=== PATIENT | male | born 1960 | race Caucasian/White ===

== ENCOUNTER 2016-11-20 11:16 | Emergency (ER) | payer SELFPAY ==
[~2016-11-20] VITALS: Ht 180.3 cm; Wt 83.0 kg
[~2016-11-20 11:16] MED LIST: BACT800T5 PO; GABA300 PO; GLUCTAB PO
[2016-11-20 11:17] VITALS: BP 133/75; PULSE 96; RESP 20; TEMP 97.8; O2SAT 98
--- NOTE | 2016-11-20 11:46 | PD ---
HPI . laceration to dorsum of hand since yesterday Chief Complaint: Laceration/Skin Injury Time Seen by Provider: 11:35 Travel History International Travel<30 days: No Contact w/Intl Traveler<30days: No Traveled to known affect area: No History of Present Illness HPI 56-year-old male here with complaints of a small laceration to the dorsum of his right hand that he sustained yesterday while cutting some tile. Patient tells me that he sustained a laceration and tried to clean it at home with peroxide. He says that he thought it would heal up, but realized that it was a little bit deep and he should come into the emergency department for evaluation. Patient denies any pain in this area. He has full range of motion of all of his digits. He is up-to-date on his tetanus vaccine. PFSH Past Medical History Cancer: No Cardiovascular Problems: No Diabetes: Yes (metformin) Endocrine: Yes Genitourinary: No Immune Disorder: No Musculoskeletal: No Neurologic: No Reproductive: No Respiratory: No Past Surgical History Abdominal Surgery: No Cardiac Surgery: No Endocrine Surgery: No Eye Surgery: Yes (BILATERAL CATARACT) Genitourinary Surgery: No Gynecologic Surgery: No Joint Replacement: Yes (TOTAL RT KNEE AND RT HIP ARTHROPLASTY) Thoracic Surgery: No Social History Alcohol Use: No Tobacco Use: Yes Substance Use: No Allergies-Medications (Allergen,Severity, Reaction): Coded Allergies: Iodine (Verified Allergy, Unknown, 11/20/16) *MDRO Multi-Drug Resistant Organism (Verified Adverse Reaction, Unknown, ) 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 Review of Systems General / Constitutional: No: Fever Eyes: No: Visual changes HENT: No: Headaches Cardiovascular: No: Chest Pain or Discomfort Respiratory: No: Shortness of Breath Gastrointestinal: No: Abdominal Pain Genitourinary: No: Dysuria Musculoskeletal: No: Pain Skin: Positive Other (laceration to dorsum of right hand), No Rash Neurologic: No: Weakness Psychiatric: No: Depression Endocrine: No: Polydipsia Hematologic/Lymphatic: No: Easy Bruising Physical Exam Narrative GENERAL: AAO x 3, no acute distress, Well-nourished, well-developed patient. SKIN: Warm and dry. No visible rashes or bruising. small laceration 1 cm to the dorsum of the right hand, clean without evidence of fb HEAD: Normocephalic and atraumatic. EYES: No scleral icterus. No injection or drainage. ENT: No nasal drainage noted. Airway patent. NECK: Supple, trachea midline. No JVD. CARDIOVASCULAR: Regular rate and rhythm without murmurs, gallops, or rubs. RESPIRATORY: Breath sounds equal bilaterally. No accessory muscle use. No rhonchi or rales. GASTROINTESTINAL: Abdomen soft, non-tender, nondistended. EXTREMITIES: No cyanosis or edema. full rom of right hand. 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 No CVA tenderness. PSYCH: AAO x 3, normal affect. Data Data Last Documented VS Vital Signs Date Time Temp Pulse Resp B/P Pulse Ox O2 Delivery O2 Flow Rate FiO2 11/20/16 11:17 97.8 96 20 133/75 98 Room Air MDM Medical Decision Making Medical Screen Exam Complete: Yes Emergency Medical Condition: Yes Medical Record Reviewed: Yes Differential Diagnosis hand laceration, less likely tendon injury, less likely fracture Narrative Course This is a 56-year-old male presenting with a small 1 cm laceration to the dorsum of his right hand. Area was inspected and is amenable to repair with Dermabond and Steri-Strips. It is a fairly superficial laceration. Patient consented to repair and tolerated it well without incident. We discussed keeping this area clean and free of dirt/debris. I advised him to refrain from moisture to the area. I explained the Steri-Strips will fall off by themselves. Patient verbalized understanding of instructions, questions were answered, and thanked me for their care. I advised them if their condition worsens, please return to the nearest emergency room for further care. Procedures Procedure Narrative LACERATION LOCATION: Right hand dorsum between the thumb and index finger LENGTH: 1 cm NUMBER OF STITCHES/SOHAN: Dermabond and Steri-Strips REPAIR: The area of the laceration was prepped with Betadine and sterilely draped. The wound was copiously irrigated and explored without evidence of foreign body, tendon injury or neurovascular injury. The wound was closed using Dermabond and Steri-Strips. This was a single layer repair. A sterile dressing was applied. The patient was advised to keep the dressing clean and dry. Patient tolerated the procedure well. Diagnosis Primary Impression: Hand laceration Qualified Code: S61.411A - Laceration of right hand without foreign body, initial encounter Patient Instructions: General Instructions Additional Instructions: Try to keep the area that was repaired free from moisture and clean. [place] for worsening signs of infection which include fever, increased redness , increased warmth, purulent drainage, increased swelling or streaking. If any of these develop, please go to the nearest emergency room. The Steri-Strips will fall off by themselves. Med/Other Pt SpecificInfo: No Change to Meds Disposition: 01 DISCHARGE HOME Condition: Stable Nancy Barksdale November 20, 2016 11:46
== END 2016-11-20 11:50 | disposition home or self-care (01) ==
LOC: NEPK 11:16
DX: S61.411A Laceration without foreign body of right hand, initial encounter (principal); W45.8XXA Other foreign body or object entering through skin, initial encounter; Y93.89 Activity, other specified
CPT/HCPCS: 12001

== ENCOUNTER 2016-12-23 17:54 | Emergency (ER) | payer SELFPAY ==
[~2016-12-23] VITALS: Ht 180.3 cm; Wt 84.0 kg
[2016-12-23 17:55] VITALS: BP 125/78; PULSE 93; RESP 18; TEMP 98.4; O2SAT 99
--- NOTE | 2016-12-23 18:22 | PD ---
HPI . elevated blood sugar Chief Complaint: Diabetic Time Seen by Provider: 18:22 Travel History International Travel<30 days: No Contact w/Intl Traveler<30days: No Traveled to known affect area: No History of Present Illness HPI 56-year-old male with history of diabetes here with complaints of elevated blood sugar. Patient tells me that he checked his blood sugar and it was over 600. He says that at that time he had some slight dizziness. He decided to come to the emergency department for evaluation. Upon further questioning patient reports that he's been out of his insulin for over one week. He tells me that he does not get paid until Tuesday and was unable to get the prescription filled. He reports taking Novolin 70/30 15 units in the morning and 25 units at bedtime. He is a patient of [facility] and tells me that he needs to make an appointment for follow-up. At this present time here in the emergency room he denies any dizziness. He has no other complaints. PFSH Past Medical History Cancer: No Cardiovascular Problems: No Diabetes: Yes (TYPE 2; TAKES HUMALOG) Endocrine: Yes Genitourinary: No Immune Disorder: No Musculoskeletal: No Neurologic: No Reproductive: No Respiratory: No ?: Not Past Surgical History Abdominal Surgery: No Cardiac Surgery: No Endocrine Surgery: No Eye Surgery: Yes (BILATERAL CATARACT) Genitourinary Surgery: No Gynecologic Surgery: No Joint Replacement: Yes (TOTAL RT KNEE AND RT HIP ARTHROPLASTY) Thoracic Surgery: No Social History Alcohol Use: No Tobacco Use: Yes Substance Use: No Allergies-Medications (Allergen,Severity, Reaction): Coded Allergies: Iodine (Verified Allergy, Unknown, 12/23/16) *MDRO Multi-Drug Resistant Organism (Verified Adverse Reaction, Unknown, ) 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; 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 Reported Meds & Prescriptions Reported Meds & Active Scripts Active Novolin 70-30 Inj (Insulin Human Isoph/Insulin Regular) 1,000 Unit/10 Ml Vial 1 Units SQ DIRECTED 30 Days 15 units q am and 25 units q pm Reported Humulin N Inj (Insulin Human NPH) 1,000 Unit/10 Ml Vial 1 Units SQ Review of Systems General / Constitutional: No: Fever Eyes: No: Visual changes HENT: No: Headaches Cardiovascular: No: Chest Pain or Discomfort Respiratory: No: Shortness of Breath Gastrointestinal: No: Abdominal Pain Genitourinary: No: Dysuria Musculoskeletal: No: Pain Skin: No Rash Neurologic: Positive: Dizziness, No: Weakness Psychiatric: No: Depression Endocrine: No: Polydipsia Hematologic/Lymphatic: No: Easy Bruising Physical Exam Narrative GENERAL: AAO x 3, no acute distress, Well-nourished, well-developed patient. SKIN: Warm and dry. No visible rashes or bruising. HEAD: Normocephalic and atraumatic. EYES: No scleral icterus. No injection or drainage. EOM intact, PERRLA ENT: No nasal drainage noted. Mucous membranes pink. Airway patent. Moist mucous membranes. NECK: Supple, trachea midline. No JVD. CARDIOVASCULAR: Regular rate and rhythm without murmurs, gallops, or rubs. RESPIRATORY: Breath sounds equal bilaterally. No accessory muscle use. No rhonchi or rales. GASTROINTESTINAL: Abdomen soft, non-tender, nondistended. EXTREMITIES: No cyanosis or edema. BACK: Nontender without obvious deformity. No CVA tenderness. 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 Data Data Last Documented VS Vital Signs Date Time Temp Pulse Resp B/P Pulse Ox O2 Delivery O2 Flow Rate FiO2 12/23/16 19:23 73 16 131/75 95 Room Air 12/23/16 17:55 98.4 Orders Forest Manager / Telemetry [email or web address] (12/23/16 18:25) ^ Insert Iv (12/23/16 18:25) Diet Npo (12/23/16 Dinner) Complete Blood Count With Diff (12/23/16 18:25) Comprehensive Metabolic Panel (12/23/16 18:25) Phosphorus (Po4) (12/23/16 18:25) Beta Hydroxybutyrate (Acetone) (12/23/16 18:25) Blood Glucose (12/23/16 18:25) Sodium Chlor 0.9% 1000 Ml Inj (Ns 1000 M (12/23/16 18:45) Orthostatic Vital Signs (12/23/16 18:54) Arterial Blood Gas (Abg) (12/23/16 18:53) ^ Other Nursing Orders (6/22/17 20:37) Labs Laboratory Tests Test 12/23/16 12/23/16 18:45 19:05 White Blood Count 11.0 TH/MM3 Red Blood Count 5.14 MIL/MM3 Hemoglobin 15.0 GM/DL Hematocrit 45.1 % Mean Corpuscular Volume 87.8 FL Mean Corpuscular Hemoglobin 29.2 PG Mean Corpuscular Hemoglobin 33.3 % Concent Red Cell Distribution Width 13.8 % Platelet Count 160 TH/MM3 Mean Platelet Volume 10.4 FL Neutrophils (%) (Auto) 54.1 % Lymphocytes (%) (Auto) 32.8 % Monocytes (%) (Auto) 10.0 % Eosinophils (%) (Auto) 2.6 % Basophils (%) (Auto) 0.5 % Neutrophils # (Auto) 6.0 TH/MM3 Lymphocytes # (Auto) 3.6 TH/MM3 Monocytes # (Auto) 1.1 TH/MM3 Eosinophils # (Auto) 0.3 TH/MM3 Basophils # (Auto) 0.1 TH/MM3 CBC Comment DIFF FINAL Differential Comment Sodium Level 142 MEQ/L Potassium Level 4.5 MEQ/L Chloride Level 108 MEQ/L Carbon Dioxide Level 26.1 MEQ/L Anion Gap 8 MEQ/L Blood Urea Nitrogen 14 MG/DL Creatinine 1.05 MG/DL Estimat Glomerular Filtration 74 ML/MIN Rate Random Glucose 135 MG/DL Calcium Level 9.3 MG/DL Phosphorus Level 3.4 MG/DL Total Bilirubin 0.3 MG/DL Aspartate Amino Transf 23 U/L (AST/SGOT) Alanine Aminotransferase 20 U/L (ALT/SGPT) Alkaline Phosphatase 88 U/L Total Protein 7.5 GM/DL Albumin 3.7 GM/DL B-Hydroxybutyrate 0.08 MMOL/L Blood Gas Puncture Site LT RADIAL Blood Gas Patient Temperature 98.6 Blood Gas HCO3 25 mmol/L Blood Gas Base Excess 1.0 mmol/L Blood Gas Oxygen Saturation 89 % Arterial Blood pH 7.45 Arterial Blood Partial 36 mmHg Pressure CO2 Arterial Blood Partial 68 mmHG Pressure O2 Arterial Blood Oxygen Content 17.7 Vol % Arterial Blood 5.1 % Carboxyhemoglobin Arterial Blood Methemoglobin 0.8 % Blood Gas Hemoglobin 14.2 G/DL Oxygen Delivery Device Blood Gas Inspired Oxygen 21 % MDM Medical Decision Making Medical Screen Exam Complete: Yes Emergency Medical Condition: Yes Medical Record Reviewed: Yes Differential Diagnosis uncontrolled DM, medication non compliance, DKA, Narrative Course 56-year-old male here with complaints of elevated blood sugar. Blood sugar here in the emergency department 130. Labs have been ordered. Patient has no evidence of DKA or gross electrolyte abnormalities.. He did report some dizziness. Orthostatic vitals were negative. 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 He reports dizziness only when standing very abruptly. I also assessed patient and his gait was steady. Case discussed with Dr. Doyle who agreed with the treatment plan. Patient verbalized understanding of instructions, questions were answered, and thanked me for their care. I advised them if their condition worsens, please return to the nearest emergency room for further care. Diagnosis Primary Impression: Type 2 diabetes mellitus Qualified Code: E11.9 - Type 2 diabetes mellitus without complication, with long-term current use of insulin Referrals: [facility] Patient Instructions: General Instructions Additional Instructions: Please return to emergency department if your symptoms return or worsen. Follow up with your primary care provider. Take medications as prescribed. Please take your insulin as prescribed. Med/Other Pt SpecificInfo: Prescription(s) given Scripts Insulin Human Isophane-Regular 70-30 Inj (Novolin 70-30 Inj)1,000 Unit/10 Ml Vial1 Units SQ DIRECTED 30 Days Ref 0 15 units q am and 25 units q pm Prov:Rich Miguel MD 12/23/16 Disposition: 01 DISCHARGE HOME Condition: Stable Nancy Barksdale Dec 23, 2016 18:22
[2016-12-23] MEDS ORDERED: INSU100V3 SQ (18:37)
[2016-12-23] MEDS ORDERED: SODIUM CHLOR 0.9% 1000 ML INJ 1,000 ML IV ONE (18:45)
[2016-12-23 19:15] LABS: BASOPHIL # 0.1 TH/MM3 (0-0.2); BASOPHIL % 0.5 % (0.0-2.0); EOSINOPHIL # 0.3 TH/MM3 (0-0.4); EOSINOPHIL % 2.6 % (0.0-4.0); HEMATOCRIT 45.1 % (39.0-51.0); HEMO FLAGS DIFF FINAL; LYMPH % 32.8 % (9.0-44.0); LYMPHOCYTE # 3.6 TH/MM3 (1.0-4.8); MEAN CELL VOLUME 87.8 FL (80.0-100.0); MEAN CORPUSCULAR HEMOGLOBIN 29.2 PG (27.0-34.0); MEAN CORPUSCULAR HGB CONC 33.3 % (32.0-36.0); NEUT % 54.1 % (16.0-70.0); PLATELET COUNT 160 TH/MM3 (150-450); RED BLOOD COUNT 5.14 MIL/MM3 (4.50-5.90); RED CELL DISTRIBUTION WIDTH 13.8 % (11.6-17.2)
[2016-12-23 19:20] LABS: BLOOD GAS CARBOXYHEMOGLOBIN 5.1 % (0-4); BLOOD GAS HCO3 25 mmol/L (22-26); BLOOD GAS METHEMOGLOBIN 0.8 % (0-2); BLOOD GAS O2 HGB SATURATION 89 % (90-100); BLOOD GAS OXYGEN CONTENT 17.7 Vol % (12.0-20.0); BLOOD GAS PCO2 36 mmHg (38-42); BLOOD GAS PO2 68 mmHG (61-120); BLOOD GAS TOTAL HGB 14.2 G/DL (12.0-16.0); TEMP CORR TO 98.6
[2016-12-23 19:21] VITALS: BP_SYST 123; BP_SYST 125; BP_SYST 131; BP_DIAS 75; BP_DIAS 81; RESP 16
[2016-12-23 19:22] LABS: CRITICAL VALUE YES; DRAW SITE LT RADIAL; FIO2 21 %; NUMBER OF ARTERIAL PUNCTURES 2; STAT YES; ULNAR PULSE PRESENT
[2016-12-23 19:23] VITALS: BP 131/75; PULSE 73; RESP 16; O2SAT 95
[2016-12-23 19:26] LABS: ANION GAP 8 MEQ/L (5-15); AST (GOT) 23 U/L (15-37); BICARBONATE 26.1 MEQ/L (21.0-32.0); BLOOD UREA NITROGEN 14 MG/DL (7-18); CHLORIDE 108 MEQ/L (98-107); GLOMERULAR FILTRATION RATE 74 ML/MIN (>89); POTASSIUM 4.5 MEQ/L (3.5-5.1); SODIUM (NA) 142 MEQ/L (136-145)
[2016-12-23 19:29] LABS: ALKALINE PHOSPHATASE 88 U/L (45-117); ALT (GPT) 20 U/L (12-78); BETA-HYDROXYBUTYRATE 0.08 MMOL/L (0.00-0.39); TOTAL BILIRUBIN ADULT 0.3 MG/DL (0.2-1.0)
[2016-12-23] MEDS ORDERED: NOVO7030P2 SQ (20:19)
== END 2016-12-23 21:03 | disposition home or self-care (01) ==
LOC: NEPC 17:54
DX: E11.65 Type 2 diabetes mellitus with hyperglycemia (principal); R42 Dizziness and giddiness; Z72.0 Tobacco use
CPT/HCPCS: 36600; 80053; 82010; 82805; 84100; 85025; 96360; 99284; J7030

== ENCOUNTER 2018-02-14 22:14 | Inpatient (IN) ==
[2018-02-15] MEDS ORDERED: Sodium Chlor 0.9% Inj 500 ML IV.SIG ONE (03:01)
[2018-02-15] MEDS ORDERED: Vancomycin Inj 1 GM/200 ML PIGGYBACK IV.SIG ONE (03:01)
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
[2018-02-15 03:32] LABS: Baso % (Auto) 0.3 % (0.0-2.0); Eos # (Auto) 0.1 th/mm3 (0.0-0.4); Eos % (Auto) 0.9 % (0.0-4.0); Hematocrit 42.5 % (39.0-51.0); Hemoglobin 14.1 gm/dL (13.0-17.0); Lymph # (Auto) 1.6 th/mm3 (1.0-4.8); Lymph % (Auto) 12.8 % (9.0-44.0); Mean Corpuscular HGB Conc 33.2 % (32.0-36.0); Mean Corpuscular Hemoglobin 30.2 pg (27.0-34.0); Mean Corpuscular Volume 90.9 fL (80.0-100.0); Mean Platelet Volume 9.4 fL (7.0-11.0); Mono # (Auto) 1.4 th/mm3 (0.0-0.9); Neut # (Auto) 9.5 th/mm3 (1.8-7.7); Platelet Count 235 th/mm3 (150-450); Red Blood Count 4.68 mil/mm3 (4.50-5.90); Red Cell Distribution Width 12.9 % (11.6-17.2); White Blood Count 12.7 th/mm3 (4.0-11.0)
[2018-02-15 03:49] LABS: Alanine Aminotransferase 15 U/L (12-78); Anion Gap 7 meq/L (5-15); Aspartate Aminotransferase 11 U/L (15-37); Blood Urea Nitrogen 9 mg/dL (7-18); Carbon Dioxide 29.3 meq/L (21.0-32.0); Chloride 100 meq/L (98-107); Glomerular Filtration Rate 77 mL/min (>89); Glucose,Random 298 mg/dL (74-106); Potassium 4.3 meq/L (3.5-5.1); Sodium 136 meq/L (136-145)
[2018-02-15 03:51] LABS: Alkaline Phosphatase 110 U/L (45-117); Total Protein 7.8 g/dL (6.4-8.2)
[2018-02-15] MEDS ORDERED: Acetaminophen 325 MG Tablet PO PRN (05:12)
[2018-02-15] MEDS ORDERED: Temazepam 15 MG Capsule PO PRN (05:12)
[2018-02-15] MEDS ORDERED: Dextrose 50% in Water 50 ML Vial IV.PUSH PRN (05:16)
[2018-02-15] MEDS ORDERED: Vancomycin Consult Pharmacy 1 EACH OTHER SCH (06:00)
[2018-02-15] MEDS ORDERED: Vancomycin Inj 1,000 MG in Sodium Chlor 0.9% Inj 250 ML IV.SIG ONE (06:00)
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
--- NOTE | 2018-02-15 07:08 | XR ---
EXAM DATE: 02/15/2018 6:52 AM EDT AGE/SEX: 57 years / Male INDICATIONS: Right foot pain with multiple ulcers. CLINICAL DATA: This is the patient's initial encounter. Patient reports that signs and symptoms have been present for 1 week and indicates a pain score of 8/10. MEDICAL/SURGICAL HISTORY: None. None. COMPARISON: No prior exams available for comparison. FINDINGS: There are areas of punctate densities in the soft tissues of the patient's first digit: Early may be calcifications or tiny radiopaque foreign bodies. There is questionable slight erosive changes of the adjacent first distal phalanx questionable for osteomyelitis in the appropriate clinical setting. CONCLUSION: Soft tissue densities as above with questionable osteomyelitis of the first distal phalanx. Electronically signed by: Kristyn Pro MD 02/15/2018 7:07 AM EDT
[2018-02-15] MEDS ORDERED: Enoxaparin Inj 40 MG/0.4 ML Syringe SQ SCH (09:00)
[2018-02-15] MEDS: Insulin NovoLOG Aspart Correctional Sugar Inj SQ SCH ×5 (09:09→21:50)
--- NOTE | 2018-02-15 10:25 | P.PN ---
Subjective Interval history: Follow-up sepsis/right foot cellulitis versus osteomyelitis February 15, 2018-patient seen and examined, currently afebrile and denies any right lower extremity pain. Patient states he is on metformin 5 mg twice a day. Still smokes half a pack. Physical Exam Vital signs: Vital Signs 02/14/18 23:07 02/15/18 02:44 02/15/18 04:00 Temperature 98.5 F Pulse Rate 108 H 84 78 Respiratory Rate 18 12 16 Blood Pressure 120/69 122/92 H 114/66 Pulse Oximetry 97 97 98 02/15/18 07:43 Temperature Pulse Rate 76 Respiratory Rate 16 Blood Pressure 131/75 Pulse Oximetry 98 Intake & Output 02/14/18 02/15/18 02/15/18 18:59 06:59 18:59 Weight 88.451 kg Narrative: GENERAL: NAD SKIN: Warm and dry. HEAD: Atraumatic. Normocephalic. EYES: Pupils equal and round. No scleral icterus. No injection or drainage. ENT: No nasal bleeding or discharge. Mucous membranes pink and moist. NECK: Trachea midline. No JVD. CARDIOVASCULAR: Regular rate and rhythm. RESPIRATORY: No accessory muscle use. Clear to auscultation. Breath sounds equal bilaterally. GASTROINTESTINAL: Abdomen soft, non-tender, nondistended. Hepatic and splenic margins not palpable. MUSCULOSKELETAL: Extremities without clubbing, cyanosis, or edema. No obvious deformities. NEUROLOGICAL: Awake and alert. No obvious cranial nerve deficits. Motor grossly within normal limits. Five out of 5 muscle strength in the arms and legs. Normal speech. PSYCHIATRIC: Appropriate mood and affect; insight and judgment normal. Results - Labs CBC & Chem 7: 02/15/18 02:30 02/15/18 02:30 Laboratory Results - last 24 hr 02/15/18 02/15/18 02/15/18 02:30 02:30 02:45 WBC 12.7 H RBC 4.68 Hgb 14.1 Hct 42.5 MCV 90.9 MCH 30.2 MCHC 33.2 RDW 12.9 Plt Count 235 MPV 9.4 Neut % (Auto) 75.0 H Lymph % (Auto) 12.8 Real % (Auto) 11.0 H Eos % (Auto) 0.9 Baso % (Auto) 0.3 Neut # (Auto) 9.5 H Lymph # (Auto) 1.6 Real # (Auto) 1.4 H Eos # (Auto) 0.1 Baso # (Auto) 0.0 WBC Differential . Differential Comment Auto diff final Sodium 136 Potassium 4.3 Chloride 100 Carbon Dioxide 29.3 Anion Gap 7 BUN 9 Creatinine 1.01 Estimated GFR 77 L POC Glucose Random Glucose 298 H Lactic Acid 1.1 Calcium 9.0 Total Bilirubin 0.5 AST 11 L ALT 15 Alkaline Phosphatase 110 Total Protein 7.8 Albumin 3.0 L 02/15/18 09:05 WBC RBC Hgb Hct MCV MCH MCHC RDW Plt Count MPV Neut % (Auto) Lymph % (Auto) Real % (Auto) Eos % (Auto) Baso % (Auto) Neut # (Auto) Lymph # (Auto) Real # (Auto) Eos # (Auto) Baso # (Auto) WBC Differential Differential Comment Sodium Potassium Chloride Carbon Dioxide Anion Gap BUN Creatinine Estimated GFR POC Glucose 293 H Random Glucose Lactic Acid Calcium Total Bilirubin AST ALT Alkaline Phosphatase Total Protein Albumin - Imaging Impressions Foot X-Ray 02/15/18 00:00 CONCLUSION: Soft tissue densities as above with questionable osteomyelitis of the first distal phalanx. Assessment and Plan - Plan 57-year-old man with Sepsis, Foot ulcer with cellulites, possible necrotic vs gangrene vs fungal with foul smell WBC 12.7, HR 108 -IV antibiotics Vancomycin and doxycycline, however will discontinue doxycycline and start Rocephin IV daily instead -Awaiting for consultation from podiatry for recommendations -Pain management with IV morphine -Consult infectious disease for evaluation -Wound culture ordered, blood cultures pending -Change diet to ADA -Check left foot MRI to rule out osteomyelitis -Check ANNETTA and CTA runoff Tobacco abuse -Tobacco counseling cessation provided -Start nicotine patch Diabetes, chronic -Accu checks with SSI -Diabetic diet Check hemoglobin A1c DVT prophylaxis: SCDs on non affected leg
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
[2018-02-15] MEDS: Collagenase Oint 30 GM Tube TOPICAL SCH (11:43)
--- NOTE | 2018-02-15 12:05 | XR ---
EXAM DATE: 02/15/2018 11:17 AM EDT AGE/SEX: 57 years / Male INDICATIONS: Open sores on medial side of left heel. CLINICAL DATA: This is the patient's initial encounter. Patient reports that signs and symptoms have been present for 4 - 6 days and indicates a pain score of 0/10. MEDICAL/SURGICAL HISTORY: Diabetes. None. COMPARISON: No prior exams available for comparison. FINDINGS: Bony structures are intact and in normal alignment. Osseous density is normal. Soft tissues are unre markable. No radiopaque foreign bodies seen. Bone spurs posterior calcaneus. CONCLUSION: Bone spurs posterior calcaneus at Achilles and plantar fascial insertion sites. Vascular calcificatio ns. No acute bony abnormality. Electronically signed by: Freddy Fowler MD 02/15/2018 12:03 PM EDT
--- NOTE | 2018-02-15 12:15 | P.CONID ---
History of Present Illness Service: Infectious disease Consult date: 02/15/18 Requesting Physician: Bobo Carpenter Reason for Consult: Evaluate patient with cellulitis right lower extremity Primary Care Provider: No Primary Care Physician Family Provider: No Primary Care Physician History of Present Illness: Patient seen and examined. Records reviewed. Patient is a 57-year-old male, with known diabetes, presented to the hospital with 1 day history of pain and redness on his right foot. 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 He had noted some redness on his right foot about 2 days prior to admission, and on the day of admission he noted a sore on his big toe. He does not know how he got it but made some assumption that it was probably from his new boots. He also has some wound develop on his left ankle. He has not had any fever chills or sweats. He denies any GI or any urinary complaints. Since admission he has not been febrile. X-ray of his right foot is showing some some suggestion of possible early osteo-on his big toe. Infectious disease consultation has been requested to assist with evaluation and treatment. Review of Systems Constitutional: Denies chills, Denies fever(s) Eyes: Denies discharge, Denies irritation Ears, Nose, Mouth, and Throat: Denies difficulty swallowing, Denies ear pain, Denies nasal discharge, Denies pain with swallowing, Denies sore throat Cardiovascular: Denies chest pain, Denies shortness of breath Respiratory: Denies chest congestion, Denies cough Gastrointestinal: Denies abdominal pain, Denies loose stools, Denies nausea, Denies pain with swallowing, Denies vomiting Genitourinary: Denies painful urination Musculoskeletal: Denies muscle weakness Skin/Breast: Reports sores, Denies rash PMFSH - History History Provided By: Patient - Medical History Medical History: Medical History (Last Updated 02/14/18 @ 23:09 by Maryann Skinner) Diabetes - Surgical History Surgical History: Surgical History (Last Updated 02/14/18 @ 23:09 by Maryann Skinner) History of eye surgery - Family History Family History: Family History (Last Updated 02/15/18 @ 05:29 by MATT Taylor) Other Diabetes - Tobacco History Second Hand Smoke Exposure: Yes Tobacco Use In Past 30 Days: Yes Smoking Status: Current every day smoker Tobacco Type: Cigarettes - Alcohol History How Often Do You Have a Drink Containing Alcohol: Monthly or less (quit 20 years ago) - Substance Use History Substance History: Past History - Substance Use Type Crack/Cocaine Status: Sustained Remission Route Used: Inhalation Last Used: 20 years - Travel History Recent Travel in the [place] Within the Last 8 Weeks: No Recent Travel Out of the Country Within the Last 8 Weeks: No - Immunization History Tetanus Immunization: <5 Years Hx Influenza Vaccine This Season: No Medications and Allergies Active Medications: Active Medications Acetaminophen (Tylenol) 650 mg PO Q4H PRN PRN Reason: Temp > 100.4 Collagenase (Santyl Oint) 1 applicatio TOPICAL DAILY [facility] Last Admin: 02/15/18 11:43 Dose: 1 applicatio Dextrose (D50w Vial) 50 ml IV.PUSH UNSCH PRN PRN Reason: PER HYPOGLYCEMIA PROTOCOL Glucagon (Glucagon Inj) 1 mg OTHER PRN PRN PRN Reason: for Hypoglycemia Protocol Pharmacy Profile Note (Vancomycin Consult Pharmacy) 0 mls @ 0 mls/hr OTHER UNSCH [facility] Vancomycin HCl 1,750 mg/ (Sodium Chloride) 517.5 mls @ 250 mls/hr IV.SIG Q12H [facility] Ceftriaxone Sodium 1,000 mg/ (Sodium Chloride) 100 mls @ 200 mls/hr IV.SIG Q24H [facility] Last Admin: 02/15/18 11:48 Dose: 200 mls/hr Insulin Aspart (Novolog Insulin Correctional Sugar Inj) 0 unit SQ ACHS [facility]; Protocol Last Admin: 02/15/18 09:09 Dose: 7 unit Miscellaneous Information ([facility] Ordered Lab Info) 0 each OTHER ONCE ONE Stop: 02/17/18 05:46 Morphine Sulfate (Morphine Inj) 2 mg IV.PUSH Q3H PRN PRN Reason: PAIN 1-10 Ondansetron HCl (Zofran Inj) 4 mg IV.PUSH Q6H PRN PRN Reason: NAUSEA OR VOMITING Temazepam (Restoril) 15 mg PO HS PRN PRN Reason: INSOMNIA Allergies Allergy/AdvReac Type Severity Reaction Status Date / Time iodine Allergy Unknown Swelling Verified 02/15/18 03:06 potassium iodide Allergy Unknown Swelling Verified 02/15/18 03:06 povidone-iodine Allergy Unknown Swelling Verified 02/15/18 03:06 sodium iodide Allergy Unknown Swelling Verified 02/15/18 03:06 sodium iodide Allergy Unknown Swelling Verified 02/15/18 03:06 *MDRO Multi-Drug Resistant AdvReac Unknown n/a Uncoded 02/15/18 03:06 Organism Home Medications Medication Instructions Recorded Confirmed Type metformin 500 mg PO BID 02/15/18 02/15/18 History Exam Vital signs: Vital Signs 02/14/18 23:07 02/15/18 02:44 02/15/18 04:00 Temperature 98.5 F Pulse Rate 108 H 84 78 Respiratory Rate 18 12 16 Blood Pressure 120/69 122/92 H 114/66 Pulse Oximetry 97 97 98 02/15/18 07:43 Temperature Pulse Rate 76 Respiratory Rate 16 Blood Pressure 131/75 Pulse Oximetry 98 Intake & Output 02/14/18 02/15/18 02/15/18 18:59 06:59 18:59 Weight 88.451 kg Narrative: Physical Examination GENERAL: Patient is a well-nourished, well-developed male, awake and alert, not in respiratory distress. SKIN: Warm and dry. No generalized rash, no ecchymoses and no evidence of embolic lesions. HEAD: Atraumatic. Normocephalic. No temporal wasting, or tenderness. EYES: [place] conjunctiva. No petechia or hemorrhage. Pupils equal, round and reactive to light. Extraocular movements full and intact. No scleral icterus. No injection or drainage. EARS, NOSE AND THROAT: Nose without bleeding or purulent nasal discharge. No sinus tenderness. Mucous membranes pink and moist. No oral lesions noted. NECK: Trachea midline. Supple and not tender, no meningeal signs CARDIOVASCULAR: Regular rate and rhythm. No murmurs, rubs or gallops heard RESPIRATORY: Clear to auscultation. Breath sounds equal bilaterally. No rales , wheezing or rhonchi ABDOMEN: Soft, non-tender, nondistended. Bowel sounds present and normoactive. No guarding. No rebound. No organomegaly. EXTREMITIES: No clubbing, cyanosis, or edema. R foot - has black ulcer on his big, has erythema on his R foot up to his R leg, (+) odor. L foot there is an ulcer on medial ankle with mild periwound erythema, (+) odor, has slough. No calf tenderness. Well perfused and warm. NEUROLOGICAL: Awake and alert. Cranial nerves grossly intact. Motor grossly within normal limits. PSYCHIATRIC: Normal affect, calm and cooperative. LINE: No evidence of infection Results - Labs CBC & Chem 7: 02/15/18 02:30 02/15/18 02:30 Labs: Laboratory Results - last 24 hr 02/15/18 02/15/18 02/15/18 02:30 02:30 02:45 WBC 12.7 H RBC 4.68 Hgb 14.1 Hct 42.5 MCV 90.9 MCH 30.2 MCHC 33.2 RDW 12.9 Plt Count 235 MPV 9.4 Neut % (Auto) 75.0 H Lymph % (Auto) 12.8 [place] % (Auto) 11.0 H Eos % (Auto) 0.9 Baso % (Auto) 0.3 Neut # (Auto) 9.5 H Lymph # (Auto) 1.6 [place] # (Auto) 1.4 H Eos # (Auto) 0.1 Baso # (Auto) 0.0 WBC Differential . Differential Comment Auto diff final Sodium 136 Potassium 4.3 Chloride 100 Carbon Dioxide 29.3 Anion Gap 7 BUN 9 Creatinine 1.01 Estimated GFR 77 L POC Glucose Random Glucose 298 H Lactic Acid 1.1 Calcium 9.0 Total Bilirubin 0.5 AST 11 L ALT 15 Alkaline Phosphatase 110 Total Protein 7.8 Albumin 3.0 L 02/15/18 09:05 WBC RBC Hgb Hct MCV MCH MCHC RDW Plt Count MPV Neut % (Auto) Lymph % (Auto) [place] % (Auto) Eos % (Auto) Baso % (Auto) Neut # (Auto) Lymph # (Auto) [place] # (Auto) Eos # (Auto) Baso # (Auto) WBC Differential Differential Comment Sodium Potassium Chloride Carbon Dioxide Anion Gap BUN Creatinine Estimated GFR POC Glucose 293 H Random Glucose Lactic Acid Calcium Total Bilirubin AST ALT Alkaline Phosphatase Total Protein Albumin - Imaging Impressions Foot X-Ray 02/15/18 00:00 CONCLUSION: Soft tissue densities as above with questionable osteomyelitis of the first distal phalanx. Foot X-Ray 02/15/18 00:00 CONCLUSION: Bone spurs posterior calcaneus at Achilles and plantar fascial insertion sites. Vascular calcifications. No acute bony abnormality. Assessment and Plan - Plan Impression Cellulitis RLE, with ulcer R big toe, possible osteo Wound L ankle, with very mild periwound erythema DM Recommendation IV Vanco IV Zosyn Agree with MRI Podiatry to see Follow C/S and adjust Abx Monitor progress I will follow along with you Thank you for this consultation
[2018-02-15] MEDS: Morphine Inj 4 MG/ML Vial IV.PUSH PRN (13:35)
--- NOTE | 2018-02-15 14:32 | P.PNVS ---
Subjective Subjective/Hospital Course: Petient seen Full consult dictated Thanks J Objective Vital Signs / I&O: Vital Signs 02/14/18 23:07 02/15/18 02:44 02/15/18 04:00 Temperature 98.5 F Pulse Rate 108 H 84 78 Respiratory Rate 18 12 16 Blood Pressure 120/69 122/92 H 114/66 Pulse Oximetry 97 97 98 02/15/18 07:43 Temperature Pulse Rate 76 Respiratory Rate 16 Blood Pressure 131/75 Pulse Oximetry 98 Intake & Output 02/14/18 02/15/18 02/15/18 18:59 06:59 18:59 Intake Total 100 / 100 Balance 100 / 100 Weight 88.451 kg Intake: IV 100 / 100 Rocephin Inj 1,000 MG In NS Inj 100 / 100 100 ML @ 200 mls/hr IV.SIG Q24H [facility] Rx#:[id number] Laboratory Results - last 24 hr 02/15/18 02/15/18 02/15/18 02:30 02:30 02:45 WBC 12.7 H RBC 4.68 Hgb 14.1 Hct 42.5 MCV 90.9 MCH 30.2 MCHC 33.2 RDW 12.9 Plt Count 235 MPV 9.4 Neut % (Auto) 75.0 H Lymph % (Auto) 12.8 [place] % (Auto) 11.0 H Eos % (Auto) 0.9 Baso % (Auto) 0.3 Neut # (Auto) 9.5 H Lymph # (Auto) 1.6 [place] # (Auto) 1.4 H Eos # (Auto) 0.1 Baso # (Auto) 0.0 WBC Differential . Differential Comment Auto diff final Sodium 136 Potassium 4.3 Chloride 100 Carbon Dioxide 29.3 Anion Gap 7 BUN 9 Creatinine 1.01 Estimated GFR 77 L POC Glucose Random Glucose 298 H Lactic Acid 1.1 Calcium 9.0 Total Bilirubin 0.5 AST 11 L ALT 15 Alkaline Phosphatase 110 Total Protein 7.8 Albumin 3.0 L 02/15/18 09:05 WBC RBC Hgb Hct MCV MCH MCHC RDW Plt Count MPV Neut % (Auto) Lymph % (Auto) [place] % (Auto) Eos % (Auto) Baso % (Auto) Neut # (Auto) Lymph # (Auto) [place] # (Auto) Eos # (Auto) Baso # (Auto) WBC Differential Differential Comment Sodium Potassium Chloride Carbon Dioxide Anion Gap BUN Creatinine Estimated GFR POC Glucose 293 H Random Glucose Lactic Acid Calcium Total Bilirubin AST ALT Alkaline Phosphatase Total Protein Albumin Impressions Foot X-Ray 02/15/18 00:00 CONCLUSION: Soft tissue densities as above with questionable osteomyelitis of the first distal phalanx. Foot X-Ray 02/15/18 00:00 CONCLUSION: Bone spurs posterior calcaneus at Achilles and plantar fascial insertion sites. Vascular calcifications. No acute bony abnormality.
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
--- NOTE | 2018-02-15 16:42 | MR ---
EXAM DATE: 02/15/2018 4:19 PM EDT AGE/SEX: 57 years / Male INDICATIONS: . Cellulitis. Wound heel of left foot CLINICAL DATA: This is the patient's initial encounter. Patient reports that signs and symptoms have been present for 4 - 6 days and indicates a pain score of 5/10. MEDICAL/SURGICAL HISTORY: Diabetes mellitus type II. . Left leg. Cataracts. COMPARISON: [facility], FOOT LEFT HEEL CALC MIN 2V, 02/15/2018. . TECHNIQUE: Multiplanar, multisequence MRI examination was performed without contrast and after th e intravenous administration of 7 ml Gadavist (gadobutrol) single exam dose. FINDINGS: The marrow signal is benign throughout the visualized foot. There is no evidence of soft tissue absce ss. No fracture, dislocation or bony destruction is identified. Tendinous and ligamentous structures are grossly intact. CONCLUSION: No acute findings Electronically signed by: Larry Boyer MD 02/15/2018 4:40 PM EDT
[2018-02-15] MEDS ORDERED: Gadobutrol PF 7.5 MMOL/7.5 ML Vial (for RAD) IV.SIG ONE (16:52)
--- NOTE | 2018-02-15 17:35 | MR ---
EXAM DATE: 02/15/2018 4:36 PM EDT AGE/SEX: 57 years / Male INDICATIONS: . Cellulitis. Wound ball of right foot. CLINICAL DATA: This is the patient's initial encounter. Patient reports that signs and symptoms have been present for 4 - 6 days and indicates a pain score of 5/10. MEDICAL/SURGICAL HISTORY: Diabetes mellitus type II. . Left leg. Cataracts. COMPARISON: [facility], FOOT COMPLETE RIGHT 3V, 02/15/2018. . TECHNIQUE: Multiplanar, multisequence MRI examination was performed without contrast and after th e intravenous administration of 7 ml Gadavist (gadobutrol) single exam dose. FINDINGS: There is soft tissue defect at the medial aspect of the great toe with surrounding ill-defined soft t issue edema and enhancement suggesting cellulitis. Ill-defined superficial soft tissue edema of the f orefoot. Cutaneous ulceration appears to extend to the medial surface of the great toe distal phalanx . There is diffuse bony edema of the distal phalanx and the distal pole of the proximal phalanx. Magn etic susceptibility artifact is seen at the plantar soft tissues of the great toe adjacent to the dis doug phalanx. This could represent a foreign body or gas in the soft tissues. Several calcific densiti es and possible gas in the soft tissues seen on radiographs. No definite correlation to the MR findin g. No confluent bone marrow signal abnormality on the precontrast T1-weighted images. All of the visualized tendons are intact. Plantar aponeurosis is intact. Sinus tarsi within normal li mits. CONCLUSION: 1. Plantar/medial cutaneous ulceration of the great toe extending to the surface of the distal phala nx. Diffuse soft tissue edema and enhancement in this region indicating cellulitis. No organized absc ess identified. 2. Diffuse bony edema of the distal phalanx and distal pole of the proximal phalanx. Mild bony enhan cement on the postcontrast images. No confluent bone marrow signal abnormality on the precontrast T1- weighted images. As the ulceration appears to extend to the bone. Findings are highly suspicious for osteomyelitis. 3. Focal magnetic susceptibility artifact in the plantar soft tissues of the great toe may represent a foreign body or gas. Multiple small calcific densities are seen on radiographs as well as possible gas in the soft tissue on radiographs. The radiographic findings are more extensive than the MR find ing however. Electronically signed by: Tadeo Mansfield MD 02/15/2018 5:34 PM EDT
[2018-02-15] MEDS: Vancomycin Inj 1,750 MG in Sodium Chlor 0.9% Inj 500 ML IV.SIG SCH (18:25)
[2018-02-16 05:16] LABS: Baso % (Auto) 0.2 % (0.0-2.0); Eos % (Auto) 0.2 % (0.0-4.0); Hematocrit 41.6 % (39.0-51.0); Hemoglobin 14.1 gm/dL (13.0-17.0); Lymph # (Auto) 0.8 th/mm3 (1.0-4.8); Lymph % (Auto) 7.2 % (9.0-44.0); Mean Corpuscular HGB Conc 33.8 % (32.0-36.0); Mean Corpuscular Hemoglobin 30.2 pg (27.0-34.0); Mean Corpuscular Volume 89.4 fL (80.0-100.0); Mean Platelet Volume 9.8 fL (7.0-11.0); Mono # (Auto) 0.3 th/mm3 (0.0-0.9); Mono % (Auto) 2.6 % (0.0-8.0); Neut # (Auto) 10.5 th/mm3 (1.8-7.7); Neut % (Auto) 89.8 % (16.0-70.0); Platelet Count 242 th/mm3 (150-450); Red Blood Count 4.65 mil/mm3 (4.50-5.90); Red Cell Distribution Width 13.1 % (11.6-17.2); White Blood Count 11.7 th/mm3 (4.0-11.0)
[2018-02-16 05:28] LABS: Anion Gap 6 meq/L (5-15); Blood Urea Nitrogen 15 mg/dL (7-18); Calcium 8.7 mg/dL (8.5-10.1); Chloride 104 meq/L (98-107); Glomerular Filtration Rate Greater Than 89 mL/min (>89); Glucose,Random 261 mg/dL (74-106); Potassium 4.8 meq/L (3.5-5.1); Sodium 137 meq/L (136-145)
[2018-02-16] MEDS: Vancomycin Inj 1,750 MG in Sodium Chlor 0.9% Inj 500 ML IV.SIG SCH ×2 (05:50→17:14)
[2018-02-16] MEDS: Insulin NovoLOG Aspart Correctional Sugar Inj SQ SCH ×4 (08:33→21:14)
[2018-02-16] MEDS: Collagenase Oint 30 GM Tube TOPICAL SCH (08:33)
[2018-02-16 12:05] LABS: Hemoglobin A1c 9.9 % (4.3-6.0)
--- NOTE | 2018-02-16 12:58 | P.PNID ---
Subjective Remarks: Patient is a 57-year-old male, with known diabetes, presented to the hospital with 1 day history of pain and redness on his right foot. 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 He had noted some redness on his right foot about 2 days prior to admission, and on the day of admission he noted a sore on his big toe. He does not know how he got it but made some assumption that it was probably from his new boots. He also has some wound develop on his left ankle. He has not had any fever chills or sweats. He denies any GI or any urinary complaints. Since admission he has not been febrile. X-ray of his right foot is showing some some suggestion of possible early osteo-on his big toe. Infectious disease consultation has been requested to assist with evaluation and treatment. Notes reviewed Temps ok MRI R foot - osteo big toe CTA per vascular surgery Antibiotics: Vanco Zosyn Lines: PIV no evid of infection Past Medical History: Diabetes Eye surgery Allergies/Adverse Reactions: Allergies iodine Allergy (Unknown, Verified 02/15/18 03:06) Swelling potassium iodide Allergy (Unknown, Verified 02/15/18 03:06) Swelling povidone-iodine Allergy (Unknown, Verified 02/15/18 03:06) Swelling sodium iodide Allergy (Unknown, Verified 02/15/18 03:06) Swelling sodium iodide Allergy (Unknown, Verified 02/15/18 03:06) Swelling *MDRO Multi-Drug Resistant Organism Adverse Reaction (Unknown, Uncoded 02/15/18 03:06) n/a 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; 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 Objective Vital Signs 02/15/18 17:08 02/15/18 20:00 02/16/18 00:00 Temperature 98.5 F 97.7 F 97.9 F Pulse Rate 83 78 83 Respiratory Rate 19 17 17 Blood Pressure 126/84 115/68 157/74 H Pulse Oximetry 100 100 98 02/16/18 04:09 02/16/18 08:00 Temperature 98 F 97.5 F L Pulse Rate 76 75 Respiratory Rate 17 18 Blood Pressure 131/65 120/61 Pulse Oximetry 99 93 L Intake & Output 02/15/18 02/16/18 02/16/18 18:59 06:59 18:59 Intake Total 1870 / 0 517.5 / 517.5 517.5 / 517.5 Output Total 300 / 300 Balance 1869 / 1870 217.5 / 217.5 517.5 / 517.5 Weight 88.9 kg Intake: IV 1150 / 1150 517.5 / 517.5 517.5 / 517.5 Doxy 100 Inj 100 MG In NS Inj 100 / 100 100 ML @ 100 mls/hr IV.SIG Q12H [facility] Rx#:[id number] Vancomycin Inj 1 gm In 200 ml @ 200 / 200 200 mls/hr IV.SIG ONCE ONE Rx# :[id number] Vancomycin Inj 1,000 MG In NS 250 / 250 Inj 250 ML @ 250 mls/hr IV.SIG ONCE ONE Rx#:[id number] Vancomycin Inj 1,750 MG In NS 517.5 / 517.5 517.5 / 517.5 Inj 500 ML @ 250 mls/hr IV.SIG Q12H [facility] Rx#:[id number] Rocephin Inj 1,000 MG In NS Inj 100 / 100 100 ML @ 200 mls/hr IV.SIG Q24H [facility] Rx#:[id number] Oral 720 / 720 Output: Urine 300 / 300 02/15/18 02:45 Blood - Peripheral Aerobic Blood Culture - Preliminary No growth in 1 day 02/15/18 02:45 Blood - Peripheral Anaerobic Blood Culture - Preliminary No growth in 1 day 02/15/18 02:35 Blood - Peripheral Aerobic Blood Culture - Preliminary No growth in 1 day 02/15/18 02:35 Blood - Peripheral Anaerobic Blood Culture - Preliminary No growth in 1 day Lab - Hematology Results 02/15/18 02/16/18 02:30 04:18 WBC 12.7 H 11.7 H RBC 4.68 4.65 Hgb 14.1 14.1 Hct 42.5 41.6 MCV 90.9 89.4 MCH 30.2 30.2 MCHC 33.2 33.8 RDW 12.9 13.1 Plt Count 235 242 MPV 9.4 9.8 Neut % (Auto) 75.0 H 89.8 H Lymph % (Auto) 12.8 7.2 L [place] % (Auto) 11.0 H 2.6 Eos % (Auto) 0.9 0.2 Baso % (Auto) 0.3 0.2 Neut # (Auto) 9.5 H 10.5 H Lymph # (Auto) 1.6 0.8 L [place] # (Auto) 1.4 H 0.3 Eos # (Auto) 0.1 0.0 Baso # (Auto) 0.0 0.0 WBC Differential . . Differential Comment Auto diff final Auto diff final Lab - Chemistry Results 02/15/18 02/15/18 02/15/18 02:30 02:45 09:05 Sodium 136 Potassium 4.3 Chloride 100 Carbon Dioxide 29.3 Anion Gap 7 BUN 9 Creatinine 1.01 Estimated GFR 77 L POC Glucose 293 H Random Glucose 298 H Hemoglobin A1c Lactic Acid 1.1 Calcium 9.0 Total Bilirubin 0.5 AST 11 L ALT 15 Alkaline Phosphatase 110 Total Protein 7.8 Albumin 3.0 L 02/15/18 02/15/18 02/16/18 17:50 20:45 04:18 Sodium 137 Potassium 4.8 Chloride 104 Carbon Dioxide 27.0 Anion Gap 6 BUN 15 Creatinine 0.86 Estimated GFR Greater than 89 POC Glucose 183 H 228 H Random Glucose 261 H Hemoglobin A1c Lactic Acid Calcium 8.7 Total Bilirubin AST ALT Alkaline Phosphatase Total Protein Albumin 02/16/18 04:18 Sodium Potassium Chloride Carbon Dioxide Anion Gap BUN Creatinine Estimated GFR POC Glucose Random Glucose Hemoglobin A1c 9.9 H Lactic Acid Calcium Total Bilirubin AST ALT Alkaline Phosphatase Total Protein Albumin Imaging: ITS Impressions Extremity Arterial Study 02/15/18 00:00 CONCLUSION: 1. Significant reduction of the ABIs bilaterally with segmental pressures suggesting inflow disease. CTA with runoff could be performed to further assess if clinically warranted. Foot MRI 02/15/18 00:00 CONCLUSION: 1. Plantar/medial cutaneous ulceration of the great toe extending to the surface of the distal phalanx. Diffuse soft tissue edema and enhancement in this region indicating cellulitis. No organized abscess identified. 2. Diffuse bony edema of the distal phalanx and distal pole of the proximal phalanx. Mild bony enhancement on the postcontrast images. No confluent bone marrow signal abnormality on the precontrast T1-weighted images. As the ulceration appears to extend to the bone. Findings are highly suspicious for osteomyelitis. 3. Focal magnetic susceptibility artifact in the plantar soft tissues of the great toe may represent a foreign body or gas. Multiple small calcific densities are seen on radiographs as well as possible gas in the soft tissue on radiographs. The radiographic findings are more extensive than the MR finding however. Foot X-Ray 02/15/18 00:00 CONCLUSION: Bone spurs posterior calcaneus at Achilles and plantar fascial insertion sites. Vascular calcifications. No acute bony abnormality. Tibia/Fibula X-Ray 02/15/18 00:00 CONCLUSION: Negative exam. No fracture or radiopaque foreign body. Physical Exam: GENERAL: awake and alert, not in respiratory distress. SKIN: Warm and dry. No generalized rash HEAD: Atraumatic. Normocephalic. No temporal wasting, or tenderness. EYES: [place] conjunctiva. No petechia or hemorrhage. Pupils equal, round and reactive to light. No scleral icterus. No injection or drainage. EARS, NOSE AND THROAT: Nose without bleeding or purulent nasal discharge. Mucous membranes pink and moist. No oral lesions noted. NECK: Trachea midline. Supple and not tender, no meningeal signs CARDIOVASCULAR: Regular rate and rhythm. No murmurs, rubs or gallops heard RESPIRATORY: Clear to auscultation. Breath sounds equal bilaterally. No rales , wheezing or rhonchi ABDOMEN: Soft, non-tender, nondistended. Bowel sounds present and normoactive. No guarding. No rebound. No organomegaly. EXTREMITIES: No clubbing, cyanosis, or edema. R foot - has black ulcer on his big toe, has erythema on his R foot up to his R leg, looks less red, (+) odor. L foot there is an ulcer on medial ankle with mild periwound erythema, (+ ) odor, has less slough. No calf tenderness. Well perfused and warm. NEUROLOGICAL: Non-focal. PSYCHIATRIC: Normal affect, calm and cooperative. LINE: No evidence of infection Assessment and Plan - Plan Impression Cellulitis RLE, with ulcer R big toe, possible osteo on MRI Wound L ankle, with very mild periwound erythema DM Recommendation IV Vanco IV Zosyn Podiatry and vascular following Vascular work-up in progress prior to planned OR Monitor progress Explained plan to patient
--- NOTE | 2018-02-16 14:16 | CT ---
EXAM DATE: 02/16/2018 1:35 PM EDT AGE/SEX: 57 years / Male INDICATIONS: Severe PVD. CLINICAL DATA: This is the patient's initial encounter. Patient reports that signs and symptoms have been present for 1 week and indicates a pain score of 4/10. MEDICAL/SURGICAL HISTORY: Diabetes. None. RADIATION DOSE: 3.21 CTDI (mGy) Patient was premedicated per protocol for underlying contrast media allergy. Patient experienced a contrast media reaction. Reaction consisted of hives Patient was treated with d iphenhydramine (Benadryl) IV Patient should be appropriately medicated in the future if there is a me dical necessity for iodinated contrast. COMPARISON: No prior exams available for comparison. TECHNIQUE: Volumetric scanning was performed using a multi-row detector CT scanner during bolus infu anthony of 100 ml Omnipaque 350 (iohexol) nonionic water-soluble contrast as a single exam dose. The data was post processed with a variety of visualization algorithms including full volume maximum inte nsity projection, multi-planar sliding thin slab reformation, curved planar reformation, and surface rendering techniques. Using automated exposure control and adjustment of the mA and/or kV according to patient size, radiation dose was kept as low as reasonably achievable to obtain optimal diagnostic quality images. DICOM format image data is available electronically for review and comparison. FINDINGS: Angiographic Findings: Abdominal Aorta: Mild distal aortic calcified plaque without significant flow-limiting stenosis or a neurysm. Renal Arteries: Patent renal arteries. 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 SMA is p atent. EARL is patent. Right side: Inflow: Focal moderate stenosis of the distal right common iliac artery near the bifurcation. Interna l iliac arteries patent. External iliac arteries patent. The common femoral artery is patent. Outflow: The profunda is patent. SFA is occluded at the origin and reconstitutes at the adductor kaitlynn l via profunda collaterals. Popliteal artery is calcified but patent. Runoff: Diffusely calcified three-vessel runoff. Left side: Inflow: No significant focal iliac stenosis. The common femoral artery is patent. Outflow: The profunda is patent. [employer] is occluded at the origin and reconstitutes near the adductor ca nal via profunda collaterals. Popliteal artery is calcified but patent. Runoff: Diffusely calcified three-vessel runoff. General Findings: LOWER LUNGS: The visualized lower lungs are clear. LIVER: Mild diffusely decreased hepatic attenuation without volume loss. No calcified gallstones. SPLEEN: Homogeneous density without enlargement. PANCREAS: Diffuse fatty infiltration of the pancreas. KIDNEYS: Kidneys demonstrate symmetrical enhancement and are symmetrical in size without evidence fo r radiopaque renal calculi or hydronephrosis. ADRENAL GLANDS: Unremarkable. BOWEL/MESENTERY: The bowel loops are grossly unremarkable. Mild sigmoid diverticulosis. The cecum an d sigmoid colon have a normal configuration. ABDOMINAL WALL: Intact. RETROPERITONEUM: No evidence of adenopathy in the retrocrural, para-aortic, or deep pelvic regions. BLADDER: Bladder is distended but otherwise unremarkable. REPRODUCTIVE: No abnormal masses or calcifications seen. INGUINAL: The inguinal region is unremarkable without evidence of adenopathy. BONY STRUCTURES: No focal lytic or blastic bony lesions. CONCLUSION: 1. No significant aortic stenosis. 2. Focal moderate stenosis of the distal right common iliac artery near the bifurcation. 3. No left-sided iliac inflow stenosis. 4. Bilateral SFA occlusion at the origin with reconstitution at the adductor canal via profunda hollie aterals. 5. Calcified but patent popliteal arteries with diffusely calcified three-vessel runoff bilaterally. 6. Ancillary findings include mild diffusely decreased hepatic attenuation likely reflecting hepatic steatosis and mild sigmoid diverticulosis. Electronically signed by: Frank Yuan MD 02/16/2018 2:14 PM EDT
[2018-02-16] MEDS: Piperacil/Tazo 4.5 GM Premix 4.5 GM/100 ML BAG IV.SIG SCH ×2 (14:48→20:52)
--- NOTE | 2018-02-16 15:11 | P.PNIM ---
Subjective Interval history: The patient was resting comfortably in bed. He wanted to know when the IV antibiotics will be done infusing. He wanted a couple coffee. He said he lost his job because his boss fired him for missing 3 days. No other acute complaints. Discussed with nursing. Physical Exam Vital signs: Vital Signs 02/15/18 17:08 02/15/18 20:00 02/16/18 00:00 Temperature 98.5 F 97.7 F 97.9 F Pulse Rate 83 78 83 Respiratory Rate 19 17 17 Blood Pressure 126/84 115/68 157/74 H Pulse Oximetry 100 100 98 02/16/18 04:09 02/16/18 08:00 Temperature 98 F 97.5 F L Pulse Rate 76 75 Respiratory Rate 17 18 Blood Pressure 131/65 120/61 Pulse Oximetry 99 93 L Intake & Output 02/15/18 02/16/18 02/16/18 18:59 06:59 18:59 Intake Total 1870 / 1870 517.5 / 517.5 617.5 / 617.5 Output Total 300 / 300 Balance 1870 / 1870 217.5 / 217.5 617.5 / 617.5 Weight 88.9 kg Intake: IV 1150 / 1150 517.5 / 517.5 617.5 / 617.5 Doxy 100 Inj 100 MG In NS Inj 100 / 100 100 ML @ 100 mls/hr IV.SIG Q12H [facility] Rx#:[id number] Vancomycin Inj 1 gm In 200 ml @ 200 / 200 200 mls/hr IV.SIG ONCE ONE Rx# :[id number] Vancomycin Inj 1,000 MG In NS 250 / 250 Inj 250 ML @ 250 mls/hr IV.SIG ONCE ONE Rx#:[id number] Vancomycin Inj 1,750 MG In NS 517.5 / 517.5 517.5 / 517.5 Inj 500 ML @ 250 mls/hr IV.SIG Q12H [facility] Rx#:[id number] Rocephin Inj 1,000 MG In NS Inj 100 / 100 100 / 100 100 ML @ 200 mls/hr IV.SIG Q24H [facility] Rx#:[id number] Oral 720 / 720 Output: Urine 300 / 300 Other: Date of Last Bowel Movement 02/16/18 Narrative: GENERAL: No distress SKIN: Warm and dry. Right great toe swollen and with bluish discoloration, along with erythema of lower leg HEAD: Atraumatic. Normocephalic EYES: Pupils equal and round. No scleral icterus. No injection or drainage ENT: No nasal bleeding or discharge. Mucous membranes pink and moist NECK: Trachea midline. No JVD CARDIOVASCULAR: Regular rate and rhythm RESPIRATORY: No accessory muscle use. Clear to auscultation. Breath sounds equal bilaterally GASTROINTESTINAL: Abdomen soft, non-tender, nondistended. Hepatic and splenic margins not palpable MUSCULOSKELETAL: Lower extremity edema noted NEUROLOGICAL: Awake and alert. No obvious cranial nerve deficits. Motor grossly within normal limits. Five out of 5 muscle strength in the arms and legs. Normal speech. PSYCHIATRIC: Appropriate mood and affect; insight and judgment normal. Results - Labs CBC & Chem 7: 02/16/18 04:18 02/16/18 04:18 Laboratory Results - last 24 hr 02/15/18 02/15/18 02/16/18 17:50 20:45 04:18 WBC 11.7 H RBC 4.65 Hgb 14.1 Hct 41.6 MCV 89.4 MCH 30.2 MCHC 33.8 RDW 13.1 Plt Count 242 MPV 9.8 Neut % (Auto) 89.8 H Lymph % (Auto) 7.2 L [place] % (Auto) 2.6 Eos % (Auto) 0.2 Baso % (Auto) 0.2 Neut # (Auto) 10.5 H Lymph # (Auto) 0.8 L [place] # (Auto) 0.3 Eos # (Auto) 0.0 Baso # (Auto) 0.0 WBC Differential . Differential Comment Auto diff final Sodium Potassium Chloride Carbon Dioxide Anion Gap BUN Creatinine Estimated GFR POC Glucose 183 H 228 H Random Glucose Hemoglobin A1c Calcium 02/16/18 02/16/18 04:18 04:18 WBC RBC Hgb Hct MCV MCH MCHC RDW Plt Count MPV Neut % (Auto) Lymph % (Auto) [place] % (Auto) Eos % (Auto) Baso % (Auto) Neut # (Auto) Lymph # (Auto) [place] # (Auto) Eos # (Auto) Baso # (Auto) WBC Differential Differential Comment Sodium 137 Potassium 4.8 Chloride 104 Carbon Dioxide 27.0 Anion Gap 6 BUN 15 Creatinine 0.86 Estimated GFR Greater than 89 POC Glucose Random Glucose 261 H Hemoglobin A1c 9.9 H Calcium 8.7 Microbiology 02/15/18 02:45 Blood - Peripheral Aerobic Blood Culture - Preliminary No growth in 1 day 02/15/18 02:45 Blood - Peripheral Anaerobic Blood Culture - Preliminary No growth in 1 day 02/15/18 02:35 Blood - Peripheral Aerobic Blood Culture - Preliminary No growth in 1 day 02/15/18 02:35 Blood - Peripheral Anaerobic Blood Culture - Preliminary No growth in 1 day - Imaging Impressions Extremity Arterial Study 02/15/18 00:00 CONCLUSION: 1. Significant reduction of the ABIs bilaterally with segmental pressures suggesting inflow disease. CTA with runoff could be performed to further assess if clinically warranted. Foot MRI 02/15/18 00:00 CONCLUSION: No acute findings Foot MRI 02/15/18 00:00 CONCLUSION: 1. Plantar/medial cutaneous ulceration of the great toe extending to the surface of the distal phalanx. Diffuse soft tissue edema and enhancement in this region indicating cellulitis. No organized abscess identified. 2. Diffuse bony edema of the distal phalanx and distal pole of the proximal phalanx. Mild bony enhancement on the postcontrast images. No confluent bone marrow signal abnormality on the precontrast T1-weighted images. As the ulceration appears to extend to the bone. Findings are highly suspicious for osteomyelitis. 3. Focal magnetic susceptibility artifact in the plantar soft tissues of the great toe may represent a foreign body or gas. Multiple small calcific densities are seen on radiographs as well as possible gas in the soft tissue on radiographs. The radiographic findings are more extensive than the MR finding however. Aorta w/Runoff CTA 02/16/18 13:16 CONCLUSION: 1. No significant aortic stenosis. 2. Focal moderate stenosis of the distal right common iliac artery near the bifurcation. 3. No left-sided iliac inflow stenosis. 4. Bilateral SFA occlusion at the origin with reconstitution at the adductor canal via profunda collaterals. 5. Calcified but patent popliteal arteries with diffusely calcified three- vessel runoff bilaterally. 6. Ancillary findings include mild diffusely decreased hepatic attenuation likely reflecting hepatic steatosis and mild sigmoid diverticulosis. Assessment and Plan - Plan Sepsis Foot ulcer with cellulites. WBC 12.7, HR 108. MRI of foot concerning for OM on the right. Infectious disease, podiatry and vascular consults appreciated. -IV vancomycin and Zosyn per ID. -follow up with podiatry and vascular surgery. -Pain management with IV morphine. -Wound culture ordered, blood cultures pending. Tobacco abuse Tobacco counseling cessation provided. -Start nicotine patch. Diabetes Chronic. A1c 9.9%. -Accu checks with SSI. -Diabetic diet. -Levemir 10 units HS. DVT prophylaxis: SCDs on non affected leg
--- NOTE | 2018-02-16 15:47 | P.PNVS ---
Subjective Subjective/Hospital Course: Petient seen Full consult dictated Thanks J 02/16/2018 Patient with severe peripheral vascular disease and ischemia of the both feet ulcers of the both legs and possible osteomyelitis of the toe CTA with runoff was performed and it confirms the clinical impression. Patient is a good inflow with bilateral stenosis of common femoral arteries, occlusion of superficial femoral arteries and reconstitution of the popliteal arteries bilaterally. Beyond popliteal arteries trifurcations are open with scattered plaque and mild to moderate stenoses throughout Patient is a good candidate for femoral-popliteal bypasses bilaterally and will proceed with the same once cellulitis and infection controlled i.e. in next several days. Objective Vital Signs / I&O: Vital Signs 02/15/18 17:08 02/15/18 20:00 02/16/18 00:00 Temperature 98.5 F 97.7 F 97.9 F Pulse Rate 83 78 83 Respiratory Rate 19 17 17 Blood Pressure 126/84 115/68 157/74 H Pulse Oximetry 100 100 98 02/16/18 04:09 02/16/18 08:00 Temperature 98 F 97.5 F L Pulse Rate 76 75 Respiratory Rate 17 18 Blood Pressure 131/65 120/61 Pulse Oximetry 99 93 L Intake & Output 02/15/18 02/16/18 02/16/18 18:59 06:59 18:59 Intake Total 1870 / 1870 517.5 / 517.5 617.5 / 617.5 Output Total 300 / 300 Balance 1870 / 1870 217.5 / 217.5 617.5 / 617.5 Weight 88.9 kg Intake: IV 1150 / 1150 517.5 / 517.5 617.5 / 617.5 Doxy 100 Inj 100 MG In NS Inj 100 / 100 100 ML @ 100 mls/hr IV.SIG Q12H [facility] Rx#:[id number] Vancomycin Inj 1 gm In 200 ml @ 200 / 200 200 mls/hr IV.SIG ONCE ONE Rx# :[id number] Vancomycin Inj 1,000 MG In NS 250 / 250 Inj 250 ML @ 250 mls/hr IV.SIG ONCE ONE Rx#:[id number] Vancomycin Inj 1,750 MG In NS 517.5 / 517.5 517.5 / 517.5 Inj 500 ML @ 250 mls/hr IV.SIG Q12H [facility] Rx#:[id number] Rocephin Inj 1,000 MG In NS Inj 100 / 100 100 / 100 100 ML @ 200 mls/hr IV.SIG Q24H [facility] Rx#:[id number] Oral 720 / 720 Output: Urine 300 / 300 Other: Date of Last Bowel Movement 02/16/18 Laboratory Results - last 24 hr 02/15/18 02/15/18 02/16/18 17:50 20:45 04:18 WBC 11.7 H RBC 4.65 Hgb 14.1 Hct 41.6 MCV 89.4 MCH 30.2 MCHC 33.8 RDW 13.1 Plt Count 242 MPV 9.8 Neut % (Auto) 89.8 H Lymph % (Auto) 7.2 L [place] % (Auto) 2.6 Eos % (Auto) 0.2 Baso % (Auto) 0.2 Neut # (Auto) 10.5 H Lymph # (Auto) 0.8 L [place] # (Auto) 0.3 Eos # (Auto) 0.0 Baso # (Auto) 0.0 WBC Differential . Differential Comment Auto diff final Sodium Potassium Chloride Carbon Dioxide Anion Gap BUN Creatinine Estimated GFR POC Glucose 183 H 228 H Random Glucose Hemoglobin A1c Calcium 02/16/18 02/16/18 04:18 04:18 WBC RBC Hgb Hct MCV MCH MCHC RDW Plt Count MPV Neut % (Auto) Lymph % (Auto) [place] % (Auto) Eos % (Auto) Baso % (Auto) Neut # (Auto) Lymph # (Auto) [place] # (Auto) Eos # (Auto) Baso # (Auto) WBC Differential Differential Comment Sodium 137 Potassium 4.8 Chloride 104 Carbon Dioxide 27.0 Anion Gap 6 BUN 15 Creatinine 0.86 Estimated GFR Greater than 89 POC Glucose Random Glucose 261 H Hemoglobin A1c 9.9 H Calcium 8.7 Microbiology 02/15/18 02:45 Aerobic Blood Culture - Preliminary Blood - Peripheral No growth in 1 day Anaerobic Blood Culture - Preliminary No growth in 1 day 02/15/18 02:35 Aerobic Blood Culture - Preliminary Blood - Peripheral No growth in 1 day Anaerobic Blood Culture - Preliminary No growth in 1 day Impressions Extremity Arterial Study 02/15/18 00:00 CONCLUSION: 1. Significant reduction of the ABIs bilaterally with segmental pressures suggesting inflow disease. CTA with runoff could be performed to further assess if clinically warranted. Foot MRI 02/15/18 00:00 CONCLUSION: No acute findings Foot MRI 02/15/18 00:00 CONCLUSION: 1. Plantar/medial cutaneous ulceration of the great toe extending to the surface of the distal phalanx. Diffuse soft tissue edema and enhancement in this region indicating cellulitis. No organized abscess identified. 2. Diffuse bony edema of the distal phalanx and distal pole of the proximal phalanx. Mild bony enhancement on the postcontrast images. No confluent bone marrow signal abnormality on the precontrast T1-weighted images. As the ulceration appears to extend to the bone. Findings are highly suspicious for osteomyelitis. 3. Focal magnetic susceptibility artifact in the plantar soft tissues of the great toe may represent a foreign body or gas. Multiple small calcific densities are seen on radiographs as well as possible gas in the soft tissue on radiographs. The radiographic findings are more extensive than the MR finding however. Foot X-Ray 02/15/18 00:00 CONCLUSION: Soft tissue densities as above with questionable osteomyelitis of the first distal phalanx. Foot X-Ray 02/15/18 00:00 CONCLUSION: Bone spurs posterior calcaneus at Achilles and plantar fascial insertion sites. Vascular calcifications. No acute bony abnormality. Tibia/Fibula X-Ray 02/15/18 00:00 CONCLUSION: Negative exam. No fracture or radiopaque foreign body. Aorta w/Runoff CTA 02/16/18 13:16 CONCLUSION: 1. No significant aortic stenosis. 2. Focal moderate stenosis of the distal right common iliac artery near the bifurcation. 3. No left-sided iliac inflow stenosis. 4. Bilateral SFA occlusion at the origin with reconstitution at the adductor canal via profunda collaterals. 5. Calcified but patent popliteal arteries with diffusely calcified three- vessel runoff bilaterally. 6. Ancillary findings include mild diffusely decreased hepatic attenuation likely reflecting hepatic steatosis and mild sigmoid diverticulosis.
--- NOTE | 2018-02-16 16:08 | P.PNPOD ---
Subjective Interval history: Patient seen bedside. Denies any nausea vomiting fevers or chills. States he has been getting right hallux shower. Is aware of planned vascular intervention. Physical Exam Vital signs: Vital Signs 02/15/18 17:08 02/15/18 20:00 02/16/18 00:00 Temperature 98.5 F 97.7 F 97.9 F Pulse Rate 83 78 83 Respiratory Rate 19 17 17 Blood Pressure 126/84 115/68 157/74 H Pulse Oximetry 100 100 98 02/16/18 04:09 02/16/18 08:00 Temperature 98 F 97.5 F L Pulse Rate 76 75 Respiratory Rate 17 18 Blood Pressure 131/65 120/61 Pulse Oximetry 99 93 L Intake & Output 02/15/18 02/16/18 02/16/18 18:59 06:59 18:59 Intake Total 1870 / 1870 517.5 / 517.5 717.5 / 717.5 Output Total 300 / 300 Balance 1870 / 1870 217.5 / 217.5 717.5 / 717.5 Weight 88.9 kg Intake: IV 1150 / 1150 517.5 / 517.5 717.5 / 717.5 Doxy 100 Inj 100 MG In NS Inj 100 / 100 100 ML @ 100 mls/hr IV.SIG Q12H [facility] Rx#:[id number] Zosyn 4.5 GM Premix 4.5 gm In 100 / 100 100 ml @ 200 mls/hr IV.SIG Q6H [facility] Rx#:[id number] Vancomycin Inj 1 gm In 200 ml @ 200 / 200 200 mls/hr IV.SIG ONCE ONE Rx# :[id number] Vancomycin Inj 1,000 MG In NS 250 / 250 Inj 250 ML @ 250 mls/hr IV.SIG ONCE ONE Rx#:[id number] Vancomycin Inj 1,750 MG In NS 517.5 / 517.5 517.5 / 517.5 Inj 500 ML @ 250 mls/hr IV.SIG Q12H [facility] Rx#:[id number] Rocephin Inj 1,000 MG In NS Inj 100 / 100 100 / 100 100 ML @ 200 mls/hr IV.SIG Q24H [facility] Rx#:[id number] Oral 720 / 720 Output: Urine 300 / 300 Other: Date of Last Bowel Movement 02/16/18 Narrative: Lower extremity physical exam: Vascular: Dorsalis pedis nonpalpable, posterior tibial nonpalpable. Capillary refill time within normal limits to digits 5 bilateral foot. Edema present to right foot. Neuro: Gross sensation intact to bilateral lower extremity. Pinpoint sensation decreased. No hyperalgesia noted to bilateral lower extremity Dermatology: Right hallux medial ulceration with necrotic eschar base surrounding periwound erythema and serous drainage. No probe to bone noted. Left medial heel ulceration measuring approximately 2 cm x 1 cm fibrotic in nature with surrounding maceration. Musculoskeletal: Tender to palpation to right hallux. Medications and Allergies Active Medications: Active Medications Acetaminophen (Tylenol) 650 mg PO Q4H PRN PRN Reason: Temp > 100.4 Collagenase (Santyl Oint) 1 applicatio TOPICAL DAILY [facility] Last Admin: 02/16/18 08:33 Dose: 1 applicatio Dextrose (D50w Vial) 50 ml IV.PUSH UNSCH PRN PRN Reason: PER HYPOGLYCEMIA PROTOCOL Glucagon (Glucagon Inj) 1 mg OTHER PRN PRN PRN Reason: for Hypoglycemia Protocol Pharmacy Profile Note (Vancomycin Consult Pharmacy) 0 mls @ 0 mls/hr OTHER UNSCH [facility] Vancomycin HCl 1,750 mg/ (Sodium Chloride) 517.5 mls @ 250 mls/hr IV.SIG Q12H [facility] Last Infusion: 02/16/18 08:37 Dose: Infused Piperacillin/Tazobactam/Dextrose (Zosyn 4.5 Gm Premix) 4.5 gm in 100 mls @ 200 mls/hr IV.SIG Q6H [facility] Last Infusion: 02/16/18 15:46 Dose: Infused Insulin Aspart (Novolog Insulin Correctional Sugar Inj) 0 unit SQ ACHS [facility]; Protocol Last Admin: 02/16/18 13:04 Dose: 7 unit Insulin Detemir (Levemir Inj) 10 unit SQ HS [facility] Miscellaneous Information ([facility] Ordered Lab Info) 0 each OTHER ONCE ONE Stop: 02/17/18 05:46 Morphine Sulfate (Morphine Inj) 2 mg IV.PUSH Q3H PRN PRN Reason: PAIN 1-10 Last Admin: 02/15/18 13:35 Dose: 2 mg Ondansetron HCl (Zofran Inj) 4 mg IV.PUSH Q6H PRN PRN Reason: NAUSEA OR VOMITING Temazepam (Restoril) 15 mg PO HS PRN PRN Reason: INSOMNIA Allergies Allergy/AdvReac Type Severity Reaction Status Date / Time iodine Allergy Unknown Swelling Verified 02/15/18 03:06 potassium iodide Allergy Unknown Swelling Verified 02/15/18 03:06 povidone-iodine Allergy Unknown Swelling Verified 02/15/18 03:06 sodium iodide Allergy Unknown Swelling Verified 02/15/18 03:06 sodium iodide Allergy Unknown Swelling Verified 02/15/18 03:06 *MDRO Multi-Drug Resistant AdvReac Unknown n/a Uncoded 02/15/18 03:06 Organism Home Medications Medication Instructions Recorded Confirmed Type metformin 500 mg PO BID 02/15/18 02/15/18 History Results - Labs CBC & Chem 7: 02/16/18 04:18 02/16/18 04:18 Laboratory Results - last 24 hr 02/15/18 02/15/18 02/16/18 17:50 20:45 04:18 WBC 11.7 H RBC 4.65 Hgb 14.1 Hct 41.6 MCV 89.4 MCH 30.2 MCHC 33.8 RDW 13.1 Plt Count 242 MPV 9.8 Neut % (Auto) 89.8 H Lymph % (Auto) 7.2 L [place] % (Auto) 2.6 Eos % (Auto) 0.2 Baso % (Auto) 0.2 Neut # (Auto) 10.5 H Lymph # (Auto) 0.8 L [place] # (Auto) 0.3 Eos # (Auto) 0.0 Baso # (Auto) 0.0 WBC Differential . Differential Comment Auto diff final Sodium Potassium Chloride Carbon Dioxide Anion Gap BUN Creatinine Estimated GFR POC Glucose 183 H 228 H Random Glucose Hemoglobin A1c Calcium 02/16/18 02/16/18 04:18 04:18 WBC RBC Hgb Hct MCV MCH MCHC RDW Plt Count MPV Neut % (Auto) Lymph % (Auto) [place] % (Auto) Eos % (Auto) Baso % (Auto) Neut # (Auto) Lymph # (Auto) [place] # (Auto) Eos # (Auto) Baso # (Auto) WBC Differential Differential Comment Sodium 137 Potassium 4.8 Chloride 104 Carbon Dioxide 27.0 Anion Gap 6 BUN 15 Creatinine 0.86 Estimated GFR Greater than 89 POC Glucose Random Glucose 261 H Hemoglobin A1c 9.9 H Calcium 8.7 Microbiology 02/15/18 02:45 Blood - Peripheral Aerobic Blood Culture - Preliminary No growth in 1 day 02/15/18 02:45 Blood - Peripheral Anaerobic Blood Culture - Preliminary No growth in 1 day 02/15/18 02:35 Blood - Peripheral Aerobic Blood Culture - Preliminary No growth in 1 day 02/15/18 02:35 Blood - Peripheral Anaerobic Blood Culture - Preliminary No growth in 1 day - Imaging Impressions Foot MRI 02/15/18 00:00 CONCLUSION: No acute findings Foot MRI 02/15/18 00:00 CONCLUSION: 1. Plantar/medial cutaneous ulceration of the great toe extending to the surface of the distal phalanx. Diffuse soft tissue edema and enhancement in this region indicating cellulitis. No organized abscess identified. 2. Diffuse bony edema of the distal phalanx and distal pole of the proximal phalanx. Mild bony enhancement on the postcontrast images. No confluent bone marrow signal abnormality on the precontrast T1-weighted images. As the ulceration appears to extend to the bone. Findings are highly suspicious for osteomyelitis. 3. Focal magnetic susceptibility artifact in the plantar soft tissues of the great toe may represent a foreign body or gas. Multiple small calcific densities are seen on radiographs as well as possible gas in the soft tissue on radiographs. The radiographic findings are more extensive than the MR finding however. Aorta w/Runoff CTA 02/16/18 13:16 CONCLUSION: 1. No significant aortic stenosis. 2. Focal moderate stenosis of the distal right common iliac artery near the bifurcation. 3. No left-sided iliac inflow stenosis. 4. Bilateral SFA occlusion at the origin with reconstitution at the adductor canal via profunda collaterals. 5. Calcified but patent popliteal arteries with diffusely calcified three- vessel runoff bilaterally. 6. Ancillary findings include mild diffusely decreased hepatic attenuation likely reflecting hepatic steatosis and mild sigmoid diverticulosis. Assessment and Plan - Plan 57-year-old male with right hallux ulceration Patient evaluated by vascular surgery and have planned intervention We will reevaluate plan for possible amputation of right hallux once vascular intervention is complete Nursing wound care orders placed, please Place Maxorb AG with dry sterile dressing daily to bilateral lower extremity ulceration. No Betadine as patient is allergic Will await vascular intervention
--- NOTE | 2018-02-16 16:49 | MB ---
cc: Veronica Maldonado MD DATE: 02/15/2018 DATE OF CONSULTATION: 02/15/2018 CONSULTING PHYSICIAN: Veronica Maldonado MD REFERRING PHYSICIAN: Janet Gerard DPM REASON FOR CONSULTATION: 1. Right toe ulcer. 2. Cellulitis of the right foot. 3. Left ankle ulcer 4. Cellulitis of the left foot. 5. Ischemia of both legs. 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 In addition, apparently the boots got wet somewhere along the line. Patient then comes to the emergency room with pain in the right greater toe and ulceration of the same. Question arises as to vascular implications. PAST MEDICAL HISTORY: Longstanding diabetes mellitus and hypertension. PAST SURGICAL HISTORY: Eye surgery. MEDICATIONS: The patient's medications are in the record. SOCIAL HISTORY: The patient used to drink, but does not drink anymore. Smokes about a pack a day every day. He has been told to repeatedly to abstain from the same. PHYSICAL EXAMINATION: GENERAL: Reveals a 57-year-old male. HEENT: Normocephalic. No trauma to the head. Pupils equal, reactive. Extraocular muscles are intact. NECK: Supple. Bilateral carotid pulses and bilateral faint bruits. CHEST: Clear bilateral breath sounds. HEART: Regular rhythm. ABDOMEN: Soft. Active bowel sounds. No rebound, no guarding, no masses. BACK: Normal. Flanks are nontender. PELVIC: Stable. EXTREMITIES: The patient has palpable femoral pulses. He has dopplerable popliteal pulses and dopplerable posterior tibial and dorsalis pedis bilateral. Feet are, however, cool on the right side. The patient has swelling and cellulitis of the right toe streaking up the right dorsum of the foot and the ulcer on the greater toe itself. On the left side, the patient has some cellulitis and some desquamation of the skin as well as an ulcer on the medial aspect of his ankle. NEUROLOGIC: Fully intact. IMPRESSION AND RECOMMENDATIONS: I reviewed laboratory and diagnostic procedures. The patient clearly has a good inflow and dopplerable distal pulses, so most likely the majority of the disease is located in the area between the groin and the knees. I do not believe the patient has had diabetes long enough to develop diabetic pattern of disease, although probably has some degree of trifurcation changes. Most likely this is a classic superficial femoral artery stenosis or occlusion and the patient will benefit likely from bilateral femoral popliteal bypasses, first being on the right. I just have to wait a few days until the cellulitis resolves because I am putting artificial material in there after all and getting that infected would be disastrous. I thank you very much for the referral. MD LYUDMILA Barr/kristy/amor , 03:54 PM , 04:02 PM
[2018-02-16] MEDS: Morphine Inj 4 MG/ML Vial IV.PUSH PRN (20:52)
[2018-02-16] MEDS ORDERED: Insulin Detemir Inj 1,000 UNIT/10 ML Vial SQ SCH (21:00)
[2018-02-17] MEDS: Morphine Inj 4 MG/ML Vial IV.PUSH PRN ×2 (03:24→21:03)
[2018-02-17] MEDS: Piperacil/Tazo 4.5 GM Premix 4.5 GM/100 ML BAG IV.SIG SCH ×4 (03:27→20:54)
[2018-02-17] MEDS ORDERED: Chlorhexidine Gluconate 2% 1 Pack (2 Cloths) TOPICAL SCH (04:15)
[2018-02-17] MEDS: Vancomycin Inj 1,750 MG in Sodium Chlor 0.9% Inj 500 ML IV.SIG SCH ×2 (05:01→18:21)
[2018-02-17] MEDS ORDERED: Pharmacy Ordered Lab Info OTHER ONE (05:45)
[2018-02-17] MEDS: Collagenase Oint 30 GM Tube TOPICAL SCH (08:26)
[2018-02-17] MEDS: Insulin NovoLOG Aspart Correctional Sugar Inj SQ SCH ×4 (08:27→21:04)
[2018-02-17] MEDS ORDERED: Heparin 10,000 UNITS/10 ML Vial (for IV use) ONE ×2 (09:44→09:45)
[2018-02-17] MEDS ORDERED: Protamine Sulfate Inj 50 MG/5 ML Vial ONE (09:44)
[2018-02-17] MEDS ORDERED: Heparin - SQ 10,000 UNITS/ML Vial ONE (09:44)
--- NOTE | 2018-02-17 10:17 | ECG ---
Date Performed: 02/17/2018 Time Performed: 04:30:16 PTAGE: 57 years EKG: Sinus rhythm Normal ECG NO PREVIOUS TRACING DOCTOR: Lefty Mancuso Interpretating Date/Time 02/17/2018 10:14:41
--- NOTE | 2018-02-17 10:43 | P.PNIM ---
Subjective Interval history: The patient was resting comfortably in bed. He had no acute complaints. He did acknowledge that his foot wound had a foul odor. He was about to go for a procedure. Physical Exam Vital signs: Vital Signs 02/16/18 12:00 02/16/18 16:00 02/16/18 20:00 Temperature 97.2 F L 97.2 F L 97.6 F Pulse Rate 91 H 76 76 Respiratory Rate 18 18 17 Blood Pressure 117/70 130/71 133/75 Pulse Oximetry 96 96 92 L 02/17/18 00:00 02/17/18 04:00 02/17/18 08:00 Temperature 97.4 F L 97.7 F 97.2 F L Pulse Rate 76 64 59 L Respiratory Rate 17 17 19 Blood Pressure 121/73 121/76 133/72 Pulse Oximetry 95 94 L 98 Intake & Output 02/16/18 02/17/18 02/17/18 18:59 06:59 18:59 Intake Total 717.5 / 717.5 717.5 / 717.5 617.5 / 617.5 Balance 717.5 / 717.5 717.5 / 717.5 617.5 / 617.5 Weight 88.9 kg Intake: IV 717.5 / 717.5 717.5 / 717.5 617.5 / 617.5 Zosyn 4.5 GM Premix 4.5 gm In 100 / 100 200 / 200 100 / 100 100 ml @ 200 mls/hr IV.SIG Q6H [facility] Rx#:[id number] Vancomycin Inj 1,750 MG In NS 517.5 / 517.5 517.5 / 517.5 517.5 / 517.5 Inj 500 ML @ 250 mls/hr IV.SIG Q12H [facility] Rx#:[id number] Rocephin Inj 1,000 MG In NS Inj 100 / 100 100 ML @ 200 mls/hr IV.SIG Q24H [facility] Rx#:[id number] Other: # Voids 5 Date of Last Bowel Movement 02/16/18 02/16/18 # Bowel Movements 1 Narrative: GENERAL: No distress. SKIN: Warm and dry. Right great toe swollen and with bluish discoloration, along with erythema of lower leg. Foul odor noted. HEAD: Atraumatic. Normocephalic. EYES: Pupils equal and round. No scleral icterus. No injection or drainage. ENT: No nasal bleeding or discharge. Mucous membranes pink and moist. NECK: Trachea midline. No JVD. CARDIOVASCULAR: Regular rate and rhythm. RESPIRATORY: No accessory muscle use. Clear to auscultation. Breath sounds equal bilaterally. GASTROINTESTINAL: Abdomen soft, non-tender, nondistended. Hepatic and splenic margins not palpable. MUSCULOSKELETAL: Lower extremity edema noted. NEUROLOGICAL: Awake and alert. No obvious cranial nerve deficits. Motor grossly within normal limits. Five out of 5 muscle strength in the arms and legs. Normal speech. Results - Labs CBC & Chem 7: 02/16/18 04:18 02/16/18 04:18 Laboratory Results - last 24 hr 02/16/18 02/16/18 02/16/18 04:18 12:23 16:32 POC Glucose 293 H 298 H Hemoglobin A1c 9.9 H Vancomycin Trough Blood Type Blood Type Recheck Antibody Screen 02/16/18 02/16/18 02/16/18 19:07 20:18 20:59 POC Glucose 415 H 437 H Hemoglobin A1c Vancomycin Trough Blood Type O Positive Blood Type Recheck Antibody Screen Negative 02/17/18 02/17/18 04:45 07:06 POC Glucose 231 H Hemoglobin A1c Vancomycin Trough 12.9 H Blood Type Blood Type Recheck Antibody Screen Microbiology 02/15/18 02:45 Blood - Peripheral Aerobic Blood Culture - Preliminary No growth in 1 day 02/15/18 02:45 Blood - Peripheral Anaerobic Blood Culture - Preliminary No growth in 1 day 02/15/18 02:35 Blood - Peripheral Aerobic Blood Culture - Preliminary No growth in 1 day 02/15/18 02:35 Blood - Peripheral Anaerobic Blood Culture - Preliminary No growth in 1 day - Imaging Impressions Aorta w/Runoff CTA 02/16/18 13:16 CONCLUSION: 1. No significant aortic stenosis. 2. Focal moderate stenosis of the distal right common iliac artery near the bifurcation. 3. No left-sided iliac inflow stenosis. 4. Bilateral SFA occlusion at the origin with reconstitution at the adductor canal via profunda collaterals. 5. Calcified but patent popliteal arteries with diffusely calcified three- vessel runoff bilaterally. 6. Ancillary findings include mild diffusely decreased hepatic attenuation likely reflecting hepatic steatosis and mild sigmoid diverticulosis. Assessment and Plan - Plan Sepsis/ Foot ulcer with cellulites/ PAD WBC 12.7, HR 108. MRI of foot concerning for OM on the right. Infectious disease , podiatry and vascular consults appreciated. CTA: good inflow with bilateral stenosis of common femoral arteries, occlusion of superficial femoral arteries and reconstitution of the popliteal arteries bilaterally; Beyond popliteal arteries trifurcations are open with scattered plaque and mild to moderate stenoses throughout. -IV vancomycin and Zosyn per ID. -follow up with podiatry and vascular surgery. Femoral-popliteal bypasses bilaterally planned per vascular. -Pain management with IV morphine. -Wound culture ordered, blood cultures pending. Tobacco abuse Tobacco counseling cessation provided. -continue nicotine patch. Diabetes Chronic. A1c 9.9%. -Accu checks with SSI. -Diabetic diet. -increase Levemir to 15 units HS. -unit educator consult. DVT prophylaxis: SCDs on non affected leg
--- NOTE | 2018-02-17 10:55 | P.PNID ---
Subjective Remarks: Patient is a 57-year-old male, with known diabetes, presented to the hospital with 1 day history of pain and redness on his right foot. 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 He had noted some redness on his right foot about 2 days prior to admission, and on the day of admission he noted a sore on his big toe. He does not know how he got it but made some assumption that it was probably from his new boots. He also has some wound develop on his left ankle. He has not had any fever chills or sweats. He denies any GI or any urinary complaints. Since admission he has not been febrile. X-ray of his right foot is showing some some suggestion of possible early osteo-on his big toe. Infectious disease consultation has been requested to assist with evaluation and treatment. Notes reviewed Temps ok MRI R foot - osteo big toe CTA - has abnormal findings; awaiting vascular input Podiatry following Antibiotics: Vanco Zosyn Lines: PIV no evid of infection Past Medical History: Diabetes Eye surgery Allergies/Adverse Reactions: Allergies iodine Allergy (Unknown, Verified 02/15/18 03:06) Swelling potassium iodide Allergy (Unknown, Verified 02/15/18 03:06) Swelling povidone-iodine Allergy (Unknown, Verified 02/15/18 03:06) Swelling sodium iodide Allergy (Unknown, Verified 02/15/18 03:06) Swelling sodium iodide Allergy (Unknown, Verified 02/15/18 03:06) Swelling *MDRO Multi-Drug Resistant Organism Adverse Reaction (Unknown, Uncoded 02/15/18 03:06) n/a 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; 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 Objective Vital Signs 02/16/18 12:00 02/16/18 16:00 02/16/18 20:00 Temperature 97.2 F L 97.2 F L 97.6 F Pulse Rate 91 H 76 76 Respiratory Rate 18 18 17 Blood Pressure 117/70 130/71 133/75 Pulse Oximetry 96 96 92 L 02/17/18 00:00 02/17/18 04:00 02/17/18 08:00 Temperature 97.4 F L 97.7 F 97.2 F L Pulse Rate 76 64 59 L Respiratory Rate 17 17 19 Blood Pressure 121/73 121/76 133/72 Pulse Oximetry 95 94 L 98 Intake & Output 02/16/18 02/17/18 02/17/18 18:59 06:59 18:59 Intake Total 717.5 / 717.5 717.5 / 717.5 617.5 / 617.5 Balance 717.5 / 717.5 717.5 / 717.5 617.5 / 617.5 Weight 88.9 kg Intake: IV 717.5 / 717.5 717.5 / 717.5 617.5 / 617.5 Zosyn 4.5 GM Premix 4.5 gm In 100 / 100 200 / 200 100 / 100 100 ml @ 200 mls/hr IV.SIG Q6H [facility] Rx#:[id number] Vancomycin Inj 1,750 MG In NS 517.5 / 517.5 517.5 / 517.5 517.5 / 517.5 Inj 500 ML @ 250 mls/hr IV.SIG Q12H [facility] Rx#:[id number] Rocephin Inj 1,000 MG In NS Inj 100 / 100 100 ML @ 200 mls/hr IV.SIG Q24H [facility] Rx#:[id number] Other: # Voids 5 Date of Last Bowel Movement 02/16/18 02/16/18 # Bowel Movements 1 02/15/18 02:45 Blood - Peripheral Aerobic Blood Culture - Preliminary No growth in 1 day 02/15/18 02:45 Blood - Peripheral Anaerobic Blood Culture - Preliminary No growth in 1 day 02/15/18 02:35 Blood - Peripheral Aerobic Blood Culture - Preliminary No growth in 1 day 02/15/18 02:35 Blood - Peripheral Anaerobic Blood Culture - Preliminary No growth in 1 day Lab - Hematology Results 02/16/18 04:18 WBC 11.7 H RBC 4.65 Hgb 14.1 Hct 41.6 MCV 89.4 MCH 30.2 MCHC 33.8 RDW 13.1 Plt Count 242 MPV 9.8 Neut % (Auto) 89.8 H Lymph % (Auto) 7.2 L [place] % (Auto) 2.6 Eos % (Auto) 0.2 Baso % (Auto) 0.2 Neut # (Auto) 10.5 H Lymph # (Auto) 0.8 L [place] # (Auto) 0.3 Eos # (Auto) 0.0 Baso # (Auto) 0.0 WBC Differential . Differential Comment Auto diff final Lab - Chemistry Results 02/15/18 02/15/18 02/16/18 17:50 20:45 04:18 Sodium 137 Potassium 4.8 Chloride 104 Carbon Dioxide 27.0 Anion Gap 6 BUN 15 Creatinine 0.86 Estimated GFR Greater than 89 POC Glucose 183 H 228 H Random Glucose 261 H Hemoglobin A1c Calcium 8.7 02/16/18 02/16/18 02/16/18 04:18 12:23 16:32 Sodium Potassium Chloride Carbon Dioxide Anion Gap BUN Creatinine Estimated GFR POC Glucose 293 H 298 H Random Glucose Hemoglobin A1c 9.9 H Calcium 02/16/18 02/16/18 02/17/18 20:18 20:59 07:06 Sodium Potassium Chloride Carbon Dioxide Anion Gap BUN Creatinine Estimated GFR POC Glucose 415 H 437 H 231 H Random Glucose Hemoglobin A1c Calcium Imaging: ITS Impressions Extremity Arterial Study 02/15/18 00:00 CONCLUSION: 1. Significant reduction of the ABIs bilaterally with segmental pressures suggesting inflow disease. CTA with runoff could be performed to further assess if clinically warranted. Foot MRI 02/15/18 00:00 CONCLUSION: 1. Plantar/medial cutaneous ulceration of the great toe extending to the surface of the distal phalanx. Diffuse soft tissue edema and enhancement in this region indicating cellulitis. No organized abscess identified. 2. Diffuse bony edema of the distal phalanx and distal pole of the proximal phalanx. Mild bony enhancement on the postcontrast images. No confluent bone marrow signal abnormality on the precontrast T1-weighted images. As the ulceration appears to extend to the bone. Findings are highly suspicious for osteomyelitis. 3. Focal magnetic susceptibility artifact in the plantar soft tissues of the great toe may represent a foreign body or gas. Multiple small calcific densities are seen on radiographs as well as possible gas in the soft tissue on radiographs. The radiographic findings are more extensive than the MR finding however. Foot X-Ray 02/15/18 00:00 CONCLUSION: Bone spurs posterior calcaneus at Achilles and plantar fascial insertion sites. Vascular calcifications. No acute bony abnormality. Tibia/Fibula X-Ray 02/15/18 00:00 CONCLUSION: Negative exam. No fracture or radiopaque foreign body. Aorta w/Runoff CTA 02/16/18 13:16 CONCLUSION: 1. No significant aortic stenosis. 2. Focal moderate stenosis of the distal right common iliac artery near the bifurcation. 3. No left-sided iliac inflow stenosis. 4. Bilateral SFA occlusion at the origin with reconstitution at the adductor canal via profunda collaterals. 5. Calcified but patent popliteal arteries with diffusely calcified three- vessel runoff bilaterally. 6. Ancillary findings include mild diffusely decreased hepatic attenuation likely reflecting hepatic steatosis and mild sigmoid diverticulosis. Physical Exam: GENERAL: awake and alert, not in respiratory distress. SKIN: Cool and dry. No generalized rash HEAD: Atraumatic. Normocephalic. No temporal wasting, or tenderness. EYES: [place] conjunctiva. No petechia or hemorrhage. Pupils equal, round and reactive to light. No scleral icterus. No injection or drainage. EARS, NOSE AND THROAT: Mucous membranes pink and moist. No oral lesions noted. NECK: Trachea midline. Supple and not tender, no meningeal signs CARDIOVASCULAR: Regular rate and rhythm. No murmurs, rubs or gallops heard RESPIRATORY: Clear to auscultation. Breath sounds equal bilaterally. No rales , wheezing or rhonchi ABDOMEN: Soft, non-tender, nondistended. Bowel sounds present and normoactive. No guarding. No rebound. No organomegaly. EXTREMITIES: No clubbing, cyanosis, or edema. R foot - has black ulcer on his big toe, has erythema on his R foot up to his R leg, looks less red, (+) odor. L foot there is an ulcer on medial ankle with mild periwound erythema, (+ ) odor, has less slough. No calf tenderness. Well perfused and warm. NEUROLOGICAL: Non-focal. PSYCHIATRIC: Normal affect, calm and cooperative. LINE: No evidence of infection Assessment and Plan - Plan Impression Cellulitis RLE, with ulcer R big toe, possible osteo on MRI Wound L ankle, with very mild periwound erythema DM Recommendation IV Vanco IV Zosyn Podiatry and vascular following Monitor progress Dr Brandon Petit available this weekend if needed
[2018-02-17] MEDS ORDERED: Lidocaine 1% Inj 50 ML Vial ONE ×2 (11:00→11:04)
[2018-02-17] MEDS ORDERED: Glycopyrrolate Inj 1 MG/5 ML Syringe IV.PUSH ONE (12:00)
[2018-02-17] MEDS ORDERED: Neostigmine Inj 5 MG/5 ML Syringe IV.PUSH ONE (12:00)
[2018-02-17] MEDS ORDERED: Lidocaine PF 1% Inj 5 ML Syringe INFILTRATN ONE (12:00)
[2018-02-17] MEDS ORDERED: fentaNYL Citrate Inj 100 MCG/2 ML Ampul ONE (16:55)
--- NOTE | 2018-02-17 18:51 | MP ---
cc: Veronica Maldonado MD DATE OF OPERATION: 02/17/2018 DATE OF SURGERY: 02/17/2018 PREOPERATIVE DIAGNOSES: Gangrene of the right great toe with severe peripheral vascular disease, bilateral SFA occlusions, and common femoral and external iliac occlusion. POSTOPERATIVE DIAGNOSES: Gangrene of the right great toe with severe peripheral vascular disease, bilateral SFA occlusions, and common femoral and external iliac occlusion. OPERATIVE PROCEDURE: Right femoral popliteal bypass with PTFE graft, right common femoral, external iliac endarterectomy, and angioplasty. SURGEON: Shanna Maldonado MD ANESTHESIA: General. ESTIMATED BLOOD LOSS: 50 mL. DETAILS OF PROCEDURE: The patient prepped and draped in usual fashion, first right groin incision made, deepened down to the common femoral through the Tennille's fascia to the level of the neurovascular bundle. Common femoral, deep femoral, and superficial femoral arteries isolated and then external iliac artery isolated in the distal portion. Vessel loops placed around each respectively. The right popliteal space was now entered through a median incision at the level and just above the knee and through this, the popliteal artery was isolated by sharp and blunt dissection. Once isolated vessel loops were placed around the same the patient was given 7000 units of heparin. An 8 mm ringed Bradley-Remington graft is now passed from proximal to distal using a Diana-Wick tunneling instrument. Once in position, the distal end is obtunded. Proximally a profunda clamp was placed. Distally a rubber band was cinched down and and then this exposed the vessel nicely. The incision was made with White scissors and popliteal artery opening length about 1.5 cm. Flushed with heparinized saline and there was excellent backbleeding. The Bradley-Remington graft is cut to size under oblique angle with an 11 blade and then, anastomosis between the Bradley-Remington and the popliteal artery created with a running 5-0 Prolene. Once completed the vessel loop is released and so is the profunda clamp and the graft was allowed to backbleed. It was flushed with heparinized saline and then graft was clamped, allowing the blood flow to be reestablished in a natural fashion. Proximally end is now obtunded. External iliac arteries were clamped with a Satinsky clamp and distally with profunda clamps were used. The vessel was opened longitudinally. The patient has large plaques to the common femoral and external iliac arteries. This area was dissected free and removed. The vessel surface was smoothened out. The Bradley-Remington graft was now cut to size under a very oblique angle with the 11 blade, basically using it to spatulate the anastomosis. Anastomosis was created with 5-0 Prolene and when completed, blood flow was reestablished in the usual fashion. Blood was now checked distally. The patient has a bounding flow in the popliteal artery. Minimal oozing is controlled with some pressure and Surgicel and then the incision was irrigated with copious amounts of saline and closed with 0 Vicryl in layers and 4-0 Monocryl. Benzoin, Steri-Strips applied. The patient tolerated the procedure well. At the end of the procedure the patient has bounding distal pulses and foot is warm. The patient tolerated the procedure well. MD LYUDMILA Barr/toño , 05:35 PM , 05:43 PM
[2018-02-17] MEDS: Insulin Detemir Inj 1,000 UNIT/10 ML Vial SQ SCH (21:03)
[2018-02-17] MEDS: Sod Chloride 0.9% Inj 1,000 ML IV.SIG SCH (21:06)
[2018-02-18] MEDS: Morphine Inj 4 MG/ML Vial IV.PUSH PRN ×2 (01:19→06:01)
[2018-02-18] MEDS: Piperacil/Tazo 4.5 GM Premix 4.5 GM/100 ML BAG IV.SIG SCH ×4 (01:19→21:20)
[2018-02-18] MEDS: Sod Chloride 0.9% Inj 1,000 ML IV.SIG SCH ×2 (05:36→15:42)
[2018-02-18] MEDS: Vancomycin Inj 1,750 MG in Sodium Chlor 0.9% Inj 500 ML IV.SIG SCH ×2 (05:36→17:49)
[2018-02-18 07:30] LABS: Baso % (Auto) 0.2 % (0.0-2.0); Eos # (Auto) 0.1 th/mm3 (0.0-0.4); Eos % (Auto) 0.9 % (0.0-4.0); Hematocrit 35.4 % (39.0-51.0); Hemoglobin 11.7 gm/dL (13.0-17.0); Lymph # (Auto) 1.6 th/mm3 (1.0-4.8); Lymph % (Auto) 11.8 % (9.0-44.0); Mean Corpuscular Hemoglobin 29.8 pg (27.0-34.0); Mean Corpuscular Volume 90.5 fL (80.0-100.0); Mean Platelet Volume 9.4 fL (7.0-11.0); Mono # (Auto) 1.1 th/mm3 (0.0-0.9); Mono % (Auto) 8.3 % (0.0-8.0); Neut # (Auto) 10.9 th/mm3 (1.8-7.7); Neut % (Auto) 78.8 % (16.0-70.0); Platelet Count 228 th/mm3 (150-450); Red Blood Count 3.91 mil/mm3 (4.50-5.90); White Blood Count 13.9 th/mm3 (4.0-11.0)
[2018-02-18 08:15] LABS: Anion Gap 7 meq/L (5-15); Blood Urea Nitrogen 9 mg/dL (7-18); Carbon Dioxide 27.4 meq/L (21.0-32.0); Chloride 107 meq/L (98-107); Glomerular Filtration Rate Greater Than 89 mL/min (>89); Glucose,Random 130 mg/dL (74-106); Magnesium 1.9 mg/dL (1.5-2.5); Potassium 3.9 meq/L (3.5-5.1); Sodium 141 meq/L (136-145)
[2018-02-18] MEDS: Insulin NovoLOG Aspart Correctional Sugar Inj SQ SCH ×4 (08:18→21:20)
[2018-02-18] MEDS: Collagenase Oint 30 GM Tube TOPICAL SCH (08:19)
--- NOTE | 2018-02-18 09:41 | P.PNIM ---
Subjective Interval history: Follow-up for cellulitis Pain is moderately controlled, 01/10, afebrile, no chest pain, not short of breath. No diarrhea from antibiotics Physical Exam Vital signs: Vital Signs 02/17/18 12:02 02/17/18 16:40 02/17/18 16:45 Temperature 97.6 F 96.0 F L Pulse Rate 57 L 76 70 Respiratory Rate 18 12 15 Blood Pressure 112/60 119/58 L 116/60 Pulse Oximetry 98 99 92 L 02/17/18 17:00 02/17/18 17:15 02/17/18 17:30 Temperature 96.5 F L 96.7 F L 97.2 F L Pulse Rate 69 70 71 Respiratory Rate 15 16 16 Blood Pressure 129/62 122/62 130/68 Pulse Oximetry 92 L 93 L 93 L 02/17/18 17:45 02/17/18 17:55 02/17/18 20:00 Temperature 97.5 F L 97.6 F 97.3 F L Pulse Rate 70 72 70 Respiratory Rate 16 16 16 Blood Pressure 131/70 132/70 137/77 Pulse Oximetry 93 L 94 L 95 02/17/18 21:00 02/18/18 00:00 02/18/18 04:00 Temperature 97.6 F 97.5 F L Pulse Rate 67 66 Respiratory Rate 16 16 18 Blood Pressure 133/75 139/68 Pulse Oximetry 95 95 02/18/18 08:00 Temperature 97.5 F L Pulse Rate 62 Respiratory Rate 19 Blood Pressure 156/89 H Pulse Oximetry 95 Intake & Output 02/17/18 02/18/18 02/18/18 18:59 06:59 18:59 Intake Total 3397.5 / 3397.5 2677.5 / 2677.5 Output Total 800 / 800 975 / 975 Balance 2597.5 / 2597.5 1702.5 / 1702.5 Intake: IV 717.5 / 717.5 1717.5 / 1717.5 Zosyn 4.5 GM Premix 4.5 gm In 200 / 200 200 / 200 100 ml @ 200 mls/hr IV.SIG Q6H [facility] Rx#:[id number] NS Inj 1,000 ML @ 100 mls/hr IV 1000 / 1000 .SIG .Q10H [facility] Rx#:[id number] Vancomycin Inj 1,750 MG In NS 517.5 / 517.5 517.5 / 517.5 Inj 500 ML @ 250 mls/hr IV.SIG Q12H [facility] Rx#:[id number] Oral 480 / 480 960 / 960 Anesthesia Amount 2200 / 2200 Output: Urine 975 / 975 Estimated Blood Loss 50 / 50 Urine Amount (Catheter) 750 / 750 Indwelling Urethral Catheter 750 / 750 Other: Date of Last Bowel Movement 02/16/18 Narrative: GENERAL: No distress. SKIN: Right lower extremity erythema, 1+ swelling, mild tenderness. Dressings in place. Right thigh dressings in place medial aspect. EYES: Pupils equal and round. No scleral icterus. No injection or drainage. CARDIOVASCULAR: Regular rate and rhythm. RESPIRATORY: No accessory muscle use. Clear to auscultation. Breath sounds equal bilaterally. GASTROINTESTINAL: Abdomen soft, non-tender, nondistended. NEUROLOGICAL: Awake and alert, oriented 3. No obvious cranial nerve deficits. Motor grossly within normal limits. Five out of 5 muscle strength in the arms and legs. Normal speech. - Urinary Catheter Management Indwelling Urethral Catheter Cath placed during this visit: yes Reason for continuing: Hourly intake/output Insertion date: 02/17/18 Insertion time: 13:45 Results - Labs CBC & Chem 7: 02/18/18 06:52 02/18/18 06:52 Laboratory Results - last 24 hr 02/17/18 02/17/18 02/17/18 11:59 16:45 20:51 WBC RBC Hgb Hct MCV MCH MCHC RDW Plt Count MPV Neut % (Auto) Lymph % (Auto) [place] % (Auto) Eos % (Auto) Baso % (Auto) Neut # (Auto) Lymph # (Auto) [place] # (Auto) Eos # (Auto) Baso # (Auto) WBC Differential Differential Comment Sodium Potassium Chloride Carbon Dioxide Anion Gap BUN Creatinine Estimated GFR POC Glucose 105 143 H 160 H Random Glucose Calcium Magnesium 02/18/18 02/18/18 02/18/18 06:52 06:52 08:01 WBC 13.9 H RBC 3.91 L Hgb 11.7 L Hct 35.4 L MCV 90.5 MCH 29.8 MCHC 33.0 RDW 13.0 Plt Count 228 MPV 9.4 Neut % (Auto) 78.8 H Lymph % (Auto) 11.8 [place] % (Auto) 8.3 H Eos % (Auto) 0.9 Baso % (Auto) 0.2 Neut # (Auto) 10.9 H Lymph # (Auto) 1.6 [place] # (Auto) 1.1 H Eos # (Auto) 0.1 Baso # (Auto) 0.0 WBC Differential . Differential Comment Auto diff final Sodium 141 Potassium 3.9 Chloride 107 Carbon Dioxide 27.4 Anion Gap 7 BUN 9 Creatinine 0.76 Estimated GFR Greater than 89 POC Glucose 134 H Random Glucose 130 H Calcium 8.0 L Magnesium 1.9 Microbiology 02/15/18 02:45 Blood - Peripheral Aerobic Blood Culture - Preliminary No growth in 2 days 02/15/18 02:45 Blood - Peripheral Anaerobic Blood Culture - Preliminary No growth in 2 days 02/15/18 02:35 Blood - Peripheral Aerobic Blood Culture - Preliminary No growth in 2 days 02/15/18 02:35 Blood - Peripheral Anaerobic Blood Culture - Preliminary No growth in 2 days Assessment and Plan - Plan This is a 57-year-old male with history of diabetes mellitus presented to the hospital with foot pain and redness. Sepsis secondary to cellulitis of the foot with peripheral arterial disease - MRI of foot concerning for OM on the right. Infectious disease, podiatry and vascular surgery consulted. CTA: good inflow with bilateral stenosis of common femoral arteries, occlusion of superficial femoral arteries and reconstitution of the popliteal arteries bilaterally; Beyond popliteal arteries trifurcations are open with scattered plaque and mild to moderate stenoses throughout. -IV vancomycin and Zosyn per ID. -follow up with podiatry and vascular surgery. Femoral-popliteal bypasses bilaterally planned per vascular once infection controlled, followed by amputation of the right hallux -Pain management with IV morphine and oral narcotics. Continue Plavix -Wound culture ordered, blood cultures negative to date, still with leukocytosis. Tobacco abuse Tobacco counseling cessation provided. -continue nicotine patch. Diabetes mellitus-hemoglobin A1c 9.9%, continue Accu-Cheks, Levemir 15 units at night, sliding scale insulin. DVT prophylaxis: Lovenox
[2018-02-18] MEDS ORDERED: Morphine Inj 4 MG/ML Vial IV.PUSH PRN (09:51)
--- NOTE | 2018-02-18 11:08 | P.PNVS ---
Subjective Subjective/Hospital Course: Petient seen Full consult dictated Thanks J 02/16/2018 Patient with severe peripheral vascular disease and ischemia of the both feet ulcers of the both legs and possible osteomyelitis of the toe CTA with runoff was performed and it confirms the clinical impression. Patient is a good inflow with bilateral stenosis of common femoral arteries, occlusion of superficial femoral arteries and reconstitution of the popliteal arteries bilaterally. Beyond popliteal arteries trifurcations are open with scattered plaque and mild to moderate stenoses throughout Patient is a good candidate for femoral-popliteal bypasses bilaterally and will proceed with the same once cellulitis and infection controlled i.e. in next several days. 02/18/2018 Patient is status post right femoral-popliteal bypass with endarterectomy yesterday Incisions are clean and dry patient has well-perfused foot with bounding pulses Eventually patient will have to have a left leg addressed as he sees me in the office for follow-up Nothing to add to care at this time Objective Vital Signs / I&O: Vital Signs 02/17/18 12:02 02/17/18 16:40 02/17/18 16:45 Temperature 97.6 F 96.0 F L Pulse Rate 57 L 76 70 Respiratory Rate 18 12 15 Blood Pressure 112/60 119/58 L 116/60 Pulse Oximetry 98 99 92 L 02/17/18 17:00 02/17/18 17:15 02/17/18 17:30 Temperature 96.5 F L 96.7 F L 97.2 F L Pulse Rate 69 70 71 Respiratory Rate 15 16 16 Blood Pressure 129/62 122/62 130/68 Pulse Oximetry 92 L 93 L 93 L 02/17/18 17:45 02/17/18 17:55 02/17/18 20:00 Temperature 97.5 F L 97.6 F 97.3 F L Pulse Rate 70 72 70 Respiratory Rate 16 16 16 Blood Pressure 131/70 132/70 137/77 Pulse Oximetry 93 L 94 L 95 02/17/18 21:00 02/18/18 00:00 02/18/18 04:00 Temperature 97.6 F 97.5 F L Pulse Rate 67 66 Respiratory Rate 16 16 18 Blood Pressure 133/75 139/68 Pulse Oximetry 95 95 02/18/18 08:00 02/18/18 09:54 Temperature 97.5 F L Pulse Rate 62 Respiratory Rate 19 7 L Blood Pressure 156/89 H Pulse Oximetry 95 Intake & Output 02/17/18 02/18/18 02/18/18 18:59 06:59 18:59 Intake Total 3397.5 / 3397.5 2677.5 / 2677.5 617.5 / 617.5 Output Total 800 / 800 975 / 975 Balance 2597.5 / 2597.5 1702.5 / 1702.5 617.5 / 617.5 Intake: IV 717.5 / 717.5 1717.5 / 1717.5 617.5 / 617.5 Zosyn 4.5 GM Premix 4.5 gm In 200 / 200 200 / 200 100 / 100 100 ml @ 200 mls/hr IV.SIG Q6H [facility] Rx#:[id number] NS Inj 1,000 ML @ 100 mls/hr IV 1000 / 1000 .SIG .Q10H [facility] Rx#:[id number] Vancomycin Inj 1,750 MG In NS 517.5 / 517.5 517.5 / 517.5 517.5 / 517.5 Inj 500 ML @ 250 mls/hr IV.SIG Q12H [facility] Rx#:[id number] Oral 480 / 480 960 / 960 Anesthesia Amount 2200 / 2200 Output: Urine 975 / 975 Estimated Blood Loss 50 / 50 Urine Amount (Catheter) 750 / 750 Indwelling Urethral Catheter 750 / 750 Other: Date of Last Bowel Movement 02/16/18 Laboratory Results - last 24 hr 02/17/18 02/17/18 02/17/18 11:59 16:45 20:51 WBC RBC Hgb Hct MCV MCH MCHC RDW Plt Count MPV Neut % (Auto) Lymph % (Auto) [place] % (Auto) Eos % (Auto) Baso % (Auto) Neut # (Auto) Lymph # (Auto) [place] # (Auto) Eos # (Auto) Baso # (Auto) WBC Differential Differential Comment Sodium Potassium Chloride Carbon Dioxide Anion Gap BUN Creatinine Estimated GFR POC Glucose 105 143 H 160 H Random Glucose Calcium Magnesium 02/18/18 02/18/18 02/18/18 06:52 06:52 08:01 WBC 13.9 H RBC 3.91 L Hgb 11.7 L Hct 35.4 L MCV 90.5 MCH 29.8 MCHC 33.0 RDW 13.0 Plt Count 228 MPV 9.4 Neut % (Auto) 78.8 H Lymph % (Auto) 11.8 [place] % (Auto) 8.3 H Eos % (Auto) 0.9 Baso % (Auto) 0.2 Neut # (Auto) 10.9 H Lymph # (Auto) 1.6 [place] # (Auto) 1.1 H Eos # (Auto) 0.1 Baso # (Auto) 0.0 WBC Differential . Differential Comment Auto diff final Sodium 141 Potassium 3.9 Chloride 107 Carbon Dioxide 27.4 Anion Gap 7 BUN 9 Creatinine 0.76 Estimated GFR Greater than 89 POC Glucose 134 H Random Glucose 130 H Calcium 8.0 L Magnesium 1.9 Microbiology 02/15/18 02:45 Aerobic Blood Culture - Preliminary Blood - Peripheral No growth in 3 days Anaerobic Blood Culture - Preliminary No growth in 3 days 02/15/18 02:35 Aerobic Blood Culture - Preliminary Blood - Peripheral No growth in 3 days Anaerobic Blood Culture - Preliminary No growth in 3 days Impressions Aorta w/Runoff CTA 02/16/18 13:16 CONCLUSION: 1. No significant aortic stenosis. 2. Focal moderate stenosis of the distal right common iliac artery near the bifurcation. 3. No left-sided iliac inflow stenosis. 4. Bilateral SFA occlusion at the origin with reconstitution at the adductor canal via profunda collaterals. 5. Calcified but patent popliteal arteries with diffusely calcified three- vessel runoff bilaterally. 6. Ancillary findings include mild diffusely decreased hepatic attenuation likely reflecting hepatic steatosis and mild sigmoid diverticulosis.
[2018-02-18] MEDS: oxyCODONE/Acetaminophen 10/325 Tablet PO PRN ×2 (12:46→17:51)
--- NOTE | 2018-02-18 16:45 | P.PNPOD ---
Subjective Interval history: Patient seen bedside. Denies any nausea vomiting fevers or chills. Is resting comfortably Physical Exam Vital signs: Vital Signs 02/17/18 16:45 02/17/18 17:00 02/17/18 17:15 Temperature 96.5 F L 96.7 F L Pulse Rate 70 69 70 Respiratory Rate 15 15 16 Blood Pressure 116/60 129/62 122/62 Pulse Oximetry 92 L 92 L 93 L 02/17/18 17:30 02/17/18 17:45 02/17/18 17:55 Temperature 97.2 F L 97.5 F L 97.6 F Pulse Rate 71 70 72 Respiratory Rate 16 16 16 Blood Pressure 130/68 131/70 132/70 Pulse Oximetry 93 L 93 L 94 L 02/17/18 20:00 02/17/18 21:00 02/18/18 00:00 Temperature 97.3 F L 97.6 F Pulse Rate 70 67 Respiratory Rate 16 16 16 Blood Pressure 137/77 133/75 Pulse Oximetry 95 95 02/18/18 04:00 02/18/18 08:00 02/18/18 09:54 Temperature 97.5 F L 97.5 F L Pulse Rate 66 62 Respiratory Rate 18 19 7 L Blood Pressure 139/68 156/89 H Pulse Oximetry 95 95 02/18/18 12:00 Temperature 98.3 F Pulse Rate 66 Respiratory Rate 17 Blood Pressure 150/74 H Pulse Oximetry 95 Intake & Output 02/17/18 02/18/18 02/18/18 18:59 06:59 18:59 Intake Total 3397.5 / 3397.5 2677.5 / 2677.5 1617.5 / 1617.5 Output Total 800 / 800 975 / 975 Balance 2597.5 / 2597.5 1702.5 / 1702.5 1617.5 / 1617.5 Intake: IV 717.5 / 717.5 1717.5 / 1717.5 1617.5 / 1617.5 Zosyn 4.5 GM Premix 4.5 gm In 200 / 200 200 / 200 100 / 100 100 ml @ 200 mls/hr IV.SIG Q6H [facility] Rx#:[id number] NS Inj 1,000 ML @ 100 mls/hr IV 1000 / 1000 1000 / 1000 .SIG .Q10H [facility] Rx#:[id number] Vancomycin Inj 1,750 MG In NS 517.5 / 517.5 517.5 / 517.5 517.5 / 517.5 Inj 500 ML @ 250 mls/hr IV.SIG Q12H [facility] Rx#:[id number] Oral 480 / 480 960 / 960 Anesthesia Amount 2200 / 2200 Output: Urine 975 / 975 Estimated Blood Loss 50 / 50 Urine Amount (Catheter) 750 / 750 Indwelling Urethral Catheter 750 / 750 Other: Date of Last Bowel Movement 02/16/18 02/17/18 Narrative: Lower extremity physical exam: Vascular: Dorsalis pedis nonpalpable, posterior tibial nonpalpable. Capillary refill time within normal limits to digits 5 bilateral foot. Edema present to right foot. Neuro: Gross sensation intact to bilateral lower extremity. Pinpoint sensation decreased. No hyperalgesia noted to bilateral lower extremity Dermatology: Right hallux medial ulceration with necrotic eschar base surrounding periwound erythema and serous drainage. No probe to bone noted. Left medial heel ulceration measuring approximately 2 cm x 1 cm fibrotic in nature with surrounding maceration. Musculoskeletal: Tender to palpation to right hallux. Medications and Allergies Active Medications: Active Medications Acetaminophen (Tylenol) 650 mg PO Q4H PRN PRN Reason: Temp > 100.4 Chlorhexidine Gluconate (Chlorhexidine 2% Cloth) 3 pack [employer] [facility] Stop: 02/20/18 04:15 Clopidogrel Bisulfate (Plavix) 75 mg PO DAILY [facility] Last Admin: 02/18/18 08:18 Dose: 75 mg Collagenase (Santyl Oint) 1 applicatio TOPICAL DAILY [facility] Last Admin: 02/18/18 08:19 Dose: 1 applicatio Dextrose (D50w Vial) 50 ml IV.PUSH UNSCH PRN PRN Reason: PER HYPOGLYCEMIA PROTOCOL Enoxaparin Sodium (Lovenox Inj) 40 mg SQ DAILY [facility] Glucagon (Glucagon Inj) 1 mg OTHER PRN PRN PRN Reason: for Hypoglycemia Protocol Pharmacy Profile Note (Vancomycin Consult Pharmacy) 0 mls @ 0 mls/hr OTHER UNSCH [facility] Vancomycin HCl 1,750 mg/ (Sodium Chloride) 517.5 mls @ 250 mls/hr IV.SIG Q12H [facility] Last Infusion: 02/18/18 08:30 Dose: Infused Piperacillin/Tazobactam/Dextrose (Zosyn 4.5 Gm Premix) 4.5 gm in 100 mls @ 200 mls/hr IV.SIG Q6H [facility] Last Admin: 02/18/18 14:24 Dose: 200 mls/hr Lactated Ringer's (Lr 1000 Ml Inj) 1,000 mls @ 30 mls/hr IV.SIG .Q24H [facility] Stop: 02/20/18 04:15 Last Admin: 02/18/18 05:36 Dose: Not Given Sodium Chloride (Ns Inj) 1,000 mls @ 100 mls/hr IV.SIG .Q10H [facility] Last Admin: 02/18/18 15:42 Dose: 100 mls/hr Insulin Aspart (Novolog Insulin Correctional Sugar Inj) 0 unit SQ ACHS [facility]; Protocol Last Admin: 02/18/18 12:42 Dose: 2 unit Insulin Detemir (Levemir Inj) 15 unit SQ HS [facility] Last Admin: 02/17/18 21:03 Dose: 15 unit Miscellaneous Information ([facility] Ordered Lab Info) 0 each OTHER ONCE ONE Stop: 02/18/18 17:46 Morphine Sulfate (Morphine Inj) 2 mg IV.PUSH Q6H PRN PRN Reason: PAIN 1-10 Ondansetron HCl (Zofran Inj) 4 mg IV.PUSH Q6H PRN PRN Reason: NAUSEA OR VOMITING Oxycodone/Acetaminophen (Percocet 7.5/325 Mg) 1 tab PO Q4H PRN PRN Reason: PAIN 3-5; IF UABLE TO TAKE PO Last Admin: 02/18/18 08:44 Dose: 1 tab Oxycodone/Acetaminophen (Percocet 10/325 Mg) 1 tab PO Q4H PRN PRN Reason: PAIN 6-10;IF UNABLE TO TAKE PO Last Admin: 02/18/18 12:46 Dose: 1 tab Temazepam (Restoril) 15 mg PO HS PRN PRN Reason: INSOMNIA Allergies Allergy/AdvReac Type Severity Reaction Status Date / Time iodine Allergy Unknown Swelling Verified 02/15/18 03:06 potassium iodide Allergy Unknown Swelling Verified 02/15/18 03:06 povidone-iodine Allergy Unknown Swelling Verified 02/15/18 03:06 sodium iodide Allergy Unknown Swelling Verified 02/15/18 03:06 sodium iodide Allergy Unknown Swelling Verified 02/15/18 03:06 *MDRO Multi-Drug Resistant AdvReac Unknown n/a Uncoded 02/15/18 03:06 Organism Home Medications Medication Instructions Recorded Confirmed Type metformin 500 mg PO BID 02/15/18 02/15/18 History Results - Labs CBC & Chem 7: 02/18/18 06:52 02/18/18 06:52 Laboratory Results - last 24 hr 02/17/18 02/17/18 02/18/18 16:45 20:51 06:52 WBC 13.9 H RBC 3.91 L Hgb 11.7 L Hct 35.4 L MCV 90.5 MCH 29.8 MCHC 33.0 RDW 13.0 Plt Count 228 MPV 9.4 Neut % (Auto) 78.8 H Lymph % (Auto) 11.8 [place] % (Auto) 8.3 H Eos % (Auto) 0.9 Baso % (Auto) 0.2 Neut # (Auto) 10.9 H Lymph # (Auto) 1.6 [place] # (Auto) 1.1 H Eos # (Auto) 0.1 Baso # (Auto) 0.0 WBC Differential . Differential Comment Auto diff final Sodium Potassium Chloride Carbon Dioxide Anion Gap BUN Creatinine Estimated GFR POC Glucose 143 H 160 H Random Glucose Calcium Magnesium 02/18/18 02/18/18 02/18/18 06:52 08:01 12:32 WBC RBC Hgb Hct MCV MCH MCHC RDW Plt Count MPV Neut % (Auto) Lymph % (Auto) [place] % (Auto) Eos % (Auto) Baso % (Auto) Neut # (Auto) Lymph # (Auto) [place] # (Auto) Eos # (Auto) Baso # (Auto) WBC Differential Differential Comment Sodium 141 Potassium 3.9 Chloride 107 Carbon Dioxide 27.4 Anion Gap 7 BUN 9 Creatinine 0.76 Estimated GFR Greater than 89 POC Glucose 134 H 171 H Random Glucose 130 H Calcium 8.0 L Magnesium 1.9 Microbiology 02/15/18 02:45 Blood - Peripheral Aerobic Blood Culture - Preliminary No growth in 3 days 02/15/18 02:45 Blood - Peripheral Anaerobic Blood Culture - Preliminary No growth in 3 days 02/15/18 02:35 Blood - Peripheral Aerobic Blood Culture - Preliminary No growth in 3 days 02/15/18 02:35 Blood - Peripheral Anaerobic Blood Culture - Preliminary No growth in 3 days Assessment and Plan - Plan 57-year-old male with right hallux ulceration and left foot ulcerations to medial lateral heel Patient evaluated by vascular surgery and is status post intervention Patient 2 OR tomorrow for right hallux amputation and left foot ulcerations debridement irrigation Patient understands all alternatives risks benefits complications associated with procedure and would like to move forward with surgical intervention Consent to be obtained into read right hallux amputation and left foot ulcerations debridement and irrigation Anticipate discharge once the OR cultures and pathology are final
[2018-02-18] MEDS ORDERED: Pharmacy Ordered Lab Info OTHER ONE (17:45)
[2018-02-18] MEDS: Insulin Detemir Inj 1,000 UNIT/10 ML Vial SQ SCH (21:20)
[2018-02-19] MEDS: Piperacil/Tazo 4.5 GM Premix 4.5 GM/100 ML BAG IV.SIG SCH ×4 (01:24→20:58)
[2018-02-19] MEDS: oxyCODONE/Acetaminophen 10/325 Tablet PO PRN ×5 (01:27→21:52)
[2018-02-19] MEDS: Sod Chloride 0.9% Inj 1,000 ML IV.SIG SCH ×3 (03:10→22:09)
[2018-02-19] MEDS ORDERED: Pharmacy Ordered Lab Info OTHER ONE (05:45)
[2018-02-19] MEDS: Vancomycin Inj 1,750 MG in Sodium Chlor 0.9% Inj 500 ML IV.SIG SCH ×2 (06:58→19:27)
[2018-02-19] MEDS: Insulin NovoLOG Aspart Correctional Sugar Inj SQ SCH ×4 (07:55→22:09)
[2018-02-19] MEDS: Collagenase Oint 30 GM Tube TOPICAL SCH (08:00)
[2018-02-19] MEDS ORDERED: Enoxaparin Inj 40 MG/0.4 ML Syringe SQ SCH (09:00)
--- NOTE | 2018-02-19 10:24 | P.PNIM ---
Subjective Interval history: Follow-up for lower extremity cellulitis No significant pain, afebrile, blood pressure mildly elevated, denies any chest pain or shortness of breath. Physical Exam Vital signs: Vital Signs 02/18/18 12:00 02/18/18 16:00 02/18/18 20:00 Temperature 98.3 F 98.3 F 98.2 F Pulse Rate 66 62 66 Respiratory Rate 17 18 20 Blood Pressure 150/74 H 143/70 H 163/79 H Pulse Oximetry 95 95 95 02/18/18 23:58 02/19/18 04:00 02/19/18 08:00 Temperature 97.5 F L 97.5 F L 97.8 F Pulse Rate 69 62 60 Respiratory Rate 18 20 17 Blood Pressure 175/84 H 159/77 H 168/87 H Pulse Oximetry 95 99 97 Intake & Output 02/18/18 02/19/18 02/19/18 18:59 06:59 18:59 Intake Total 2117.5 / 2117.5 2817.5 / 2817.5 Output Total 600 / 600 2450 / 2450 Balance 1517.5 / 1517.5 367.5 / 367.5 Intake: IV 1617.5 / 1617.5 2817.5 / 2817.5 LR 1000 mL Inj 1,000 ML @ 30 1000 / 1000 mls/hr IV.SIG .Q24H [facility] Rx#: [id number] Zosyn 4.5 GM Premix 4.5 gm In 100 / 100 300 / 300 100 ml @ 200 mls/hr IV.SIG Q6H [facility] Rx#:[id number] NS Inj 1,000 ML @ 100 mls/hr IV 1000 / 1000 1000 / 1000 .SIG .Q10H [facility] Rx#:[id number] Vancomycin Inj 1,750 MG In NS 517.5 / 517.5 517.5 / 517.5 Inj 500 ML @ 250 mls/hr IV.SIG Q12H [facility] Rx#:[id number] Oral 500 / 500 Output: Urine 600 / 600 2450 / 2450 Other: Date of Last Bowel Movement 02/17/18 # Bowel Movements 0 Narrative: GENERAL: No distress. SKIN: Right lower extremity erythema, 1+ swelling, mild tenderness. Dressings in place. Right thigh dressings in place medial aspect. EYES: Pupils equal and round. No scleral icterus. No injection or drainage. CARDIOVASCULAR: Regular rate and rhythm. RESPIRATORY: No accessory muscle use. Clear to auscultation. Breath sounds equal bilaterally. GASTROINTESTINAL: Abdomen soft, non-tender, nondistended. NEUROLOGICAL: Awake and alert, oriented 3. No obvious cranial nerve deficits. Motor grossly within normal limits. Five out of 5 muscle strength in the arms and legs. Normal speech. - Urinary Catheter Management Indwelling Urethral Catheter Cath placed during this visit: yes Reason for continuing: Hourly intake/output Insertion date: 02/17/18 Insertion time: 13:45 Results - Labs CBC & Chem 7: 02/18/18 06:52 02/18/18 06:52 Laboratory Results - last 24 hr 02/18/18 02/18/18 02/18/18 12:32 17:30 21:16 POC Glucose 171 H 207 H 223 H Vancomycin Trough 02/19/18 02/19/18 05:30 07:48 POC Glucose 100 Vancomycin Trough 15.5 H Microbiology 02/15/18 02:45 Blood - Peripheral Aerobic Blood Culture - Preliminary No growth in 3 days 02/15/18 02:45 Blood - Peripheral Anaerobic Blood Culture - Preliminary No growth in 3 days 02/15/18 02:35 Blood - Peripheral Aerobic Blood Culture - Preliminary No growth in 3 days 02/15/18 02:35 Blood - Peripheral Anaerobic Blood Culture - Preliminary No growth in 3 days - Procedures Right femoropopliteal bypass with endarterectomy, 02/17/2018. Assessment and Plan - Plan This is a 57-year-old male with history of diabetes mellitus presented to the hospital with foot pain and redness. Sepsis secondary to cellulitis of the foot with peripheral arterial disease - MRI of foot concerning for OM on the right. Infectious disease, podiatry and vascular surgery consulted. CTA: good inflow with bilateral stenosis of common femoral arteries, occlusion of superficial femoral arteries and reconstitution of the popliteal arteries bilaterally; Beyond popliteal arteries trifurcations are open with scattered plaque and mild to moderate stenoses throughout. - s/p Femoral-popliteal bypasses with endarterectomy 02/17, for right hallux amputation left foot debridement and irrigation today. Continue vancomycin and Zosyn. -Pain management with IV morphine and oral narcotics. Continue Plavix. -Wound culture ordered, blood cultures negative to date, still with leukocytosis. Hypertension-uncontrolled, start Norvasc. Tobacco abuse Tobacco counseling cessation provided. -continue nicotine patch. Diabetes mellitus-hemoglobin A1c 9.9%, continue Accu-Cheks, Levemir 15 units at night, sliding scale insulin. Physical therapy after surgery. Will likely need rehab at home with home health care. DVT prophylaxis: Lovenox
[2018-02-19] MEDS: amLODIPine 5 MG Tablet PO SCH (11:34)
[2018-02-19] MEDS ORDERED: Lidocaine PF 1% Inj 5 ML Syringe INFILTRATN ONE (12:00)
[2018-02-19] MEDS ORDERED: Bupivacaine PF 0.25% Inj 30 ML Vial ONE (13:40)
--- NOTE | 2018-02-19 14:22 | P.PNPOD ---
Subjective Interval history: Patient seen bedside in preop. Denies any nausea vomiting fevers or chills. Is in agreement with procedure to bilateral lower extremity. Physical Exam Vital signs: Vital Signs 02/18/18 16:00 02/18/18 20:00 02/18/18 23:58 Temperature 98.3 F 98.2 F 97.5 F L Pulse Rate 62 66 69 Respiratory Rate 18 20 18 Blood Pressure 143/70 H 163/79 H 175/84 H Pulse Oximetry 95 95 95 02/19/18 04:00 02/19/18 08:00 02/19/18 12:00 Temperature 97.5 F L 97.8 F 98.0 F Pulse Rate 62 60 62 Respiratory Rate 20 17 Blood Pressure 159/77 H 168/87 H 164/84 H Pulse Oximetry 99 97 97 Intake & Output 02/18/18 02/19/18 02/19/18 18:59 06:59 18:59 Intake Total 2117.5 / 2117.5 2817.5 / 2817.5 Output Total 600 / 600 2450 / 2450 Balance 1517.5 / 1517.5 367.5 / 367.5 Intake: IV 1617.5 / 1617.5 2817.5 / 2817.5 LR 1000 mL Inj 1,000 ML @ 30 1000 / 1000 mls/hr IV.SIG .Q24H [facility] Rx#: [id number] Zosyn 4.5 GM Premix 4.5 gm In 100 / 100 300 / 300 100 ml @ 200 mls/hr IV.SIG Q6H [facility] Rx#:[id number] NS Inj 1,000 ML @ 100 mls/hr IV 1000 / 1000 1000 / 1000 .SIG .Q10H [facility] Rx#:[id number] Vancomycin Inj 1,750 MG In NS 517.5 / 517.5 517.5 / 517.5 Inj 500 ML @ 250 mls/hr IV.SIG Q12H [facility] Rx#:[id number] Oral 500 / 500 Output: Urine 600 / 600 2450 / 2450 Other: Date of Last Bowel Movement 02/17/18 # Bowel Movements 0 Narrative: Dressing to bilateral extremity clean dry and intact. Capillary refill time to digits 10 intact. Medications and Allergies Active Medications: Active Medications Acetaminophen (Tylenol) 650 mg PO Q4H PRN PRN Reason: Temp > 100.4 Amlodipine Besylate (Norvasc) 5 mg PO DAILY [facility] Last Admin: 02/19/18 11:34 Dose: 5 mg Chlorhexidine Gluconate (Chlorhexidine 2% Cloth) 3 pack [employer]ICAL [employer] [facility] Stop: 02/20/18 04:15 Clopidogrel Bisulfate (Plavix) 75 mg PO DAILY [facility] Last Admin: 02/19/18 08:00 Dose: 75 mg Collagenase (Santyl Oint) 1 applicatio TOPICAL DAILY [facility] Last Admin: 02/19/18 08:00 Dose: 1 applicatio Dextrose (D50w Vial) 50 ml IV.PUSH UNSCH PRN PRN Reason: PER HYPOGLYCEMIA PROTOCOL Enoxaparin Sodium (Lovenox Inj) 40 mg SQ DAILY [facility] Last Admin: 02/19/18 08:01 Dose: Not Given Glucagon (Glucagon Inj) 1 mg OTHER PRN PRN PRN Reason: for Hypoglycemia Protocol Pharmacy Profile Note (Vancomycin Consult Pharmacy) 0 mls @ 0 mls/hr OTHER UNSCH [facility] Vancomycin HCl 1,750 mg/ (Sodium Chloride) 517.5 mls @ 250 mls/hr IV.SIG Q12H [facility] Last Admin: 02/19/18 06:58 Dose: 200 mls/hr Piperacillin/Tazobactam/Dextrose (Zosyn 4.5 Gm Premix) 4.5 gm in 100 mls @ 200 mls/hr IV.SIG Q6H [facility] Last Admin: 02/19/18 07:52 Dose: 200 mls/hr Lactated Ringer's (Lr 1000 Ml Inj) 1,000 mls @ 30 mls/hr IV.SIG .Q24H [facility] Stop: 02/20/18 04:15 Last Admin: 02/19/18 05:17 Dose: Not Given Sodium Chloride (Ns Inj) 1,000 mls @ 100 mls/hr IV.SIG .Q10H [facility] Last Admin: 02/19/18 11:33 Dose: 100 mls/hr Insulin Aspart (Novolog Insulin Correctional Sugar Inj) 0 unit SQ ACHS [facility]; Protocol Last Admin: 02/19/18 07:55 Dose: Not Given Insulin Detemir (Levemir Inj) 15 unit SQ HS [facility] Last Admin: 02/18/18 21:20 Dose: 15 unit Morphine Sulfate (Morphine Inj) 2 mg IV.PUSH Q6H PRN PRN Reason: PAIN 1-10 Ondansetron HCl (Zofran Inj) 4 mg IV.PUSH Q6H PRN PRN Reason: NAUSEA OR VOMITING Oxycodone/Acetaminophen (Percocet 7.5/325 Mg) 1 tab PO Q4H PRN PRN Reason: PAIN 3-5; IF UABLE TO TAKE PO Last Admin: 02/18/18 08:44 Dose: 1 tab Oxycodone/Acetaminophen (Percocet 10/325 Mg) 1 tab PO Q4H PRN PRN Reason: PAIN 6-10;IF UNABLE TO TAKE PO Last Admin: 02/19/18 11:33 Dose: 1 tab Temazepam (Restoril) 15 mg PO HS PRN PRN Reason: INSOMNIA Allergies Allergy/AdvReac Type Severity Reaction Status Date / Time iodine Allergy Unknown Swelling Verified 02/15/18 03:06 potassium iodide Allergy Unknown Swelling Verified 02/15/18 03:06 povidone-iodine Allergy Unknown Swelling Verified 02/15/18 03:06 sodium iodide Allergy Unknown Swelling Verified 02/15/18 03:06 sodium iodide Allergy Unknown Swelling Verified 02/15/18 03:06 *MDRO Multi-Drug Resistant AdvReac Unknown n/a Uncoded 02/15/18 03:06 Organism Home Medications Medication Instructions Recorded Confirmed Type metformin 500 mg PO BID 02/15/18 02/15/18 History Results - Labs CBC & Chem 7: 02/18/18 06:52 02/18/18 06:52 Laboratory Results - last 24 hr 02/18/18 02/18/18 02/19/18 17:30 21:16 05:30 POC Glucose 207 H 223 H Vancomycin Trough 15.5 H 02/19/18 02/19/18 07:48 11:42 POC Glucose 100 121 H Vancomycin Trough Microbiology 02/15/18 02:45 Blood - Peripheral Aerobic Blood Culture - Preliminary No growth in 4 days 02/15/18 02:45 Blood - Peripheral Anaerobic Blood Culture - Preliminary No growth in 4 days 02/15/18 02:35 Blood - Peripheral Aerobic Blood Culture - Preliminary No growth in 4 days 02/15/18 02:35 Blood - Peripheral Anaerobic Blood Culture - Preliminary No growth in 4 days - Procedures Right femoropopliteal bypass with endarterectomy, 02/17/2018. Assessment and Plan - Plan 57-year-old male with right hallux ulceration and left foot ulcerations to medial lateral heel Patient evaluated by vascular surgery and is status post intervention Patient to the OR today for right hallux amputation and left foot ulcerations debridement irrigation Patient understands all alternatives risks benefits complications associated with procedure and would like to move forward with surgical intervention Consent signed and obtained obtained into read right hallux amputation and left foot ulcerations debridement and irrigation Anticipate discharge once the OR cultures and pathology are final Patient will be heel weightbearing to the right lower extremity
[2018-02-19] MEDS ORDERED: fentaNYL Citrate Inj 100 MCG/2 ML Ampul ONE (15:30)
[2018-02-19] MEDS ORDERED: Misc Info for Pharmacy OTHER STA (15:49)
--- NOTE | 2018-02-19 15:49 | P.PCN ---
Date of procedure: 02/19/18 Pre-op diagnosis: Right hallux osteomyelitis, left foot ulcerations to medial lateral foot Procedure: Right foot hallux amputation at metatarsophalangeal joint Left foot debridement and irrigation of medial lateral ulcers Anesthesia: MICHAEL Surgeon: Reina Carbajal Estimated blood loss (mL): 10 (10 cc of the right foot, 10 cc to the right foot less than 2 cc to the left) Pathology: other (Right hallux to path, proximal clearing margin of proximal phalanx to path and micro, soft tissue right foot micro) Condition: stable Disposition: PACU (To PACU with vital signs stable and neurovascular status intact to bilateral lower extremity)
--- NOTE | 2018-02-19 16:07 | MR ---
cc: Reina Carbajal DPM DATE: 02/19/2018 SURGEON: Reina Carbajal DPM [employer] PROCESSING: None. PREOPERATIVE DIAGNOSES: 1. Right hallux osteomyelitis. 2. Left foot ulceration. POSTOPERATIVE DIAGNOSES: 1. Right hallux osteomyelitis. 2. Left foot ulceration. PROCEDURE PERFORMED: 1. Right hallux amputation at metatarsophalangeal joint. 2. Left foot ulceration debridement and irrigation. HEMOSTASIS: None. ESTIMATED BLOOD LOSS: 10 mL to the right foot, 2 mL to the left foot. MATERIALS: 2-0 and 3-0 nylon. INJECTABLES: 0.5% Marcaine plain, 10 mL total infiltrated about the right foot. COMPLICATIONS: None. INDICATIONS FOR PROCEDURE: The patient is a 57-year-old male with a history of diabetes who presented to the emergency department with foot pain and redness to bilateral foot. The patient states he has been remodeling an old flooded house and the environment is very wet. He only owns 1 pair of boots, so his feet are always wet. The patient does not know how long he has had the right hallux ulceration. He recently underwent a right femoral popliteal bypass with endarterectomy by vascular surgery. The patient understands all risks, benefits, complications, alternatives with right hallux amputation at the metatarsophalangeal joint as well as left foot ulceration debridement and irrigation and would like to proceed with surgical intervention. DESCRIPTION OF PROCEDURE: The patient was brought to the operating room and placed on the operating room table in the supine position. General anesthesia was then induced. The right foot and left foot were prepped and draped in the usual sterile fashion. Marcaine 0.5% plain, 10 mL total, was infiltrated about the right foot. Once local anesthesia was confirmed, a racket-shaped incision was made about the metatarsophalangeal joint. This incision was deepened through skin and subcutaneous tissue with care to retract all vital neurovascular structures. The metatarsophalangeal joint was identified incision was carried through periosteum. The proximal phalanx was freed up of any medial and lateral , plantar and dorsal soft tissue attachments. The hallux was disarticulated and it was passed off the field to pathology. Proximal phalanx served as proximal clearing margin for micro and path. The site was then copiously irrigated with normal saline. Vancomycin powder was applied to the site and 2-0 and 3-0 Prolene were utilized to close the skin. There was noted to be good capillary refill time to the amputation site. The amputation site was dressed with Xeroform, 4 x 4's, cast padding and Guerrero. Attention was then directed to the left foot, at which time medial and lateral heel ulcers were noted, both measuring 2 x 2 cm with fibrogranular bases. A # 15 blade was utilized to debride all necrotic nonviable skin. A full-thickness excisional debridement was performed to subcutaneous tissue. The sites were copiously irrigated and Xeroform, 4 x 4's, cast padding and Guerrero were applied to the left foot. The patient tolerated the procedure and anesthesia well. He will remain heel weightbearing in a surgical shoe to the right foot and weightbearing to the left foot. We will follow all cultures and await final antibiotic recommendations from infectious disease before discharge. BELÉN Banks , 03:28 PM , 03:36 PM ELISEO
--- NOTE | 2018-02-19 16:45 | XR ---
EXAM DATE: 02/19/2018 4:20 PM EDT AGE/SEX: 57 years / Male INDICATIONS: Post first right digit amputation. CLINICAL DATA: This is the patient's subsequent encounter. Patient reports that signs and symptoms h ave been present for 1 week and indicates a pain score of 0/10. MEDICAL/SURGICAL HISTORY: Diabetes. . Partial right foot amputation. [place] [facility] [place]. [facility] [place] W & W/O CONTRAST, [place]. . FINDINGS: 3 view examination demonstrates amputation of the phalanges of the first digit. There is an irregular appearance to the soft tissues at the amputation site. The cortical margins of the distal first meta tarsus are smooth; no evidence of periosteal reaction. No radiopaque foreign bodies seen. Questionabl e gas in the soft tissues distally. The osseous structures of the forefoot and midfoot. CONCLUSION: Irregular appearance of the soft tissues of the first digit amputation site with possible soft tissue gas. No radiopaque foreign bodies seen. Normal radiographic appearance to the cortex of the distal f irst metatarsus. Electronically signed by: Jossue Spain MD 02/19/2018 4:43 PM EDT
[2018-02-19] MEDS: Insulin Detemir Inj 1,000 UNIT/10 ML Vial SQ SCH (21:53)
[2018-02-20] MEDS: Piperacil/Tazo 4.5 GM Premix 4.5 GM/100 ML BAG IV.SIG SCH ×4 (04:10→21:19)
[2018-02-20] MEDS: Sod Chloride 0.9% Inj 1,000 ML IV.SIG SCH ×3 (04:12→21:29)
[2018-02-20] MEDS: Vancomycin Inj 1,750 MG in Sodium Chlor 0.9% Inj 500 ML IV.SIG SCH ×2 (05:45→18:25)
[2018-02-20] MEDS: oxyCODONE/Acetaminophen 10/325 Tablet PO PRN ×5 (05:45→23:45)
[2018-02-20 07:39] LABS: Glomerular Filtration Rate Greater Than 89 mL/min (>89)
--- NOTE | 2018-02-20 08:27 | P.PNVS ---
Subjective Subjective/Hospital Course: Petient seen Full consult dictated Thanks J 02/16/2018 Patient with severe peripheral vascular disease and ischemia of the both feet ulcers of the both legs and possible osteomyelitis of the toe CTA with runoff was performed and it confirms the clinical impression. Patient is a good inflow with bilateral stenosis of common femoral arteries, occlusion of superficial femoral arteries and reconstitution of the popliteal arteries bilaterally. Beyond popliteal arteries trifurcations are open with scattered plaque and mild to moderate stenoses throughout Patient is a good candidate for femoral-popliteal bypasses bilaterally and will proceed with the same once cellulitis and infection controlled i.e. in next several days. 02/18/2018 Patient is status post right femoral-popliteal bypass with endarterectomy yesterday Incisions are clean and dry patient has well-perfused foot with bounding pulses Eventually patient will have to have a left leg addressed as he sees me in the office for follow-up Nothing to add to care at this time 02/20/2018 Incisions healing nicely clean and dry Excellent palpable femoral pulse and dopplerable strong signal in the graft popliteal artery and distal vessels Right foot is nice and warm with normal capillary refill Nothing to add from my point and appreciate very much podiatry expertise. Objective Vital Signs / I&O: Vital Signs 02/19/18 12:00 02/19/18 15:25 02/19/18 15:40 Temperature 98.0 F Pulse Rate 62 66 72 Respiratory Rate 14 Blood Pressure 164/84 H 151/82 H Pulse Oximetry 97 93 L 94 L 02/19/18 15:50 02/19/18 16:00 02/19/18 20:00 Temperature 97.7 F 98.7 F Pulse Rate 66 75 71 Respiratory Rate 16 17 Blood Pressure 158/86 H 162/89 H 157/86 H Pulse Oximetry 93 L 94 L 95 02/20/18 00:01 Temperature 98.7 F Pulse Rate 67 Respiratory Rate 17 Blood Pressure 151/83 H Pulse Oximetry 96 Intake & Output 02/19/18 02/20/18 02/20/18 18:59 06:59 18:59 Intake Total 600 / 600 1817.5 / 1817.5 Output Total 3660 / 3660 3500 / 3500 Balance -3060 / -3060 -1682.5 / -1682.5 Intake: IV 0 / 0 1817.5 / 1817.5 Zosyn 4.5 GM Premix 4.5 gm In 0 / 0 300 / 300 100 ml @ 200 mls/hr IV.SIG Q6H [facility] Rx#:[id number] NS Inj 1,000 ML @ 100 mls/hr IV 1000 / 1000 .SIG .Q10H [facility] Rx#:[id number] Vancomycin Inj 1,750 MG In NS 517.5 / 517.5 Inj 500 ML @ 250 mls/hr IV.SIG Q12H [facility] Rx#:[id number] Oral 300 / 300 Anesthesia Amount 300 / 300 Output: Urine 3650 / 3650 Estimated Blood Loss Urine Amount (Catheter) 3500 / 3500 Indwelling Urethral Catheter 3500 / 3500 Other: Date of Last Bowel Movement 02/19/18 # Bowel Movements 0 2 Laboratory Results - last 24 hr 02/19/18 02/19/18 02/19/18 11:42 17:02 21:05 Creatinine Estimated GFR POC Glucose 121 H 110 185 H 02/20/18 02/20/18 06:23 08:04 Creatinine 0.84 Estimated GFR Greater than 89 POC Glucose 161 H Microbiology 02/15/18 02:45 Aerobic Blood Culture - Preliminary Blood - Peripheral No growth in 4 days Anaerobic Blood Culture - Preliminary No growth in 4 days 02/15/18 02:35 Aerobic Blood Culture - Preliminary Blood - Peripheral No growth in 4 days Anaerobic Blood Culture - Preliminary No growth in 4 days Impressions Foot X-Ray 02/19/18 00:00 CONCLUSION: Irregular appearance of the soft tissues of the first digit amputation site with possible soft tissue gas. No radiopaque foreign bodies seen. Normal radiographic appearance to the cortex of the distal first metatarsus.
--- NOTE | 2018-02-20 09:19 | P.PNPOD ---
Subjective Interval history: Mild foot pain otherwise no events overnight Physical Exam Vital signs: Vital Signs 02/19/18 12:00 02/19/18 15:25 02/19/18 15:40 Temperature 98.0 F Pulse Rate 62 66 72 Respiratory Rate 14 Blood Pressure 164/84 H 151/82 H Pulse Oximetry 97 93 L 94 L 02/19/18 15:50 02/19/18 16:00 02/19/18 20:00 Temperature 97.7 F 98.7 F Pulse Rate 66 75 71 Respiratory Rate 16 17 Blood Pressure 158/86 H 162/89 H 157/86 H Pulse Oximetry 93 L 94 L 95 02/20/18 00:01 Temperature 98.7 F Pulse Rate 67 Respiratory Rate 17 Blood Pressure 151/83 H Pulse Oximetry 96 Intake & Output 02/19/18 02/20/18 02/20/18 18:59 06:59 18:59 Intake Total 600 / 600 1817.5 / 1817.5 517.5 / 517.5 Output Total 3660 / 3660 3500 / 3500 Balance -3060 / -3060 -1682.5 / -1682.5 517.5 / 517.5 Intake: IV 0 / 0 1817.5 / 1817.5 517.5 / 517.5 Zosyn 4.5 GM Premix 4.5 gm In 0 / 0 300 / 300 100 ml @ 200 mls/hr IV.SIG Q6H [facility] Rx#:[id number] NS Inj 1,000 ML @ 100 mls/hr IV 1000 / 1000 .SIG .Q10H [facility] Rx#:[id number] Vancomycin Inj 1,750 MG In NS 517.5 / 517.5 517.5 / 517.5 Inj 500 ML @ 250 mls/hr IV.SIG Q12H [facility] Rx#:[id number] Oral 300 / 300 Anesthesia Amount 300 / 300 Output: Urine 3650 / 3650 Estimated Blood Loss 10 / 10 Urine Amount (Catheter) 3500 / 3500 Indwelling Urethral Catheter 3500 / 3500 Other: Date of Last Bowel Movement 02/19/18 # Bowel Movements 0 2 Narrative: Bilateral lower extremities are bandaged clean dry and intact, good capillary fill time noted to digits of left foot, good capillary fill time to right lesser digits mild redness pretibial area right lower extremity bilateral legs appear warm Medications and Allergies Active Medications: Active Medications Acetaminophen (Tylenol) 650 mg PO Q4H PRN PRN Reason: Temp > 100.4 Amlodipine Besylate (Norvasc) 5 mg PO DAILY [facility] Last Admin: 02/19/18 11:34 Dose: 5 mg Clopidogrel Bisulfate (Plavix) 75 mg PO DAILY [facility] Last Admin: 02/19/18 08:00 Dose: 75 mg Collagenase (Santyl Oint) 1 applicatio TOPICAL DAILY [facility] Last Admin: 02/19/18 08:00 Dose: 1 applicatio Dextrose (D50w Vial) 50 ml IV.PUSH UNSCH PRN PRN Reason: PER HYPOGLYCEMIA PROTOCOL Enoxaparin Sodium (Lovenox Inj) 40 mg SQ Q24H [facility] Glucagon (Glucagon Inj) 1 mg OTHER PRN PRN PRN Reason: for Hypoglycemia Protocol Pharmacy Profile Note (Vancomycin Consult Pharmacy) 0 mls @ 0 mls/hr OTHER UNSCH [facility] Vancomycin HCl 1,750 mg/ (Sodium Chloride) 517.5 mls @ 250 mls/hr IV.SIG Q12H [facility] Last Infusion: 02/20/18 08:23 Dose: Infused Piperacillin/Tazobactam/Dextrose (Zosyn 4.5 Gm Premix) 4.5 gm in 100 mls @ 200 mls/hr IV.SIG Q6H [facility] Last Infusion: 02/20/18 04:53 Dose: Infused Sodium Chloride (Ns Inj) 1,000 mls @ 100 mls/hr IV.SIG .Q10H [facility] Last Admin: 02/20/18 04:12 Dose: 100 mls/hr Insulin Aspart (Novolog Insulin Correctional Sugar Inj) 0 unit SQ ACHS [facility]; Protocol Last Admin: 02/19/18 22:09 Dose: 1 unit Insulin Detemir (Levemir Inj) 15 unit SQ HS [facility] Last Admin: 02/19/18 21:53 Dose: 15 unit Miscellaneous Information ([facility] [place], [place] Nursing Information) 1 each OTHER UNSCH PRN PRN Reason: SEE LABEL COMMENTS Stop: 02/20/18 15:27 Morphine Sulfate (Morphine Inj) 2 mg IV.PUSH Q6H PRN PRN Reason: PAIN 1-10 Ondansetron HCl (Zofran Inj) 4 mg IV.PUSH Q6H PRN PRN Reason: NAUSEA OR VOMITING Oxycodone/Acetaminophen (Percocet 7.5/325 Mg) 1 tab PO Q4H PRN PRN Reason: PAIN 3-5; IF UABLE TO TAKE PO Last Admin: 02/18/18 08:44 Dose: 1 tab Oxycodone/Acetaminophen (Percocet 10/325 Mg) 1 tab PO Q4H PRN PRN Reason: PAIN 6-10;IF UNABLE TO TAKE PO Last Admin: 02/20/18 05:45 Dose: 1 tab Temazepam (Restoril) 15 mg PO HS PRN PRN Reason: INSOMNIA Allergies Allergy/AdvReac Type Severity Reaction Status Date / Time iodine Allergy Unknown Swelling Verified 02/15/18 03:06 potassium iodide Allergy Unknown Swelling Verified 02/15/18 03:06 povidone-iodine Allergy Unknown Swelling Verified 02/15/18 03:06 sodium iodide Allergy Unknown Swelling Verified 02/15/18 03:06 sodium iodide Allergy Unknown Swelling Verified 02/15/18 03:06 *MDRO Multi-Drug Resistant AdvReac Unknown n/a Uncoded 02/15/18 03:06 Organism Home Medications Medication Instructions Recorded Confirmed Type metformin 500 mg PO BID 02/15/18 02/15/18 History Results - Labs CBC & Chem 7: 02/18/18 06:52 02/20/18 06:23 Laboratory Results - last 24 hr 02/19/18 02/19/18 02/19/18 11:42 17:02 21:05 Creatinine Estimated GFR POC Glucose 121 H 110 185 H 02/20/18 02/20/18 06:23 08:04 Creatinine 0.84 Estimated GFR Greater than 89 POC Glucose 161 H Microbiology 02/15/18 02:45 Blood - Peripheral Aerobic Blood Culture - Preliminary No growth in 4 days 02/15/18 02:45 Blood - Peripheral Anaerobic Blood Culture - Preliminary No growth in 4 days 02/15/18 02:35 Blood - Peripheral Aerobic Blood Culture - Preliminary No growth in 4 days 02/15/18 02:35 Blood - Peripheral Anaerobic Blood Culture - Preliminary No growth in 4 days - Imaging Impressions Foot X-Ray 02/19/18 00:00 CONCLUSION: Irregular appearance of the soft tissues of the first digit amputation site with possible soft tissue gas. No radiopaque foreign bodies seen. Normal radiographic appearance to the cortex of the distal first metatarsus. - Procedures Right femoropopliteal bypass with endarterectomy, 02/17/2018. Assessment and Plan - Assessment (1) Foot osteomyelitis, right Code(s): M86.9 - Osteomyelitis, unspecified Status: Acute (2) Foot ulcer, left Code(s): L97.529 - Non-pressure chronic ulcer of other part of left foot with unspecified severity Status: Acute - Plan Reviewed the need for smoking cessation, continue IV antibiotics, will change bandage tomorrow to evaluate for wound healing and advise. Awaiting deep culture from surgery. Procedures: Status post right hallux amputation, left foot ulcer debridement, per Dr. Carbajal 02/19
--- NOTE | 2018-02-20 09:30 | P.PNID ---
Subjective Remarks: Patient is a 57-year-old male, with known diabetes, presented to the hospital with 1 day history of pain and redness on his right foot. 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 He had noted some redness on his right foot about 2 days prior to admission, and on the day of admission he noted a sore on his big toe. He does not know how he got it but made some assumption that it was probably from his new boots. He also has some wound develop on his left ankle. He has not had any fever chills or sweats. He denies any GI or any urinary complaints. Since admission he has not been febrile. X-ray of his right foot is showing some some suggestion of possible early osteo-on his big toe. Infectious disease consultation has been requested to assist with evaluation and treatment. Notes reviewed Temps ok Had fempop bypass with PTFE and RCEI endarterectomy and angioplasty 02/17 Had amputation of R hallux at MTP joint 02/19 Pain in RLE about 7/10 Afebrile No rash or itching No diarrhea/N/V Cultures from toe pending Biopsy report pending Antibiotics: Vanco Zosyn Lines: PIV no evid of infection Past Medical History: Diabetes Eye surgery Allergies/Adverse Reactions: Allergies iodine Allergy (Unknown, Verified 02/15/18 03:06) Swelling potassium iodide Allergy (Unknown, Verified 02/15/18 03:06) Swelling povidone-iodine Allergy (Unknown, Verified 02/15/18 03:06) Swelling sodium iodide Allergy (Unknown, Verified 02/15/18 03:06) Swelling sodium iodide Allergy (Unknown, Verified 02/15/18 03:06) Swelling *MDRO Multi-Drug Resistant Organism Adverse Reaction (Unknown, Uncoded 02/15/18 03:06) n/a 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; 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 Objective Vital Signs 02/19/18 12:00 02/19/18 15:25 02/19/18 15:40 Temperature 98.0 F Pulse Rate 62 66 72 Respiratory Rate 14 Blood Pressure 164/84 H 151/82 H Pulse Oximetry 97 93 L 94 L 02/19/18 15:50 02/19/18 16:00 02/19/18 20:00 Temperature 97.7 F 98.7 F Pulse Rate 66 75 71 Respiratory Rate 16 17 Blood Pressure 158/86 H 162/89 H 157/86 H Pulse Oximetry 93 L 94 L 95 02/20/18 00:01 Temperature 98.7 F Pulse Rate 67 Respiratory Rate 17 Blood Pressure 151/83 H Pulse Oximetry 96 Intake & Output 02/19/18 02/20/18 02/20/18 18:59 06:59 18:59 Intake Total 600 / 600 1817.5 / 1817.5 517.5 / 517.5 Output Total 3660 / 3660 3500 / 3500 Balance -3060 / -3060 -1682.5 / -1682.5 517.5 / 517.5 Intake: IV 0 / 0 1817.5 / 1817.5 517.5 / 517.5 Zosyn 4.5 GM Premix 4.5 gm In 0 / 0 300 / 300 100 ml @ 200 mls/hr IV.SIG Q6H [facility] Rx#:[id number] NS Inj 1,000 ML @ 100 mls/hr IV 1000 / 1000 .SIG .Q10H [facility] Rx#:[id number] Vancomycin Inj 1,750 MG In NS 517.5 / 517.5 517.5 / 517.5 Inj 500 ML @ 250 mls/hr IV.SIG Q12H [facility] Rx#:[id number] Oral 300 / 300 Anesthesia Amount 300 / 300 Output: Urine 3650 / 3650 Estimated Blood Loss 10 / 10 Urine Amount (Catheter) 3500 / 3500 Indwelling Urethral Catheter 3500 / 3500 Other: Date of Last Bowel Movement 02/19/18 # Bowel Movements 0 2 02/19/18 15:10 Tissue - Foot Fungal Smear - Pending 02/19/18 15:10 Tissue - Foot Fungal Culture - Pending 02/19/18 15:10 Tissue - Foot Acid Fast Bacilli Smear - Pending 02/19/18 15:10 Tissue - Foot Mycobacterial Culture - Pending 02/19/18 15:10 Tissue - Foot Gram Stain - Pending 02/19/18 15:10 Tissue - Foot Wound Culture - Pending 02/19/18 15:10 Foot - Right Gram Stain - Pending 02/19/18 15:10 Wound - Foot Fungal Smear - Pending 02/19/18 15:10 Wound - Foot Fungal Culture - Pending 02/19/18 15:10 Wound - Foot Acid Fast Bacilli Smear - Pending 02/19/18 15:10 Wound - Foot Mycobacterial Culture - Pending 02/19/18 15:10 Foot - Right Gram Stain - Pending 02/19/18 15:10 Wound - Foot Gram Stain - Pending 02/19/18 15:10 Wound - Foot Wound Culture - Pending 02/15/18 02:45 Blood - Peripheral Aerobic Blood Culture - Preliminary No growth in 4 days 02/15/18 02:45 Blood - Peripheral Anaerobic Blood Culture - Preliminary No growth in 4 days 02/15/18 02:35 Blood - Peripheral Aerobic Blood Culture - Preliminary No growth in 4 days 02/15/18 02:35 Blood - Peripheral Anaerobic Blood Culture - Preliminary No growth in 4 days Lab - Chemistry Results 02/18/18 02/18/18 02/18/18 12:32 17:30 21:16 Creatinine Estimated GFR POC Glucose 171 H 207 H 223 H 02/19/18 02/19/18 02/19/18 07:48 11:42 17:02 Creatinine Estimated GFR POC Glucose 100 121 H 110 02/19/18 02/20/18 02/20/18 21:05 06:23 08:04 Creatinine 0.84 Estimated GFR Greater than 89 POC Glucose 185 H 161 H Imaging: ITS Impressions Extremity Arterial Study 02/15/18 00:00 CONCLUSION: 1. Significant reduction of the ABIs bilaterally with segmental pressures suggesting inflow disease. CTA with runoff could be performed to further assess if clinically warranted. Foot MRI 02/15/18 00:00 CONCLUSION: 1. Plantar/medial cutaneous ulceration of the great toe extending to the surface of the distal phalanx. Diffuse soft tissue edema and enhancement in this region indicating cellulitis. No organized abscess identified. 2. Diffuse bony edema of the distal phalanx and distal pole of the proximal phalanx. Mild bony enhancement on the postcontrast images. No confluent bone marrow signal abnormality on the precontrast T1-weighted images. As the ulceration appears to extend to the bone. Findings are highly suspicious for osteomyelitis. 3. Focal magnetic susceptibility artifact in the plantar soft tissues of the great toe may represent a foreign body or gas. Multiple small calcific densities are seen on radiographs as well as possible gas in the soft tissue on radiographs. The radiographic findings are more extensive than the MR finding however. Tibia/Fibula X-Ray 02/15/18 00:00 CONCLUSION: Negative exam. No fracture or radiopaque foreign body. Aorta w/Runoff CTA 02/16/18 13:16 CONCLUSION: 1. No significant aortic stenosis. 2. Focal moderate stenosis of the distal right common iliac artery near the bifurcation. 3. No left-sided iliac inflow stenosis. 4. Bilateral SFA occlusion at the origin with reconstitution at the adductor canal via profunda collaterals. 5. Calcified but patent popliteal arteries with diffusely calcified three- vessel runoff bilaterally. 6. Ancillary findings include mild diffusely decreased hepatic attenuation likely reflecting hepatic steatosis and mild sigmoid diverticulosis. Foot X-Ray 02/19/18 00:00 CONCLUSION: Irregular appearance of the soft tissues of the first digit amputation site with possible soft tissue gas. No radiopaque foreign bodies seen. Normal radiographic appearance to the cortex of the distal first metatarsus. Physical Exam: GENERAL: awake and alert, NAD. SKIN: Cool and dry. No generalized rash HEAD: Atraumatic. Normocephalic. No temporal wasting, or tenderness. EYES: [place] conjunctiva. No petechia or hemorrhage. Pupils equal, round and reactive to light. No scleral icterus. EARS, NOSE AND THROAT: Mucous membranes pink and moist. No oral lesions noted. NECK: Trachea midline. Supple and not tender, no meningeal signs CARDIOVASCULAR: Regular rate and rhythm. No murmurs, rubs or gallops heard RESPIRATORY: Clear to auscultation. Breath sounds equal bilaterally. No rales , wheezing or rhonchi ABDOMEN: Soft, non-tender, nondistended. Bowel sounds present and normoactive. No guarding. No rebound. No organomegaly. EXTREMITIES: No clubbing, cyanosis, or edema. Dry dressing on his R groin incision. Some old dried blood on the dressing over his medial R thigh, no erythema noted. Has dry bulky dressing on his R foot (did not remove dressing) . L foot has dry dressing in place. No calf tenderness. Well perfused and warm. NEUROLOGICAL: Non-focal. PSYCHIATRIC: Normal affect, calm and cooperative. LINE: No evidence of infection Assessment and Plan - Plan Impression Cellulitis RLE, with ulcer R big toe, with osteo on MRI - S/P amputation PVD, S/P revascularization Wound L ankle, with very mild periwound erythema DM Recommendation Continue IV Vanco Continue IV Zosyn Follow C/S and path report - will most likely not need long course of IV Abx Monitor progress Explained plan to patient
[2018-02-20] MEDS: amLODIPine 5 MG Tablet PO SCH (09:53)
[2018-02-20] MEDS: Collagenase Oint 30 GM Tube TOPICAL SCH (09:57)
--- NOTE | 2018-02-20 10:56 | P.PNIM ---
Subjective Interval history: Patient reports the pain is under control. Denies any chest pain shortness of breath. Denies nausea vomiting. Had a bowel movement yesterday. Physical Exam Vital signs: Vital Signs 02/19/18 12:00 02/19/18 15:25 02/19/18 15:40 Temperature 98.0 F Pulse Rate 62 66 72 Respiratory Rate 14 Blood Pressure 164/84 H 151/82 H Pulse Oximetry 97 93 L 94 L 02/19/18 15:50 02/19/18 16:00 02/19/18 20:00 Temperature 97.7 F 98.7 F Pulse Rate 66 75 71 Respiratory Rate 16 17 Blood Pressure 158/86 H 162/89 H 157/86 H Pulse Oximetry 93 L 94 L 95 02/20/18 00:01 02/20/18 08:00 Temperature 98.7 F 97.9 F Pulse Rate 67 70 Respiratory Rate 17 18 Blood Pressure 151/83 H 150/79 H Pulse Oximetry 96 97 Intake & Output 02/19/18 02/20/18 02/20/18 18:59 06:59 18:59 Intake Total 600 / 600 1817.5 / 1817.5 517.5 / 517.5 Output Total 3660 / 3660 3500 / 3500 Balance -3060 / -3060 -1682.5 / -1682.5 517.5 / 517.5 Intake: IV 0 / 0 1817.5 / 1817.5 517.5 / 517.5 Zosyn 4.5 GM Premix 4.5 gm In 0 / 0 300 / 300 100 ml @ 200 mls/hr IV.SIG Q6H [facility] Rx#:[id number] NS Inj 1,000 ML @ 100 mls/hr IV 1000 / 1000 .SIG .Q10H FABIAN Rx#:[id number] Vancomycin Inj 1,750 MG In NS 517.5 / 517.5 517.5 / 517.5 Inj 500 ML @ 250 mls/hr IV.SIG Q12H FABIAN Rx#:[id number] Oral 300 / 300 Anesthesia Amount 300 / 300 Output: Urine 3650 / 3650 Estimated Blood Loss 10 / 10 Urine Amount (Catheter) 3500 / 3500 Indwelling Urethral Catheter 3500 / 3500 Other: Date of Last Bowel Movement 02/19/18 # Bowel Movements 0 2 Narrative: GENERAL: Sitting up in bed. Appears tolerable. SKIN: Warm and dry. HEAD: Normocephalic. EYES: No scleral icterus. No injection or drainage. NECK: Supple, trachea midline. No JVD. CARDIOVASCULAR: Regular rate and rhythm without murmurs, gallops, or rubs. RESPIRATORY: Breath sounds equal bilaterally. No accessory muscle use. GASTROINTESTINAL: Abdomen soft, non-tender, nondistended. MUSCULOSKELETAL: No cyanosis, or edema. Bilateral feet are dressed. Dressing clean dry and intact. BACK: Nontender without obvious deformity. No CVA tenderness. - Urinary Catheter Management Indwelling Urethral Catheter Cath placed during this visit: yes Reason for continuing: Other continuation reason Insertion date: 02/17/18 Insertion time: 13:45 Results - Labs CBC & Chem 7: 02/18/18 06:52 02/20/18 06:23 Laboratory Results - last 24 hr 02/19/18 02/19/18 02/19/18 11:42 17:02 21:05 Creatinine Estimated GFR POC Glucose 121 H 110 185 H 02/20/18 02/20/18 06:23 08:04 Creatinine 0.84 Estimated GFR Greater than 89 POC Glucose 161 H Microbiology 02/19/18 15:10 Tissue - Foot Gram Stain - Final 02/19/18 15:10 Wound - Foot Gram Stain - Final 02/15/18 02:45 Blood - Peripheral Aerobic Blood Culture - Preliminary No growth in 4 days 02/15/18 02:45 Blood - Peripheral Anaerobic Blood Culture - Preliminary No growth in 4 days 02/15/18 02:35 Blood - Peripheral Aerobic Blood Culture - Preliminary No growth in 4 days 02/15/18 02:35 Blood - Peripheral Anaerobic Blood Culture - Preliminary No growth in 4 days - Imaging Impressions Foot X-Ray 02/19/18 00:00 CONCLUSION: Irregular appearance of the soft tissues of the first digit amputation site with possible soft tissue gas. No radiopaque foreign bodies seen. Normal radiographic appearance to the cortex of the distal first metatarsus. - Procedures Right femoropopliteal bypass with endarterectomy, 02/17/2018. Assessment and Plan - Plan This is a 57-year-old male with history of diabetes mellitus presented to the hospital with foot pain and redness. //Sepsis secondary to cellulitis of the foot with peripheral arterial disease - MRI of foot concerning for OM on the right. Infectious disease, podiatry and vascular surgery consulted. CTA: good inflow with bilateral stenosis of common femoral arteries, occlusion of superficial femoral arteries and reconstitution of the popliteal arteries bilaterally; Beyond popliteal arteries trifurcations are open with scattered plaque and mild to moderate stenoses throughout. - s/p Femoral-popliteal bypasses with endarterectomy 02/17, for right hallux amputation left foot debridement and irrigation today. Continue vancomycin and Zosyn. -Pain management with IV morphine and oral narcotics. Continue Plavix. -Wound culture ordered, blood cultures negative to date, still with leukocytosis. = 02/20. Follow-up surgical cultures from 02/19. Negative at this time. ID following. Appreciate assistance. Continue antibiotics . //Hypertension-uncontrolled. = 02/20. Blood pressure acceptable. Continue amlodipine. //Tobacco abuse Tobacco counseling cessation provided. -continue nicotine patch. //Diabetes mellitus-hemoglobin A1c 9.9%, continue Accu-Cheks, Levemir 15 units at night, sliding scale insulin. = Blood sugar acceptable. Continue on her. //Physical therapy after surgery. Will likely need rehab at home with home health care. //DVT prophylaxis: Lovenox Discharge Planning: Pending podiatry and ID clearance. Will likely need home health, possibly IV antibiotics.
[2018-02-20] MEDS: Insulin NovoLOG Aspart Correctional Sugar Inj SQ SCH ×4 (12:44→21:28)
--- NOTE | 2018-02-20 15:00 | P.DCO ---
- Physical Therapy Order: Evaluate and treat - Home Health Nursing Order: Wound care and dressing changes - Fire Prevention Officer Order: To provide: Long range planning - Certification I have seen patient Parish Cook on 02/20/18. My clinical findings support the need for the requested home health care services because: Deconditioned with increased weakness I certify that my clinical findings support that this patient is homebound because: Unsafe to leave home unassisted
[2018-02-20] MEDS: Enoxaparin Inj 40 MG/0.4 ML Syringe SQ SCH (15:18)
[2018-02-20] MEDS: Insulin Detemir Inj 1,000 UNIT/10 ML Vial SQ SCH (21:28)
[2018-02-21] MEDS: Piperacil/Tazo 4.5 GM Premix 4.5 GM/100 ML BAG IV.SIG SCH ×4 (02:08→21:26)
[2018-02-21] MEDS: oxyCODONE/Acetaminophen 10/325 Tablet PO PRN ×3 (03:50→21:32)
[2018-02-21] MEDS: Sod Chloride 0.9% Inj 1,000 ML IV.SIG SCH ×2 (03:50→18:36)
[2018-02-21] MEDS: Vancomycin Inj 1,750 MG in Sodium Chlor 0.9% Inj 500 ML IV.SIG SCH ×2 (05:16→18:32)
[2018-02-21] MEDS: Insulin NovoLOG Aspart Correctional Sugar Inj SQ SCH ×4 (08:19→21:34)
[2018-02-21] MEDS: amLODIPine 5 MG Tablet PO SCH (08:21)
[2018-02-21] MEDS: Collagenase Oint 30 GM Tube TOPICAL SCH (08:21)
--- NOTE | 2018-02-21 10:51 | P.PNIM ---
Subjective Interval history: Patient says he is feeling all right. Reports pain is controlled. Denies any chest pain shortness breath. Denies nausea or vomiting. Had a bowel movement this morning. Physical Exam Vital signs: Vital Signs 02/20/18 12:00 02/20/18 16:00 02/20/18 20:00 Temperature 98.1 F 98.0 F 98 F Pulse Rate 73 74 73 Respiratory Rate 18 18 17 Blood Pressure 150/79 H 156/84 H 133/79 Pulse Oximetry 97 98 97 02/21/18 00:00 02/21/18 04:00 02/21/18 07:50 Temperature 98.2 F 97.7 F 97.8 F Pulse Rate 70 62 61 Respiratory Rate 17 17 16 Blood Pressure 148/83 H 138/74 148/85 H Pulse Oximetry 97 97 98 Intake & Output 02/20/18 02/21/18 02/21/18 18:59 06:59 18:59 Intake Total 1717.5 / 1717.5 2197.5 / 2197.5 617.5 / 617.5 Output Total 500 / 500 Balance 1717.5 / 1717.5 1697.5 / 1697.5 617.5 / 617.5 Intake: IV 1717.5 / 1717.5 1717.5 / 1717.5 617.5 / 617.5 Zosyn 4.5 GM Premix 4.5 gm In 200 / 200 200 / 200 100 / 100 100 ml @ 200 mls/hr IV.SIG Q6H [facility] Rx#:[id number] NS Inj 1,000 ML @ 100 mls/hr IV 1000 / 1000 1000 / 1000 .SIG .Q10H [facility]IAN Rx#:[id number] Vancomycin Inj 1,750 MG In NS 517.5 / 517.5 517.5 / 517.5 517.5 / 517.5 Inj 500 ML @ 250 mls/hr IV.SIG Q12H FABIAN Rx#:[id number] Oral 480 / 480 Output: Urine Amount (Catheter) 500 / 500 Indwelling Urethral Catheter 500 / 500 Narrative: GENERAL: Sitting up in bed. Appears tolerable. SKIN: Warm and dry. HEAD: Normocephalic. EYES: No scleral icterus. No injection or drainage. NECK: Supple, trachea midline. No JVD. CARDIOVASCULAR: Regular rate and rhythm without murmurs, gallops, or rubs. RESPIRATORY: Breath sounds equal bilaterally. No accessory muscle use. GASTROINTESTINAL: Abdomen soft, non-tender, nondistended. MUSCULOSKELETAL: No cyanosis, or edema. Bilateral feet are dressed As before. dressing clean dry and intact. BACK: Nontender without obvious deformity. No CVA tenderness. - Urinary Catheter Management Indwelling Urethral Catheter Cath placed during this visit: yes Reason for continuing: Hourly intake/output Insertion date: 02/17/18 Insertion time: 13:45 Results - Labs CBC & Chem 7: 02/18/18 06:52 02/20/18 06:23 Laboratory Results - last 24 hr 02/20/18 02/20/18 02/20/18 11:38 18:31 21:21 POC Glucose 228 H 220 H 151 H 02/21/18 08:14 POC Glucose 84 Microbiology 02/19/18 15:10 Tissue - Foot Gram Stain - Final 02/19/18 15:10 Tissue - Foot Wound Culture - Preliminary No growth in 48 hours 02/19/18 15:10 Wound - Foot Gram Stain - Final 02/19/18 15:10 Wound - Foot Wound Culture - Preliminary No growth in 48 hours 02/19/18 15:10 Tissue - Foot Acid Fast Bacilli Smear - Final No acid fast bacilli seen 02/19/18 15:10 Wound - Foot Acid Fast Bacilli Smear - Final No acid fast bacilli seen 02/19/18 15:10 Tissue - Foot Fungal Smear - Final No fungal elements seen 02/19/18 15:10 Wound - Foot Fungal Smear - Final No fungal elements seen 02/15/18 02:45 Blood - Peripheral Aerobic Blood Culture - Final No growth in 5 days 02/15/18 02:45 Blood - Peripheral Anaerobic Blood Culture - Final No growth in 5 days 02/15/18 02:35 Blood - Peripheral Aerobic Blood Culture - Final No growth in 5 days 02/15/18 02:35 Blood - Peripheral Anaerobic Blood Culture - Final No growth in 5 days - Procedures Right femoropopliteal bypass with endarterectomy, 02/17/2018. Assessment and Plan - Assessment (1) Foot osteomyelitis, right Code(s): M86.9 - Osteomyelitis, unspecified Status: Acute - Plan This is a 57-year-old male with history of diabetes mellitus presented to the hospital with foot pain and redness. //Sepsis secondary to cellulitis of the foot with peripheral arterial disease - MRI of foot concerning for OM on the right. Infectious disease, podiatry and vascular surgery consulted. CTA: good inflow with bilateral stenosis of common femoral arteries, occlusion of superficial femoral arteries and reconstitution of the popliteal arteries bilaterally; Beyond popliteal arteries trifurcations are open with scattered plaque and mild to moderate stenoses throughout. - s/p Femoral-popliteal bypasses with endarterectomy 02/17, for right hallux amputation left foot debridement and irrigation today. Continue vancomycin and Zosyn. -Pain management with IV morphine and oral narcotics. Continue Plavix. -Wound culture ordered, blood cultures negative to date, still with leukocytosis. = 02/20. Follow-up surgical cultures from 02/19. Negative at this time. ID following. Appreciate assistance. Continue antibiotics . = 02/21. Cultures from 02/19-. Appreciate ID and podiatry assistance. Follow- up podiatry and ID recommendations. //Hypertension-uncontrolled. = 02/21. Blood pressure continues acceptable. Continue amlodipine. //Tobacco abuse Tobacco counseling cessation provided. -continue nicotine patch. //Diabetes mellitus-hemoglobin A1c 9.9%, continue Accu-Cheks, Levemir 15 units at night, sliding scale insulin. = A1c 9.9. = Blood sugar acceptable. Will order clinical trial educator consult. //Physical therapy after surgery. Will likely need rehab at home with home health care. //DVT prophylaxis: Lovenox Discharge Planning: Pending podiatry and ID clearance. Will likely need home health, possibly IV antibiotics.
--- NOTE | 2018-02-21 13:53 | P.PNID ---
Subjective Remarks: Patient is a 57-year-old male, with known diabetes, presented to the hospital with 1 day history of pain and redness on his right foot. 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 He had noted some redness on his right foot about 2 days prior to admission, and on the day of admission he noted a sore on his big toe. He does not know how he got it but made some assumption that it was probably from his new boots. He also has some wound develop on his left ankle. He has not had any fever chills or sweats. He denies any GI or any urinary complaints. Since admission he has not been febrile. X-ray of his right foot is showing some some suggestion of possible early osteo-on his big toe. Infectious disease consultation has been requested to assist with evaluation and treatment. Notes reviewed Temps ok Path report pending C/S proximal margin negative Soft tissue C/S negative Had fempop bypass with PTFE and RCEI endarterectomy and angioplasty 02/17 Had amputation of R hallux at MTP joint 02/19 Pain in RLE about 7/10 Afebrile No rash or itching No diarrhea/N/V Antibiotics: Vanco Zosyn Lines: PIV no evid of infection Past Medical History: Diabetes Eye surgery Allergies/Adverse Reactions: Allergies iodine Allergy (Unknown, Verified 02/15/18 03:06) Swelling potassium iodide Allergy (Unknown, Verified 02/15/18 03:06) Swelling povidone-iodine Allergy (Unknown, Verified 02/15/18 03:06) Swelling sodium iodide Allergy (Unknown, Verified 02/15/18 03:06) Swelling sodium iodide Allergy (Unknown, Verified 02/15/18 03:06) Swelling *MDRO Multi-Drug Resistant Organism Adverse Reaction (Unknown, Uncoded 02/15/18 03:06) n/a 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; 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 Objective Vital Signs 02/20/18 16:00 02/20/18 20:00 02/21/18 00:00 Temperature 98.0 F 98 F 98.2 F Pulse Rate 74 73 70 Respiratory Rate 18 17 17 Blood Pressure 156/84 H 133/79 148/83 H Pulse Oximetry 98 97 97 02/21/18 04:00 02/21/18 07:50 02/21/18 12:00 Temperature 97.7 F 97.8 F 97.6 F Pulse Rate 62 61 70 Respiratory Rate 17 16 18 Blood Pressure 138/74 148/85 H 157/80 H Pulse Oximetry 97 98 98 Intake & Output 02/20/18 02/21/18 02/21/18 18:59 06:59 18:59 Intake Total 1717.5 / 1717.5 2197.5 / 2197.5 617.5 / 617.5 Output Total 500 / 500 Balance 1717.5 / 1717.5 1697.5 / 1697.5 617.5 / 617.5 Intake: IV 1717.5 / 1717.5 1717.5 / 1717.5 617.5 / 617.5 Zosyn 4.5 GM Premix 4.5 gm In 200 / 200 200 / 200 100 / 100 100 ml @ 200 mls/hr IV.SIG Q6H [facility] Rx#:[id number] NS Inj 1,000 ML @ 100 mls/hr IV 1000 / 1000 1000 / 1000 .SIG .Q10H [facility]IAN Rx#:[id number] Vancomycin Inj 1,750 MG In NS 517.5 / 517.5 517.5 / 517.5 517.5 / 517.5 Inj 500 ML @ 250 mls/hr IV.SIG Q12H [facility]IAN Rx#:[id number] Oral 480 / 480 Output: Urine Amount (Catheter) 500 / 500 Indwelling Urethral Catheter 500 / 500 02/19/18 15:10 Tissue - Foot Gram Stain - Final 02/19/18 15:10 Tissue - Foot Wound Culture - Preliminary No growth in 48 hours 02/19/18 15:10 Wound - Foot Gram Stain - Final 02/19/18 15:10 Wound - Foot Wound Culture - Preliminary No growth in 48 hours 02/19/18 15:10 Tissue - Foot Acid Fast Bacilli Smear - Final No acid fast bacilli seen 02/19/18 15:10 Tissue - Foot Mycobacterial Culture - Pending 02/19/18 15:10 Wound - Foot Acid Fast Bacilli Smear - Final No acid fast bacilli seen 02/19/18 15:10 Wound - Foot Mycobacterial Culture - Pending 02/19/18 15:10 Tissue - Foot Fungal Smear - Final No fungal elements seen 02/19/18 15:10 Tissue - Foot Fungal Culture - Pending 02/19/18 15:10 Wound - Foot Fungal Smear - Final No fungal elements seen 02/19/18 15:10 Wound - Foot Fungal Culture - Pending 02/15/18 02:45 Blood - Peripheral Aerobic Blood Culture - Final No growth in 5 days 02/15/18 02:45 Blood - Peripheral Anaerobic Blood Culture - Final No growth in 5 days 02/15/18 02:35 Blood - Peripheral Aerobic Blood Culture - Final No growth in 5 days 02/15/18 02:35 Blood - Peripheral Anaerobic Blood Culture - Final No growth in 5 days Lab - Chemistry Results 02/19/18 02/19/18 02/20/18 17:02 21:05 06:23 Creatinine 0.84 Estimated GFR Greater than 89 POC Glucose 110 185 H 02/20/18 02/20/18 02/20/18 08:04 11:38 18:31 Creatinine Estimated GFR POC Glucose 161 H 228 H 220 H 02/20/18 02/21/18 02/21/18 21:21 08:14 12:41 Creatinine Estimated GFR POC Glucose 151 H 84 106 Imaging: ITS Impressions Extremity Arterial Study 02/15/18 00:00 CONCLUSION: 1. Significant reduction of the ABIs bilaterally with segmental pressures suggesting inflow disease. CTA with runoff could be performed to further assess if clinically warranted. Foot MRI 02/15/18 00:00 CONCLUSION: 1. Plantar/medial cutaneous ulceration of the great toe extending to the surface of the distal phalanx. Diffuse soft tissue edema and enhancement in this region indicating cellulitis. No organized abscess identified. 2. Diffuse bony edema of the distal phalanx and distal pole of the proximal phalanx. Mild bony enhancement on the postcontrast images. No confluent bone marrow signal abnormality on the precontrast T1-weighted images. As the ulceration appears to extend to the bone. Findings are highly suspicious for osteomyelitis. 3. Focal magnetic susceptibility artifact in the plantar soft tissues of the great toe may represent a foreign body or gas. Multiple small calcific densities are seen on radiographs as well as possible gas in the soft tissue on radiographs. The radiographic findings are more extensive than the MR finding however. Tibia/Fibula X-Ray 02/15/18 00:00 CONCLUSION: Negative exam. No fracture or radiopaque foreign body. Aorta w/Runoff CTA 02/16/18 13:16 CONCLUSION: 1. No significant aortic stenosis. 2. Focal moderate stenosis of the distal right common iliac artery near the bifurcation. 3. No left-sided iliac inflow stenosis. 4. Bilateral SFA occlusion at the origin with reconstitution at the adductor canal via profunda collaterals. 5. Calcified but patent popliteal arteries with diffusely calcified three- vessel runoff bilaterally. 6. Ancillary findings include mild diffusely decreased hepatic attenuation likely reflecting hepatic steatosis and mild sigmoid diverticulosis. Foot X-Ray 02/19/18 00:00 CONCLUSION: Irregular appearance of the soft tissues of the first digit amputation site with possible soft tissue gas. No radiopaque foreign bodies seen. Normal radiographic appearance to the cortex of the distal first metatarsus. Physical Exam: GENERAL: awake and alert, NAD. SKIN: Cool and dry. No generalized rash HEAD: Atraumatic. Normocephalic. No temporal wasting, or tenderness. EYES: [place] conjunctiva. No petechia or hemorrhage. Pupils equal, round and reactive to light. No scleral icterus. EARS, NOSE AND THROAT: Mucous membranes pink and moist. No oral lesions noted. NECK: Trachea midline. Supple and not tender, no meningeal signs CARDIOVASCULAR: Regular rate and rhythm. No murmurs, rubs or gallops heard RESPIRATORY: Clear to auscultation. Breath sounds equal bilaterally. No rales , wheezing or rhonchi ABDOMEN: Soft, non-tender, nondistended. Bowel sounds present and normoactive. No guarding. No rebound. No organomegaly. EXTREMITIES: No clubbing, cyanosis, or edema. Dry dressing on his R groin incision. Some old dried blood on the dressing over his medial R thigh, no erythema noted. Has dry bulky dressing on his R foot (did not remove dressing) . L foot has dry dressing in place. No calf tenderness. Well perfused and warm. NEUROLOGICAL: Non-focal. PSYCHIATRIC: Normal affect, calm and cooperative. LINE: No evidence of infection Assessment and Plan - Plan Impression Cellulitis RLE, with ulcer R big toe, with osteo on MRI - S/P amputation PVD, S/P revascularization Wound L ankle, with very mild periwound erythema DM Recommendation Continue IV Vanco Continue IV Zosyn Follow C/S and path report - if margin clear, he will not need IV Abx Monitor progress
[2018-02-21] MEDS: Enoxaparin Inj 40 MG/0.4 ML Syringe SQ SCH (15:08)
--- NOTE | 2018-02-21 16:09 | P.PNPOD ---
Subjective Interval history: Mild right foot pain otherwise doing fine he is unsure why he has fully M Physical Exam Vital signs: Vital Signs 02/20/18 20:00 02/21/18 00:00 02/21/18 04:00 Temperature 98 F 98.2 F 97.7 F Pulse Rate 73 70 62 Respiratory Rate 17 17 17 Blood Pressure 133/79 148/83 H 138/74 Pulse Oximetry 97 97 97 02/21/18 07:50 02/21/18 12:00 Temperature 97.8 F 97.6 F Pulse Rate 61 70 Respiratory Rate 16 18 Blood Pressure 148/85 H 157/80 H Pulse Oximetry 98 98 Intake & Output 02/20/18 02/21/18 02/21/18 18:59 06:59 18:59 Intake Total 1717.5 / 1717.5 2197.5 / 2197.5 617.5 / 617.5 Output Total 500 / 500 Balance 1717.5 / 1717.5 1697.5 / 1697.5 617.5 / 617.5 Intake: IV 1717.5 / 1717.5 1717.5 / 1717.5 617.5 / 617.5 Zosyn 4.5 GM Premix 4.5 gm In 200 / 200 200 / 200 100 / 100 100 ml @ 200 mls/hr IV.SIG Q6H [facility]ABIAN Rx#:[id number] NS Inj 1,000 ML @ 100 mls/hr IV 1000 / 1000 1000 / 1000 .SIG .Q10H FABIAN Rx#:[id number] Vancomycin Inj 1,750 MG In NS 517.5 / 517.5 517.5 / 517.5 517.5 / 517.5 Inj 500 ML @ 250 mls/hr IV.SIG Q12H FABIAN Rx#:[id number] Oral 480 / 480 Output: Urine Amount (Catheter) 500 / 500 Indwelling Urethral Catheter 500 / 500 Narrative: Right lower extremity: Amputation site edges well coapted no signs of ischemia mild redness of dorsal flap foot is warm Left lower extremity: superficial partial thickness ulcer of posterior medial and lateral ankle uncomplicated left foot is warm Bilateral lower extremities good range of motion sensation appears to be decreased to light touch but intact deep pressure Medications and Allergies Active Medications: Active Medications Acetaminophen (Tylenol) 650 mg PO Q4H PRN PRN Reason: Temp > 100.4 Amlodipine Besylate (Norvasc) 5 mg PO DAILY COUNTS INCLUDE 234 BEDS AT THE [facility] Last Admin: 02/21/18 08:21 Dose: 5 mg Clopidogrel Bisulfate (Plavix) 75 mg PO DAILY COUNTS INCLUDE 234 BEDS AT THE [facility] Last Admin: 02/21/18 08:21 Dose: 75 mg Collagenase (Santyl Oint) 1 applicatio TOPICAL DAILY COUNTS INCLUDE 234 BEDS AT THE [facility] Last Admin: 02/21/18 08:21 Dose: Not Given Dextrose (D50w Vial) 50 ml IV.PUSH UNSCH PRN PRN Reason: PER HYPOGLYCEMIA PROTOCOL Enoxaparin Sodium (Lovenox Inj) 40 mg SQ Q24H COUNTS INCLUDE 234 BEDS AT THE [facility] Last Admin: 02/21/18 15:08 Dose: 40 mg Glucagon (Glucagon Inj) 1 mg OTHER PRN PRN PRN Reason: for Hypoglycemia Protocol Pharmacy Profile Note (Vancomycin Consult Pharmacy) 0 mls @ 0 mls/hr OTHER UNSCH COUNTS INCLUDE 234 BEDS AT THE [facility] Vancomycin HCl 1,750 mg/ (Sodium Chloride) 517.5 mls @ 250 mls/hr IV.SIG Q12H COUNTS INCLUDE 234 BEDS AT THE [facility] Last Infusion: 02/21/18 10:27 Dose: Infused Piperacillin/Tazobactam/Dextrose (Zosyn 4.5 Gm Premix) 4.5 gm in 100 mls @ 200 mls/hr IV.SIG Q6H COUNTS INCLUDE 234 BEDS AT THE [facility] Last Infusion: 02/21/18 10:26 Dose: Infused Sodium Chloride (Ns Inj) 1,000 mls @ 100 mls/hr IV.SIG .Q10H COUNTS INCLUDE 234 BEDS AT THE [facility] Last Admin: 02/21/18 03:50 Dose: 100 mls/hr Insulin Aspart (Novolog Insulin Correctional Sugar Inj) 0 unit SQ [facility] COUNTS INCLUDE 234 BEDS AT THE [facility]; Protocol Last Admin: 02/21/18 12:30 Dose: Not Given Insulin Detemir (Levemir Inj) 15 unit SQ [facility] Last Admin: 02/20/18 21:28 Dose: 15 unit Morphine Sulfate (Morphine Inj) 2 mg IV.PUSH Q6H PRN PRN Reason: PAIN 1-10 Ondansetron HCl (Zofran Inj) 4 mg IV.PUSH Q6H PRN PRN Reason: NAUSEA OR VOMITING Oxycodone/Acetaminophen (Percocet 7.5/325 Mg) 1 tab PO Q4H PRN PRN Reason: PAIN 3-5; IF UABLE TO TAKE PO Last Admin: 02/18/18 08:44 Dose: 1 tab Oxycodone/Acetaminophen (Percocet 10/325 Mg) 1 tab PO Q4H PRN PRN Reason: PAIN 6-10;IF UNABLE TO TAKE PO Last Admin: 02/21/18 15:08 Dose: 1 tab Temazepam (Restoril) 15 mg PO HS PRN PRN Reason: INSOMNIA Allergies Allergy/AdvReac Type Severity Reaction Status Date / Time iodine Allergy Unknown Swelling Verified 02/15/18 03:06 potassium iodide Allergy Unknown Swelling Verified 02/15/18 03:06 povidone-iodine Allergy Unknown Swelling Verified 02/15/18 03:06 sodium iodide Allergy Unknown Swelling Verified 02/15/18 03:06 sodium iodide Allergy Unknown Swelling Verified 02/15/18 03:06 *MDRO Multi-Drug Resistant AdvReac Unknown n/a Uncoded 02/15/18 03:06 Organism Home Medications Medication Instructions Recorded Confirmed Type metformin 500 mg PO BID 02/15/18 02/15/18 History Results - Labs CBC & Chem 7: 02/18/18 06:52 02/20/18 06:23 Laboratory Results - last 24 hr 02/20/18 02/20/18 02/21/18 18:31 21:21 08:14 POC Glucose 220 H 151 H 84 02/21/18 12:41 POC Glucose 106 Microbiology 02/19/18 15:10 Tissue - Foot Gram Stain - Final 02/19/18 15:10 Tissue - Foot Wound Culture - Preliminary No growth in 48 hours 02/19/18 15:10 Wound - Foot Gram Stain - Final 02/19/18 15:10 Wound - Foot Wound Culture - Preliminary No growth in 48 hours 02/19/18 15:10 Tissue - Foot Acid Fast Bacilli Smear - Final No acid fast bacilli seen 02/19/18 15:10 Wound - Foot Acid Fast Bacilli Smear - Final No acid fast bacilli seen - Procedures Right femoropopliteal bypass with endarterectomy, 02/17/2018. Assessment and Plan - Assessment (1) Foot osteomyelitis, right Code(s): M86.9 - Osteomyelitis, unspecified Status: Acute (2) Foot ulcer, left Code(s): L97.529 - Non-pressure chronic ulcer of other part of left foot with unspecified severity Status: Acute - Plan Bandage changed appears to be doing well, awaiting final cultures from surgery, margin appears to be clear from osteomyelitis right foot. Recommend discharge Alexander, nursing can take over with wound care every other day Betadine swab to amputation site and Xeroform to left ankle wounds. Recommend to days of IV antibiotics and then discharged home on oral antibiotics if infectious disease is in agreement. Upon DC the patient will follow up with Dr. Carbajal. Procedures: Status post right hallux amputation, left foot ulcer debridement, per Dr. Carbajal 02/19
[2018-02-21] MEDS: Insulin Detemir Inj 1,000 UNIT/10 ML Vial SQ SCH (21:34)
[2018-02-22] MEDS: Piperacil/Tazo 4.5 GM Premix 4.5 GM/100 ML BAG IV.SIG SCH ×2 (02:59→08:38)
[2018-02-22] MEDS: Sod Chloride 0.9% Inj 1,000 ML IV.SIG SCH ×3 (02:59→21:16)
[2018-02-22] MEDS: Vancomycin Inj 1,750 MG in Sodium Chlor 0.9% Inj 500 ML IV.SIG SCH (06:04)
[2018-02-22] MEDS: oxyCODONE/Acetaminophen 10/325 Tablet PO PRN ×3 (06:04→21:13)
[2018-02-22] MEDS: Insulin NovoLOG Aspart Correctional Sugar Inj SQ SCH ×4 (08:37→21:16)
[2018-02-22] MEDS: amLODIPine 5 MG Tablet PO SCH (08:38)
[2018-02-22] MEDS: Collagenase Oint 30 GM Tube TOPICAL SCH (08:42)
[2018-02-22 09:09] LABS: Baso # (Auto) 0.1 th/mm3 (0.0-0.2); Baso % (Auto) 0.6 % (0.0-2.0); Eos # (Auto) 0.3 th/mm3 (0.0-0.4); Eos % (Auto) 2.3 % (0.0-4.0); Hematocrit 38.8 % (39.0-51.0); Hemoglobin 13.1 gm/dL (13.0-17.0); Lymph # (Auto) 2.3 th/mm3 (1.0-4.8); Lymph % (Auto) 15.9 % (9.0-44.0); Mean Corpuscular HGB Conc 33.7 % (32.0-36.0); Mean Corpuscular Hemoglobin 30.2 pg (27.0-34.0); Mean Corpuscular Volume 89.6 fL (80.0-100.0); Mean Platelet Volume 9.6 fL (7.0-11.0); Mono % (Auto) 13.4 % (0.0-8.0); Neut # (Auto) 9.9 th/mm3 (1.8-7.7); Neut % (Auto) 67.8 % (16.0-70.0); Platelet Count 314 th/mm3 (150-450); Red Blood Count 4.33 mil/mm3 (4.50-5.90); Red Cell Distribution Width 13.1 % (11.6-17.2); White Blood Count 14.7 th/mm3 (4.0-11.0)
[2018-02-22 09:51] LABS: Albumin 2.4 g/dL (3.4-5.0); Anion Gap 10 meq/L (5-15); Blood Urea Nitrogen 10 mg/dL (7-18); Calcium 8.9 mg/dL (8.5-10.1); Carbon Dioxide 25.3 meq/L (21.0-32.0); Chloride 103 meq/L (98-107); Glomerular Filtration Rate Greater Than 89 mL/min (>89); Glucose,Random 111 mg/dL (74-106); Magnesium 2.1 mg/dL (1.5-2.5); Sodium 138 meq/L (136-145)
[2018-02-22 10:02] LABS: Phosphorus 2.9 mg/dL (2.5-4.9)
--- NOTE | 2018-02-22 10:19 | P.PNIM ---
Subjective Interval history: Feeling right. Denies any chest pain or shortness of breath. Denies nausea or vomiting. Physical Exam Vital signs: Vital Signs 02/21/18 12:00 02/21/18 16:00 02/21/18 20:00 Temperature 97.6 F 98.0 F 98.2 F Pulse Rate 70 68 70 Respiratory Rate 18 18 21 Blood Pressure 157/80 H 164/84 H 158/81 H Pulse Oximetry 98 97 96 02/22/18 00:00 02/22/18 06:10 02/22/18 08:00 Temperature 98.0 F 97.9 F 97.6 F Pulse Rate 70 69 65 Respiratory Rate 20 18 Blood Pressure 141/77 H 136/78 140/70 Pulse Oximetry 96 97 94 L Intake & Output 02/21/18 02/22/18 02/22/18 18:59 06:59 18:59 Intake Total 2457.5 / 2457.5 2617.5 / 2617.5 Output Total 1999 Balance 457.5 / 457.5 2617.5 / 2617.5 Weight 89.3 kg Intake: IV 1617.5 / 1617.5 1717.5 / 1717.5 Zosyn 4.5 GM Premix 4.5 gm In 100 / 100 200 / 200 100 ml @ 200 mls/hr IV.SIG Q6H F[facility]IAN Rx#:[id number] NS Inj 1,000 ML @ 100 mls/hr IV 1000 / 1000 1000 / 1000 .SIG .Q10H FABIAN Rx#:[id number] Vancomycin Inj 1,750 MG In NS 517.5 / 517.5 517.5 / 517.5 Inj 500 ML @ 250 mls/hr IV.SIG Q12H FABIAN Rx#:[id number] Oral 840 / 840 900 / 900 Output: Urine 1999 Other: # Voids 0 4 Date of Last Bowel Movement 02/21/18 # Bowel Movements 1 Narrative: GENERAL: Sitting up in bed. Appears comfortable. SKIN: Warm and dry. HEAD: Normocephalic. EYES: No scleral icterus. No injection or drainage. NECK: Supple, trachea midline. No JVD. CARDIOVASCULAR: Regular rate and rhythm without murmurs, gallops, or rubs. RESPIRATORY: Breath sounds equal bilaterally. No accessory muscle use. GASTROINTESTINAL: Abdomen soft, non-tender, nondistended. MUSCULOSKELETAL: No cyanosis, or edema. Bilateral feet are dressed dressing clean dry and intact. No change. BACK: Nontender without obvious deformity. No CVA tenderness. - Urinary Catheter Management Indwelling Urethral Catheter Cath placed during this visit: yes, but has since been removed by the nurse Reason for continuing: Decision to DC catheter Insertion date: 02/17/18 Insertion time: 13:45 Removal date: 02/21/18 Removal time: 16:00 Results - Labs CBC & Chem 7: 02/22/18 05:57 02/22/18 05:57 Laboratory Results - last 24 hr 02/21/18 02/21/18 02/21/18 12:41 17:03 21:29 WBC RBC Hgb Hct MCV MCH MCHC RDW Plt Count MPV Neut % (Auto) Lymph % (Auto) Moore % (Auto) Eos % (Auto) Baso % (Auto) Neut # (Auto) Lymph # (Auto) Moore # (Auto) Eos # (Auto) Baso # (Auto) WBC Differential Differential Comment Sodium Potassium Chloride Carbon Dioxide Anion Gap BUN Creatinine Estimated GFR POC Glucose 106 241 H 199 H Random Glucose Calcium Phosphorus Magnesium Albumin 02/22/18 02/22/18 02/22/18 05:57 05:57 08:00 WBC 14.7 H RBC 4.33 L Hgb 13.1 Hct 38.8 L MCV 89.6 MCH 30.2 MCHC 33.7 RDW 13.1 Plt Count 314 D MPV 9.6 Neut % (Auto) 67.8 Lymph % (Auto) 15.9 Moore % (Auto) 13.4 H Eos % (Auto) 2.3 Baso % (Auto) 0.6 Neut # (Auto) 9.9 H Lymph # (Auto) 2.3 Moore # (Auto) 2.0 H Eos # (Auto) 0.3 Baso # (Auto) 0.1 WBC Differential . Differential Comment Auto diff final Sodium 138 Potassium 4.0 Chloride 103 Carbon Dioxide 25.3 Anion Gap 10 BUN 10 Creatinine 0.85 Estimated GFR Greater than 89 POC Glucose 133 H Random Glucose 111 H Calcium 8.9 Phosphorus 2.9 Magnesium 2.1 Albumin 2.4 L Microbiology 02/19/18 15:10 Tissue - Foot Gram Stain - Final 02/19/18 15:10 Tissue - Foot Wound Culture - Preliminary No growth in 48 hours 02/19/18 15:10 Wound - Foot Gram Stain - Final 02/19/18 15:10 Wound - Foot Wound Culture - Preliminary No growth in 48 hours - Procedures Right femoropopliteal bypass with endarterectomy, 02/17/2018. Assessment and Plan - Assessment (1) Foot osteomyelitis, right Code(s): M86.9 - Osteomyelitis, unspecified Status: Acute - Plan This is a 57-year-old male with history of diabetes mellitus presented to the hospital with foot pain and redness. //Sepsis secondary to cellulitis of the foot with peripheral arterial disease - MRI of foot concerning for OM on the right. Infectious disease, podiatry and vascular surgery consulted. CTA: good inflow with bilateral stenosis of common femoral arteries, occlusion of superficial femoral arteries and reconstitution of the popliteal arteries bilaterally; Beyond popliteal arteries trifurcations are open with scattered plaque and mild to moderate stenoses throughout. - s/p Femoral-popliteal bypasses with endarterectomy 02/17, for right hallux amputation left foot debridement and irrigation today. Continue vancomycin and Zosyn. -Pain management with IV morphine and oral narcotics. Continue Plavix. -Wound culture ordered, blood cultures negative to date, still with leukocytosis. = 02/20. Follow-up surgical cultures from 02/19. Negative at this time. ID following. Appreciate assistance. Continue antibiotics . = 02/21. Cultures from 02/19-. Appreciate ID and podiatry assistance. Follow- up podiatry and ID recommendations. = 02/22. Discussed with podiatry. Podiatry would like patient to get 1 more day of IV antibiotics, discharged tomorrow on by mouth antibiotics as per ID. Appreciate assistance. //Hypertension-uncontrolled. = 02/21. Blood pressure continues acceptable. Continue amlodipine. //Tobacco abuse Tobacco counseling cessation provided. -continue nicotine patch. //Diabetes mellitus-hemoglobin A1c 9.9%, continue Accu-Cheks, Levemir 15 units at night, sliding scale insulin. = A1c 9.9. = Blood sugar acceptable. Will order tobacco prevention health educator consult. //Physical therapy after surgery. Will likely need rehab at home with home health care. //DVT prophylaxis: Lovenox Discharge Planning: Pending podiatry and ID clearance. Can go on by mouth antibiotics tomorrow
--- NOTE | 2018-02-22 11:54 | P.PNID ---
Subjective Remarks: Patient is a 57-year-old male, with known diabetes, presented to the hospital with 1 day history of pain and redness on his right foot. 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 He had noted some redness on his right foot about 2 days prior to admission, and on the day of admission he noted a sore on his big toe. He does not know how he got it but made some assumption that it was probably from his new boots. He also has some wound develop on his left ankle. He has not had any fever chills or sweats. He denies any GI or any urinary complaints. Since admission he has not been febrile. X-ray of his right foot is showing some some suggestion of possible early osteo-on his big toe. Infectious disease consultation has been requested to assist with evaluation and treatment. Notes reviewed Temps ok Path report clean margins Intraop C/S negative Having problem transferring He lives at home Had fempop bypass with PTFE and RCEI endarterectomy and angioplasty 02/17 Had amputation of R hallux at MTP joint 02/19 Pain in RLE about 7/10 Afebrile No rash or itching No diarrhea/N/V Antibiotics: Vanco Zosyn Lines: PIV no evid of infection Past Medical History: Diabetes Eye surgery Allergies/Adverse Reactions: Allergies iodine Allergy (Unknown, Verified 02/15/18 03:06) Swelling potassium iodide Allergy (Unknown, Verified 02/15/18 03:06) Swelling povidone-iodine Allergy (Unknown, Verified 02/15/18 03:06) Swelling sodium iodide Allergy (Unknown, Verified 02/15/18 03:06) Swelling sodium iodide Allergy (Unknown, Verified 02/15/18 03:06) Swelling *MDRO Multi-Drug Resistant Organism Adverse Reaction (Unknown, Uncoded 02/15/18 03:06) n/a 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; 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 Objective Vital Signs 02/21/18 12:00 02/21/18 16:00 02/21/18 20:00 Temperature 97.6 F 98.0 F 98.2 F Pulse Rate 70 68 70 Respiratory Rate 18 18 21 Blood Pressure 157/80 H 164/84 H 158/81 H Pulse Oximetry 98 97 96 02/22/18 00:00 02/22/18 06:10 02/22/18 08:00 Temperature 98.0 F 97.9 F 97.6 F Pulse Rate 70 69 65 Respiratory Rate Blood Pressure 141/77 H 136/78 140/70 Pulse Oximetry 96 97 94 L Intake & Output 02/21/18 02/22/18 02/22/18 18:59 06:59 18:59 Intake Total 2457.5 / 2457.5 2617.5 / 2617.5 617.5 / 617.5 Output Total 1999 Balance 457.5 / 457.5 2617.5 / 2617.5 617.5 / 617.5 Weight 89.3 kg Intake: IV 1617.5 / 1617.5 1717.5 / 1717.5 617.5 / 617.5 Zosyn 4.5 GM Premix 4.5 gm In 100 / 100 200 / 200 100 / 100 100 ml @ 200 mls/hr IV.SIG Q6H [facility] Rx#:[id number] NS Inj 1,000 ML @ 100 mls/hr IV 1000 / 1000 1000 / 1000 .SIG .Q10H FABIAN Rx#:[id number] Vancomycin Inj 1,750 MG In NS 517.5 / 517.5 517.5 / 517.5 517.5 / 517.5 Inj 500 ML @ 250 mls/hr IV.SIG Q12H FABIAN Rx#:[id number] Oral 840 / 840 900 / 900 Output: Urine 1999 Other: # Voids 0 4 Date of Last Bowel Movement 02/21/18 # Bowel Movements 1 02/19/18 15:10 Tissue - Foot Gram Stain - Final 02/19/18 15:10 Tissue - Foot Wound Culture - Final No growth in 72 hours (aerobically and anaerobically ) 02/19/18 15:10 Wound - Foot Gram Stain - Final 02/19/18 15:10 Wound - Foot Wound Culture - Final No growth in 72 hours (aerobically and anaerobically ) 02/19/18 15:10 Tissue - Foot Acid Fast Bacilli Smear - Final No acid fast bacilli seen 02/19/18 15:10 Tissue - Foot Mycobacterial Culture - Pending 02/19/18 15:10 Wound - Foot Acid Fast Bacilli Smear - Final No acid fast bacilli seen 02/19/18 15:10 Wound - Foot Mycobacterial Culture - Pending 02/19/18 15:10 Tissue - Foot Fungal Smear - Final No fungal elements seen 02/19/18 15:10 Tissue - Foot Fungal Culture - Pending 02/19/18 15:10 Wound - Foot Fungal Smear - Final No fungal elements seen 02/19/18 15:10 Wound - Foot Fungal Culture - Pending 02/15/18 02:45 Blood - Peripheral Aerobic Blood Culture - Final No growth in 5 days 02/15/18 02:45 Blood - Peripheral Anaerobic Blood Culture - Final No growth in 5 days 02/15/18 02:35 Blood - Peripheral Aerobic Blood Culture - Final No growth in 5 days 02/15/18 02:35 Blood - Peripheral Anaerobic Blood Culture - Final No growth in 5 days Lab - Hematology Results 02/22/18 05:57 WBC 14.7 H RBC 4.33 L Hgb 13.1 Hct 38.8 L MCV 89.6 MCH 30.2 MCHC 33.7 RDW 13.1 Plt Count 314 D MPV 9.6 Neut % (Auto) 67.8 Lymph % (Auto) 15.9 Bryan % (Auto) 13.4 H Eos % (Auto) 2.3 Baso % (Auto) 0.6 Neut # (Auto) 9.9 H Lymph # (Auto) 2.3 Bryan # (Auto) 2.0 H Eos # (Auto) 0.3 Baso # (Auto) 0.1 WBC Differential . Differential Comment Auto diff final Lab - Chemistry Results 02/20/18 02/20/18 02/21/18 18:31 21:21 08:14 Sodium Potassium Chloride Carbon Dioxide Anion Gap BUN Creatinine Estimated GFR POC Glucose 220 H 151 H 84 Random Glucose Calcium Phosphorus Magnesium Albumin 02/21/18 02/21/18 02/21/18 12:41 17:03 21:29 Sodium Potassium Chloride Carbon Dioxide Anion Gap BUN Creatinine Estimated GFR POC Glucose 106 241 H 199 H Random Glucose Calcium Phosphorus Magnesium Albumin 02/22/18 02/22/18 02/22/18 05:57 08:00 11:50 Sodium 138 Potassium 4.0 Chloride 103 Carbon Dioxide 25.3 Anion Gap 10 BUN 10 Creatinine 0.85 Estimated GFR Greater than 89 POC Glucose 133 H 184 H Random Glucose 111 H Calcium 8.9 Phosphorus 2.9 Magnesium 2.1 Albumin 2.4 L Imaging: ITS Impressions Extremity Arterial Study 02/15/18 00:00 CONCLUSION: 1. Significant reduction of the ABIs bilaterally with segmental pressures suggesting inflow disease. CTA with runoff could be performed to further assess if clinically warranted. Foot MRI 02/15/18 00:00 CONCLUSION: 1. Plantar/medial cutaneous ulceration of the great toe extending to the surface of the distal phalanx. Diffuse soft tissue edema and enhancement in this region indicating cellulitis. No organized abscess identified. 2. Diffuse bony edema of the distal phalanx and distal pole of the proximal phalanx. Mild bony enhancement on the postcontrast images. No confluent bone marrow signal abnormality on the precontrast T1-weighted images. As the ulceration appears to extend to the bone. Findings are highly suspicious for osteomyelitis. 3. Focal magnetic susceptibility artifact in the plantar soft tissues of the great toe may represent a foreign body or gas. Multiple small calcific densities are seen on radiographs as well as possible gas in the soft tissue on radiographs. The radiographic findings are more extensive than the MR finding however. Tibia/Fibula X-Ray 02/15/18 00:00 CONCLUSION: Negative exam. No fracture or radiopaque foreign body. Aorta w/Runoff CTA 02/16/18 13:16 CONCLUSION: 1. No significant aortic stenosis. 2. Focal moderate stenosis of the distal right common iliac artery near the bifurcation. 3. No left-sided iliac inflow stenosis. 4. Bilateral SFA occlusion at the origin with reconstitution at the adductor canal via profunda collaterals. 5. Calcified but patent popliteal arteries with diffusely calcified three- vessel runoff bilaterally. 6. Ancillary findings include mild diffusely decreased hepatic attenuation likely reflecting hepatic steatosis and mild sigmoid diverticulosis. Foot X-Ray 02/19/18 00:00 CONCLUSION: Irregular appearance of the soft tissues of the first digit amputation site with possible soft tissue gas. No radiopaque foreign bodies seen. Normal radiographic appearance to the cortex of the distal first metatarsus. Physical Exam: GENERAL: awake and alert, NAD. SKIN: Cool and dry. No generalized rash HEAD: Atraumatic. Normocephalic. No temporal wasting, or tenderness. EYES: Buford conjunctiva. No petechia or hemorrhage. Pupils equal, round and reactive to light. No scleral icterus. EARS, NOSE AND THROAT: Mucous membranes pink and moist. No oral lesions noted. NECK: Trachea midline. Supple and not tender, no meningeal signs CARDIOVASCULAR: Regular rate and rhythm. No murmurs, rubs or gallops heard RESPIRATORY: Clear to auscultation. Breath sounds equal bilaterally. No rales , wheezing or rhonchi ABDOMEN: Soft, non-tender, nondistended. Bowel sounds present and normoactive. No guarding. No rebound. No organomegaly. EXTREMITIES: No clubbing, cyanosis, or edema. Dry dressing on his R groin incision. Some old dried blood on the dressing over his medial R thigh, no erythema noted. R foot - amputation sites with some bleeding, some erythema still on dorsum of his R foot. Intact dressing on L foot No calf tenderness. Well perfused and warm. NEUROLOGICAL: Non-focal. PSYCHIATRIC: Normal affect, calm and cooperative. LINE: No evidence of infection Assessment and Plan - Plan Impression Cellulitis RLE, with ulcer R big toe, with osteo on MRI - S/P amputation PVD, S/P revascularization Wound L ankle, with very mild periwound erythema DM Recommendation Change to PO Clinda and Levaquin - give 14 more days of oral antibiotics Needs more PT - patient lives alone Explained plan to the patient D/W Dr Cowan ([facility])
[2018-02-22] MEDS: Enoxaparin Inj 40 MG/0.4 ML Syringe SQ SCH (13:18)
[2018-02-22] MEDS: levoFLOXacin 750 MG Tablet PO SCH (13:19)
--- NOTE | 2018-02-22 14:50 | P.PNVS ---
Subjective Subjective/Hospital Course: Petient seen Full consult dictated Thanks J 02/16/2018 Patient with severe peripheral vascular disease and ischemia of the both feet ulcers of the both legs and possible osteomyelitis of the toe CTA with runoff was performed and it confirms the clinical impression. Patient is a good inflow with bilateral stenosis of common femoral arteries, occlusion of superficial femoral arteries and reconstitution of the popliteal arteries bilaterally. Beyond popliteal arteries trifurcations are open with scattered plaque and mild to moderate stenoses throughout Patient is a good candidate for femoral-popliteal bypasses bilaterally and will proceed with the same once cellulitis and infection controlled i.e. in next several days. 02/18/2018 Patient is status post right femoral-popliteal bypass with endarterectomy yesterday Incisions are clean and dry patient has well-perfused foot with bounding pulses Eventually patient will have to have a left leg addressed as he sees me in the office for follow-up Nothing to add to care at this time 02/20/2018 Incisions healing nicely clean and dry Excellent palpable femoral pulse and dopplerable strong signal in the graft popliteal artery and distal vessels Right foot is nice and warm with normal capillary refill Nothing to add from my point and appreciate very much podiatry expertise. 02/22/2018 Groin incision and right popliteal incisions are clean and dry no drainage soft noninflamed Patient has excellent palpable femoral pulse and dopplerable distal pulses by palpation foot is nice and warm For my point patient can be discharged any time and he will come back to my office for follow-up at which point the left leg revascularization will be addressed and scheduled Objective Vital Signs / I&O: Vital Signs 02/21/18 16:00 02/21/18 20:00 02/22/18 00:00 Temperature 98.0 F 98.2 F 98.0 F Pulse Rate 68 70 70 Respiratory Rate 18 21 20 Blood Pressure 164/84 H 158/81 H 141/77 H Pulse Oximetry 97 96 96 02/22/18 06:10 02/22/18 08:00 02/22/18 08:32 Temperature 97.9 F 97.6 F Pulse Rate 69 65 59 L Respiratory Rate 19 18 Blood Pressure 136/78 140/70 Pulse Oximetry 97 94 L Intake & Output 02/21/18 02/22/18 02/22/18 18:59 06:59 18:59 Intake Total 2457.5 / 2457.5 2617.5 / 2617.5 617.5 / 617.5 Output Total 1999 Balance 457.5 / 457.5 2617.5 / 2617.5 617.5 / 617.5 Weight 89.3 kg Intake: IV 1617.5 / 1617.5 1717.5 / 1717.5 617.5 / 617.5 Zosyn 4.5 GM Premix 4.5 gm In 100 / 100 200 / 200 100 / 100 100 ml @ 200 mls/hr IV.SIG Q6H F[facility]IAN Rx#:[id number] NS Inj 1,000 ML @ 100 mls/hr IV 1000 / 1000 1000 / 1000 .SIG .Q10H FABIAN Rx#:[id number] Vancomycin Inj 1,750 MG In NS 517.5 / 517.5 517.5 / 517.5 517.5 / 517.5 Inj 500 ML @ 250 mls/hr IV.SIG Q12H FABIAN Rx#:[id number] Oral 840 / 840 900 / 900 Output: Urine 1999 Other: # Voids 0 4 Date of Last Bowel Movement 02/21/18 02/22/18 # Bowel Movements 1 Laboratory Results - last 24 hr 02/21/18 02/21/18 02/22/18 17:03 21:29 05:57 WBC 14.7 H RBC 4.33 L Hgb 13.1 Hct 38.8 L MCV 89.6 MCH 30.2 MCHC 33.7 RDW 13.1 Plt Count 314 D MPV 9.6 Neut % (Auto) 67.8 Lymph % (Auto) 15.9 [place] % (Auto) 13.4 H Eos % (Auto) 2.3 Baso % (Auto) 0.6 Neut # (Auto) 9.9 H Lymph # (Auto) 2.3 [place] # (Auto) 2.0 H Eos # (Auto) 0.3 Baso # (Auto) 0.1 WBC Differential . Differential Comment Auto diff final Sodium Potassium Chloride Carbon Dioxide Anion Gap BUN Creatinine Estimated GFR POC Glucose 241 H 199 H Random Glucose Calcium Phosphorus Magnesium Albumin 02/22/18 02/22/18 02/22/18 05:57 08:00 11:50 WBC RBC Hgb Hct MCV MCH MCHC RDW Plt Count MPV Neut % (Auto) Lymph % (Auto) [place] % (Auto) Eos % (Auto) Baso % (Auto) Neut # (Auto) Lymph # (Auto) [place] # (Auto) Eos # (Auto) Baso # (Auto) WBC Differential Differential Comment Sodium 138 Potassium 4.0 Chloride 103 Carbon Dioxide 25.3 Anion Gap 10 BUN 10 Creatinine 0.85 Estimated GFR Greater than 89 POC Glucose 133 H 184 H Random Glucose 111 H Calcium 8.9 Phosphorus 2.9 Magnesium 2.1 Albumin 2.4 L Microbiology 02/19/18 15:10 Gram Stain - Final Tissue - Foot Wound Culture - Final No growth in 72 hours (aerobically and anaerobically) 02/19/18 15:10 Gram Stain - Final Wound - Foot Wound Culture - Final No growth in 72 hours (aerobically and anaerobically)
[2018-02-22] MEDS: Insulin Detemir Inj 1,000 UNIT/10 ML Vial SQ SCH (21:13)
[2018-02-23] MEDS: oxyCODONE/Acetaminophen 10/325 Tablet PO PRN ×2 (06:23→15:30)
--- NOTE | 2018-02-23 08:25 | P.PNIM ---
Subjective Interval history: Patient says he is feeling right. Denies any chest pain shortness of breath. Reports pain is controlled. Physical Exam Vital signs: Vital Signs 02/22/18 08:32 02/22/18 12:00 02/22/18 16:00 Temperature 98.1 F 98.4 F Pulse Rate 59 L 69 73 Respiratory Rate 18 18 Blood Pressure 130/76 144/83 H Pulse Oximetry 98 96 02/22/18 20:00 02/23/18 00:00 02/23/18 04:46 Temperature 97.8 F 98.0 F 97.6 F Pulse Rate 72 69 76 Respiratory Rate 16 16 16 Blood Pressure 136/63 147/77 H 145/84 H Pulse Oximetry 94 L 96 97 Intake & Output 02/22/18 02/23/18 02/23/18 18:59 06:59 18:59 Intake Total 2217.5 / 2217.5 500 / 500 Balance 2217.5 / 2217.5 500 / 500 Weight 90.2 kg Intake: IV 617.5 / 617.5 Zosyn 4.5 GM Premix 4.5 gm In 100 / 100 100 ml @ 200 mls/hr IV.SIG Q6H FABIAN Rx#:[id number] Vancomycin Inj 1,750 MG In NS 517.5 / 517.5 Inj 500 ML @ 250 mls/hr IV.SIG Q12H FABIAN Rx#:[id number] Oral 1600 / 1600 500 / 500 Other: # Voids 5 2 Date of Last Bowel Movement 02/22/18 02/22/18 # Bowel Movements 1 Narrative: GENERAL: Sitting up in bed. Appears comfortable. SKIN: Warm and dry. HEAD: Normocephalic. EYES: No scleral icterus. No injection or drainage. NECK: Supple, trachea midline. No JVD. CARDIOVASCULAR: Regular rate and rhythm without murmurs, gallops, or rubs. RESPIRATORY: Breath sounds equal bilaterally. No accessory muscle use. GASTROINTESTINAL: Abdomen soft, non-tender, nondistended. MUSCULOSKELETAL: No cyanosis, or edema. Bilateral feet are dressed dressing clean dry and intact. Again no change on exam. BACK: Nontender without obvious deformity. No CVA tenderness. - Urinary Catheter Management Indwelling Urethral Catheter Cath placed during this visit: yes, but has since been removed by the nurse Reason for continuing: Decision to DC catheter Insertion date: 02/17/18 Insertion time: 13:45 Removal date: 02/21/18 Removal time: 16:00 Results - Labs CBC & Chem 7: 02/22/18 05:57 02/22/18 05:57 Laboratory Results - last 24 hr 02/22/18 02/22/18 02/22/18 05:57 05:57 11:50 WBC 14.7 H RBC 4.33 L Hgb 13.1 Hct 38.8 L MCV 89.6 MCH 30.2 MCHC 33.7 RDW 13.1 Plt Count 314 D MPV 9.6 Neut % (Auto) 67.8 Lymph % (Auto) 15.9 [place] % (Auto) 13.4 H Eos % (Auto) 2.3 Baso % (Auto) 0.6 Neut # (Auto) 9.9 H Lymph # (Auto) 2.3 [place] # (Auto) 2.0 H Eos # (Auto) 0.3 Baso # (Auto) 0.1 WBC Differential . Differential Comment Auto diff final Sodium 138 Potassium 4.0 Chloride 103 Carbon Dioxide 25.3 Anion Gap 10 BUN 10 Creatinine 0.85 Estimated GFR Greater than 89 POC Glucose 184 H Random Glucose 111 H Calcium 8.9 Phosphorus 2.9 Magnesium 2.1 Albumin 2.4 L 02/22/18 02/22/18 02/23/18 17:02 21:15 07:54 WBC RBC Hgb Hct MCV MCH MCHC RDW Plt Count MPV Neut % (Auto) Lymph % (Auto) [place] % (Auto) Eos % (Auto) Baso % (Auto) Neut # (Auto) Lymph # (Auto) [place] # (Auto) Eos # (Auto) Baso # (Auto) WBC Differential Differential Comment Sodium Potassium Chloride Carbon Dioxide Anion Gap BUN Creatinine Estimated GFR POC Glucose 152 H 168 H 128 H Random Glucose Calcium Phosphorus Magnesium Albumin Microbiology 02/19/18 15:10 Tissue - Foot Gram Stain - Final 02/19/18 15:10 Tissue - Foot Wound Culture - Final No growth in 72 hours (aerobically and anaerobically ) 02/19/18 15:10 Wound - Foot Gram Stain - Final 02/19/18 15:10 Wound - Foot Wound Culture - Final No growth in 72 hours (aerobically and anaerobically ) - Procedures Right femoropopliteal bypass with endarterectomy, 02/17/2018. Assessment and Plan - Assessment (1) Foot osteomyelitis, right Code(s): M86.9 - Osteomyelitis, unspecified Status: Acute - Plan This is a 57-year-old male with history of diabetes mellitus presented to the hospital with foot pain and redness. //Sepsis secondary to cellulitis of the foot with peripheral arterial disease - MRI of foot concerning for OM on the right. Infectious disease, podiatry and vascular surgery consulted. CTA: good inflow with bilateral stenosis of common femoral arteries, occlusion of superficial femoral arteries and reconstitution of the popliteal arteries bilaterally; Beyond popliteal arteries trifurcations are open with scattered plaque and mild to moderate stenoses throughout. - s/p Femoral-popliteal bypasses with endarterectomy 02/17, for right hallux amputation left foot debridement and irrigation today. Continue vancomycin and Zosyn. -Pain management with IV morphine and oral narcotics. Continue Plavix. -Wound culture ordered, blood cultures negative to date, still with leukocytosis. = 02/20. Follow-up surgical cultures from 02/19. Negative at this time. ID following. Appreciate assistance. Continue antibiotics . = 02/21. Cultures from 02/19-. Appreciate ID and podiatry assistance. Follow- up podiatry and ID recommendations. = 02/22. Discussed with podiatry. Podiatry would like patient to get 1 more day of IV antibiotics, discharged tomorrow on by mouth antibiotics as per ID. Appreciate assistance. = 02/23. Discharge pending podiatry clearance. Continue p.o. antibiotics to complete treatment course as per infectious disease. //Hypertension-uncontrolled. = 02/23. Blood pressure continues acceptable. Continue amlodipine. //Tobacco abuse Tobacco counseling cessation provided. -continue nicotine patch. //Diabetes mellitus-hemoglobin A1c 9.9%, continue Accu-Cheks, Levemir 15 units at night, sliding scale insulin. = A1c 9.9. = Blood sugar acceptable. Will order executive casino host consult. //Physical therapy after surgery. Will likely need rehab at home with home health care. //DVT prophylaxis: Lovenox Discharge Planning: Pending podiatry clearance. Can go on by mouth antibiotics pending podiatry clearance.
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
[2018-02-23] MEDS: levoFLOXacin 750 MG Tablet PO SCH (10:07)
[2018-02-23] MEDS: amLODIPine 5 MG Tablet PO SCH (10:07)
[2018-02-23] MEDS: Sod Chloride 0.9% Inj 1,000 ML IV.SIG SCH ×2 (10:07→17:45)
[2018-02-23] MEDS: Insulin NovoLOG Aspart Correctional Sugar Inj SQ SCH ×3 (10:09→17:43)
[2018-02-23] MEDS: Collagenase Oint 30 GM Tube TOPICAL SCH (10:09)
--- NOTE | 2018-02-23 12:27 | P.DCO ---
- Home Health Nursing Order: Diabetic education Instructions: Patient will need home health nurse for bilateral feet dressing changes. Please see podiatry recommendations. - Certification I have seen patient Parish Cook on 02/23/18. My clinical findings support the need for the requested home health care services because: Limited ability to care for self I certify that my clinical findings support that this patient is homebound because: Post-op weakness
[2018-02-23] MEDS: Enoxaparin Inj 40 MG/0.4 ML Syringe SQ SCH (15:31)
== END 2018-02-23 18:23 | disposition home or self-care (01) ==
LOC: NEPE 22:14 → NEDA 02-15 05:12 → NEDH 02-15 11:28 → N07 02-15 13:01
PROVIDERS: ADMIT Internal Medicine; ATTEND Internal Medicine

== ENCOUNTER 2018-03-26 10:23 | Inpatient (IN) ==
[2018-03-26] MEDS ORDERED: Clindamycin 900 mg/NS Premix 900 MG/50 ML PIGGYBACK IV.SIG ONE (11:06)
[2018-03-26] MEDS ORDERED: Tetanus/Diphtheria Toxoid Adult Vaccine Inj 0.5 ML Vial IM ONE (11:06)
--- NOTE | 2018-03-26 11:24 | ED ---
HPI General Chief complaint: Skin/Abscess/Foreign Body Stated complaint: rt foot pain Time Seen by Provider: 03/26/18 10:53 Source: patient Mode of arrival: ambulatory Limitations: no limitations History of Present Illness HPI narrative: Patient is a 57-year-old male with history of diabetes as well as severe peripheral vascular disease, presents the emergency room complaints of infection to his left foot. Patient reports that he was recently admitted to the hospital and had surgery on his right big toe as he developed osteomyelitis. Dr. Carbajal operated on him on 02/19/18 and performed a right foot hallux amputation at the metatarsophalangeal joint. Given his severe peripheral vascular disease, Dr. Rey performed a right femoral-popliteal bypass with endarterectomy on February 17, 2018. Patient was discharged to home on February 23, 2018 with instructions to take 14 more days of oral clindamycin as well as Levaquin. Patient had completed his full course of his antibiotics. Patient reports that for the past 4 days, he has noticed increased drainage from his right toes as well as his surgical site of his right great toe amputation. Patient denies any fevers or chills, reports that he was concerned so he came to the emergency room for evaluation. Related Data Home Medications Medication Instructions Recorded Confirmed metformin 500 mg PO BID 02/27/18 03/26/18 Previous Rx's Medication Instructions Recorded insulin syringe-needle U-100 [BD #1 box 02/23/18 Insulin Syringe] lancets #50 each 02/23/18 Allergies Allergy/AdvReac Type Severity Reaction Status Date / Time iodine Allergy Unknown Swelling Verified 03/26/18 10:44 potassium iodide Allergy Unknown Swelling Verified 03/26/18 10:44 povidone-iodine Allergy Unknown Swelling Verified 03/26/18 10:44 sodium iodide Allergy Unknown Swelling Verified 03/26/18 10:44 sodium iodide Allergy Unknown Swelling Verified 03/26/18 10:44 *MDRO Multi-Drug Resistant AdvReac Unknown n/a Uncoded 03/26/18 10:44 Organism Review of Systems ROS: all other systems reviewed are negative [facility] Medical History Medical History Diabetes (Acute) Peripheral arterial disease (Acute) Tobacco abuse (Acute) Surgical History Surgical History History of eye surgery (Acute) Hx of toe surgery (Acute) S/P femoral-popliteal bypass surgery (Acute) Family History Family History Other Diabetes Social History Social History Substance History: No History of Abuse Second Hand Smoke Exposure: Yes Smoking Status: Current every day smoker Tobacco Type: Cigarettes Cigarettes Per Day: 6 How Often Do You Have a Drink Containing Alcohol: Never [facility] within the Last 8 Weeks: No Recent Out of Country Travel within the Last 8 Weeks: No Immunization History Tetanus Immunization: <5 Years Tetanus Immunization Year if Known: 2012 Hx Influenza Vaccine This Season: No Exam Narrative Exam Narrative: GENERAL: Mild distress SKIN: Focused skin assessment warm/dry. HEAD: Atraumatic. Normocephalic. EYES: Pupils equal and round. No scleral icterus. No injection or drainage. ENT: No nasal bleeding or discharge. Mucous membranes pink and moist. NECK: Trachea midline. No JVD. CARDIOVASCULAR: Regular rate and rhythm. No murmur appreciated. RESPIRATORY: No accessory muscle use. Clear to auscultation. Breath sounds equal bilaterally. GASTROINTESTINAL: Abdomen soft, non-tender, nondistended. Hepatic and splenic margins not palpable. MUSCULOSKELETAL: No obvious deformities. No clubbing. No cyanosis. No edema. Right lower extremity: Postsurgical site of the right great toe amputation shows mild redness and dried blood, he does have purulent discharge from the bottom of his digits #2-5, he has good ROM to digits #2-5. Pulses are intact. NEUROLOGICAL: Awake and alert. No obvious cranial nerve deficits. Motor grossly within normal limits. Normal speech. PSYCHIATRIC: Appropriate mood and affect; insight and judgment normal. Course Initial Documented Vital Signs Temperature 98.2 F 03/26/18 10:32 Pulse Rate 97 H 03/26/18 10:32 Respiratory Rate 16 03/26/18 10:32 Blood Pressure 116/74 03/26/18 10:32 Pulse Oximetry 99 03/26/18 10:32 Last Documented Vital Signs Temperature 98.2 F 03/26/18 10:32 Pulse Rate 89 03/26/18 13:23 Respiratory Rate 18 03/26/18 13:23 Blood Pressure 157/89 H 03/26/18 13:23 Pulse Oximetry 97 09/23/18 13:23 Medical Decision Making MDM Narrative Medical decision making narrative: 57-year-old male who presents the emergency room for possible infection of his right lower extremity. Lab work as well as x -ray of the right foot was ordered, he does have history of right foot osteomyelitis and recent bypass surgery. An IV dose of clindamycin was ordered. xray of foot shows osteomyelitis of the distal first metatarsal. This is a new finding when compared to previous x-rays. Plan to add vancomycin to his antibiotic regimen. Patient will need to be admitted to the hospital for treatment of osteomyelitis. case reviewed with Dr. Velasquez who accepts pt to service. Medical Screen Exam Complete: Yes Emergency Medical Condition: Yes Differential Diagnosis Differential Diagnosis: cellulitis, osteomyelitis Medical Records Medical records reviewed: Yes I reviewed the patient's medical records. Lab Data Result diagrams: 03/26/18 11:20 03/26/18 11:20 Lab Results 03/26/18 03/26/18 Range/Units 11:20 11:20 WBC 10.9 (4.0-11.0) th/mm3 RBC 4.39 L (4.50-5.90) mil/mm3 Hgb 13.3 (13.0-17.0) gm/dL Hct 39.8 (39.0-51.0) % MCV 90.5 (80.0-100.0) fL MCH 30.2 (27.0-34.0) pg MCHC 33.4 (32.0-36.0) % RDW 13.7 (11.6-17.2) % Plt Count 148 L D (150-450) th/mm3 MPV 9.1 (7.0-11.0) fL Neut % (Auto) 77.1 H (16.0-70.0) % Lymph % (Auto) 11.4 (9.0-44.0) % [place] % (Auto) 9.8 H (0.0-8.0) % Eos % (Auto) 1.2 (0.0-4.0) % Baso % (Auto) 0.5 (0.0-2.0) % Neut # (Auto) 8.4 H (1.8-7.7) th/mm3 Lymph # (Auto) 1.3 (1.0-4.8) th/mm3 [place] # (Auto) 1.1 H (0.0-0.9) th/mm3 Eos # (Auto) 0.1 (0.0-0.4) th/mm3 Baso # (Auto) 0.1 (0.0-0.2) th/mm3 WBC Differential . Differential Comment Auto diff final Sodium 139 (136-145) meq/L Potassium 4.2 (3.5-5.1) meq/L Chloride 103 (98-107) meq/L Carbon Dioxide 27.5 (21.0-32.0) meq/L Anion Gap 9 (5-15) meq/L BUN 6 L (7-18) mg/dL Creatinine 0.95 (0.60-1.30) mg/dL Estimated GFR 82 L (>89) mL/min Random Glucose 213 H (74-106) mg/dL Calcium 8.6 (8.5-10.1) mg/dL Imaging Data Radiologist's impression: Foot X-Ray 03/26/18 11:06 CONCLUSION: Osteomyelitis distal first metatarsal Discharge Plan Discharge Disposition Patient Disposition: 30 Still Patient Discharge Condition Condition: Stable Discharge Details Diagnosis: Foot osteomyelitis, right Physicians Team ED Provider: Alivia Chatman Primary Care Provider: Maguidonnell Russell, Rxs /Orders / Referrals /Forms Prescriptions: No Action lancets Misc Qty: 50 RF: 0 insulin syringe-needle U-100 [BD Insulin Syringe] 1 mL 29 gauge x 1/2" Syringe Qty: 1 RF: 0 metformin 500 mg Tablet 500 mg PO BID RF: 0 Status ED Status: With Doctor
[2018-03-26 11:31] LABS: Baso # (Auto) 0.1 th/mm3 (0.0-0.2); Baso % (Auto) 0.5 % (0.0-2.0); Eos # (Auto) 0.1 th/mm3 (0.0-0.4); Eos % (Auto) 1.2 % (0.0-4.0); Hematocrit 39.8 % (39.0-51.0); Hemoglobin 13.3 gm/dL (13.0-17.0); Lymph # (Auto) 1.3 th/mm3 (1.0-4.8); Lymph % (Auto) 11.4 % (9.0-44.0); Mean Corpuscular HGB Conc 33.4 % (32.0-36.0); Mean Corpuscular Hemoglobin 30.2 pg (27.0-34.0); Mean Corpuscular Volume 90.5 fL (80.0-100.0); Mean Platelet Volume 9.1 fL (7.0-11.0); Mono # (Auto) 1.1 th/mm3 (0.0-0.9); Mono % (Auto) 9.8 % (0.0-8.0); Neut # (Auto) 8.4 th/mm3 (1.8-7.7); Neut % (Auto) 77.1 % (16.0-70.0); Platelet Count 148 th/mm3 (150-450); Red Blood Count 4.39 mil/mm3 (4.50-5.90); Red Cell Distribution Width 13.7 % (11.6-17.2); White Blood Count 10.9 th/mm3 (4.0-11.0)
--- NOTE | 2018-03-26 11:52 | XR ---
EXAM DATE: 03/26/2018 11:22 AM EDT AGE/SEX: 57 years / Male INDICATIONS: Pain, swelling redness right foot. Open sore with drainage medial aspect distal foot. CLINICAL DATA: This is the patient's initial encounter. Patient reports that signs and symptoms have been present for 4 - 6 days and indicates a pain score of 9/10. MEDICAL/SURGICAL HISTORY: . Diabetic. . Bypass surgery right leg. Toe amputation right foot [place] [facility] [place]. . FINDINGS: Status post resection of the great toe. There is bony destruction distal first metatarsal consistent osteomyelitis. I do not see any other evidence for an os myelitis. CONCLUSION: Osteomyelitis distal first metatarsal Electronically signed by: Armen Quinonez MD 03/26/2018 11:51 AM EDT
[2018-03-26 11:55] LABS: Calcium 8.6 mg/dL (8.5-10.1); Carbon Dioxide 27.5 meq/L (21.0-32.0); Potassium 4.2 meq/L (3.5-5.1)
[2018-03-26] MEDS ORDERED: Bisacodyl 10 MG Supp RECTAL PRN (14:40)
[2018-03-26] MEDS ORDERED: Acetaminophen 325 MG Tablet PO PRN (14:40)
[2018-03-26] MEDS ORDERED: Dextrose 50% in Water 50 ML Vial IV.PUSH PRN (14:48)
[2018-03-26] MEDS: Sod Chloride 0.9% Inj 1,000 ML IV.CONT SCH (14:56)
[2018-03-26] MEDS ORDERED: Vancomycin Inj 1 GM/200 ML PIGGYBACK IV.SIG SCH (15:00)
[2018-03-26] MEDS: Piperacil/Tazo 3.375 GM Premix 50 ML IV.SIG SCH ×2 (15:05→23:15)
--- NOTE | 2018-03-26 15:40 | P.HPIM ---
History of Present Illness Service: [facility] Primary Care Physician: Magui Russell Chief Complaint: R foot wound with drainage History of Present Illness: This is a 57 y/o CM with PMHx of DM and PVD who presented to the ED due to drainage of R foot wound with foul smell at the site where his toe was amputated. Patient was just discharged last month after txt for Osteomyelitis of the R foot hallux and was D/C's on Clinda and Levaquin which he completed. Patient denies fever and chills and has been seeing Podiatry as an outpatient. After his last hospitalization patient was fired and was kicked out by his landlord and he is now homeless and has no family. At his last hospitalization he also had a fem-pop bypass with graft on R due to severe PVD. Surgical procedures last admission: 02/17 Right femoral popliteal bypass with PTFE graft, right common femoral, external iliac endarterectomy, and angioplasty. 02/19 Right foot hallux amputation at metatarsophalangeal joint. Left foot debridement and irrigation of medial lateral ulcers. Meds given in ED: Clindamycin IV - Diagnosis (1) Foot osteomyelitis, right (2) Diabetes Inpatient Certification: I certify that the inpatient services were ordered in accordance with Medicare regulations governing the order. This includes certification that hospital inpatient services are reasonable and necessary and in the case of services not specified as inpatient-only under 42 CFR 419.22(n), that they are appropriately provided as inpatient services in accordance to with the 2-midnight benchmark under 43 CFR 412.3(e) Plans for Post Hospital Care: Not yet determined (homeless) Review of Systems All other systems reviewed negative except as stated in HPI PMFSH - Medical / Surgical Hx Neg / Unobtainable Surgical History: No Previous Surgery - Medical History Medical History: Medical History (Last Reviewed 03/26/18 @ 15:26 by Betty Velasquez MD) Diabetes Peripheral arterial disease Tobacco abuse - Surgical History Surgical History: Surgical History (Last Reviewed 03/26/18 @ 15:26 by Betty Velasquez MD) History of eye surgery Hx of toe surgery S/P femoral-popliteal bypass surgery - Family History Family History: Family History (Last Reviewed 03/26/18 @ 15:26 by Betty Velasquez MD) Other Diabetes - Social History I have reviewed the patient's Social History: Yes - Tobacco History Second Hand Smoke Exposure: Yes Tobacco Use In Past 30 Days: Yes Smoking Status: Current every day smoker Tobacco Type: Cigarettes Cigarettes Per Day: 6 - Alcohol History How Often Do You Have a Drink Containing Alcohol: Never - Substance Use History Substance History: No History of Abuse - Travel History Recent Travel in the [place] Within the Last 8 Weeks: No Recent Travel Out of the Country Within the Last 8 Weeks: No - Immunization History Tetanus Immunization: <5 Years Tetanus Immunization Year if Known: 2012 Hx Influenza Vaccine This Season: No Medications and Allergies Active Medications: Active Medications Acetaminophen (Tylenol) 650 mg PO Q4H PRN PRN Reason: Temp > 100.4 Al Hydroxide/Mg Hydroxide (Milk Of Magnesia Liq) 30 ml PO Q12H PRN PRN Reason: Mild Constipation Bisacodyl (Dulcolax Supp) 10 mg RECTAL DAILY PRN PRN Reason: SEVERE CONSITIPATION Dextrose (D50w Vial) 50 ml IV.PUSH UNSCH PRN PRN Reason: PER HYPOGLYCEMIA PROTOCOL Glucagon (Glucagon Inj) 1 mg OTHER PRN PRN PRN Reason: for Hypoglycemia Protocol Vancomycin/Sodium Chloride (Vancomycin Inj) 1 gm in 200 mls @ 200 mls/hr IV.SIG [employer] [facility] Sodium Chloride (Ns Inj) 1,000 mls @ 100 mls/hr IV.CONT .Q10H [facility] Last Admin: 03/26/18 14:56 Dose: 100 mls/hr Piperacillin/Tazobactam/Dextrose (Zosyn 3.375 Gm Premix) 50 mls @ 100 mls/hr IV.SIG Q6H [facility] Last Admin: 03/26/18 15:05 Dose: 100 mls/hr Insulin Human Regular (Novolin R Correctional Sugar Inj) 0 units SQ ACHS [facility]; Protocol Lactulose (Lactulose Liq) 30 ml PO DAILY PRN PRN Reason: SEVERE CONSITIPATION Ondansetron HCl (Zofran Inj) 4 mg IV.PUSH Q6H PRN PRN Reason: NAUSEA OR VOMITING Senna/Docusate Sodium (Fatmata-Colace) 1 tab PO BID [facility] Sennosides (Senokot) 17.2 mg PO Q12H PRN PRN Reason: Moderate Constipation Sodium Chloride (Ns Flush) 2 ml IV.FLUSH PRN PRN PRN Reason: FLUSH AFTER USING IV ACCESS Allergies Allergy/AdvReac Type Severity Reaction Status Date / Time iodine Allergy Unknown Swelling Verified 03/26/18 10:44 potassium iodide Allergy Unknown Swelling Verified 03/26/18 10:44 povidone-iodine Allergy Unknown Swelling Verified 03/26/18 10:44 sodium iodide Allergy Unknown Swelling Verified 03/26/18 10:44 sodium iodide Allergy Unknown Swelling Verified 03/26/18 10:44 *MDRO Multi-Drug Resistant AdvReac Unknown n/a Uncoded 03/26/18 10:44 Organism Home Medications Medication Instructions Recorded Confirmed Type metformin 500 mg PO BID 02/27/18 03/26/18 History Exam Vital signs: Vital Signs 03/26/18 10:32 03/26/18 13:23 Temperature 98.2 F Pulse Rate 97 H 89 Respiratory Rate 16 18 Blood Pressure 116/74 157/89 H Pulse Oximetry 99 97 Intake & Output 03/25/18 03/26/18 03/26/18 18:59 06:59 18:59 Intake Total 50 / 50 Balance 50 / 50 Weight 79.379 kg Intake: IV 50 / 50 Cleocin 900 mg/NS Premix 900 mg 50 / 50 In 50 ml @ 100 mls/hr IV.SIG ONCE ONE Rx#:[id number] Narrative: GENERAL: well nourished male, not well groomed but pleasant, in NAD, lying comfortably in bed SKIN: Warm and dry. HEENT: Normocephalic. No scleral icterus. No injection or drainage. NECK: Supple, trachea midline. No JVD or lymphadenopathy. CARDIOVASCULAR: Regular rate and rhythm without murmurs, gallops, or rubs. RESPIRATORY: Breath sounds equal bilaterally. No accessory muscle use. GASTROINTESTINAL: Abdomen soft, non-tender, nondistended. MUSCULOSKELETAL: No cyanosis, or edema. R foot with base of amputation of R toe with open wound, [id number], with clear liquid grainage and foul smell. Minimal clear drainage from 1st distal MT joint with erythema. L foot with lateral and medial ankle erythema with no drainage. Sensation intact BL to light touch. Pulses faint but palpable in BL LE. BACK: Nontender without obvious deformity. No CVA tenderness. Results - Labs CBC & Chem 7: 03/26/18 11:20 03/26/18 11:20 Labs: Short CBC 09/23/18 Range/Units 11:20 WBC 10.9 (4.0-11.0) th/mm3 Hgb 13.3 (13.0-17.0) gm/dL Hct 39.8 (39.0-51.0) % Plt Count 148 L D (150-450) th/mm3 BMP 03/26/18 11:20 Sodium 139 Potassium 4.2 Chloride 103 Carbon Dioxide 27.5 BUN 6 L Creatinine 0.95 Calcium 8.6 - Imaging Impressions Foot X-Ray 03/26/18 11:06 CONCLUSION: Osteomyelitis distal first metatarsal Caprini VTE Risk Assessment Caprini VTE Risk Assessment: No/Low Risk (score <= 1) (SCD) Caprini Risk Assessment Model: Point Value = 1 Point Value = 2 Point Value = 3 Point Value = 5 Age 41-60 Minor surgery BMI > 25 kg/m2 Swollen legs Varicose veins or History of unexplained or recurrent spontaneous Oral contraceptives or hormone replacement Sepsis (< 1 month) Serious lung disease, including pneumonia (< 1 month) Abnormal pulmonary function Acute myocardial infarction Congestive heart failure (< 1 month) History of inflammatory bowel disease Medical patient at bed rest Age 61-74 Arthroscopic surgery Major open surgery (> 45 min) Laparoscopic surgery (> 45 min) Malignancy Confined to bed (> 72 hours) Immobilizing plaster cast Central venous access Age >= 75 History of VTE Family history of VTE Factor V Leiden Prothrombin [id number] Lupus anticoagulant Anticardiolipin antibodies Elevated serum homocysteine Heparin-induced thrombocytopenia Other congenital or acquired thrombophilia Stroke (< 1 month) Elective arthroplasty Hip, pelvis, or leg fracture Acute spinal cord injury (< 1 month) Prophylaxis Regimen: Total Risk Factor Score Risk Level Prophylaxis Regimen 0-1 Low Early ambulation 2 Moderate Order ONE of the following: *Sequential Compression Device (SCD) *Heparin 5000 units SQ BID 3-4 Higher Order ONE of the following medications: *Heparin 5000 units SQ TID *Enoxaparin/Lovenox 40 mg SQ daily (WT < 150 kg, CrCl > 30 mL/min) *Enoxaparin/Lovenox 30 mg SQ daily (WT < 150 kg, CrCl > 10-29 mL/min) *Enoxaparin/Lovenox 30 mg SQ BID (WT < 150 kg, CrCl > 30 mL/min) AND/OR *Sequential Compression Device (SCD) 5 or more Highest Order ONE of the following medications: *Heparin 5000 units SQ TID (Preferred with Epidurals) *Enoxaparin/Lovenox 40 mg SQ daily (WT < 150 kg, CrCl > 30 mL/min) *Enoxaparin/Lovenox 30 mg SQ daily (WT < 150 kg, CrCl > 10-29 mL/min) *Enoxaparin/Lovenox 30 mg SQ BID (WT < 150 kg, CrCl > 30 mL/min) AND *Sequential Compression Device (SCD) Assessment and Plan - Assessment (1) Foot osteomyelitis, right Code(s): M86.9 - Osteomyelitis, unspecified Status: Acute (2) Diabetes Code(s): E11.9 - Type 2 diabetes mellitus without complications Status: Chronic - Plan This is a 57 y/o CM with PMHx of DM and PVD admitted for IP mgmt of Osteomyelitis of right distal 1st metatarsal joint, hx of previous admission 2017 with OM of R hallux s/p amputation and fem-pop bypass due to severe PVD, HD #1 1. Osteomyelitis of Right Distal Started on Vanc IV and Zosyn IV Consulted Wound care, ID, and Podiatry (known to patient last admission), appreciate assistance with mgmt Wound stain and Cx ordered Bld Cx x2 WBC 10.9, afebrile Obtaining MRI R Foot NPO XR R FOOT: Status post resection of the great toe. There is bony destruction distal first metatarsal consistent osteomyelitis. I do not see any other evidence for an osteomyelitis. Osteomyelitis distal first metatarsal. 2. Diabetes Type II HgbA1c 9.9% on 02/2018 SSI while inpatient, glucose check AC/HS Holding home Metformin 3. Homeless Case mgmt consulted for D/C planning 4. Smoker Encouraged cessation and risks discussed, declines nicotine patch 5. Severe PVD: Noted. 6. DVT PPX: SCD's Code Status: full Discussed Condition With: patient, RN, ED doctor (2) Diabetes Qualifiers: Diabetes mellitus type: type 2 Diabetes mellitus snf insulin use: without gaggerman use Diabetes mellitus complication status: with circulatory complication
[2018-03-26] MEDS: Insulin NovoLIN Regular Correctional Sugar Inj SQ SCH ×2 (16:37→21:43)
[2018-03-26] MEDS ORDERED: Gadobutrol PF 10 MMOL/10 ML Vial (for RAD) IV.SIG ONE (18:49)
--- NOTE | 2018-03-26 19:15 | MR ---
EXAM DATE: 03/26/2018 7:10 PM EDT AGE/SEX: 57 years / Male INDICATIONS: Edema. Wound to plantar surface of all MTP joints. 1st toe amputation. CLINICAL DATA: This is the patient's initial encounter. Patient reports that signs and symptoms have been present for 1 day and indicates a pain score of 4/10. MEDICAL/SURGICAL HISTORY: Diabetes mellitus type II. . Right great toe amputation.Catarct surge ry. COMPARISON: [facility], FOOT COMPLETE RIGHT 3V, 03/26/2018. . TECHNIQUE: Multiplanar, multisequence MRI examination was performed without contrast and after th e intravenous administration of 8cc ml Gadavist (gadobutrol) single exam dose. FINDINGS: There is evidence for amputation at the level of the first metatarsophalangeal joint. Exten sive edema is seen with enhancement of the marrow of most of the first metatarsal bone sparing the ep iphysis proximally. There is surrounding edema and enhancement of the adjacent soft tissues character istic of cellulitis and osteomyelitis. The rest of the bony structures appear intact. CONCLUSION: 1. There is osteomyelitis involving the first metatarsal bones diffusely with the exception of the p roximal epiphysis and extensive inflammatory process in the surrounding soft tissues. Electronically signed by: Kristyn Pro MD 03/26/2018 7:13 PM EDT
--- NOTE | 2018-03-26 20:01 | MB ---
cc: Shannon Mi DPM DATE: 03/26/2018 REASON FOR CONSULTATION: Right foot osteomyelitis. HISTORY OF PRESENT ILLNESS: The patient is a 57-year-old male with a past medical history of DM and PVD who presented to the ED with drainage and malodor of open wound. He is status post right first ray amputation with Dr. Carbajal on 02/19/[address] Maldonado on 02/17/2018. He completed his oral antibiotics, but continued to have drainage and pain. His present situation is that he is homeless and has no family support in the area. Denies any nausea, vomiting, fever, diarrhea or chills. He is a very pleasant and affable patient. REVIEW OF SYSTEMS: Per HPI. PAST MEDICAL HISTORY: DM and PVD. PAST SURGICAL HISTORY: Right hallux amputation on 02/19/2018, fem-pop bypass 02/17/2018. SOCIAL HISTORY: Positive smoking history, down to 6-7 day from 2 packs per day. Denies alcohol or illicit drugs. MEDICATIONS: Per chart. PHYSICAL EXAMINATION: Right first ray bulbous, swollen, warm. Positive drainage. No streaking. Protective sensation grossly diminished. DP and PT diminished. LABORATORY DATA: WBC on 03/26/2018 of 10.9, RBC 4.39, H and H 13.3 and 39.8. Right foot x-ray with cortical changes at the distal first metatarsal head. There is no gas in the first metatarsal joint or foot. ASSESSMENT: 1. Diabetes mellitus with neuropathy. 2. Right first ray osteomyelitis. 3. Peripheral vascular disease. PLAN: I discussed with the patient 6 weeks of antibiotics versus additional revision of the first ray, which is an additional partial amputation of the first metatarsal. He will consider this and I will continue to follow the patient. Continue IV antibiotics. Discussed with Dr. Chatman. Dr. Comer will assume care on 03/27/2018. Shannon Mi DPM SR/ilan , 03:58 PM , 04:05 PM
[2018-03-26] MEDS: Senna/Docusate Sodium 8.6/50 MG Tablet PO SCH (21:43)
[2018-03-27] MEDS: Sod Chloride 0.9% Inj 1,000 ML IV.CONT SCH ×4 (03:05→21:29)
[2018-03-27] MEDS: Piperacil/Tazo 3.375 GM Premix 50 ML IV.SIG SCH ×4 (04:33→21:30)
[2018-03-27 05:40] LABS: Baso # (Auto) 0.1 th/mm3 (0.0-0.2); Baso % (Auto) 0.7 % (0.0-2.0); Eos # (Auto) 0.2 th/mm3 (0.0-0.4); Eos % (Auto) 2.8 % (0.0-4.0); Hematocrit 38.7 % (39.0-51.0); Hemoglobin 13.1 gm/dL (13.0-17.0); Lymph # (Auto) 1.2 th/mm3 (1.0-4.8); Lymph % (Auto) 16.3 % (9.0-44.0); Mean Corpuscular Hemoglobin 30.1 pg (27.0-34.0); Mean Corpuscular Volume 88.6 fL (80.0-100.0); Mean Platelet Volume 9.5 fL (7.0-11.0); Mono % (Auto) 13.8 % (0.0-8.0); Neut # (Auto) 4.7 th/mm3 (1.8-7.7); Neut % (Auto) 66.4 % (16.0-70.0); Platelet Count 153 th/mm3 (150-450); Red Blood Count 4.36 mil/mm3 (4.50-5.90); Red Cell Distribution Width 13.9 % (11.6-17.2); White Blood Count 7.1 th/mm3 (4.0-11.0)
[2018-03-27 06:09] LABS: Calcium 8.5 mg/dL (8.5-10.1); Carbon Dioxide 28.1 meq/L (21.0-32.0)
[2018-03-27] MEDS: Insulin NovoLIN Regular Correctional Sugar Inj SQ SCH ×4 (08:29→21:29)
[2018-03-27] MEDS: Senna/Docusate Sodium 8.6/50 MG Tablet PO SCH ×2 (08:30→21:30)
--- NOTE | 2018-03-27 10:58 | P.CONID ---
History of Present Illness Service: Infectious disease Consult date: 03/27/18 Requesting Physician: Betty Velasquez Reason for Consult: Evaluate patient for possible osteomyelitis Primary Care Provider: Maguidonnell Russell Family Provider: No Primary Care Physician Chief Complaint: R foot wound with drainage History of Present Illness: Patient seen and examined. Records reviewed. Patient is a 57-year-old male, presented to the hospital for further evaluation of drainage from his right foot amputation site. Patient was in the hospital in February and at that time he had a wound on his right big toe. There was cellulitis, and imaging study showed osteomyelitis of his big toe. He was also found to have peripheral vascular disease, and he underwent right femoropopliteal bypass with PTFE, as well as RCEI endarterectomy and angioplasty. This was done February 17, and he subsequently underwent amputation of the right big toe at the metatarsal joint, and had disarticulation at the joint. The proximal part of the big toe was sent for pathology as the clear margin, and there was no evidence of osteomyelitis. Patient was sent home on oral antibiotics, and he apparently completed 14 days of treatment. Patient was seen in follow-up by the vascular surgeon. Patient has been following up with the ultrasonic hand solderer, and apparently the last time he was seen which was March 20 he had developed drainage at the amputation site. Patient apparently has been homeless for about a month. He has been walking a lot, and he states that he keeps his wound covered. He has now presented back to the hospital for further evaluation and treatment. He is always had swelling on that right foot. He is developed drainage which has worsened and there is an older. He denies any fever chills or sweats. Denies any respiratory, GI or any urinary complaints. Patient has been using the special footwear that he got from the hospital. On presentation he has been afebrile. His WBC is normal. MRI of the right foot is now showing abnormality on the first metatarsal. Infectious disease consultation has been requested to evaluate the patient for possible osteomyelitis. Review of Systems Constitutional: Denies chills, Denies fever(s), Denies night sweats Eyes: Denies discharge, Denies dry eyes Ears, Nose, Mouth, and Throat: Denies difficulty swallowing, Denies ear pain, Denies facial pain, Denies nasal congestion, Denies nasal discharge, Denies sore throat Cardiovascular: Denies chest pain, Denies shortness of breath Respiratory: Denies chest congestion, Denies cough, Denies shortness of breath Gastrointestinal: Denies abdominal pain, Denies loose stools, Denies nausea, Denies pain with swallowing, Denies vomiting Genitourinary: Denies difficulty urinating, Denies painful urination Musculoskeletal: Reports joint pain Skin/Breast: Denies rash PMFSH - History History Provided By: Patient - Medical History Medical History: Medical History (Last Reviewed 03/27/18 @ 10:51 by mEily Andujar MD) Diabetes Peripheral arterial disease Tobacco abuse - Surgical History Surgical History: Surgical History (Last Reviewed 03/27/18 @ 10:51 by Emily Andujar MD) History of eye surgery Hx of toe surgery S/P femoral-popliteal bypass surgery - Family History Family History: Family History (Last Reviewed 03/27/18 @ 10:51 by Emily Andujar MD) Other Diabetes - Tobacco History Second Hand Smoke Exposure: Yes Tobacco Use In Past 30 Days: Yes Smoking Status: Current every day smoker Tobacco Type: Cigarettes, Cigars Cigarettes Per Day: 6 - Alcohol History How Often Do You Have a Drink Containing Alcohol: Never - Substance Use History Substance History: No History of Abuse - Travel History Recent Travel in the [place] Within the Last 8 Weeks: No Recent Travel Out of the Country Within the Last 8 Weeks: No - Immunization History Tetanus Immunization: <5 Years Tetanus Immunization Year if Known: 2012 Hx Influenza Vaccine This Season: No Medications and Allergies Active Medications: Active Medications Acetaminophen (Tylenol) 650 mg PO Q4H PRN PRN Reason: Temp > 100.4 Al Hydroxide/Mg Hydroxide (Milk Of Magntenisha Liq) 30 ml PO Q12H PRN PRN Reason: Mild Constipation Bisacodyl (Dulcolax Supp) 10 mg RECTAL DAILY PRN PRN Reason: SEVERE CONSITIPATION Dextrose (D50w Vial) 50 ml IV.PUSH UNSCH PRN PRN Reason: PER HYPOGLYCEMIA PROTOCOL Glucagon (Glucagon Inj) 1 mg OTHER PRN PRN PRN Reason: for Hypoglycemia Protocol Vancomycin/Sodium Chloride (Vancomycin Inj) 1 gm in 200 mls @ 200 mls/hr IV.SIG HORTICULTURAL AGENT FABIAN Sodium Chloride (Ns Inj) 1,000 mls @ 100 mls/hr IV.CONT .Q10H [facility] Last Admin: 03/27/18 06:00 Dose: 100 mls/hr Piperacillin/Tazobactam/Dextrose (Zosyn 3.375 Gm Premix) 50 mls @ 100 mls/hr IV.SIG Q6H [facility] Last Admin: 03/27/18 10:34 Dose: 100 mls/hr Insulin Human Regular (Novolin R Correctional Sugar Inj) 0 units SQ ACHS FABIAN; Protocol Last Admin: 03/27/18 08:29 Dose: Not Given Lactulose (Lactulose Liq) 30 ml PO DAILY PRN PRN Reason: SEVERE CONSITIPATION Ondansetron HCl (Zofran Inj) 4 mg IV.PUSH Q6H PRN PRN Reason: NAUSEA OR VOMITING Senna/Docusate Sodium (Fatmata-Colace) 1 tab PO BID [facility] Last Admin: 03/27/18 08:30 Dose: Not Given Sennosides (Senokot) 17.2 mg PO Q12H PRN PRN Reason: Moderate Constipation Sodium Chloride (Ns Flush) 2 ml IV.FLUSH PRN PRN PRN Reason: FLUSH AFTER USING IV ACCESS Allergies Allergy/AdvReac Type Severity Reaction Status Date / Time iodine Allergy Unknown Swelling Verified 03/26/18 10:44 potassium iodide Allergy Unknown Swelling Verified 03/26/18 10:44 povidone-iodine Allergy Unknown Swelling Verified 03/26/18 10:44 sodium iodide Allergy Unknown Swelling Verified 03/26/18 10:44 sodium iodide Allergy Unknown Swelling Verified 03/26/18 10:44 *MDRO Multi-Drug Resistant AdvReac Unknown n/a Uncoded 03/26/18 10:44 Organism Home Medications Medication Instructions Recorded Confirmed Type metformin 500 mg PO BID 02/27/18 03/26/18 History Exam Vital signs: Vital Signs 03/26/18 13:23 03/26/18 18:16 03/26/18 20:00 Temperature 98.2 F 98.0 F Pulse Rate 89 77 74 Respiratory Rate 18 20 16 Blood Pressure 157/89 H 158/91 H 163/84 H Pulse Oximetry 97 98 94 L 03/27/18 00:00 03/27/18 04:00 03/27/18 08:00 Temperature 98.2 F 98.6 F 98.1 F Pulse Rate 75 79 73 Respiratory Rate 16 16 16 Blood Pressure 140/80 139/75 126/77 Pulse Oximetry 95 94 L 97 Intake & Output 03/26/18 03/27/18 03/27/18 18:59 06:59 18:59 Intake Total 100 / 100 1100 / 1100 Output Total 0 / 0 Balance 100 / 100 1100 / 1100 Weight 73 kg Intake: IV 100 / 100 1100 / 1100 NS Inj 1,000 ML @ 100 mls/hr IV 1000 / 1000 .CONT .Q10H [facility] Rx#:[id number] Cleocin 900 mg/NS Premix 900 mg 50 / 50 In 50 ml @ 100 mls/hr IV.SIG ONCE ONE Rx#:[id number] Zosyn 3.375 GM Premix 50 ML @ 50 / 50 100 / 100 100 mls/hr IV.SIG Q6H [facility]ABIAN Rx#: [id number] Output: Urine 0 / 0 Other: Date of Last Bowel Movement 03/26/18 Narrative: Physical Examination GENERAL: Patient is a well-nourished, well-developed male, awake and alert, not in respiratory distress. SKIN: Cool and dry. No generalized rash, no ecchymoses and no evidence of embolic lesions. HEAD: Atraumatic. Normocephalic. No temporal wasting, or tenderness. EYES: [place] conjunctiva. No petechia or hemorrhage. Pupils equal, round and reactive to light. Extraocular movements full and intact. No scleral icterus. No injection or drainage. EARS, NOSE AND THROAT: Nose without bleeding or purulent nasal discharge. No sinus tenderness. Mucous membranes pink and moist. No oral lesions noted. No exudate. No oral thrush. NECK: Trachea midline. Supple and not tender, no meningeal signs CARDIOVASCULAR: Regular rate and rhythm. No murmurs, rubs or gallops heard RESPIRATORY: Clear to auscultation. Breath sounds equal bilaterally. No rales , wheezing or rhonchi ABDOMEN: Soft, non-tender, nondistended. Bowel sounds present and normoactive. No guarding. No rebound. No organomegaly. EXTREMITIES: No clubbing, cyanosis. No calf tenderness. R foot - swollen with mild erythema on dorsum. Amputation site - there is an area that is draining purulent fluid, and the amputation site is swollen. Has crusted blood between all his toes NEUROLOGICAL: Awake and alert. Cranial nerves grossly intact. Motor grossly within normal limits. PSYCHIATRIC: Normal affect, calm and cooperative. LINE: No evidence of infection Results - Labs CBC & Chem 7: 03/27/18 04:53 03/27/18 04:53 Labs: Laboratory Results - last 24 hr 03/26/18 03/26/18 03/26/18 11:20 11:20 14:51 WBC 10.9 RBC 4.39 L Hgb 13.3 Hct 39.8 MCV 90.5 MCH 30.2 MCHC 33.4 RDW 13.7 Plt Count 148 L D MPV 9.1 Neut % (Auto) 77.1 H Lymph % (Auto) 11.4 [place] % (Auto) 9.8 H Eos % (Auto) 1.2 Baso % (Auto) 0.5 Neut # (Auto) 8.4 H Lymph # (Auto) 1.3 [place] # (Auto) 1.1 H Eos # (Auto) 0.1 Baso # (Auto) 0.1 WBC Differential . Differential Comment Auto diff final Sodium 139 Potassium 4.2 Chloride 103 Carbon Dioxide 27.5 Anion Gap 9 BUN 6 L Creatinine 0.95 Estimated GFR 82 L POC Glucose 178 H Random Glucose 213 H Calcium 8.6 C-Reactive Protein 03/26/18 03/26/18 03/27/18 16:30 20:57 04:53 WBC 7.1 RBC 4.36 L Hgb 13.1 Hct 38.7 L MCV 88.6 MCH 30.1 MCHC 34.0 RDW 13.9 Plt Count 153 MPV 9.5 Neut % (Auto) 66.4 Lymph % (Auto) 16.3 [place] % (Auto) 13.8 H Eos % (Auto) 2.8 Baso % (Auto) 0.7 Neut # (Auto) 4.7 Lymph # (Auto) 1.2 [place] # (Auto) 1.0 H Eos # (Auto) 0.2 Baso # (Auto) 0.1 WBC Differential . Differential Comment Auto diff final Sodium Potassium Chloride Carbon Dioxide Anion Gap BUN Creatinine Estimated GFR POC Glucose 156 H 150 H Random Glucose Calcium C-Reactive Protein 03/27/18 03/27/18 04:53 08:29 WBC RBC Hgb Hct MCV MCH MCHC RDW Plt Count MPV Neut % (Auto) Lymph % (Auto) [place] % (Auto) Eos % (Auto) Baso % (Auto) Neut # (Auto) Lymph # (Auto) [place] # (Auto) Eos # (Auto) Baso # (Auto) WBC Differential Differential Comment Sodium 139 Potassium 4.0 Chloride 104 Carbon Dioxide 28.1 Anion Gap 7 BUN 6 L Creatinine 0.97 Estimated GFR 80 L POC Glucose 134 H Random Glucose 138 H Calcium 8.5 C-Reactive Protein 7.00 H - Imaging Impressions Foot MRI 03/26/18 00:00 CONCLUSION: 1. There is osteomyelitis involving the first metatarsal bones diffusely with the exception of the proximal epiphysis and extensive inflammatory process in the surrounding soft tissues. Foot X-Ray 03/26/18 11:06 CONCLUSION: Osteomyelitis distal first metatarsal Assessment and Plan - Plan Impression Infection, amputation site S/P amputation of big toe, has cellulitis and MRI showing osteo of first MT bone PVD, S/P bypass surgery RLE 02/17 DM Recommendation Get baseline ESR and CRP Follow C/S Continue current empiric Abx: Vanco and Zosyn Monitor progress Will determine course of Abx once work-up completed and depending on whether he gets any surgical intervention done Monitor progress I will follow along with you Thank you for this consultation Explained plan to the patient
--- NOTE | 2018-03-27 11:13 | P.PNWCN ---
Wound Care Nurse Consult Description: wound consult ordered by for wound management. Recommendation: Please refer to podiatry orders. Additional information: patient was not seen by wound care staff. Patient is currently under the skilled care of Podiatry.Please refers to current orders. Wound/Pressure Injury - Patient Status Premedicated for Pain Prior to Dressing Change: No Incision - Patient Status Premedicated for Pain Prior to Dressing Change: No
--- NOTE | 2018-03-27 13:22 | P.PNIM ---
Subjective Interval history: The patient was hungry. He said he was thinking about surgery. His pain was controlled. No acute concerns at this time. Physical Exam Vital signs: Vital Signs 03/26/18 13:23 03/26/18 18:16 03/26/18 20:00 Temperature 98.2 F 98.0 F Pulse Rate 89 77 74 Respiratory Rate 18 20 16 Blood Pressure 157/89 H 158/91 H 163/84 H Pulse Oximetry 97 98 94 L 03/27/18 00:00 03/27/18 04:00 03/27/18 08:00 Temperature 98.2 F 98.6 F 98.1 F Pulse Rate 75 79 73 Respiratory Rate 16 16 16 Blood Pressure 140/80 139/75 126/77 Pulse Oximetry 95 94 L 97 03/27/18 12:00 Temperature 97.7 F Pulse Rate 66 Respiratory Rate 20 Blood Pressure 157/85 H Pulse Oximetry 96 Intake & Output 03/26/18 03/27/18 03/27/18 18:59 06:59 18:59 Intake Total 100 / 100 1100 / 1100 1050 / 1050 Output Total 0 / 0 Balance 100 / 100 1100 / 1100 1050 / 1050 Weight 73 kg Intake: IV 100 / 100 1100 / 1100 1050 / 1050 NS Inj 1,000 ML @ 100 mls/hr IV 1000 / 1000 1000 / 1000 .CONT .Q10H [facility] Rx#:[id number] Cleocin 900 mg/NS Premix 900 mg 50 / 50 In 50 ml @ 100 mls/hr IV.SIG ONCE ONE Rx#:[id number] Zosyn 3.375 GM Premix 50 ML @ 50 / 50 100 / 100 50 / 50 100 mls/hr IV.SIG Q6H [facility]ABIAN Rx#: [id number] Output: Urine 0 / 0 Other: Date of Last Bowel Movement 03/26/18 Narrative: GENERAL: Lying comfortably in bed. SKIN: Warm and dry. HEENT: Normocephalic. No scleral icterus. No injection or drainage. NECK: Supple, trachea midline. No JVD or lymphadenopathy. CARDIOVASCULAR: Regular rate and rhythm without murmurs, gallops, or rubs. RESPIRATORY: Breath sounds equal bilaterally. No accessory muscle use. GASTROINTESTINAL: Abdomen soft, non-tender, nondistended. MUSCULOSKELETAL: No cyanosis, or edema. R foot with base amputation of R toe with open wound, [id number], with clear liquid grainage and foul smell. Minimal clear drainage from 1st distal MT joint with erythema. L foot with lateral and medial ankle erythema with no drainage. Sensation intact BL to light touch. Pulses faint but palpable in BL LE. BACK: Nontender without obvious deformity. No CVA tenderness. Results - Labs CBC & Chem 7: 03/27/18 04:53 03/27/18 04:53 Laboratory Results - last 24 hr 03/26/18 03/26/18 03/26/18 14:51 16:30 20:57 WBC RBC Hgb Hct MCV MCH MCHC RDW Plt Count MPV Neut % (Auto) Lymph % (Auto) [place] % (Auto) Eos % (Auto) Baso % (Auto) Neut # (Auto) Lymph # (Auto) [place] # (Auto) Eos # (Auto) Baso # (Auto) WBC Differential Differential Comment ESR Sodium Potassium Chloride Carbon Dioxide Anion Gap BUN Creatinine Estimated GFR POC Glucose 178 H 156 H 150 H Random Glucose Calcium C-Reactive Protein 03/27/18 03/27/18 03/27/18 04:53 04:53 08:29 WBC 7.1 RBC 4.36 L Hgb 13.1 Hct 38.7 L MCV 88.6 MCH 30.1 MCHC 34.0 RDW 13.9 Plt Count 153 MPV 9.5 Neut % (Auto) 66.4 Lymph % (Auto) 16.3 [place] % (Auto) 13.8 H Eos % (Auto) 2.8 Baso % (Auto) 0.7 Neut # (Auto) 4.7 Lymph # (Auto) 1.2 [place] # (Auto) 1.0 H Eos # (Auto) 0.2 Baso # (Auto) 0.1 WBC Differential . Differential Comment Auto diff final ESR Sodium 139 Potassium 4.0 Chloride 104 Carbon Dioxide 28.1 Anion Gap 7 BUN 6 L Creatinine 0.97 Estimated GFR 80 L POC Glucose 134 H Random Glucose 138 H Calcium 8.5 C-Reactive Protein 7.00 H 03/27/18 03/27/18 11:36 11:36 WBC RBC Hgb Hct MCV MCH MCHC RDW Plt Count MPV Neut % (Auto) Lymph % (Auto) [place] % (Auto) Eos % (Auto) Baso % (Auto) Neut # (Auto) Lymph # (Auto) [place] # (Auto) Eos # (Auto) Baso # (Auto) WBC Differential Differential Comment ESR 39 H Sodium Potassium Chloride Carbon Dioxide Anion Gap BUN Creatinine Estimated GFR POC Glucose Random Glucose Calcium C-Reactive Protein 7.33 H Microbiology 03/26/18 11:05 Blood - Peripheral Aerobic Blood Culture - Preliminary No growth in 1 day 03/26/18 11:05 Blood - Peripheral Anaerobic Blood Culture - Preliminary No growth in 1 day 03/26/18 11:20 Blood - Peripheral Aerobic Blood Culture - Preliminary No growth in 1 day 03/26/18 11:20 Blood - Peripheral Anaerobic Blood Culture - Preliminary No growth in 1 day - Imaging Impressions Foot MRI 03/26/18 00:00 CONCLUSION: 1. There is osteomyelitis involving the first metatarsal bones diffusely with the exception of the proximal epiphysis and extensive inflammatory process in the surrounding soft tissues. Assessment and Plan - Assessment (1) Foot osteomyelitis, right Code(s): M86.9 - Osteomyelitis, unspecified Status: Acute (2) Diabetes Code(s): E11.9 - Type 2 diabetes mellitus without complications Status: Chronic - Plan Osteomyelitis of Right Distal This is a 57 y/o male with PMHx of DM and PVD admitted for mgmt of osteomyelitis of right distal 1st metatarsal joint, hx of previous admission 2017 with OM of R hallux s/p amputation and fem-pop bypass due to severe PVD. ID and podiatry consults appreciated. MRI shows OM of first metatarsal bones. -continue on vancomycin and Zosyn IV per ID. -Wound care nurse consult appreciated, continue with recommendations. -follow wound and blood cultures. -follow up with podiatry in regards to further procedures. Diabetes Type II HgbA1c 9.9% on 02/2018. -SSI while inpatient. -Holding home Metformin. Homeless Chronic. -Case mgmt consulted for D/C planning. Smoker Declined nicotine patch. -Encouraged cessation. DVT PPX: SCDs (2) Diabetes Qualifiers: Diabetes mellitus type: type 2 Diabetes mellitus fdc insulin use: without termite treater use Diabetes mellitus complication status: with circulatory complication
[2018-03-27] MEDS ORDERED: Vancomycin Consult Pharmacy OTHER PRN (16:35)
[2018-03-27] MEDS: Vancomycin Inj 1,250 MG in Sodium Chlor 0.9% Inj 250 ML IV.SIG SCH (18:54)
[2018-03-28] MEDS: Piperacil/Tazo 3.375 GM Premix 50 ML IV.SIG SCH ×4 (03:57→21:38)
[2018-03-28] MEDS: Sod Chloride 0.9% Inj 1,000 ML IV.CONT SCH ×3 (03:58→17:18)
[2018-03-28] MEDS: Vancomycin Inj 1,250 MG in Sodium Chlor 0.9% Inj 250 ML IV.SIG SCH ×2 (05:35→17:41)
[2018-03-28] MEDS: Insulin NovoLIN Regular Correctional Sugar Inj SQ SCH ×4 (08:08→20:40)
[2018-03-28] MEDS: Senna/Docusate Sodium 8.6/50 MG Tablet PO SCH ×2 (08:08→20:41)
--- NOTE | 2018-03-28 13:57 | P.PNID ---
Subjective Remarks: Patient is a 57-year-old male, presented to the hospital for further evaluation of drainage from his right foot amputation site. Patient was in the hospital in February and at that time he had a wound on his right big toe. There was cellulitis, and imaging study showed osteomyelitis of his big toe. He was also found to have peripheral vascular disease, and he underwent right femoropopliteal bypass with PTFE, as well as RCEI endarterectomy and angioplasty. This was done February 17, and he subsequently underwent amputation of the right big toe at the metatarsal joint, and had disarticulation at the joint. The proximal part of the big toe was sent for pathology as the clear margin, and there was no evidence of osteomyelitis. Patient was sent home on oral antibiotics, and he apparently completed 14 days of treatment. Patient was seen in follow-up by the vascular surgeon. Patient has been following up with the dieing out machine operator, and apparently the last time he was seen which was March 20 he had developed drainage at the amputation site. Patient apparently has been homeless for about a month. He has been walking a lot, and he states that he keeps his wound covered. He has now presented back to the hospital for further evaluation and treatment. He is always had swelling on that right foot. He is developed drainage which has worsened and there is an older. He denies any fever chills or sweats. Denies any respiratory, GI or any urinary complaints. Patient has been using the special footwear that he got from the hospital. On presentation he has been afebrile. His WBC is normal. MRI of the right foot is now showing abnormality on the first metatarsal. Infectious disease consultation has been requested to evaluate the patient for possible osteomyelitis. Notes reviewed Afebrile BC (+) GPC Waiting for decision on surgical intervention Antibiotics: Zosyn Vancomycin Lines: PIV Past Medical History: Diabetes Peripheral arterial disease Tobacco abuse History of eye surgery Hx of toe surgery S/P femoral-popliteal bypass surgery Allergies/Adverse Reactions: Allergies iodine Allergy (Unknown, Verified 03/26/18 10:44) Swelling potassium iodide Allergy (Unknown, Verified 03/26/18 10:44) Swelling povidone-iodine Allergy (Unknown, Verified 03/26/18 10:44) Swelling sodium iodide Allergy (Unknown, Verified 03/26/18 10:44) Swelling sodium iodide Allergy (Unknown, Verified 03/26/18 10:44) Swelling *MDRO Multi-Drug Resistant Organism Adverse Reaction (Unknown, Uncoded 03/26/18 10:44) n/a 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; 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9 kg Intake: IV 1100 / 1100 1375 / 1375 1325 / 1325 NS Inj 1,000 ML @ 100 mls/hr IV 1000 / 1000 1000 / 1000 1000 / 1000 .CONT .Q10H [facility] Rx#:[id number] Zosyn 3.375 GM Premix 50 ML @ 100 / 100 100 / 100 50 / 50 100 mls/hr IV.SIG Q6H [facility] Rx#: [id number] Vancomycin Inj 1,250 MG In NS 275 / 275 275 / 275 Inj 250 ML @ 250 mls/hr IV.SIG Q12H [facility] Rx#:[id number] Oral 1000 / 1000 Output: Urine 1200 / 1200 300 / 300 Other: Date of Last Bowel Movement 03/26/18 03/26/18 03/26/18 Weight On Admission 73 kg 03/26/18 11:05 Blood - Peripheral Aerobic Blood Culture - Preliminary No growth in 2 days 03/26/18 11:05 Blood - Peripheral Anaerobic Blood Culture - Preliminary Staphylococcus aureus 03/26/18 11:20 Blood - Peripheral Aerobic Blood Culture - Preliminary gram positive cocci 03/26/18 11:20 Blood - Peripheral Anaerobic Blood Culture - Preliminary Staphylococcus aureus Lab - Hematology Results 03/27/18 03/27/18 04:53 11:36 WBC 7.1 RBC 4.36 L Hgb 13.1 Hct 38.7 L MCV 88.6 MCH 30.1 MCHC 34.0 RDW 13.9 Plt Count 153 MPV 9.5 Neut % (Auto) 66.4 Lymph % (Auto) 16.3 Hayes % (Auto) 13.8 H Eos % (Auto) 2.8 Baso % (Auto) 0.7 Neut # (Auto) 4.7 Lymph # (Auto) 1.2 Hayes # (Auto) 1.0 H Eos # (Auto) 0.2 Baso # (Auto) 0.1 WBC Differential . Differential Comment Auto diff final ESR 39 H Lab - Chemistry Results 03/26/18 03/26/18 03/26/18 14:51 16:30 20:57 Sodium Potassium Chloride Carbon Dioxide Anion Gap BUN Creatinine Estimated GFR POC Glucose 178 H 156 H 150 H Random Glucose Calcium C-Reactive Protein 03/27/18 03/27/18 03/27/18 04:53 08:29 11:36 Sodium 139 Potassium 4.0 Chloride 104 Carbon Dioxide 28.1 Anion Gap 7 BUN 6 L Creatinine 0.97 Estimated GFR 80 L POC Glucose 134 H Random Glucose 138 H Calcium 8.5 C-Reactive Protein 7.00 H 7.33 H 03/27/18 03/27/18 03/28/18 17:26 21:22 07:48 Sodium Potassium Chloride Carbon Dioxide Anion Gap BUN Creatinine Estimated GFR POC Glucose 188 H 223 H 126 H Random Glucose Calcium C-Reactive Protein 03/28/18 12:04 Sodium Potassium Chloride Carbon Dioxide Anion Gap BUN Creatinine Estimated GFR POC Glucose 144 H Random Glucose Calcium C-Reactive Protein Imaging: ITS Impressions Foot MRI 03/26/18 00:00 CONCLUSION: 1. There is osteomyelitis involving the first metatarsal bones diffusely with the exception of the proximal epiphysis and extensive inflammatory process in the surrounding soft tissues. Foot X-Ray 03/26/18 11:06 CONCLUSION: Osteomyelitis distal first metatarsal Physical Exam: GENERAL: awake and alert, not in respiratory distress. SKIN: Cool and dry. No generalized rash, no ecchymoses and no evidence of embolic lesions. HEAD: Atraumatic. Normocephalic. No temporal wasting, or tenderness. EYES: [place] conjunctiva. No petechia or hemorrhage. Pupils equal, round and reactive to light. Extraocular movements full and intact. No scleral icterus. No injection or drainage. EARS, NOSE AND THROAT: Nose without bleeding or purulent nasal discharge. No sinus tenderness. Mucous membranes pink and moist. No oral lesions noted. No exudate. No oral thrush. NECK: Trachea midline. Supple and not tender, no meningeal signs CARDIOVASCULAR: Regular rate and rhythm. No murmurs, rubs or gallops heard RESPIRATORY: Clear to auscultation. Breath sounds equal bilaterally. No rales , wheezing or rhonchi ABDOMEN: Soft, non-tender, nondistended. Bowel sounds present and normoactive. No guarding. No rebound. No organomegaly. EXTREMITIES: No clubbing, cyanosis. No calf tenderness. R foot - swollen with mild erythema on dorsum. Amputation site - there is an area that is draining purulent fluid, and the amputation site is swollen. Has crusted blood between all his toes NEUROLOGICAL: Grossly non-focal. PSYCHIATRIC: Normal affect, calm and cooperative. LINE: No evidence of infection Assessment and Plan - Plan Impression Staph aureus sepsis, due to foot infection Infection, amputation site S/P amputation of big toe, has cellulitis and MRI showing osteo of first MT bone PVD, S/P bypass surgery RLE 02/17 DM Recommendation Repeat BC to document clearingt ECHO to eval valves Continue current empiric Abx: Vanco and Zosyn Monitor progress Will determine course of Abx once work-up completed and depending on whether he gets any surgical intervention done Monitor progress D/W Dr Leon (HEPAS)
--- NOTE | 2018-03-28 16:01 | P.PNIM ---
Subjective Interval history: The patient had his echocardiogram performed. He was still debating between having the procedure done versus continuing antibiotic therapy. He said his pain was controlled. Discussed with nursing and infectious disease. Physical Exam Vital signs: Vital Signs 03/27/18 16:00 03/27/18 20:00 03/28/18 00:00 Temperature 98.1 F 97.9 F 97.9 F Pulse Rate 72 70 75 Respiratory Rate 20 18 18 Blood Pressure 160/78 H 154/75 H 109/68 Pulse Oximetry 98 100 97 03/28/18 04:00 03/28/18 08:00 03/28/18 12:00 Temperature 97.8 F 97.6 F 97.8 F Pulse Rate 67 63 69 Respiratory Rate 17 17 Blood Pressure 119/70 145/81 H 159/85 H Pulse Oximetry 98 98 98 Intake & Output 03/27/18 03/28/18 03/28/18 18:59 06:59 18:59 Intake Total 2100 / 2100 1375 / 1375 1325 / 1325 Output Total 1200 / 1200 300 / 300 Balance 900 / 900 1075 / 1075 1325 / 1325 Weight 73 kg 74.9 kg Intake: IV 1100 / 1100 1375 / 1375 1325 / 1325 NS Inj 1,000 ML @ 100 mls/hr IV 1000 / 1000 1000 / 1000 1000 / 1000 .CONT .Q10H [facility] Rx#:[id number] Zosyn 3.375 GM Premix 50 ML @ 100 / 100 100 / 100 50 / 50 100 mls/hr IV.SIG Q6H [facility] Rx#: [id number] Vancomycin Inj 1,250 MG In NS 275 / 275 275 / 275 Inj 250 ML @ 250 mls/hr IV.SIG Q12H [facility] Rx#:[id number] Oral 1000 / 1000 Output: Urine 1200 / 1200 300 / 300 Other: Date of Last Bowel Movement 03/26/18 03/26/18 03/26/18 Weight On Admission 73 kg Narrative: GENERAL: Lying comfortably in bed. SKIN: Warm and dry. HEENT: Normocephalic. No scleral icterus. No injection or drainage. NECK: Supple, trachea midline. No JVD or lymphadenopathy. CARDIOVASCULAR: Regular rate and rhythm without murmurs, gallops, or rubs. RESPIRATORY: Breath sounds equal bilaterally. No accessory muscle use. GASTROINTESTINAL: Abdomen soft, non-tender, nondistended. MUSCULOSKELETAL: No cyanosis, or edema. R foot with base amputation of R toe with open wound, [id number], with clear liquid grainage and foul smell. Minimal clear drainage from 1st distal MT joint with erythema. L foot with lateral and medial ankle erythema with no drainage. Sensation intact BL to light touch. Pulses faint but palpable in BL LE. BACK: Nontender without obvious deformity. No CVA tenderness. Results - Labs CBC & Chem 7: 03/27/18 04:53 03/27/18 04:53 Laboratory Results - last 24 hr 03/27/18 03/27/18 03/28/18 17:26 21:22 07:48 POC Glucose 188 H 223 H 126 H 03/28/18 12:04 POC Glucose 144 H Microbiology 03/26/18 11:05 Blood - Peripheral Aerobic Blood Culture - Preliminary No growth in 2 days 03/26/18 11:05 Blood - Peripheral Anaerobic Blood Culture - Preliminary Staphylococcus aureus 03/26/18 11:20 Blood - Peripheral Aerobic Blood Culture - Preliminary gram positive cocci 03/26/18 11:20 Blood - Peripheral Anaerobic Blood Culture - Preliminary Staphylococcus aureus Assessment and Plan - Assessment (1) Foot osteomyelitis, right Code(s): M86.9 - Osteomyelitis, unspecified Status: Acute (2) Diabetes Code(s): E11.9 - Type 2 diabetes mellitus without complications Status: Chronic - Plan Osteomyelitis of Right Distal This is a 57 y/o male with PMHx of DM and PVD admitted for mgmt of osteomyelitis of right distal 1st metatarsal joint, hx of previous admission 2017 with OM of R hallux s/p amputation and fem-pop bypass due to severe PVD. ID and podiatry consults appreciated. MRI shows OM of first metatarsal bones. -continue on vancomycin and Zosyn IV per ID. -Wound care nurse consult appreciated, continue with recommendations. -follow wound and blood cultures. -follow up with podiatry in regards to further procedures. -pain control with a bowel regimen. Bacteremia Blood cultures growing staph. S/t above. -continue antibiotics per surgery. -follow repeat blood cultures. Diabetes Type II HgbA1c 9.9% on 02/2018. -SSI while inpatient. -add Levemir 10 units HS. -Holding home Metformin. Homeless Chronic. -Case mgmt consulted for D/C planning. Smoker Declined nicotine patch. -Encouraged cessation. DVT PPX: SCDs Discharge Planning: Await further podiatry input. The pt is homeless and will likely require prolonged IV antibiotics. (2) Diabetes Qualifiers: Diabetes mellitus type: type 2 Diabetes mellitus chcf insulin use: without chcf use Diabetes mellitus complication status: with circulatory complication
--- NOTE | 2018-03-28 16:23 | ECHRPT ---
Indication: SEPSIS POSS ENDOCARDITIS CONCLUSIONS Normal left ventricular size. Wall thickness is normal. The left ventricular systolic function is normal with an estimated ejection fraction in the range of 60-65%. There is trace tricuspid valve regurgitation. The estimated pulmonary arterial pressure is 20 mmHg. Not: no vegetations seen BP: / HR: Rhythm: MEASUREMENTS (Male / Female) Normal Values Technical Quality: 2D ECHO LV Diastolic Diameter PLAX 5.1 cm 4.2 - 5.9 / 3.9 - 5.3 cm LV Systolic Diameter PLAX 3.6 cm IVS Diastolic Thickness 0.9 cm 0.6 - 1.0 / 0.6 - 0.9 cm LVPW Diastolic Thickness 0.9 cm 0.6 - 1.0 / 0.6 - 0.9 cm LV Relative Wall Thickness 0.4 RV Internal Dim ED PLAX 2.7 cm LVOT Diameter 1.9 cm LV Ejection Fraction MOD BP 58.9 % >= 55 % LV Ejection Fraction MOD 4C 61.0 % LV Ejection Fraction 4C AL 62.3 % LV Ejection Fraction MOD 2C 53.0 % LV Ejection Fraction 2C AL 52.0 % M-MODE Aortic Root Diameter MM 3.5 cm LA Systolic Diameter MM 3.8 cm LA Ao Ratio MM 1.1 AV Cusp Separation MM 2.2 cm DOPPLER AV Peak Velocity 98.5 cm/s AV Peak Gradient 3.9 mmHg LVOT Peak Velocity 87.9 cm/s LVOT Peak Gradient 3.1 mmHg AV Area Cont Eq pk 2.5 cm Mitral E Point Velocity 53.3 cm/s Mitral A Point Velocity 68.1 cm/s Mitral E to A Ratio 0.8 LV E' Lateral Velocity 9.1 cm/s Mitral E to LV E' Lateral Ratio 5.9 LV E' Septal Velocity 7.2 cm/s Mitral E to LV E' Septal Ratio 7.4 TR Peak Velocity 159.0 cm/s TR Peak Gradient 10.1 mmHg Right Atrial Pressure 10.0 mmHg Pulmonary Artery Systolic Pressu 20.1 mmHg Right Ventricular Systolic Press 20.1 mmHg PV Peak Velocity 59.7 cm/s PV Peak Gradient 1.4 mmHg FINDINGS LEFT VENTRICLE Normal left ventricular size. Wall thickness is normal. The left ventricular systolic function is normal with an estimated ejection fraction in the range of 60-65%. RIGHT VENTRICLE Normal right ventricular size and systolic function. LEFT ATRIUM The left atrial size is normal. RIGHT ATRIUM The right atrial size is normal. ATRIAL SEPTUM Normal atrial septal thickness without atrial level shunting by limited color doppler interrogation. AORTA The aortic root and proximal ascending aorta are normal in size on limited imaging. MITRAL VALVE Structurally normal mitral valve. No mitral valve stenosis or regurgitation. AORTIC VALVE Trileaflet aortic valve. No aortic valve stenosis or regurgitation. TRICUSPID VALVE There is trace tricuspid valve regurgitation. The estimated pulmonary arterial pressure is 20 mmHg. PULMONARY VALVE No pulmonary valve regurgitation or stenosis. VESSELS The inferior vena cava is normal in size. PERICARDIUM No pericardial effusion. Lefty Mancuso MD (Electronically Signed) Final Date:28 March 2018 16:21
--- NOTE | 2018-03-28 19:37 | P.PNPOD ---
Subjective Interval history: s/p hallux amputation R foot with Dr Carbajal Physical Exam Vital signs: Vital Signs 03/27/18 20:00 03/28/18 00:00 03/28/18 04:00 Temperature 97.9 F 97.9 F 97.8 F Pulse Rate 70 75 67 Respiratory Rate 18 18 Blood Pressure 154/75 H 109/68 119/70 Pulse Oximetry 100 97 98 03/28/18 08:00 03/28/18 12:00 03/28/18 16:00 Temperature 97.6 F 97.8 F 97.4 F L Pulse Rate 63 69 64 Respiratory Rate 17 17 17 Blood Pressure 145/81 H 159/85 H 165/86 H Pulse Oximetry 98 98 99 Intake & Output 03/28/18 03/28/18 03/29/18 06:59 18:59 06:59 Intake Total 1375 / 1375 3215 / 3215 275 / 275 Output Total 300 / 300 2100 / 2100 Balance 1075 / 1075 1115 / 1115 275 / 275 Weight 74.9 kg Intake: IV 1375 / 1375 2375 / 2375 275 / 275 NS Inj 1,000 ML @ 100 mls/hr IV 1000 / 1000 1999 / 1999 .CONT .Q10H [facility] Rx#:[id number] Zosyn 3.375 GM Premix 50 ML @ 100 / 100 100 / 100 100 mls/hr IV.SIG Q6H [facility] Rx#: [id number] Vancomycin Inj 1,250 MG In NS 275 / 275 275 / 275 275 / 275 Inj 250 ML @ 250 mls/hr IV.SIG Q12H [facility] Rx#:[id number] Oral 840 / 840 Output: Urine 300 / 300 2100 / 2100 Other: Date of Last Bowel Movement 03/26/18 03/26/18 # Bowel Movements 0 Narrative: Right foot amputation site with dehiscence to medial-most aspect and purulent drainage. Mild edema locally. Medications and Allergies Active Medications: Active Medications Acetaminophen (Tylenol) 650 mg PO Q4H PRN PRN Reason: Temp > 100.4 Al Hydroxide/Mg Hydroxide (Milk Of Magnesia Liq) 30 ml PO Q12H PRN PRN Reason: Mild Constipation Bisacodyl (Dulcolax Supp) 10 mg RECTAL DAILY PRN PRN Reason: SEVERE CONSITIPATION Dextrose (D50w Vial) 50 ml IV.PUSH UNSCH PRN PRN Reason: PER HYPOGLYCEMIA PROTOCOL Glucagon (Glucagon Inj) 1 mg OTHER PRN PRN PRN Reason: for Hypoglycemia Protocol Sodium Chloride (Ns Inj) 1,000 mls @ 100 mls/hr IV.CONT .Q10H [facility] Last Admin: 03/28/18 17:18 Dose: 100 mls/hr Piperacillin/Tazobactam/Dextrose (Zosyn 3.375 Gm Premix) 50 mls @ 100 mls/hr IV.SIG Q6H [facility] Last Infusion: 03/28/18 17:18 Dose: Infused Vancomycin HCl 1,250 mg/ (Sodium Chloride) 275 mls @ 250 mls/hr IV.SIG Q12H [facility] Last Infusion: 03/28/18 19:27 Dose: Infused Insulin Detemir (Levemir Inj) 10 unit SQ HS [facility] Insulin Human Regular (Novolin R Correctional Sugar Inj) 0 units SQ ACHS [facility]; Protocol Last Admin: 03/28/18 17:54 Dose: 1 units Lactulose (Lactulose Liq) 30 ml PO DAILY PRN PRN Reason: SEVERE CONSITIPATION Miscellaneous Information ([facility] Ordered Lab Info) 1 each OTHER ONCE ONE Stop: 03/29/18 05:46 Ondansetron HCl (Zofran Inj) 4 mg IV.PUSH Q6H PRN PRN Reason: NAUSEA OR VOMITING Pharmacy Profile Note (Vancomycin Consult Pharmacy) 1 each OTHER UNSCH PRN PRN Reason: Pharmacy to dose Senna/Docusate Sodium (Fatmata-Colace) 1 tab PO BID [facility] Last Admin: 03/28/18 08:08 Dose: Not Given Sennosides (Senokot) 17.2 mg PO Q12H PRN PRN Reason: Moderate Constipation Sodium Chloride (Ns Flush) 2 ml IV.FLUSH PRN PRN PRN Reason: FLUSH AFTER USING IV ACCESS Allergies Allergy/AdvReac Type Severity Reaction Status Date / Time iodine Allergy Unknown Swelling Verified 03/26/18 10:44 potassium iodide Allergy Unknown Swelling Verified 03/26/18 10:44 povidone-iodine Allergy Unknown Swelling Verified 03/26/18 10:44 sodium iodide Allergy Unknown Swelling Verified 03/26/18 10:44 sodium iodide Allergy Unknown Swelling Verified 03/26/18 10:44 *MDRO Multi-Drug Resistant AdvReac Unknown n/a Uncoded 03/26/18 10:44 Organism Home Medications Medication Instructions Recorded Confirmed Type metformin 500 mg PO BID 02/27/18 03/26/18 History Results - Labs CBC & Chem 7: 03/27/18 04:53 03/27/18 04:53 Laboratory Results - last 24 hr 03/27/18 03/28/18 03/28/18 21:22 07:48 12:04 POC Glucose 223 H 126 H 144 H 03/28/18 17:32 POC Glucose 175 H Microbiology 03/26/18 11:05 Blood - Peripheral Aerobic Blood Culture - Preliminary No growth in 2 days 03/26/18 11:05 Blood - Peripheral Anaerobic Blood Culture - Preliminary Staphylococcus aureus 03/26/18 11:20 Blood - Peripheral Aerobic Blood Culture - Preliminary gram positive cocci 03/26/18 11:20 Blood - Peripheral Anaerobic Blood Culture - Preliminary Staphylococcus aureus Assessment and Plan - Assessment (1) Foot osteomyelitis, right Code(s): M86.9 - Osteomyelitis, unspecified Status: Acute Plan: Discussed risks, benefits, complications with patient of surgery vs IV antibiotics Discussed right partial 1st ray amputation to include removal of metatarsal head and bone biopsy of residual first metatarsal. Discussed I recommend a definitive procedure due to his social situation. Recommend at least 2 weeks IV antibiotics even if margins are clear to continue to clear up soft tissue infection. Plan is to OR tomorrow for partial 1st ray amputation right foot. NPO after breakfast tomorrow.
[2018-03-28] MEDS: Insulin Detemir Inj 1,000 UNIT/10 ML Vial SQ SCH (20:40)
[2018-03-29] MEDS: Piperacil/Tazo 3.375 GM Premix 50 ML IV.SIG SCH ×4 (03:10→23:26)
[2018-03-29] MEDS: Sod Chloride 0.9% Inj 1,000 ML IV.CONT SCH ×2 (03:10→18:14)
[2018-03-29] MEDS ORDERED: Pharmacy Ordered Lab Info OTHER ONE (05:45)
[2018-03-29] MEDS: Vancomycin Inj 1,250 MG in Sodium Chlor 0.9% Inj 250 ML IV.SIG SCH (06:02)
[2018-03-29 07:30] LABS: Albumin 2.5 g/dL (3.4-5.0); Anion Gap 7 meq/L (5-15); Aspartate Aminotransferase 11 U/L (15-37); Blood Urea Nitrogen 8 mg/dL (7-18); Calcium 8.7 mg/dL (8.5-10.1); Carbon Dioxide 24.9 meq/L (21.0-32.0); Chloride 108 meq/L (98-107); Glomerular Filtration Rate Greater Than 89 mL/min (>89); Glucose,Random 109 mg/dL (74-106); Potassium 3.9 meq/L (3.5-5.1); Sodium 140 meq/L (136-145)
[2018-03-29 07:31] LABS: Alanine Aminotransferase 12 U/L (12-78)
[2018-03-29 07:33] LABS: Alkaline Phosphatase 75 U/L (45-117); Total Protein 6.4 g/dL (6.4-8.2)
[2018-03-29] MEDS ORDERED: Chlorhexidine Gluconate 2% 1 Pack (2 Cloths) TOPICAL ONE (07:45)
[2018-03-29] MEDS ORDERED: Sodium Chlor 0.9% Inj 500 ML IV.SIG SCH (08:00)
[2018-03-29] MEDS: Metoprolol Tartrate 25 MG Tablet PO ONE (08:56)
[2018-03-29] MEDS: Insulin NovoLIN Regular Correctional Sugar Inj SQ SCH ×4 (08:57→21:18)
[2018-03-29] MEDS: Senna/Docusate Sodium 8.6/50 MG Tablet PO SCH ×2 (08:57→21:18)
--- NOTE | 2018-03-29 10:32 | P.PNID ---
Subjective Remarks: Patient is a 57-year-old male, presented to the hospital for further evaluation of drainage from his right foot amputation site. Patient was in the hospital in February and at that time he had a wound on his right big toe. There was cellulitis, and imaging study showed osteomyelitis of his big toe. He was also found to have peripheral vascular disease, and he underwent right femoropopliteal bypass with PTFE, as well as RCEI endarterectomy and angioplasty. This was done February 17, and he subsequently underwent amputation of the right big toe at the metatarsal joint, and had disarticulation at the joint. The proximal part of the big toe was sent for pathology as the clear margin, and there was no evidence of osteomyelitis. Patient was sent home on oral antibiotics, and he apparently completed 14 days of treatment. Patient was seen in follow-up by the vascular surgeon. Patient has been following up with the sign wirer, and apparently the last time he was seen which was March 20 he had developed drainage at the amputation site. Patient apparently has been homeless for about a month. He has been walking a lot, and he states that he keeps his wound covered. He has now presented back to the hospital for further evaluation and treatment. He is always had swelling on that right foot. He is developed drainage which has worsened and there is an older. He denies any fever chills or sweats. Denies any respiratory, GI or any urinary complaints. Patient has been using the special footwear that he got from the hospital. On presentation he has been afebrile. His WBC is normal. MRI of the right foot is now showing abnormality on the first metatarsal. Infectious disease consultation has been requested to evaluate the patient for possible osteomyelitis. Notes reviewed Afebrile Going for OR today - partial ray resection 1st [facility] with MSSA Echo ok No rash or itching No diarrhea Antibiotics: Zosyn Vancomycin Lines: PIV Past Medical History: Diabetes Peripheral arterial disease Tobacco abuse History of eye surgery Hx of toe surgery S/P femoral-popliteal bypass surgery Allergies/Adverse Reactions: Allergies iodine Allergy (Unknown, Verified 03/26/18 10:44) Swelling potassium iodide Allergy (Unknown, Verified 03/26/18 10:44) Swelling povidone-iodine Allergy (Unknown, Verified 03/26/18 10:44) Swelling sodium iodide Allergy (Unknown, Verified 03/26/18 10:44) Swelling sodium iodide Allergy (Unknown, Verified 03/26/18 10:44) Swelling *MDRO Multi-Drug Resistant Organism Adverse Reaction (Unknown, Uncoded 03/26/18 10:44) n/a 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; 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 Objective Vital Signs 03/28/18 12:00 03/28/18 16:00 03/28/18 20:00 Temperature 97.8 F 97.4 F L 98.1 F Pulse Rate 69 64 82 Respiratory Rate 17 17 18 Blood Pressure 159/85 H 165/86 H 120/73 Pulse Oximetry 98 99 99 03/29/18 00:00 03/29/18 04:00 03/29/18 08:00 Temperature 98.0 F 97.6 F 97.4 F L Pulse Rate 80 67 69 Respiratory Rate 18 18 18 Blood Pressure 130/77 119/69 111/64 Pulse Oximetry 98 97 99 Intake & Output 03/28/18 03/29/18 03/29/18 18:59 06:59 18:59 Intake Total 3215 / 3215 1375 / 1375 275 / 275 Output Total 2100 / 2100 Balance 1115 / 1115 1375 / 1375 275 / 275 Weight 74.7 kg Intake: IV 2375 / 2375 1375 / 1375 275 / 275 NS Inj 1,000 ML @ 100 mls/hr IV 1999 / 1999 1000 / 1000 .CONT .Q10H FABIAN Rx#:[id number] Zosyn 3.375 GM Premix 50 ML @ 100 / 100 100 / 100 100 mls/hr IV.SIG Q6H FABIAN Rx#: [id number] Vancomycin Inj 1,250 MG In NS 275 / 275 275 / 275 275 / 275 Inj 250 ML @ 250 mls/hr IV.SIG Q12H FABIAN Rx#:[id number] Oral 840 / 840 Output: Urine 2100 / 2100 Other: # Voids 4 Date of Last Bowel Movement 03/26/18 03/28/18 03/28/18 # Bowel Movements 0 03/26/18 11:05 Blood - Peripheral Aerobic Blood Culture - Preliminary No growth in 2 days 03/26/18 11:05 Blood - Peripheral Anaerobic Blood Culture - Final Staphylococcus aureus 03/26/18 11:20 Blood - Peripheral Aerobic Blood Culture - Final Staphylococcus aureus 03/26/18 11:20 Blood - Peripheral Anaerobic Blood Culture - Final Staphylococcus aureus 03/29/18 06:06 Blood - Peripheral Aerobic Blood Culture - Pending 03/29/18 06:06 Blood - Peripheral Anaerobic Blood Culture - Pending 03/28/18 14:18 Blood - Peripheral Aerobic Blood Culture - Pending 03/28/18 14:18 Blood - Peripheral Anaerobic Blood Culture - Pending 03/28/18 14:20 Blood - Peripheral Aerobic Blood Culture - Pending 03/28/18 14:20 Blood - Peripheral Anaerobic Blood Culture - Pending Lab - Hematology Results 03/27/18 11:36 ESR 39 H Lab - Chemistry Results 03/27/18 03/27/18 03/27/18 11:36 17:26 21:22 Sodium Potassium Chloride Carbon Dioxide Anion Gap BUN Creatinine Estimated GFR POC Glucose 188 H 223 H Random Glucose Calcium Total Bilirubin AST ALT Alkaline Phosphatase C-Reactive Protein 7.33 H Total Protein Albumin 03/28/18 03/28/18 03/28/18 07:48 12:04 17:32 Sodium Potassium Chloride Carbon Dioxide Anion Gap BUN Creatinine Estimated GFR POC Glucose 126 H 144 H 175 H Random Glucose Calcium Total Bilirubin AST ALT Alkaline Phosphatase C-Reactive Protein Total Protein Albumin 03/28/18 03/29/18 03/29/18 20:25 06:06 08:52 Sodium 140 Potassium 3.9 Chloride 108 H Carbon Dioxide 24.9 Anion Gap 7 BUN 8 Creatinine 0.87 Estimated GFR Greater than 89 POC Glucose 167 H 119 H Random Glucose 109 H Calcium 8.7 Total Bilirubin 0.2 AST 11 L ALT 12 Alkaline Phosphatase 75 C-Reactive Protein Total Protein 6.4 Albumin 2.5 L Imaging: ITS Impressions Foot MRI 03/26/18 00:00 CONCLUSION: 1. There is osteomyelitis involving the first metatarsal bones diffusely with the exception of the proximal epiphysis and extensive inflammatory process in the surrounding soft tissues. Foot X-Ray 03/26/18 11:06 CONCLUSION: Osteomyelitis distal first metatarsal Physical Exam: GENERAL: awake and alert, not in respiratory distress. SKIN: Cool and dry. No generalized rash, no ecchymoses and no evidence of embolic lesions. HEAD: Atraumatic. Normocephalic. No temporal wasting, or tenderness. EYES: [place] conjunctiva. No petechia or hemorrhage. Pupils equal, round and reactive to light. Extraocular movements full and intact. No scleral icterus. No injection or drainage. EARS, NOSE AND THROAT: Nose without bleeding or purulent nasal discharge. No sinus tenderness. Mucous membranes pink and moist. No oral lesions noted. NECK: Trachea midline. Supple and not tender, no meningeal signs CARDIOVASCULAR: Regular rate and rhythm. No murmurs, rubs or gallops heard RESPIRATORY: Clear to auscultation. Breath sounds equal bilaterally. No rales , wheezing or rhonchi ABDOMEN: Soft, non-tender, nondistended. Bowel sounds present and normoactive. No guarding. No rebound. No organomegaly. EXTREMITIES: No clubbing, cyanosis. No calf tenderness. R foot - swollen with mild erythema on dorsum. Amputation site - there is an area that is draining purulent fluid, and the amputation site is swollen. NEUROLOGICAL: Grossly non-focal. PSYCHIATRIC: Normal affect, calm and cooperative. LINE: No evidence of infection Assessment and Plan - Plan Impression Staph aureus sepsis, due to foot infection Infection, amputation site S/P amputation of big toe, has cellulitis and MRI showing osteo of first MT bone PVD, S/P bypass surgery RLE 02/17 DM Recommendation Repeat BC to document clearing Continue current empiric Abx: Vanco and Zosyn, for now until OR C/S are available He will need course of IV Abx at least for his bacteremia Monitor progress Will determine course of Abx once work-up completed and depending on whether he gets any surgical intervention done Monitor progress Explained plan to the patient
[2018-03-29] MEDS: Vancomycin Inj 1,500 MG in Sodium Chlor 0.9% Inj 500 ML IV.SIG SCH (18:00)
--- NOTE | 2018-03-29 18:34 | P.PN ---
Subjective Interval history: Follow-up for bacteremia, osteomyelitis. Patient is currently doing well. No fever or chills. Physical Exam Vital signs: Vital Signs 03/28/18 20:00 03/29/18 00:00 03/29/18 04:00 Temperature 98.1 F 98.0 F 97.6 F Pulse Rate 82 80 67 Respiratory Rate 18 18 18 Blood Pressure 120/73 130/77 119/69 Pulse Oximetry 99 98 97 03/29/18 08:00 03/29/18 12:00 03/29/18 16:00 Temperature 97.4 F L 97.6 F 97.4 F L Pulse Rate 69 55 L 66 Respiratory Rate 18 18 18 Blood Pressure 111/64 154/77 H 161/96 H Pulse Oximetry 99 100 98 Intake & Output 03/28/18 03/29/18 03/29/18 18:59 06:59 18:59 Intake Total 3215 / 3215 1375 / 1375 1375 / 1375 Output Total 2100 / 2100 900 / 900 Balance 1115 / 1115 1375 / 1375 475 / 475 Weight 74.7 kg Intake: IV 2375 / 2375 1375 / 1375 1375 / 1375 NS Inj 1,000 ML @ 100 mls/hr IV 2000 / 2000 1000 / 1000 1000 / 1000 .CONT .Q10H [facility]IAN Rx#:[id number] Zosyn 3.375 GM Premix 50 ML @ 100 / 100 100 / 100 100 / 100 100 mls/hr IV.SIG Q6H FABIAN Rx#: [id number] Vancomycin Inj 1,250 MG In NS 275 / 275 275 / 275 275 / 275 Inj 250 ML @ 250 mls/hr IV.SIG Q12H FABIAN Rx#:[id number] Oral 840 / 840 0 / 0 Output: Urine 2100 / 2100 900 / 900 Other: # Voids 4 2 Date of Last Bowel Movement 03/26/18 03/28/18 03/28/18 # Bowel Movements 0 Narrative: GENERAL: Lying comfortably in bed. SKIN: Warm and dry. HEENT: Normocephalic. No scleral icterus. No injection or drainage. NECK: Supple, trachea midline. No JVD or lymphadenopathy. CARDIOVASCULAR: Regular rate and rhythm without murmurs, gallops, or rubs. RESPIRATORY: Breath sounds equal bilaterally. No accessory muscle use. GASTROINTESTINAL: Abdomen soft, non-tender, nondistended. MUSCULOSKELETAL: No cyanosis, or edema. R foot with base amputation of R toe with open wound, [id number], with clear liquid grainage and foul smell. Minimal clear drainage from 1st distal MT joint with erythema. L foot with lateral and medial ankle erythema with no drainage. Sensation intact BL to light touch. Pulses faint but palpable in BL LE. BACK: Nontender without obvious deformity. No CVA tenderness. Results - Labs CBC & Chem 7: 03/27/18 04:53 03/29/18 06:06 Laboratory Results - last 24 hr 03/28/18 03/29/18 03/29/18 20:25 06:06 08:52 Sodium 140 Potassium 3.9 Chloride 108 H Carbon Dioxide 24.9 Anion Gap 7 BUN 8 Creatinine 0.87 Estimated GFR Greater than 89 POC Glucose 167 H 119 H Random Glucose 109 H Calcium 8.7 Total Bilirubin 0.2 AST 11 L ALT 12 Alkaline Phosphatase 75 Total Protein 6.4 Albumin 2.5 L Vancomycin Trough 12.0 H 03/29/18 03/29/18 12:26 16:46 Sodium Potassium Chloride Carbon Dioxide Anion Gap BUN Creatinine Estimated GFR POC Glucose 117 H 108 Random Glucose Calcium Total Bilirubin AST ALT Alkaline Phosphatase Total Protein Albumin Vancomycin Trough Microbiology 03/28/18 14:18 Blood - Peripheral Aerobic Blood Culture - Preliminary No growth in 1 day 03/28/18 14:18 Blood - Peripheral Anaerobic Blood Culture - Preliminary No growth in 1 day 03/28/18 14:20 Blood - Peripheral Aerobic Blood Culture - Preliminary No growth in 1 day 03/28/18 14:20 Blood - Peripheral Anaerobic Blood Culture - Preliminary No growth in 1 day 03/26/18 11:05 Blood - Peripheral Aerobic Blood Culture - Preliminary No growth in 3 days 03/26/18 11:05 Blood - Peripheral Anaerobic Blood Culture - Final Staphylococcus aureus 03/26/18 11:20 Blood - Peripheral Aerobic Blood Culture - Final Staphylococcus aureus 03/26/18 11:20 Blood - Peripheral Anaerobic Blood Culture - Final Staphylococcus aureus Assessment and Plan - Assessment (1) Foot osteomyelitis, right Code(s): M86.9 - Osteomyelitis, unspecified Status: Acute (2) Diabetes Code(s): E11.9 - Type 2 diabetes mellitus without complications Status: Chronic - Plan This is a 57 y/o male with PMHx of DM and PVD admitted for mgmt of osteomyelitis of right distal 1st metatarsal joint, hx of previous admission 2017 with OM of R hallux s/p amputation and fem-pop bypass due to severe PVD. ID and podiatry consults appreciated. MRI shows OM of first metatarsal bones. Osteomyelitis of Right Distal -continue on vancomycin and Zosyn IV per ID. -Wound care nurse consult appreciated, continue with recommendations. -follow wound and blood cultures. -follow up with podiatry in regards to further procedures. -pain control with a bowel regimen. Bacteremia Blood cultures growing staph. -continue antibiotics per ID. -Repeat blood cultures Negative so far. Diabetes Type II HgbA1c 9.9% on 02/2018. -SSI while inpatient. -continue Levemir 10 units HS. Smoker -Declined nicotine patch. -Encouraged cessation. Full code. 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
[2018-03-29] MEDS: Insulin Detemir Inj 1,000 UNIT/10 ML Vial SQ SCH (21:17)
[2018-03-29] MEDS ORDERED: Lidocaine 2% Inj 50 ML Vial ONE (21:52)
[2018-03-29] MEDS ORDERED: Bupivacaine PF 0.5% Inj 30 ML Vial ONE (21:52)
[2018-03-29] MEDS ORDERED: fentaNYL Citrate Inj 100 MCG/2 ML Ampul ONE (23:22)
--- NOTE | 2018-03-29 23:23 | P.BOP ---
- Preoperative Diagnosis (1) Foot osteomyelitis, right - Postoperative Diagnosis (1) Foot osteomyelitis, right Date of procedure: 03/29/18 Procedure: 1. Partial first ray amputation right foot 2. Bone biopsy right first metatarsal Right foot prepped/draped. Timeouts per protocol. Incision to medial 1st metatarsal and wound excised. Great bleeding of tissue intraoperatively. Bone resected at level of metatarsal neck and sesamoids excised and sent to pathology. Bone from residual 1st metatarsal sent as biopsy. Culture taken, followed by irrigation with normal saline and closure with 2-0 and 3-0 nylon suture. Dressing with xeroform, 4x4, abd, cast padding, schuyler. No tourniquet utilized. Disposition: Weightbearing heel contact for transfers only No further surgery planned at this time. Recommend awaiting bone biopsy to determine further treatment. Recommend 2 weeks IV antibiotics and allowance for surgical wound to heal due to patient's social status Anesthesia: MAC, local (10mL 0.5% marcaine plain) Surgeon: Travis Comer DPM School Bus Inspector: staff Estimated blood loss (mL): 30 Pathology: other (1. bone first metatarsal head and sesamoids right foot, 2. bone residual right first metatarsal for bone biopsy, 3. culture right foot) Condition: stable Disposition: PACU
--- NOTE | 2018-03-29 23:41 | XR ---
EXAM DATE: 03/29/2018 12:00 AM EDT AGE/SEX: 57 years / Male INDICATIONS: Post op right 1st metatarsal amputation CLINICAL DATA: This is the patient's initial encounter. Patient reports that signs and symptoms have been present for 1 day and indicates a pain score of Nonresponsive. MEDICAL/SURGICAL HISTORY: Diabetes. Right leg bypass surgery . Prior right 1st digit amputatio n COMPARISON: [facility] [place] 3V, 03/26/2018. . FINDINGS: 3 views of right foot. Evidence of indentation of the great toe at the level the mid metatarsal shaft . Osseous structures otherwise intact. CONCLUSION: Great toe amputation at the level the mid metatarsal shaft. Electronically signed by: Tadeo Mansfield MD 03/29/2018 11:40 PM EDT
[2018-03-30] MEDS: Sod Chloride 0.9% Inj 1,000 ML IV.CONT SCH ×5 (00:26→18:04)
[2018-03-30] MEDS: Metoprolol Tartrate 25 MG Tablet PO ONE (00:27)
[2018-03-30] MEDS: Piperacil/Tazo 3.375 GM Premix 50 ML IV.SIG SCH ×4 (04:25→21:01)
[2018-03-30] MEDS: Vancomycin Inj 1,500 MG in Sodium Chlor 0.9% Inj 500 ML IV.SIG SCH ×2 (05:09→17:56)
[2018-03-30] MEDS ORDERED: Morphine Inj 4 MG/ML Vial IV.PUSH ONE (05:32)
[2018-03-30] MEDS: Senna/Docusate Sodium 8.6/50 MG Tablet PO SCH ×2 (08:14→21:02)
[2018-03-30] MEDS: Insulin NovoLIN Regular Correctional Sugar Inj SQ SCH ×4 (09:08→21:02)
[2018-03-30] MEDS: oxyCODONE/Acetaminophen 10/325 Tablet PO PRN ×2 (13:50→21:01)
--- NOTE | 2018-03-30 14:27 | P.PNID ---
Subjective Remarks: Patient is a 57-year-old male, presented to the hospital for further evaluation of drainage from his right foot amputation site. Patient was in the hospital in February and at that time he had a wound on his right big toe. There was cellulitis, and imaging study showed osteomyelitis of his big toe. He was also found to have peripheral vascular disease, and he underwent right femoropopliteal bypass with PTFE, as well as RCEI endarterectomy and angioplasty. This was done February 17, and he subsequently underwent amputation of the right big toe at the metatarsal joint, and had disarticulation at the joint. The proximal part of the big toe was sent for pathology as the clear margin, and there was no evidence of osteomyelitis. Patient was sent home on oral antibiotics, and he apparently completed 14 days of treatment. Patient was seen in follow-up by the vascular surgeon. Patient has been following up with the absence management consultant, and apparently the last time he was seen which was March 20 he had developed drainage at the amputation site. Patient apparently has been homeless for about a month. He has been walking a lot, and he states that he keeps his wound covered. He has now presented back to the hospital for further evaluation and treatment. He is always had swelling on that right foot. He is developed drainage which has worsened and there is an older. He denies any fever chills or sweats. Denies any respiratory, GI or any urinary complaints. Patient has been using the special footwear that he got from the hospital. On presentation he has been afebrile. His WBC is normal. MRI of the right foot is now showing abnormality on the first metatarsal. Infectious disease consultation has been requested to evaluate the patient for possible osteomyelitis. Notes reviewed Afebrile Had partial ray resection 1st MT yesterday C/S pending Xray reviewed No new (+) BC BC with MSSA 03/26 Echo ok No rash or itching No diarrhea Antibiotics: Zosyn Vancomycin Lines: PIV Past Medical History: Diabetes Peripheral arterial disease Tobacco abuse History of eye surgery Hx of toe surgery S/P femoral-popliteal bypass surgery Allergies/Adverse Reactions: Allergies iodine Allergy (Unknown, Verified 03/26/18 10:44) Swelling potassium iodide Allergy (Unknown, Verified 03/26/18 10:44) Swelling povidone-iodine Allergy (Unknown, Verified 03/26/18 10:44) Swelling sodium iodide Allergy (Unknown, Verified 03/26/18 10:44) Swelling sodium iodide Allergy (Unknown, Verified 03/26/18 10:44) Swelling *MDRO Multi-Drug Resistant Organism Adverse Reaction (Unknown, Uncoded 03/26/18 10:44) n/a 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; 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 Objective Vital Signs 03/29/18 16:00 03/29/18 20:00 03/29/18 22:05 Temperature 97.4 F L 97.2 F L 97.6 F Pulse Rate 66 91 H 64 Respiratory Rate 18 18 14 Blood Pressure 161/96 H 110/70 161/88 H Pulse Oximetry 98 99 98 03/29/18 23:15 03/29/18 23:30 03/29/18 23:45 Temperature 97.4 F L Pulse Rate 81 78 74 Respiratory Rate 16 14 14 Blood Pressure 107/68 115/73 127/77 Pulse Oximetry 98 98 99 03/29/18 23:50 03/30/18 03:00 03/30/18 05:08 Temperature 97.6 F 97.3 F L 97.5 F L Pulse Rate 72 79 77 Respiratory Rate 16 18 18 Blood Pressure 143/82 H 144/78 H 137/82 Pulse Oximetry 99 94 L 97 03/30/18 08:00 03/30/18 12:00 Temperature 97.6 F 97.7 F Pulse Rate 72 77 Respiratory Rate 16 16 Blood Pressure 119/69 116/66 Pulse Oximetry 94 L 95 Intake & Output 03/29/18 03/30/18 03/30/18 18:59 06:59 18:59 Intake Total 1375 / 1375 3565 / 3565 1165 / 1165 Output Total 900 / 900 30 / 30 Balance 475 / 475 3535 / 3535 1165 / 1165 Weight 74.4 kg Intake: IV 1375 / 1375 2965 / 2965 1165 / 1165 NS Inj 1,000 ML @ 100 mls/hr IV 1000 / 1000 1400 / 1400 600 / 600 .CONT .Q10H [facility] Rx#:[id number] LR 1000 mL Inj 1,000 ML @ 30 1000 / 1000 mls/hr IV.SIG .Q24H FABIAN Rx#: [id number] Zosyn 3.375 GM Premix 50 ML @ 100 / 100 50 / 50 50 / 50 100 mls/hr IV.SIG Q6H FABIAN Rx#: [id number] Vancomycin Inj 1,500 MG In NS 515 / 515 515 / 515 Inj 500 ML @ 250 mls/hr IV.SIG Q12H [facility] Rx#:[id number] Vancomycin Inj 1,250 MG In NS 275 / 275 Inj 250 ML @ 250 mls/hr IV.SIG Q12H [facility]IAN Rx#:[id number] Oral 0 / 0 Anesthesia Amount 300 / 300 Other 300 / 300 Output: Urine 900 / 900 Estimated Blood Loss 30 / 30 Other: # Voids 2 3 Date of Last Bowel Movement 03/28/18 03/28/18 03/29/18 06:06 Blood - Peripheral Aerobic Blood Culture - Preliminary No growth in 1 day 03/29/18 06:06 Blood - Peripheral Anaerobic Blood Culture - Preliminary No growth in 1 day 03/28/18 14:18 Blood - Peripheral Aerobic Blood Culture - Preliminary No growth in 2 days 03/28/18 14:18 Blood - Peripheral Anaerobic Blood Culture - Preliminary No growth in 2 days 03/28/18 14:20 Blood - Peripheral Aerobic Blood Culture - Preliminary No growth in 2 days 03/28/18 14:20 Blood - Peripheral Anaerobic Blood Culture - Preliminary No growth in 2 days 03/26/18 11:05 Blood - Peripheral Aerobic Blood Culture - Preliminary No growth in 4 days 03/26/18 11:05 Blood - Peripheral Anaerobic Blood Culture - Final Staphylococcus aureus 03/29/18 22:54 Wound - Foot Gram Stain - Final 03/29/18 22:54 Wound - Foot Wound Culture - Pending 03/29/18 22:54 Wound - Foot Fungal Smear - Final No fungal elements seen 03/29/18 22:54 Wound - Foot Fungal Culture - Pending 03/29/18 22:54 Wound - Foot Acid Fast Bacilli Smear - Pending 03/29/18 22:54 Wound - Foot Mycobacterial Culture - Pending 03/26/18 11:20 Blood - Peripheral Aerobic Blood Culture - Final Staphylococcus aureus 03/26/18 11:20 Blood - Peripheral Anaerobic Blood Culture - Final Staphylococcus aureus Lab - Chemistry Results 03/28/18 03/28/18 03/29/18 17:32 20:25 06:06 Sodium 140 Potassium 3.9 Chloride 108 H Carbon Dioxide 24.9 Anion Gap 7 BUN 8 Creatinine 0.87 Estimated GFR Greater than 89 POC Glucose 175 H 167 H Random Glucose 109 H Calcium 8.7 Total Bilirubin 0.2 AST 11 L ALT 12 Alkaline Phosphatase 75 Total Protein 6.4 Albumin 2.5 L 03/29/18 03/29/18 03/29/18 08:52 12:26 16:46 Sodium Potassium Chloride Carbon Dioxide Anion Gap BUN Creatinine Estimated GFR POC Glucose 119 H 117 H 108 Random Glucose Calcium Total Bilirubin AST ALT Alkaline Phosphatase Total Protein Albumin 03/29/18 03/30/18 03/30/18 20:02 07:12 08:16 Sodium Potassium Chloride Carbon Dioxide Anion Gap BUN 7 Creatinine 0.89 Estimated GFR 89 POC Glucose 106 191 H Random Glucose Calcium Total Bilirubin AST ALT Alkaline Phosphatase Total Protein Albumin 03/30/18 12:37 Sodium Potassium Chloride Carbon Dioxide Anion Gap BUN Creatinine Estimated GFR POC Glucose 228 H Random Glucose Calcium Total Bilirubin AST ALT Alkaline Phosphatase Total Protein Albumin Imaging: ITS Impressions Foot MRI 03/26/18 00:00 CONCLUSION: 1. There is osteomyelitis involving the first metatarsal bones diffusely with the exception of the proximal epiphysis and extensive inflammatory process in the surrounding soft tissues. Foot X-Ray 03/29/18 00:00 CONCLUSION: Great toe amputation at the level the mid metatarsal shaft. Physical Exam: GENERAL: awake and alert, NAD SKIN: Cool and dry. No generalized rash. HEAD: Atraumatic. Normocephalic. No temporal wasting, or tenderness. EYES: [place] conjunctiva. No petechia or hemorrhage. No scleral icterus. No injection or drainage. EARS, NOSE AND THROAT: Mucous membranes pink and moist. No oral lesions noted. NECK: Trachea midline. Supple and not tender, no meningeal signs CARDIOVASCULAR: Regular rate and rhythm. No murmurs, rubs or gallops heard RESPIRATORY: Clear to auscultation. Breath sounds equal bilaterally. No rales , wheezing or rhonchi ABDOMEN: Soft, non-tender, nondistended. Bowel sounds present and normoactive. No guarding. No rebound. No organomegaly. EXTREMITIES: No clubbing, cyanosis. No calf tenderness. R foot - has dry intact dressing NEUROLOGICAL: Grossly non-focal. PSYCHIATRIC: Normal affect, calm and cooperative. LINE: No evidence of infection Assessment and Plan - Plan Impression Staph aureus sepsis, due to foot infection Infection, amputation site S/P amputation of big toe, has cellulitis and MRI showing osteo of first MT bone PVD, S/P bypass surgery RLE 02/17 DM Recommendation Repeat BC to document clearing Continue current empiric Abx: Vanco and Zosyn, for now until OR C/S are available He will need course of IV Abx at least for his bacteremia Monitor progress
--- NOTE | 2018-03-30 16:11 | P.PN ---
Subjective Interval history: Follow-up osteomyelitis/diabetic foot infection March 30, 2018-patient seen and examined, afebrile, no acute event overnight. Pain to right lower extremity tolerable Physical Exam Vital signs: Vital Signs 03/29/18 20:00 03/29/18 22:05 03/29/18 23:15 Temperature 97.2 F L 97.6 F 97.4 F L Pulse Rate 91 H 64 81 Respiratory Rate 18 14 16 Blood Pressure 110/70 161/88 H 107/68 Pulse Oximetry 99 98 98 03/29/18 23:30 03/29/18 23:45 03/29/18 23:50 Temperature 97.6 F Pulse Rate 78 74 72 Respiratory Rate 14 14 16 Blood Pressure 115/73 127/77 143/82 H Pulse Oximetry 98 99 99 03/30/18 03:00 03/30/18 05:08 03/30/18 08:00 Temperature 97.3 F L 97.5 F L 97.6 F Pulse Rate 79 77 72 Respiratory Rate 18 18 16 Blood Pressure 144/78 H 137/82 119/69 Pulse Oximetry 94 L 97 94 L 03/30/18 12:00 Temperature 97.7 F Pulse Rate 77 Respiratory Rate 16 Blood Pressure 116/66 Pulse Oximetry 95 Intake & Output 03/29/18 03/30/18 03/30/18 18:59 06:59 18:59 Intake Total 1375 / 1375 3565 / 3565 1215 / 1215 Output Total 900 / 900 30 / 30 Balance 475 / 475 3535 / 3535 1215 / 1215 Weight 74.4 kg Intake: IV 1375 / 1375 2965 / 2965 1215 / 1215 NS Inj 1,000 ML @ 100 mls/hr IV 1000 / 1000 1400 / 1400 600 / 600 .CONT .Q10H [facility] Rx#:[id number] LR 1000 mL Inj 1,000 ML @ 30 1000 / 1000 mls/hr IV.SIG .Q24H [facility] Rx#: [id number] Zosyn 3.375 GM Premix 50 ML @ 100 / 100 50 / 50 100 / 100 100 mls/hr IV.SIG Q6H [facility] Rx#: [id number] Vancomycin Inj 1,500 MG In NS 515 / 515 515 / 515 Inj 500 ML @ 250 mls/hr IV.SIG Q12H [facility] Rx#:[id number] Vancomycin Inj 1,250 MG In NS 275 / 275 Inj 250 ML @ 250 mls/hr IV.SIG Q12H [facility] Rx#:[id number] Oral 0 / 0 Anesthesia Amount 300 / 300 Other 300 / 300 Output: Urine 900 / 900 Estimated Blood Loss 30 / 30 Other: # Voids 2 3 Date of Last Bowel Movement 03/28/18 03/28/18 Narrative: GENERAL: NAD SKIN: Warm and dry. HEENT: Normocephalic. No scleral icterus. No injection or drainage. NECK: Supple, trachea midline. No JVD or lymphadenopathy. CARDIOVASCULAR: Regular rate and rhythm without murmurs, gallops, or rubs. RESPIRATORY: Breath sounds equal bilaterally. No accessory muscle use. GASTROINTESTINAL: Abdomen soft, non-tender, nondistended. MUSCULOSKELETAL: No cyanosis, or edema. R foot with base amputation of R toe with open wound, [id number], with clear liquid grainage and foul smell. Minimal clear drainage from 1st distal MT joint with erythema. L foot with lateral and medial ankle erythema with no drainage. Sensation intact BL to light touch. BACK: Nontender without obvious deformity. No CVA tenderness. Results - Labs CBC & Chem 7: 03/27/18 04:53 03/30/18 07:12 Laboratory Results - last 24 hr 03/29/18 03/29/18 03/30/18 16:46 20:02 07:12 BUN 7 Creatinine 0.89 Estimated GFR 89 POC Glucose 108 106 03/30/18 03/30/18 08:16 12:37 BUN Creatinine Estimated GFR POC Glucose 191 H 228 H Microbiology 03/29/18 06:06 Blood - Peripheral Aerobic Blood Culture - Preliminary No growth in 1 day 03/29/18 06:06 Blood - Peripheral Anaerobic Blood Culture - Preliminary No growth in 1 day 03/28/18 14:18 Blood - Peripheral Aerobic Blood Culture - Preliminary No growth in 2 days 03/28/18 14:18 Blood - Peripheral Anaerobic Blood Culture - Preliminary No growth in 2 days 03/28/18 14:20 Blood - Peripheral Aerobic Blood Culture - Preliminary No growth in 2 days 03/28/18 14:20 Blood - Peripheral Anaerobic Blood Culture - Preliminary No growth in 2 days 03/26/18 11:05 Blood - Peripheral Aerobic Blood Culture - Preliminary No growth in 4 days 03/26/18 11:05 Blood - Peripheral Anaerobic Blood Culture - Final Staphylococcus aureus 03/29/18 22:54 Wound - Foot Gram Stain - Final 03/29/18 22:54 Wound - Foot Fungal Smear - Final No fungal elements seen - Imaging Impressions Foot X-Ray 03/29/18 00:00 CONCLUSION: Great toe amputation at the level the mid metatarsal shaft. Assessment and Plan - Assessment (1) Foot osteomyelitis, right Code(s): M86.9 - Osteomyelitis, unspecified Status: Acute (2) Diabetes Code(s): E11.9 - Type 2 diabetes mellitus without complications Status: Chronic - Plan 57-year-old man with Osteomyelitis of Right Distal -Status post right big toe amputation, management per podiatry pending culture report -continue on vancomycin and Zosyn IV per ID. -Wound care nurse consult appreciated, continue with recommendations. Bacteremia Blood cultures growing staph. -continue antibiotics per ID. -Repeat blood culture negative to date Diabetes Type II HgbA1c 9.9% on 02/2018. -SSI while inpatient. -continue Levemir 10 units HS. Smoker -Declined nicotine patch. -Encouraged cessation. Full code. DVT PPX: SCDs (2) Diabetes Qualifiers: Diabetes mellitus type: type 2 Diabetes mellitus halfway insulin use: without terminal computer operator use Diabetes mellitus complication status: with circulatory complication
[2018-03-30] MEDS ORDERED: Pharmacy Ordered Lab Info OTHER ONE (17:45)
[2018-03-30] MEDS: Insulin Detemir Inj 1,000 UNIT/10 ML Vial SQ SCH (21:02)
[2018-03-31] MEDS: Piperacil/Tazo 3.375 GM Premix 50 ML IV.SIG SCH ×2 (03:42→09:13)
[2018-03-31] MEDS: Vancomycin Inj 1,500 MG in Sodium Chlor 0.9% Inj 500 ML IV.SIG SCH (05:53)
[2018-03-31] MEDS: Sod Chloride 0.9% Inj 1,000 ML IV.CONT SCH ×2 (05:53→17:27)
--- NOTE | 2018-03-31 06:52 | MP ---
cc: Travis Comer DPM DATE OF OPERATION: 03/29/2018 INDICATIONS: This patient was operated on initially by Dr. Carbajal and had a right hallux amputation. He developed an ulceration with dehiscence to the medial aspect with drainage that probed to bone. It was found to have evidence of osteomyelitis in the 1st metatarsal head area. I discussed with him the revision partial 1st ray amputation of the right foot as an option with bone biopsy. Secondary to his being homeless, I also recommended that he stay for 2 weeks of IV antibiotics to assist with healing and limb salvage. He agreed to move forward with the plan after risks, benefits, and potential complications were explained in detail to the patient. DETAILS OF PROCEDURE: He was seen in preoperative holding by myself, nursing staff, and anesthesia, where the correct patient, side, and site were all confirmed to be correct and the right foot. He was then taken to the surgical suite in supine position. Right foot was prepped and draped. Following timeout as per facility protocol, an incision was made to the medial aspect of the 1st metatarsal head area and the wound was excised. The 1st metatarsal was transected at the level of the metatarsal neck and the sesamoids were excised and these 2 were sent as 1 specimen to pathology. The bone from the residual 1st metatarsal was removed and sent as a bone biopsy. A culture was then taken followed by irrigation with normal saline and closure was 2-0 and 3-0 nylon suture. A dressing consisting of Xeroform, 4 x 4's, ABD, cast padding, and Guerrero were applied to the right foot. He tolerated procedure and anesthesia well without complications and was taken back to PACU with vital signs stable and vascular status intact to the remainder of the right foot. He will be weightbearing to the heel only on the right foot for transfers with a surgical shoe and no further surgery will be planned. We will await bone biopsy to determine further treatment. SURGEON: Travis Comer DPM. SANDWICH HAND: Staff. PREOPERATIVE DIAGNOSIS: Osteomyelitis, right foot. POSTOPERATIVE DIAGNOSIS: Osteomyelitis, right foot. PROCEDURE: 1. Partial 1st ray amputation, right foot. 2. Bone biopsy, right 1st metatarsal. PATHOLOGY: 1. Bone 1st metatarsal head and sesamoids of right foot to pathology. 2. Bone from residual right 1st metatarsal for bone biopsy. 3. Culture, right foot. ESTIMATED BLOOD LOSS: 30 mL. ANESTHESIA: MAC and local consisting of 10 mL of 0.5% Marcaine plain. COMPLICATIONS: None. CONDITION: Stable to PACU. DISPOSITION: Weightbearing to heel only and no further surgery planned at this time. Await bone biopsy. BELÉN Schofield , 05:04 AM , 05:11 AM
[2018-03-31] MEDS: Insulin NovoLIN Regular Correctional Sugar Inj SQ SCH ×4 (08:34→21:45)
[2018-03-31] MEDS: Senna/Docusate Sodium 8.6/50 MG Tablet PO SCH ×2 (08:36→22:26)
--- NOTE | 2018-03-31 09:41 | P.PNID ---
Subjective Remarks: Patient is a 57-year-old male, presented to the hospital for further evaluation of drainage from his right foot amputation site. Patient was in the hospital in February and at that time he had a wound on his right big toe. There was cellulitis, and imaging study showed osteomyelitis of his big toe. He was also found to have peripheral vascular disease, and he underwent right femoropopliteal bypass with PTFE, as well as RCEI endarterectomy and angioplasty. This was done February 17, and he subsequently underwent amputation of the right big toe at the metatarsal joint, and had disarticulation at the joint. The proximal part of the big toe was sent for pathology as the clear margin, and there was no evidence of osteomyelitis. Patient was sent home on oral antibiotics, and he apparently completed 14 days of treatment. Patient was seen in follow-up by the vascular surgeon. Patient has been following up with the manager work, and apparently the last time he was seen which was March 20 he had developed drainage at the amputation site. Patient apparently has been homeless for about a month. He has been walking a lot, and he states that he keeps his wound covered. He has now presented back to the hospital for further evaluation and treatment. He is always had swelling on that right foot. He is developed drainage which has worsened and there is an older. He denies any fever chills or sweats. Denies any respiratory, GI or any urinary complaints. Patient has been using the special footwear that he got from the hospital. On presentation he has been afebrile. His WBC is normal. MRI of the right foot is now showing abnormality on the first metatarsal. Infectious disease consultation has been requested to evaluate the patient for possible osteomyelitis. Notes reviewed Afebrile No complaints Had partial ray resection 1st MT 03/29 C/S prelim 2 colonies Coag (+) Staph Xray reviewed No new (+) BC BC with MSSA 03/26 Echo ok No rash or itching No diarrhea Antibiotics: Zosyn Vancomycin Lines: PIV Past Medical History: Diabetes Peripheral arterial disease Tobacco abuse History of eye surgery Hx of toe surgery S/P femoral-popliteal bypass surgery Allergies/Adverse Reactions: Allergies iodine Allergy (Unknown, Verified 03/26/18 10:44) Swelling potassium iodide Allergy (Unknown, Verified 03/26/18 10:44) Swelling povidone-iodine Allergy (Unknown, Verified 03/26/18 10:44) Swelling sodium iodide Allergy (Unknown, Verified 03/26/18 10:44) Swelling sodium iodide Allergy (Unknown, Verified 03/26/18 10:44) Swelling *MDRO Multi-Drug Resistant Organism Adverse Reaction (Unknown, Uncoded 03/26/18 10:44) n/a 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; 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 Objective Vital Signs 03/30/18 12:00 03/30/18 16:00 03/30/18 20:00 Temperature 97.7 F 97.8 F 98.1 F Pulse Rate 77 69 66 Respiratory Rate 16 16 18 Blood Pressure 116/66 103/61 116/65 Pulse Oximetry 95 96 96 03/31/18 00:00 Temperature 97.6 F Pulse Rate 68 Respiratory Rate 18 Blood Pressure 125/67 Pulse Oximetry 97 Intake & Output 03/30/18 03/31/18 03/31/18 18:59 06:59 18:59 Intake Total 1815 / 1815 1750 / 1750 515 / 515 Output Total 1200 / 1200 Balance 1815 / 1815 550 / 550 515 / 515 Weight 74.4 kg Intake: IV 1215 / 1215 1750 / 1750 515 / 515 NS Inj 1,000 ML @ 100 mls/hr IV 600 / 600 1110 / 1110 .CONT .Q10H [facility] Rx#:[id number] Zosyn 3.375 GM Premix 50 ML @ 100 / 100 100 / 100 100 mls/hr IV.SIG Q6H [facility] Rx#: [id number] Vancomycin Inj 1,500 MG In NS 515 / 515 540 / 540 515 / 515 Inj 500 ML @ 250 mls/hr IV.SIG Q12H [facility] Rx#:[id number] Oral 600 / 600 Output: Urine 1200 / 1200 Other: # Voids 2 Date of Last Bowel Movement 03/30/18 03/30/18 # Bowel Movements 1 03/29/18 06:06 Blood - Peripheral Aerobic Blood Culture - Preliminary No growth in 1 day 03/29/18 06:06 Blood - Peripheral Anaerobic Blood Culture - Preliminary No growth in 1 day 03/28/18 14:18 Blood - Peripheral Aerobic Blood Culture - Preliminary No growth in 2 days 03/28/18 14:18 Blood - Peripheral Anaerobic Blood Culture - Preliminary No growth in 2 days 03/28/18 14:20 Blood - Peripheral Aerobic Blood Culture - Preliminary No growth in 2 days 03/28/18 14:20 Blood - Peripheral Anaerobic Blood Culture - Preliminary No growth in 2 days 03/26/18 11:05 Blood - Peripheral Aerobic Blood Culture - Preliminary No growth in 4 days 03/26/18 11:05 Blood - Peripheral Anaerobic Blood Culture - Final Staphylococcus aureus 03/29/18 22:54 Wound - Foot Gram Stain - Final 03/29/18 22:54 Wound - Foot Wound Culture - Pending 03/29/18 22:54 Wound - Foot Fungal Smear - Final No fungal elements seen 03/29/18 22:54 Wound - Foot Fungal Culture - Pending 03/29/18 22:54 Wound - Foot Acid Fast Bacilli Smear - Pending 03/29/18 22:54 Wound - Foot Mycobacterial Culture - Pending 03/26/18 11:20 Blood - Peripheral Aerobic Blood Culture - Final Staphylococcus aureus 03/26/18 11:20 Blood - Peripheral Anaerobic Blood Culture - Final Staphylococcus aureus Lab - Chemistry Results 03/29/18 03/29/18 03/29/18 12:26 16:46 20:02 BUN Creatinine Estimated GFR POC Glucose 117 H 108 106 03/30/18 03/30/18 03/30/18 07:12 08:16 12:37 BUN 7 Creatinine 0.89 Estimated GFR 89 POC Glucose 191 H 228 H 03/30/18 03/30/18 03/31/18 17:42 19:48 05:01 BUN 7 Creatinine 0.92 Estimated GFR 85 L POC Glucose 222 H 286 H 03/31/18 07:34 BUN Creatinine Estimated GFR POC Glucose 148 H Imaging: ITS Impressions Foot MRI 03/26/18 00:00 CONCLUSION: 1. There is osteomyelitis involving the first metatarsal bones diffusely with the exception of the proximal epiphysis and extensive inflammatory process in the surrounding soft tissues. Foot X-Ray 03/29/18 00:00 CONCLUSION: Great toe amputation at the level the mid metatarsal shaft. Physical Exam: GENERAL: awake and alert, NAD SKIN: Cool and dry. No generalized rash. HEAD: Atraumatic. Normocephalic. No temporal wasting, or tenderness. EYES: [place] conjunctiva. No petechia or hemorrhage. No scleral icterus. No injection or drainage. EARS, NOSE AND THROAT: Mucous membranes pink and moist. No oral lesions noted. NECK: Trachea midline. Supple and not tender, no meningeal signs CARDIOVASCULAR: Regular rate and rhythm. No murmurs, rubs or gallops heard RESPIRATORY: Clear to auscultation. Breath sounds equal bilaterally. No rales , wheezing or rhonchi ABDOMEN: Soft, non-tender, nondistended. Bowel sounds present and normoactive. No guarding. No rebound. No organomegaly. EXTREMITIES: No clubbing, cyanosis. No calf tenderness. R foot - has dry intact dressing; no lymphangitis seen in his R leg NEUROLOGICAL: Grossly non-focal. PSYCHIATRIC: Normal affect, calm and cooperative. LINE: No evidence of infection Assessment and Plan - Plan Impression Staph aureus MSSA sepsis, due to foot infection Infection, amputation site S/P amputation of big toe, has cellulitis and MRI showing osteo of first MT bone PVD, S/P bypass surgery RLE 02/17 DM Recommendation Repeat BC to document clearing Change Abx to Ancef Add Cipro for GNR coverage until final C/S available If repeat BC negative and path shows no osteo - he will need 2 weeks IV Abx from date of amputation - if outpatient Rx possible, will switch to IV Rocephin If repeat BC negative, 6 weeks IV Abx If path shows osteo, 6 weeks IV Abx Follow C/S Monitor progress Explained plan to the patient
--- NOTE | 2018-03-31 09:45 | P.PN ---
Subjective Interval history: Follow-up osteomyelitis/diabetic foot infection March 30, 2018-patient seen and examined, afebrile, no acute event overnight. Pain to right lower extremity tolerable March 31, 2018-patient seen and examined, afebrile, stable. Physical Exam Vital signs: Vital Signs 03/30/18 12:00 03/30/18 16:00 03/30/18 20:00 Temperature 97.7 F 97.8 F 98.1 F Pulse Rate 77 69 66 Respiratory Rate 16 16 18 Blood Pressure 116/66 103/61 116/65 Pulse Oximetry 95 96 96 03/31/18 00:00 Temperature 97.6 F Pulse Rate 68 Respiratory Rate 18 Blood Pressure 125/67 Pulse Oximetry 97 Intake & Output 03/30/18 03/31/18 03/31/18 18:59 06:59 18:59 Intake Total 1815 / 1815 1750 / 1750 515 / 515 Output Total 1200 / 1200 Balance 1815 / 1815 550 / 550 515 / 515 Weight 74.4 kg Intake: IV 1215 / 1215 1750 / 1750 515 / 515 NS Inj 1,000 ML @ 100 mls/hr IV 600 / 600 1110 / 1110 .CONT .Q10H [facility] Rx#:[id number] Zosyn 3.375 GM Premix 50 ML @ 100 / 100 100 / 100 100 mls/hr IV.SIG Q6H [facility] Rx#: [id number] Vancomycin Inj 1,500 MG In NS 515 / 515 540 / 540 515 / 515 Inj 500 ML @ 250 mls/hr IV.SIG Q12H [facility] Rx#:[id number] Oral 600 / 600 Output: Urine 1200 / 1200 Other: # Voids 2 Date of Last Bowel Movement 03/30/18 03/30/18 # Bowel Movements 1 Narrative: GENERAL: NAD SKIN: Warm and dry. HEENT: Normocephalic. No scleral icterus. No injection or drainage. NECK: Supple, trachea midline. No JVD or lymphadenopathy. CARDIOVASCULAR: Regular rate and rhythm without murmurs, gallops, or rubs. RESPIRATORY: Breath sounds equal bilaterally. No accessory muscle use. GASTROINTESTINAL: Abdomen soft, non-tender, nondistended. MUSCULOSKELETAL: No cyanosis, or edema. R foot with base amputation of R toe with open wound, [id number], with clear liquid grainage and foul smell. Minimal clear drainage from 1st distal MT joint with erythema. L foot with lateral and medial ankle erythema with no drainage. Sensation intact BL to light touch. BACK: Nontender without obvious deformity. No CVA tenderness. Results - Labs CBC & Chem 7: 03/27/18 04:53 03/31/18 05:01 Laboratory Results - last 24 hr 03/30/18 03/30/18 03/30/18 12:37 17:40 17:42 BUN Creatinine Estimated GFR POC Glucose 228 H 222 H Vancomycin Trough 16.2 H 03/30/18 03/31/18 03/31/18 19:48 05:01 07:34 BUN 7 Creatinine 0.92 Estimated GFR 85 L POC Glucose 286 H 148 H Vancomycin Trough Microbiology 03/29/18 06:06 Blood - Peripheral Aerobic Blood Culture - Preliminary No growth in 1 day 03/29/18 06:06 Blood - Peripheral Anaerobic Blood Culture - Preliminary No growth in 1 day 03/28/18 14:18 Blood - Peripheral Aerobic Blood Culture - Preliminary No growth in 2 days 03/28/18 14:18 Blood - Peripheral Anaerobic Blood Culture - Preliminary No growth in 2 days 03/28/18 14:20 Blood - Peripheral Aerobic Blood Culture - Preliminary No growth in 2 days 03/28/18 14:20 Blood - Peripheral Anaerobic Blood Culture - Preliminary No growth in 2 days 03/26/18 11:05 Blood - Peripheral Aerobic Blood Culture - Preliminary No growth in 4 days 03/26/18 11:05 Blood - Peripheral Anaerobic Blood Culture - Final Staphylococcus aureus 03/29/18 22:54 Wound - Foot Gram Stain - Final 03/29/18 22:54 Wound - Foot Fungal Smear - Final No fungal elements seen Assessment and Plan - Assessment (1) Foot osteomyelitis, right Code(s): M86.9 - Osteomyelitis, unspecified Status: Acute (2) Diabetes Code(s): E11.9 - Type 2 diabetes mellitus without complications Status: Chronic - Plan 57-year-old man with Osteomyelitis of Right Distal -Status post right big toe amputation, management per podiatry pending culture report -currently on Ancef and Cipro per ID. Course of abx to be determined by culture and path reports per ID -Wound care nurse consult appreciated, continue with recommendations. Bacteremia Blood cultures growing staph. -continue antibiotics per ID. -Repeat blood culture negative to date Diabetes Type II HgbA1c 9.9% on 02/2018. -SSI while inpatient. -continue Levemir 10 units HS. Smoker -Declined nicotine patch. -Encouraged cessation. Full code. 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
[2018-03-31] MEDS: ceFAZolin Inj 2,000 MG in Sodium Chlor 0.9% Inj 80 ML IV.SIG SCH ×2 (11:21→17:32)
[2018-03-31] MEDS: oxyCODONE/Acetaminophen 10/325 Tablet PO PRN ×2 (11:24→21:45)
[2018-03-31] MEDS: Insulin Detemir Inj 1,000 UNIT/10 ML Vial SQ SCH (21:45)
[2018-04-01] MEDS: ceFAZolin Inj 2,000 MG in Sodium Chlor 0.9% Inj 80 ML IV.SIG SCH ×3 (02:00→19:26)
[2018-04-01] MEDS: Sod Chloride 0.9% Inj 1,000 ML IV.CONT SCH ×2 (03:00→19:27)
[2018-04-01] MEDS: Insulin NovoLIN Regular Correctional Sugar Inj SQ SCH ×4 (09:05→20:00)
[2018-04-01] MEDS: Senna/Docusate Sodium 8.6/50 MG Tablet PO SCH ×2 (09:38→20:00)
--- NOTE | 2018-04-01 09:47 | P.PNPOD ---
Subjective Interval history: s/p partial 1st ray amputation with bone biopsy. Pt denies nay n/v/f/h/c/sob/ pain. Physical Exam Vital signs: Vital Signs 03/31/18 12:00 03/31/18 16:00 03/31/18 20:00 Temperature 97.7 F 97.3 F L 98 F Pulse Rate 56 L 71 66 Respiratory Rate 16 16 20 Blood Pressure 147/72 H 141/85 H 161/71 H Pulse Oximetry 98 99 96 04/01/18 00:00 04/01/18 08:00 Temperature 97.5 F L 98.7 F Pulse Rate 64 64 Respiratory Rate 20 18 Blood Pressure 128/66 168/79 H Pulse Oximetry 95 98 Intake & Output 03/31/18 04/01/18 04/01/18 18:59 06:59 18:59 Intake Total 2735 / 2735 1580 / 1580 Balance 2735 / 2735 1580 / 1580 Intake: IV 1655 / 1655 1100 / 1100 NS Inj 1,000 ML @ 100 mls/hr IV 890 / 890 1000 / 1000 .CONT .Q10H [facility] Rx#:[id number] Zosyn 3.375 GM Premix 50 ML @ 50 / 50 100 mls/hr IV.SIG Q6H [facility] Rx#: [id number] Vancomycin Inj 1,500 MG In NS 515 / 515 Inj 500 ML @ 250 mls/hr IV.SIG Q12H [facility] Rx#:[id number] Ancef Inj 2,000 MG In NS Inj 80 200 / 200 100 / 100 ML @ 200 mls/hr IV.SIG Q8H [facility] Rx#:[id number] Oral 1080 / 1080 480 / 480 Other: # Voids 5 4 Date of Last Bowel Movement 03/30/18 # Bowel Movements 1 1 Narrative: Amputation incision site remains well healed with all sutures intact, no erythema, no drainage, minimal edema. Medications and Allergies Active Medications: Active Medications Acetaminophen (Tylenol) 650 mg PO Q4H PRN PRN Reason: Temp > 100.4 Al Hydroxide/Mg Hydroxide (Milk Of Magnesia Liq) 30 ml PO Q12H PRN PRN Reason: Mild Constipation Bisacodyl (Dulcolax Supp) 10 mg RECTAL DAILY PRN PRN Reason: SEVERE CONSITIPATION Ciprofloxacin HCl (Cipro) 750 mg PO Q12HR [facility] Last Admin: 04/01/18 09:38 Dose: 750 mg Dextrose (D50w Vial) 50 ml IV.PUSH UNSCH PRN PRN Reason: PER HYPOGLYCEMIA PROTOCOL Glucagon (Glucagon Inj) 1 mg OTHER PRN PRN PRN Reason: for Hypoglycemia Protocol Sodium Chloride (Ns Inj) 1,000 mls @ 100 mls/hr IV.CONT .Q10H [facility] Last Admin: 04/01/18 03:00 Dose: 100 mls/hr Sodium Chloride (Ns Inj) 500 mls @ 30 mls/hr IV.SIG .Q10H [facility] Last Admin: 03/30/18 00:26 Dose: Not Given Cefazolin Sodium 2,000 mg/ (Sodium Chloride) 100 mls @ 200 mls/hr IV.SIG Q8H [facility] Last Admin: 04/01/18 09:38 Dose: 200 mls/hr Insulin Detemir (Levemir Inj) 10 unit SQ HS [facility] Last Admin: 03/31/18 21:45 Dose: 10 unit Insulin Human Regular (Novolin R Correctional Sugar Inj) 0 units SQ [facility]; Protocol Last Admin: 04/01/18 09:05 Dose: Not Given Lactulose (Lactulose Liq) 30 ml PO DAILY PRN PRN Reason: SEVERE CONSITIPATION Ondansetron HCl (Zofran Inj) 4 mg IV.PUSH Q6H PRN PRN Reason: NAUSEA OR VOMITING Oxycodone/Acetaminophen (Percocet 10/325 Mg) 1 tab PO Q6H PRN PRN Reason: pain>6 Last Admin: 03/31/18 21:45 Dose: 1 tab Senna/Docusate Sodium (Fatmata-Colace) 1 tab PO BID [facility] Last Admin: 04/01/18 09:38 Dose: Not Given Sennosides (Senokot) 17.2 mg PO Q12H PRN PRN Reason: Moderate Constipation Sodium Chloride (Ns Flush) 2 ml IV.FLUSH PRN PRN PRN Reason: FLUSH AFTER USING IV ACCESS Allergies Allergy/AdvReac Type Severity Reaction Status Date / Time iodine Allergy Unknown Swelling Verified 03/26/18 10:44 potassium iodide Allergy Unknown Swelling Verified 03/26/18 10:44 povidone-iodine Allergy Unknown Swelling Verified 03/26/18 10:44 sodium iodide Allergy Unknown Swelling Verified 03/26/18 10:44 sodium iodide Allergy Unknown Swelling Verified 03/26/18 10:44 *MDRO Multi-Drug Resistant AdvReac Unknown n/a Uncoded 03/26/18 10:44 Organism Home Medications Medication Instructions Recorded Confirmed Type metformin 500 mg PO BID 02/27/18 03/26/18 History Results - Labs CBC & Chem 7: 03/27/18 04:53 04/01/18 03:52 Laboratory Results - last 24 hr 03/31/18 03/31/18 03/31/18 12:36 17:30 20:39 BUN Creatinine Estimated GFR POC Glucose 195 H 154 H 173 H 04/01/18 04/01/18 03:52 09:03 BUN 9 Creatinine 0.97 Estimated GFR 80 L POC Glucose 101 Microbiology 03/29/18 22:54 Wound - Foot Gram Stain - Final 03/29/18 22:54 Wound - Foot Wound Culture - Final Staphylococcus aureus 03/29/18 22:54 Wound - Foot Acid Fast Bacilli Smear - Final No acid fast bacilli seen 03/29/18 06:06 Blood - Peripheral Aerobic Blood Culture - Preliminary No growth in 2 days 03/29/18 06:06 Blood - Peripheral Anaerobic Blood Culture - Preliminary No growth in 2 days 03/28/18 14:18 Blood - Peripheral Aerobic Blood Culture - Preliminary No growth in 3 days 03/28/18 14:18 Blood - Peripheral Anaerobic Blood Culture - Preliminary No growth in 3 days 03/28/18 14:20 Blood - Peripheral Aerobic Blood Culture - Preliminary No growth in 3 days 03/28/18 14:20 Blood - Peripheral Anaerobic Blood Culture - Preliminary No growth in 3 days 03/26/18 11:05 Blood - Peripheral Aerobic Blood Culture - Final No growth in 5 days 03/26/18 11:05 Blood - Peripheral Anaerobic Blood Culture - Final Staphylococcus aureus 03/29/18 22:54 Wound - Foot Fungal Smear - Final No fungal elements seen Assessment and Plan - Assessment (1) Foot osteomyelitis, right Code(s): M86.9 - Osteomyelitis, unspecified Status: Acute - Plan -keep bandages clean, dry, and intact. Next dressing change in office with -bone biopsy is pending, ID to determine appropriate iv abx pending results -wbat in surgical shoe -ok for d/c once bx results are in and arrangements are made -f/u 3-5 days after d/c with
--- NOTE | 2018-04-01 12:09 | P.PN ---
Subjective Interval history: Follow-up osteomyelitis/diabetic foot infection March 30, 2018-patient seen and examined, afebrile, no acute event overnight. Pain to right lower extremity tolerable March 31, 2018-patient seen and examined, afebrile, stable. April 01, 2018-patient seen and examined,no acute event, no CP/SOB/dizziness Physical Exam Vital signs: Vital Signs 03/31/18 16:00 03/31/18 20:00 04/01/18 00:00 Temperature 97.3 F L 98 F 97.5 F L Pulse Rate 71 66 64 Respiratory Rate 16 20 20 Blood Pressure 141/85 H 161/71 H 128/66 Pulse Oximetry 99 96 95 04/01/18 08:00 Temperature 98.7 F Pulse Rate 64 Respiratory Rate 18 Blood Pressure 168/79 H Pulse Oximetry 98 Intake & Output 03/31/18 04/01/18 04/01/18 18:59 06:59 18:59 Intake Total 2735 / 2735 1580 / 1580 Balance 2735 / 2735 1580 / 1580 Intake: IV 1655 / 1655 1100 / 1100 NS Inj 1,000 ML @ 100 mls/hr IV 890 / 890 1000 / 1000 .CONT .Q10H [facility] Rx#:[id number] Zosyn 3.375 GM Premix 50 ML @ 50 / 50 100 mls/hr IV.SIG Q6H [facility] Rx#: [id number] Vancomycin Inj 1,500 MG In NS 515 / 515 Inj 500 ML @ 250 mls/hr IV.SIG Q12H [facility] Rx#:[id number] Ancef Inj 2,000 MG In NS Inj 80 200 / 200 100 / 100 ML @ 200 mls/hr IV.SIG Q8H [facility] Rx#:[id number] Oral 1080 / 1080 480 / 480 Other: # Voids 5 4 2 Date of Last Bowel Movement 03/30/18 # Bowel Movements 1 1 Narrative: GENERAL: NAD SKIN: Warm and dry. HEENT: Normocephalic. No scleral icterus. No injection or drainage. NECK: Supple, trachea midline. No JVD or lymphadenopathy. CARDIOVASCULAR: Regular rate and rhythm without murmurs, gallops, or rubs. RESPIRATORY: Breath sounds equal bilaterally. No accessory muscle use. GASTROINTESTINAL: Abdomen soft, non-tender, nondistended. MUSCULOSKELETAL: No cyanosis, or edema. R foot with base amputation of R toe with open wound, [id number], with clear liquid grainage and foul smell. Minimal clear drainage from 1st distal MT joint with erythema. L foot with lateral and medial ankle erythema with no drainage. Sensation intact BL to light touch. BACK: Nontender without obvious deformity. No CVA tenderness. Results - Labs CBC & Chem 7: 03/27/18 04:53 04/01/18 03:52 Laboratory Results - last 24 hr 03/31/18 03/31/18 03/31/18 12:36 17:30 20:39 BUN Creatinine Estimated GFR POC Glucose 195 H 154 H 173 H 04/01/18 04/01/18 03:52 09:03 BUN 9 Creatinine 0.97 Estimated GFR 80 L POC Glucose 101 Microbiology 03/29/18 06:06 Blood - Peripheral Aerobic Blood Culture - Preliminary No growth in 3 days 03/29/18 06:06 Blood - Peripheral Anaerobic Blood Culture - Preliminary No growth in 3 days 03/28/18 14:18 Blood - Peripheral Aerobic Blood Culture - Preliminary No growth in 4 days 03/28/18 14:18 Blood - Peripheral Anaerobic Blood Culture - Preliminary No growth in 4 days 03/28/18 14:20 Blood - Peripheral Aerobic Blood Culture - Preliminary No growth in 4 days 03/28/18 14:20 Blood - Peripheral Anaerobic Blood Culture - Preliminary No growth in 4 days 03/29/18 22:54 Wound - Foot Gram Stain - Final 03/29/18 22:54 Wound - Foot Wound Culture - Final Staphylococcus aureus 03/29/18 22:54 Wound - Foot Acid Fast Bacilli Smear - Final No acid fast bacilli seen 03/26/18 11:05 Blood - Peripheral Aerobic Blood Culture - Final No growth in 5 days 03/26/18 11:05 Blood - Peripheral Anaerobic Blood Culture - Final Staphylococcus aureus 03/29/18 22:54 Wound - Foot Fungal Smear - Final No fungal elements seen Assessment and Plan - Assessment (1) Foot osteomyelitis, right Code(s): M86.9 - Osteomyelitis, unspecified Status: Acute (2) Diabetes Code(s): E11.9 - Type 2 diabetes mellitus without complications Status: Chronic - Plan 57-year-old man with Osteomyelitis of Right Distal -Status post right big toe amputation, management per podiatry pending culture report -currently on Ancef and Cipro per ID. Course of abx to be determined by culture and path reports per ID -Wound care nurse consult appreciated, continue with recommendations. Bacteremia Blood cultures growing staph. -continue antibiotics per ID. -Repeat blood culture negative to date Diabetes Type II HgbA1c 9.9% on 02/2018. -SSI while inpatient. -continue Levemir 10 units HS. Smoker -Declined nicotine patch. -Encouraged cessation. Full code. 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
[2018-04-01] MEDS: oxyCODONE/Acetaminophen 10/325 Tablet PO PRN (13:54)
[2018-04-01] MEDS: Insulin Detemir Inj 1,000 UNIT/10 ML Vial SQ SCH (20:00)
[2018-04-02] MEDS: ceFAZolin Inj 2,000 MG in Sodium Chlor 0.9% Inj 80 ML IV.SIG SCH ×3 (01:05→18:15)
[2018-04-02] MEDS: oxyCODONE/Acetaminophen 10/325 Tablet PO PRN ×3 (01:05→20:54)
[2018-04-02 06:11] LABS: Blood Urea Nitrogen 9 mg/dL (7-18); Glomerular Filtration Rate Greater Than 89 mL/min (>89)
[2018-04-02] MEDS: Insulin NovoLIN Regular Correctional Sugar Inj SQ SCH ×4 (09:22→21:01)
[2018-04-02] MEDS: Senna/Docusate Sodium 8.6/50 MG Tablet PO SCH ×2 (09:23→20:55)
--- NOTE | 2018-04-02 09:48 | P.PN ---
Subjective Interval history: Follow-up osteomyelitis/diabetic foot infection March 30, 2018-patient seen and examined, afebrile, no acute event overnight. Pain to right lower extremity tolerable March 31, 2018-patient seen and examined, afebrile, stable. April 01, 2018-patient seen and examined,no acute event, no CP/SOB/dizziness April 02, 2018-patient seen and examined, stable, no change, afebrile Physical Exam Vital signs: Vital Signs 04/01/18 12:00 04/01/18 16:00 04/01/18 20:00 Temperature 97.9 F 97.9 F 97.9 F Pulse Rate 60 65 69 Respiratory Rate 18 18 18 Blood Pressure 146/75 H 169/89 H 133/69 Pulse Oximetry 99 96 100 04/02/18 00:00 04/02/18 02:37 04/02/18 02:41 Temperature 97.9 F Pulse Rate 72 Respiratory Rate 18 18 Blood Pressure 124/79 Pulse Oximetry 100 04/02/18 04:00 04/02/18 08:00 Temperature 97.8 F 97.6 F Pulse Rate 64 60 Respiratory Rate 18 16 Blood Pressure 159/81 H 150/84 H Pulse Oximetry 98 98 Intake & Output 04/01/18 04/02/18 04/02/18 18:59 06:59 18:59 Intake Total 580 / 580 1100 / 1100 Balance 580 / 580 1100 / 1100 Weight 74.22 kg Intake: IV 100 / 100 1100 / 1100 NS Inj 1,000 ML @ 100 mls/hr IV 1000 / 1000 .CONT .Q10H [facility] Rx#:[id number] Ancef Inj 2,000 MG In NS Inj 80 100 / 100 100 / 100 ML @ 200 mls/hr IV.SIG Q8H [facility] Rx#:[id number] Oral 480 / 480 Other: # Voids 2 1 Date of Last Bowel Movement 03/30/18 04/01/18 Narrative: GENERAL: NAD SKIN: Warm and dry. HEENT: Normocephalic. No scleral icterus. No injection or drainage. NECK: Supple, trachea midline. No JVD or lymphadenopathy. CARDIOVASCULAR: Regular rate and rhythm without murmurs, gallops, or rubs. RESPIRATORY: Breath sounds equal bilaterally. No accessory muscle use. GASTROINTESTINAL: Abdomen soft, non-tender, nondistended. MUSCULOSKELETAL: No cyanosis, or edema. R foot with base amputation of R toe with open wound, [id number], with clear liquid grainage and foul smell. Minimal clear drainage from 1st distal MT joint with erythema. L foot with lateral and medial ankle erythema with no drainage. Sensation intact BL to light touch. BACK: Nontender without obvious deformity. No CVA tenderness. Results - Labs CBC & Chem 7: 03/27/18 04:53 04/02/18 04:59 Laboratory Results - last 24 hr 04/01/18 04/01/18 04/01/18 13:51 18:25 19:59 BUN Creatinine Estimated GFR POC Glucose 117 H 123 H 142 H 04/02/18 04/02/18 04:59 07:47 BUN 9 Creatinine 0.73 Estimated GFR Greater than 89 POC Glucose 138 H Microbiology 03/29/18 06:06 Blood - Peripheral Aerobic Blood Culture - Preliminary No growth in 3 days 03/29/18 06:06 Blood - Peripheral Anaerobic Blood Culture - Preliminary No growth in 3 days 03/28/18 14:18 Blood - Peripheral Aerobic Blood Culture - Preliminary No growth in 4 days 03/28/18 14:18 Blood - Peripheral Anaerobic Blood Culture - Preliminary No growth in 4 days 03/28/18 14:20 Blood - Peripheral Aerobic Blood Culture - Preliminary No growth in 4 days 03/28/18 14:20 Blood - Peripheral Anaerobic Blood Culture - Preliminary No growth in 4 days 03/29/18 22:54 Wound - Foot Gram Stain - Final 03/29/18 22:54 Wound - Foot Wound Culture - Final Staphylococcus aureus Assessment and Plan - Assessment (1) Foot osteomyelitis, right Code(s): M86.9 - Osteomyelitis, unspecified Status: Acute (2) Diabetes Code(s): E11.9 - Type 2 diabetes mellitus without complications Status: Chronic - Plan 57-year-old man with Osteomyelitis of Right Distal -Status post right big toe amputation, management per podiatry pending culture report -currently on Ancef and Cipro per ID. Course of abx to be determined by culture and path reports per ID Bacteremia Blood cultures growing staph. -continue antibiotics per ID. -Repeat blood culture negative to date Diabetes Type II HgbA1c 9.9% on 02/2018. -SSI while inpatient. -continue Levemir 10 units HS. Smoker -Declined nicotine patch. -Encouraged cessation. Full code. DVT PPX: SCDs (2) Diabetes Qualifiers: Diabetes mellitus type: type 2 Diabetes mellitus longterm insulin use: without buttermaker helper use Diabetes mellitus complication status: with circulatory complication
[2018-04-02] MEDS: Insulin Detemir Inj 1,000 UNIT/10 ML Vial SQ SCH (21:01)
[2018-04-03] MEDS: ceFAZolin Inj 2,000 MG in Sodium Chlor 0.9% Inj 80 ML IV.SIG SCH ×3 (01:47→17:31)
[2018-04-03] MEDS: oxyCODONE/Acetaminophen 10/325 Tablet PO PRN (02:55)
[2018-04-03] MEDS: Insulin NovoLIN Regular Correctional Sugar Inj SQ SCH ×4 (08:00→20:35)
--- NOTE | 2018-04-03 09:36 | P.PN ---
Subjective Interval history: Follow-up osteomyelitis/diabetic foot infection March 30, 2018-patient seen and examined, afebrile, no acute event overnight. Pain to right lower extremity tolerable March 31, 2018-patient seen and examined, afebrile, stable. April 01, 2018-patient seen and examined,no acute event, no CP/SOB/dizziness April 02, 2018-patient seen and examined, stable, no change, afebrile April 03, 2018-patient seen and examined, no complaints, no acute event overnight. No chest pain or shortness of breath. Physical Exam Vital signs: Vital Signs 04/02/18 12:00 04/02/18 16:00 04/02/18 20:00 Temperature 97.7 F 97.7 F 97.8 F Pulse Rate 58 L 63 67 Respiratory Rate 16 16 20 Blood Pressure 130/71 170/94 H 148/78 H Pulse Oximetry 95 98 96 04/02/18 21:47 04/02/18 21:52 04/02/18 23:59 Temperature 97.6 F Pulse Rate 61 Respiratory Rate 18 18 20 Blood Pressure 147/79 H Pulse Oximetry 98 04/03/18 04:00 04/03/18 06:03 04/03/18 08:00 Temperature 98.6 F 97.5 F L Pulse Rate 73 62 Respiratory Rate 20 16 16 Blood Pressure 133/77 127/65 Pulse Oximetry 98 97 Intake & Output 04/02/18 04/03/18 04/03/18 18:59 06:59 18:59 Intake Total 1280 / 1280 100 / 100 Output Total 1230 / 1230 Balance 50 / 50 100 / 100 Weight 737.995 kg Intake: IV 200 / 200 100 / 100 Ancef Inj 2,000 MG In NS Inj 80 200 / 200 100 / 100 ML @ 200 mls/hr IV.SIG Q8H [facility] Rx#:[id number] Oral 480 / 480 Anesthesia Amount 300 / 300 Other 300 / 300 Output: Urine 1200 / 1200 Estimated Blood Loss Other: # Voids 1 5 Date of Last Bowel Movement 04/01/18 04/03/18 # Bowel Movements 1 2 Narrative: GENERAL: NAD SKIN: Warm and dry. HEENT: Normocephalic. No scleral icterus. No injection or drainage. NECK: Supple, trachea midline. No JVD or lymphadenopathy. CARDIOVASCULAR: Regular rate and rhythm without murmurs, gallops, or rubs. RESPIRATORY: Breath sounds equal bilaterally. No accessory muscle use. GASTROINTESTINAL: Abdomen soft, non-tender, nondistended. MUSCULOSKELETAL: No cyanosis, or edema. R foot with base amputation of R toe with open wound, [id number], with clear liquid grainage and foul smell. Minimal clear drainage from 1st distal MT joint with erythema. L foot with lateral and medial ankle erythema with no drainage. Sensation intact BL to light touch. BACK: Nontender without obvious deformity. No CVA tenderness. Results - Labs CBC & Chem 7: 03/27/18 04:53 04/03/18 07:25 Laboratory Results - last 24 hr 04/02/18 04/02/18 04/02/18 14:13 18:17 21:01 BUN Creatinine Estimated GFR POC Glucose 170 H 163 H 160 H 04/03/18 04/03/18 07:25 08:48 BUN 10 Creatinine 0.94 Estimated GFR 83 L POC Glucose 151 H Microbiology 03/29/18 06:06 Blood - Peripheral Aerobic Blood Culture - Preliminary No growth in 4 days 03/29/18 06:06 Blood - Peripheral Anaerobic Blood Culture - Preliminary No growth in 4 days 03/28/18 14:18 Blood - Peripheral Aerobic Blood Culture - Final No growth in 5 days 03/28/18 14:18 Blood - Peripheral Anaerobic Blood Culture - Final No growth in 5 days 03/28/18 14:20 Blood - Peripheral Aerobic Blood Culture - Final No growth in 5 days 03/28/18 14:20 Blood - Peripheral Anaerobic Blood Culture - Final No growth in 5 days Assessment and Plan - Assessment (1) Foot osteomyelitis, right Code(s): M86.9 - Status: Acute (2) Diabetes Code(s): E11.9 - Status: Chronic - Plan 57-year-old man with Osteomyelitis of Right Distal -Status post right big toe amputation, management per podiatry pending culture report -currently on Ancef and Cipro per ID. Course of abx to be determined by culture and path reports per ID Bacteremia Blood cultures growing staph. -continue antibiotics per ID. -Repeat blood culture negative to date Diabetes Type II HgbA1c 9.9% on 02/2018. -SSI while inpatient. -continue Levemir 10 units HS. Smoker -Declined nicotine patch. -Encouraged cessation. Full code. 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
[2018-04-03] MEDS: Senna/Docusate Sodium 8.6/50 MG Tablet PO SCH ×2 (10:20→20:35)
--- NOTE | 2018-04-03 13:34 | P.PNID ---
Subjective Remarks: Patient is a 57-year-old male, presented to the hospital for further evaluation of drainage from his right foot amputation site. Patient was in the hospital in February and at that time he had a wound on his right big toe. There was cellulitis, and imaging study showed osteomyelitis of his big toe. He was also found to have peripheral vascular disease, and he underwent right femoropopliteal bypass with PTFE, as well as RCEI endarterectomy and angioplasty. This was done February 17, and he subsequently underwent amputation of the right big toe at the metatarsal joint, and had disarticulation at the joint. The proximal part of the big toe was sent for pathology as the clear margin, and there was no evidence of osteomyelitis. Patient was sent home on oral antibiotics, and he apparently completed 14 days of treatment. Patient was seen in follow-up by the vascular surgeon. Patient has been following up with the slipman, and apparently the last time he was seen which was March 20 he had developed drainage at the amputation site. Patient apparently has been homeless for about a month. He has been walking a lot, and he states that he keeps his wound covered. He has now presented back to the hospital for further evaluation and treatment. He is always had swelling on that right foot. He is developed drainage which has worsened and there is an older. He denies any fever chills or sweats. Denies any respiratory, GI or any urinary complaints. Patient has been using the special footwear that he got from the hospital. On presentation he has been afebrile. His WBC is normal. MRI of the right foot is now showing abnormality on the first metatarsal. Infectious disease consultation has been requested to evaluate the patient for possible osteomyelitis. Notes reviewed Afebrile No complaints Had partial ray resection 1st MT 03/29 C/S prelim 2 colonies Coag (+) Staph Path pending Xray reviewed No new (+) BC BC with MSSA 03/26 Echo ok No rash or itching No diarrhea Antibiotics: Zosyn Vancomycin Lines: PIV Past Medical History: Diabetes Peripheral arterial disease Tobacco abuse History of eye surgery Hx of toe surgery S/P femoral-popliteal bypass surgery Allergies/Adverse Reactions: Allergies iodine Allergy (Unknown, Verified 03/26/18 10:44) Swelling potassium iodide Allergy (Unknown, Verified 03/26/18 10:44) Swelling povidone-iodine Allergy (Unknown, Verified 03/26/18 10:44) Swelling sodium iodide Allergy (Unknown, Verified 03/26/18 10:44) Swelling sodium iodide Allergy (Unknown, Verified 03/26/18 10:44) Swelling *MDRO Multi-Drug Resistant Organism Adverse Reaction (Unknown, Uncoded 03/26/18 10:44) n/a 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; 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 Objective Vital Signs 04/02/18 16:00 04/02/18 20:00 04/02/18 21:47 Temperature 97.7 F 97.8 F Pulse Rate 63 67 Respiratory Rate 16 20 18 Blood Pressure 170/94 H 148/78 H Pulse Oximetry 98 96 04/02/18 21:52 04/02/18 23:59 04/03/18 04:00 Temperature 97.6 F 98.6 F Pulse Rate 61 73 Respiratory Rate 18 20 20 Blood Pressure 147/79 H 133/77 Pulse Oximetry 98 98 04/03/18 06:03 04/03/18 08:00 04/03/18 12:00 Temperature 97.5 F L 97.6 F Pulse Rate 62 62 Respiratory Rate 16 16 14 Blood Pressure 127/65 124/74 Pulse Oximetry 97 98 Intake & Output 04/02/18 04/03/18 04/03/18 18:59 06:59 18:59 Intake Total 1280 / 1280 100 / 100 100 / 100 Output Total 1230 / 1230 Balance 50 / 50 100 / 100 100 / 100 Weight 737.995 kg Intake: IV 200 / 200 100 / 100 100 / 100 Ancef Inj 2,000 MG In NS Inj 80 200 / 200 100 / 100 100 / 100 ML @ 200 mls/hr IV.SIG Q8H [facility] Rx#:[id number] Oral 480 / 480 Anesthesia Amount 300 / 300 Other 300 / 300 Output: Urine 1200 / 1200 Estimated Blood Loss 30 / 30 Other: # Voids 1 5 Date of Last Bowel Movement 04/01/18 04/03/18 # Bowel Movements 1 2 03/29/18 06:06 Blood - Peripheral Aerobic Blood Culture - Final No growth in 5 days 03/29/18 06:06 Blood - Peripheral Anaerobic Blood Culture - Final No growth in 5 days 03/28/18 14:18 Blood - Peripheral Aerobic Blood Culture - Final No growth in 5 days 03/28/18 14:18 Blood - Peripheral Anaerobic Blood Culture - Final No growth in 5 days 03/28/18 14:20 Blood - Peripheral Aerobic Blood Culture - Final No growth in 5 days 03/28/18 14:20 Blood - Peripheral Anaerobic Blood Culture - Final No growth in 5 days 03/29/18 22:54 Wound - Foot Gram Stain - Final 03/29/18 22:54 Wound - Foot Wound Culture - Final Staphylococcus aureus 03/29/18 22:54 Wound - Foot Acid Fast Bacilli Smear - Final No acid fast bacilli seen 03/29/18 22:54 Wound - Foot Mycobacterial Culture - Pending 03/26/18 11:05 Blood - Peripheral Aerobic Blood Culture - Final No growth in 5 days 03/26/18 11:05 Blood - Peripheral Anaerobic Blood Culture - Final Staphylococcus aureus 03/29/18 22:54 Wound - Foot Fungal Smear - Final No fungal elements seen 03/29/18 22:54 Wound - Foot Fungal Culture - Pending Lab - Chemistry Results 04/01/18 04/01/18 04/01/18 13:51 18:25 19:59 BUN Creatinine Estimated GFR POC Glucose 117 H 123 H 142 H 04/02/18 04/02/18 04/02/18 04:59 07:47 14:13 BUN 9 Creatinine 0.73 Estimated GFR Greater than 89 POC Glucose 138 H 170 H 04/02/18 04/02/18 04/03/18 18:17 21:01 07:25 BUN 10 Creatinine 0.94 Estimated GFR 83 L POC Glucose 163 H 160 H 04/03/18 04/03/18 08:48 11:25 BUN Creatinine Estimated GFR POC Glucose 151 H 186 H Imaging: ITS Impressions Foot MRI 03/26/18 00:00 CONCLUSION: 1. There is osteomyelitis involving the first metatarsal bones diffusely with the exception of the proximal epiphysis and extensive inflammatory process in the surrounding soft tissues. Foot X-Ray 03/29/18 00:00 CONCLUSION: Great toe amputation at the level the mid metatarsal shaft. Physical Exam: GENERAL: awake and alert, NAD SKIN: Cool and dry. No generalized rash. HEAD: Atraumatic. Normocephalic. No temporal wasting, or tenderness. EYES: [place] conjunctiva. No petechia or hemorrhage. No scleral icterus. No injection or drainage. EARS, NOSE AND THROAT: Mucous membranes pink and moist. No oral lesions noted. NECK: Trachea midline. Supple and not tender, no meningeal signs CARDIOVASCULAR: Regular rate and rhythm. No murmurs, rubs or gallops heard RESPIRATORY: Clear to auscultation. Breath sounds equal bilaterally. No rales , wheezing or rhonchi ABDOMEN: Soft, non-tender, nondistended. Bowel sounds present and normoactive. No guarding. No rebound. No organomegaly. EXTREMITIES: No clubbing, cyanosis. No calf tenderness. R foot - has dry intact dressing; no lymphangitis seen in his R leg NEUROLOGICAL: Grossly non-focal. PSYCHIATRIC: Normal affect, calm and cooperative. LINE: No evidence of infection Assessment and Plan - Plan Impression Staph aureus MSSA sepsis, due to foot infection Infection, amputation site S/P amputation of big toe, has cellulitis and MRI showing osteo of first MT bone PVD, S/P bypass surgery RLE 02/17 DM Recommendation Continue Ancef Continue Cipro Await path Will ask podiatry where C/S taken Follow C/S Monitor progress
[2018-04-03] MEDS: Insulin Detemir Inj 1,000 UNIT/10 ML Vial SQ SCH (20:35)
[2018-04-04] MEDS: ceFAZolin Inj 2,000 MG in Sodium Chlor 0.9% Inj 80 ML IV.SIG SCH ×3 (02:39→18:03)
[2018-04-04] MEDS: oxyCODONE/Acetaminophen 10/325 Tablet PO PRN ×2 (03:26→21:25)
[2018-04-04] MEDS: Insulin NovoLIN Regular Correctional Sugar Inj SQ SCH ×4 (08:02→21:28)
[2018-04-04] MEDS: Senna/Docusate Sodium 8.6/50 MG Tablet PO SCH ×2 (09:00→21:29)
--- NOTE | 2018-04-04 09:48 | P.PN ---
Subjective Interval history: Follow-up osteomyelitis/diabetic foot infection March 30, 2018-patient seen and examined, afebrile, no acute event overnight. Pain to right lower extremity tolerable March 31, 2018-patient seen and examined, afebrile, stable. April 01, 2018-patient seen and examined,no acute event, no CP/SOB/dizziness April 02, 2018-patient seen and examined, stable, no change, afebrile April 03, 2018-patient seen and examined, no complaints, no acute event overnight. No chest pain or shortness of breath. April 04, 2018-patient seen and examined, events stable, no change, afebrile. Physical Exam Vital signs: Vital Signs 04/03/18 12:00 04/03/18 16:00 04/03/18 20:00 Temperature 97.6 F 97.5 F L 97.6 F Pulse Rate 62 86 78 Respiratory Rate 14 16 Blood Pressure 124/74 114/67 130/72 Pulse Oximetry 98 100 99 04/04/18 00:00 04/04/18 04:00 04/04/18 04:10 Temperature 97.9 F 97.7 F Pulse Rate 72 70 Respiratory Rate 16 16 18 Blood Pressure 119/60 117/70 Pulse Oximetry 97 96 04/04/18 07:53 04/04/18 08:00 Temperature 98.0 F Pulse Rate 64 Respiratory Rate 18 14 Blood Pressure 110/63 Pulse Oximetry 96 Intake & Output 04/03/18 04/04/18 04/04/18 18:59 06:59 18:59 Intake Total 200 / 200 100 / 100 Balance 200 / 200 100 / 100 Weight 73.198 kg Intake: IV 200 / 200 100 / 100 Ancef Inj 2,000 MG In NS Inj 80 200 / 200 100 / 100 ML @ 200 mls/hr IV.SIG Q8H [facility] Rx#:[id number] Other: # Voids 6 Date of Last Bowel Movement 04/03/18 04/04/18 04/04/18 # Bowel Movements 2 Narrative: GENERAL: NAD SKIN: Warm and dry. HEENT: Normocephalic. No scleral icterus. No injection or drainage. NECK: Supple, trachea midline. No JVD or lymphadenopathy. CARDIOVASCULAR: Regular rate and rhythm without murmurs, gallops, or rubs. RESPIRATORY: Breath sounds equal bilaterally. No accessory muscle use. GASTROINTESTINAL: Abdomen soft, non-tender, nondistended. MUSCULOSKELETAL: No cyanosis, or edema. R foot with base amputation of R toe with open wound, [id number], with clear liquid grainage and foul smell. Minimal clear drainage from 1st distal MT joint with erythema. L foot with lateral and medial ankle erythema with no drainage. Sensation intact BL to light touch. BACK: Nontender without obvious deformity. No CVA tenderness. Results - Labs CBC & Chem 7: 03/27/18 04:53 04/04/18 05:55 Laboratory Results - last 24 hr 04/03/18 04/03/18 04/03/18 11:25 16:30 20:32 BUN Creatinine Estimated GFR POC Glucose 186 H 178 H 181 H 04/04/18 04/04/18 05:55 08:22 BUN 12 Creatinine 0.98 Estimated GFR 79 L POC Glucose 146 H Microbiology 03/29/18 06:06 Blood - Peripheral Aerobic Blood Culture - Final No growth in 5 days 03/29/18 06:06 Blood - Peripheral Anaerobic Blood Culture - Final No growth in 5 days Assessment and Plan - Assessment (1) Foot osteomyelitis, right Code(s): M86.9 - Osteomyelitis, unspecified Status: Acute (2) Diabetes Code(s): E11.9 - Type 2 diabetes mellitus without complications Status: Chronic - Plan 57-year-old man with Osteomyelitis of Right Distal -Status post right big toe amputation, management per podiatry pending culture report -currently on Ancef and Cipro per ID. Course of abx to be determined by culture and path reports per ID -PT to treat and eval Bacteremia Blood cultures growing staph. -continue antibiotics per ID. -Repeat blood culture negative to date Diabetes Type II HgbA1c 9.9% on 02/2018. -SSI while inpatient. -continue Levemir 10 units HS. Smoker -Declined nicotine patch. -Encouraged cessation. Full code. DVT PPX: SCDs (2) Diabetes Qualifiers: Diabetes mellitus type: type 2 Diabetes mellitus mcc insulin use: without mcc use Diabetes mellitus complication status: with circulatory complication
[2018-04-04] MEDS: Insulin Detemir Inj 1,000 UNIT/10 ML Vial SQ SCH (21:28)
[2018-04-05] MEDS: ceFAZolin 2 GM Premix Inj 2 GM/50 ML PIGGYBACK IV.SIG SCH ×3 (02:10→18:04)
[2018-04-05] MEDS: Insulin NovoLIN Regular Correctional Sugar Inj SQ SCH ×4 (08:49→21:51)
[2018-04-05] MEDS: Senna/Docusate Sodium 8.6/50 MG Tablet PO SCH ×2 (08:52→21:51)
--- NOTE | 2018-04-05 09:02 | P.PN ---
Subjective Interval history: Follow-up osteomyelitis/diabetic foot infection March 30, 2018-patient seen and examined, afebrile, no acute event overnight. Pain to right lower extremity tolerable March 31, 2018-patient seen and examined, afebrile, stable. April 01, 2018-patient seen and examined,no acute event, no CP/SOB/dizziness April 02, 2018-patient seen and examined, stable, no change, afebrile April 03, 2018-patient seen and examined, no complaints, no acute event overnight. No chest pain or shortness of breath. April 04, 2018-patient seen and examined, events stable, no change, afebrile. April 05, 2018-patient seen and examined, afebrile, no chest pain or shortness of breath. No acute event overnight. Physical Exam Vital signs: Vital Signs 04/04/18 12:00 04/04/18 16:00 04/04/18 19:47 Temperature 97.3 F L 97.6 F 97.7 F Pulse Rate 64 64 65 Respiratory Rate 18 14 16 Blood Pressure 134/79 126/74 128/76 Pulse Oximetry 99 97 96 04/05/18 00:00 04/05/18 04:00 04/05/18 07:41 Temperature 98.0 F 98.0 F 97.7 F Pulse Rate 72 70 61 Respiratory Rate 18 18 14 Blood Pressure 118/75 125/77 122/70 Pulse Oximetry 98 99 94 L Intake & Output 04/04/18 04/05/18 04/05/18 18:59 06:59 18:59 Intake Total 200 / 200 50 / 50 Balance 200 / 200 50 / 50 Weight 73 kg Intake: IV 200 / 200 50 / 50 Ancef 2 GM Premix Inj 2 gm In 50 / 50 50 ml @ 100 mls/hr IV.SIG Q8H [facility] Rx#:[id number] Ancef Inj 2,000 MG In NS Inj 80 200 / 200 ML @ 200 mls/hr IV.SIG Q8H [facility] Rx#:[id number] Other: # Voids 3 Date of Last Bowel Movement 04/04/18 04/04/18 Narrative: GENERAL: NAD SKIN: Warm and dry. HEENT: Normocephalic. No scleral icterus. No injection or drainage. NECK: Supple, trachea midline. No JVD or lymphadenopathy. CARDIOVASCULAR: Regular rate and rhythm without murmurs, gallops, or rubs. RESPIRATORY: Breath sounds equal bilaterally. No accessory muscle use. GASTROINTESTINAL: Abdomen soft, non-tender, nondistended. MUSCULOSKELETAL: No cyanosis, or edema. R foot with base amputation of R toe with open wound, [id number], with clear liquid grainage and foul smell. Minimal clear drainage from 1st distal MT joint with erythema. L foot with lateral and medial ankle erythema with no drainage. Sensation intact BL to light touch. BACK: Nontender without obvious deformity. No CVA tenderness. Results - Labs CBC & Chem 7: 03/27/18 04:53 04/04/18 05:55 Laboratory Results - last 24 hr 04/04/18 04/04/18 04/04/18 12:32 16:27 19:46 POC Glucose 153 H 129 H 221 H 04/05/18 07:39 POC Glucose 143 H - Procedures Status post right big toe amputation Assessment and Plan - Assessment (1) Foot osteomyelitis, right Code(s): M86.9 - Osteomyelitis, unspecified Status: Acute (2) Diabetes Code(s): E11.9 - Type 2 diabetes mellitus without complications Status: Chronic - Plan 57-year-old man with Osteomyelitis of Right Distal -Status post right big toe amputation, management per podiatry pending culture report -currently on Ancef and Cipro per ID. Course of abx to be determined by culture and path reports per ID -PT to treat and eval Bacteremia Blood cultures growing staph. -continue antibiotics per ID. -Repeat blood culture negative to date Diabetes Type II HgbA1c 9.9% on 02/2018. -SSI while inpatient. -continue Levemir 10 units HS. Smoker -Declined nicotine patch. -Encouraged cessation. Full code. DVT PPX: SCDs Continue with current treatment (2) Diabetes Qualifiers: Diabetes mellitus type: type 2 Diabetes mellitus termite helper insulin use: without half-way use Diabetes mellitus complication status: with circulatory complication
--- NOTE | 2018-04-05 16:49 | P.PNID ---
Subjective Remarks: Patient is a 57-year-old male, presented to the hospital for further evaluation of drainage from his right foot amputation site. Patient was in the hospital in February and at that time he had a wound on his right big toe. There was cellulitis, and imaging study showed osteomyelitis of his big toe. He was also found to have peripheral vascular disease, and he underwent right femoropopliteal bypass with PTFE, as well as RCEI endarterectomy and angioplasty. This was done February 17, and he subsequently underwent amputation of the right big toe at the metatarsal joint, and had disarticulation at the joint. The proximal part of the big toe was sent for pathology as the clear margin, and there was no evidence of osteomyelitis. Patient was sent home on oral antibiotics, and he apparently completed 14 days of treatment. Patient was seen in follow-up by the vascular surgeon. Patient has been following up with the deadener, and apparently the last time he was seen which was March 20 he had developed drainage at the amputation site. Patient apparently has been homeless for about a month. He has been walking a lot, and he states that he keeps his wound covered. He has now presented back to the hospital for further evaluation and treatment. He is always had swelling on that right foot. He is developed drainage which has worsened and there is an older. He denies any fever chills or sweats. Denies any respiratory, GI or any urinary complaints. Patient has been using the special footwear that he got from the hospital. On presentation he has been afebrile. His WBC is normal. MRI of the right foot is now showing abnormality on the first metatarsal. Infectious disease consultation has been requested to evaluate the patient for possible osteomyelitis. Notes reviewed Afebrile No complaints Had partial ray resection 1st MT 03/29 C/S MSSA from remaining soft tissue Path no osteo on bone; margins clear Xray reviewed No new (+) BC BC with MSSA 03/26 Echo ok No rash or itching No diarrhea Antibiotics: Ancef Lines: PIV Past Medical History: Diabetes Peripheral arterial disease Tobacco abuse History of eye surgery Hx of toe surgery S/P femoral-popliteal bypass surgery Allergies/Adverse Reactions: Allergies iodine Allergy (Unknown, Verified 03/26/18 10:44) Swelling potassium iodide Allergy (Unknown, Verified 03/26/18 10:44) Swelling povidone-iodine Allergy (Unknown, Verified 03/26/18 10:44) Swelling sodium iodide Allergy (Unknown, Verified 03/26/18 10:44) Swelling sodium iodide Allergy (Unknown, Verified 03/26/18 10:44) Swelling *MDRO Multi-Drug Resistant Organism Adverse Reaction (Unknown, Uncoded 03/26/18 10:44) n/a 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; 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 Objective Vital Signs 04/04/18 19:47 04/05/18 00:00 04/05/18 04:00 Temperature 97.7 F 98.0 F 98.0 F Pulse Rate 65 72 70 Respiratory Rate 16 18 18 Blood Pressure 128/76 118/75 125/77 Pulse Oximetry 96 98 99 04/05/18 07:41 04/05/18 12:00 Temperature 97.7 F 97.2 F L Pulse Rate 61 62 Respiratory Rate 14 18 Blood Pressure 122/70 119/69 Pulse Oximetry 94 L 97 Intake & Output 04/04/18 04/05/18 04/05/18 18:59 06:59 18:59 Intake Total 200 / 200 50 / 50 50 / 50 Balance 200 / 200 50 / 50 50 / 50 Weight 73 kg Intake: IV 200 / 200 50 / 50 50 / 50 Ancef 2 GM Premix Inj 2 gm In 50 / 50 50 / 50 50 ml @ 100 mls/hr IV.SIG Q8H [facility] Rx#:[id number] Ancef Inj 2,000 MG In NS Inj 80 200 / 200 ML @ 200 mls/hr IV.SIG Q8H [facility] Rx#:[id number] Other: # Voids 3 Date of Last Bowel Movement 04/04/18 04/04/18 04/05/18 03/29/18 22:54 Wound - Foot Fungal Smear - Final No fungal elements seen 03/29/18 22:54 Wound - Foot Fungal Culture - Preliminary No growth in 1 week 03/29/18 22:54 Wound - Foot Acid Fast Bacilli Smear - Final No acid fast bacilli seen 03/29/18 22:54 Wound - Foot Mycobacterial Culture - Preliminary No growth in 1 week 03/29/18 06:06 Blood - Peripheral Aerobic Blood Culture - Final No growth in 5 days 03/29/18 06:06 Blood - Peripheral Anaerobic Blood Culture - Final No growth in 5 days Lab - Chemistry Results 04/03/18 04/03/1804/04/18 16:30 20:32 05:55 BUN 12 Creatinine 0.98 Estimated GFR 79 L POC Glucose 178 H 181 H 04/04/18 04/04/18 04/04/18 08:22 12:32 16:27 BUN Creatinine Estimated GFR POC Glucose 146 H 153 H 129 H 04/04/18 04/05/18 04/05/18 19:46 07:39 12:20 BUN Creatinine Estimated GFR POC Glucose 221 H 143 H 154 H Imaging: ITS Impressions Foot MRI 03/26/18 00:00 CONCLUSION: 1. There is osteomyelitis involving the first metatarsal bones diffusely with the exception of the proximal epiphysis and extensive inflammatory process in the surrounding soft tissues. Foot X-Ray 03/29/18 00:00 CONCLUSION: Great toe amputation at the level the mid metatarsal shaft. Physical Exam: GENERAL: awake and alert, NAD SKIN: Cool and dry. No generalized rash. EYES: [place] conjunctiva. No petechia or hemorrhage. No scleral icterus. No injection or drainage. EARS, NOSE AND THROAT: Mucous membranes pink and moist. No oral lesions noted. NECK: Trachea midline. Supple and not tender, no meningeal signs CARDIOVASCULAR: Regular rate and rhythm. No murmurs, rubs or gallops heard RESPIRATORY: Clear to auscultation. Breath sounds equal bilaterally. No rales , wheezing or rhonchi ABDOMEN: Soft, non-tender, nondistended. Bowel sounds present and normoactive. No guarding. No rebound. No organomegaly. EXTREMITIES: No clubbing, cyanosis. No calf tenderness. R foot - has dry intact dressing; no lymphangitis seen in his R leg NEUROLOGICAL: Grossly non-focal. PSYCHIATRIC: Normal affect, calm and cooperative. LINE: No evidence of infection Assessment and Plan - Plan Impression Staph aureus MSSA sepsis, due to foot infection Infection, amputation site S/P amputation of big toe, has cellulitis and MRI showing osteo of first MT bone PVD, S/P bypass surgery RLE 02/17 DM Recommendation Continue Ancef Continue Cipro D/W podiatry yesterday Will give 3-4 weeks IV post surgery Monitor progress D/W CM - discharge difficult since he is homeless
[2018-04-05] MEDS: oxyCODONE/Acetaminophen 10/325 Tablet PO PRN (21:50)
[2018-04-05] MEDS: Insulin Detemir Inj 1,000 UNIT/10 ML Vial SQ SCH (21:51)
[2018-04-06] MEDS: ceFAZolin 2 GM Premix Inj 2 GM/50 ML PIGGYBACK IV.SIG SCH ×3 (01:32→17:33)
[2018-04-06] MEDS: oxyCODONE/Acetaminophen 10/325 Tablet PO PRN ×2 (05:23→19:45)
--- NOTE | 2018-04-06 09:03 | P.PN ---
Subjective Interval history: no complains no fever or chills Physical Exam Vital signs: Vital Signs 04/05/18 12:00 04/05/18 16:00 04/05/18 19:48 Temperature 97.2 F L 97.8 F 97.7 F Pulse Rate 62 67 77 Respiratory Rate 18 18 18 Blood Pressure 119/69 98/65 L 111/62 Pulse Oximetry 97 96 99 04/06/18 00:00 04/06/18 05:25 04/06/18 08:00 Temperature 97.5 F L 97.7 F 97.6 F Pulse Rate 70 64 86 Respiratory Rate 18 15 20 Blood Pressure 110/68 114/65 104/51 L Pulse Oximetry 99 98 100 Intake & Output 04/05/18 04/06/18 04/06/18 18:59 06:59 18:59 Intake Total 1300 / 1300 590 / 590 Balance 1300 / 1300 590 / 590 Weight 73.4 kg Intake: IV 100 / 100 50 / 50 Ancef 2 GM Premix Inj 2 gm In 100 / 100 50 / 50 50 ml @ 100 mls/hr IV.SIG Q8H [facility] Rx#:[id number] Oral 1200 / 1200 540 / 540 Other: # Voids 6 Date of Last Bowel Movement 04/05/18 04/05/18 # Bowel Movements 2 Narrative: GENERAL: NAD SKIN: Warm and dry. HEENT: Normocephalic. No scleral icterus. No injection or drainage. NECK: Supple, CARDIOVASCULAR: Regular rate and rhythm without murmurs, gallops, or rubs. RESPIRATORY: Breath sounds equal bilaterally. No accessory muscle use. GASTROINTESTINAL: Abdomen soft, non-tender, nondistended. LE_ - foot- post op dressing in place Results - Labs CBC & Chem 7: 03/27/18 04:53 04/04/18 05:55 Laboratory Results - last 24 hr 04/05/18 04/05/18 04/05/18 12:20 17:27 19:47 POC Glucose 154 H 126 H 202 H 04/06/18 07:33 POC Glucose 134 H Microbiology 03/29/18 22:54 Wound - Foot Fungal Smear - Final No fungal elements seen 03/29/18 22:54 Wound - Foot Fungal Culture - Preliminary No growth in 1 week 03/29/18 22:54 Wound - Foot Acid Fast Bacilli Smear - Final No acid fast bacilli seen 03/29/18 22:54 Wound - Foot Mycobacterial Culture - Preliminary No growth in 1 week - Procedures Status post right big toe amputation Assessment and Plan - Assessment (1) Foot osteomyelitis, right Code(s): M86.9 - Osteomyelitis, unspecified Status: Acute (2) Diabetes Code(s): E11.9 - Type 2 diabetes mellitus without complications Status: Chronic - Plan 57-year-old man with MSSA sepsis Osteomyelitis of Right foot infection PVD, S/P bypass surgery RLE 02/17 -Status post right big toe amputation 03/29 -currently on Ancef and Cipro per ID. - plan 3-4 weeks IV post surgery -PT -Repeat blood culture negative to date -Podiatry ff- will reconsult them-for post op check/dressing change and instructions last Podiatry notes - keep dressing plan was to ff up on DC in 4-5 days- patient is homeless and probably needs to stay in house for completion of antiobitics Diabetes Type II HgbA1c 9.9% on 02/2018. -SSI while inpatient. -continue Levemir 10 units HS and adjust regimen- BS gradually improving Smoker -Declined nicotine patch. -Encouraged cessation. Full code. DVT PPX: SCDs, up and ambulating Continue with current treatment Patient- homeless (2) Diabetes Qualifiers: Diabetes mellitus type: type 2 Diabetes mellitus long term care administrator insulin use: without long term care administrator use Diabetes mellitus complication status: with circulatory complication
[2018-04-06] MEDS: Senna/Docusate Sodium 8.6/50 MG Tablet PO SCH ×2 (09:43→19:59)
[2018-04-06] MEDS: Insulin NovoLIN Regular Correctional Sugar Inj SQ SCH ×4 (09:46→19:59)
[2018-04-06] MEDS: Insulin Detemir Inj 1,000 UNIT/10 ML Vial SQ SCH (19:59)
--- NOTE | 2018-04-06 21:36 | P.PNPOD ---
Subjective Interval history: Patient seen bedside. Resting comfortably. No concerns or complaints. Physical Exam Vital signs: Vital Signs 04/06/18 00:00 04/06/18 05:25 04/06/18 08:00 Temperature 97.5 F L 97.7 F 97.6 F Pulse Rate 70 64 86 Respiratory Rate 18 15 20 Blood Pressure 110/68 114/65 104/51 L Pulse Oximetry 99 98 100 04/06/18 12:00 04/06/18 16:00 04/06/18 20:00 Temperature 97.6 F 98 F 98.5 F Pulse Rate 71 72 73 Respiratory Rate 18 20 18 Blood Pressure 104/69 112/68 105/69 Pulse Oximetry 95 96 98 Intake & Output 04/06/18 04/06/18 04/07/18 06:59 18:59 06:59 Intake Total 590 / 590 50 / 50 50 / 50 Balance 590 / 590 50 / 50 50 / 50 Weight 73.4 kg Intake: IV 50 / 50 50 / 50 50 / 50 Ancef 2 GM Premix Inj 2 gm In 50 / 50 50 / 50 50 / 50 50 ml @ 100 mls/hr IV.SIG Q8H [facility] Rx#:[id number] Oral 540 / 540 Other: Date of Last Bowel Movement 04/05/18 Narrative: Sutures intact with skin well coapted. Sanguinous strikethrough noted to bandage. No edema or erythema noted. Medications and Allergies Active Medications: Active Medications Acetaminophen (Tylenol) 650 mg PO Q4H PRN PRN Reason: Temp > 100.4 Al Hydroxide/Mg Hydroxide (Milk Of Magntenisha Liq) 30 ml PO Q12H PRN PRN Reason: Mild Constipation Bisacodyl (Dulcolax Supp) 10 mg RECTAL DAILY PRN PRN Reason: SEVERE CONSITIPATION Ciprofloxacin HCl (Cipro) 750 mg PO Q12HR [facility] Last Admin: 04/06/18 19:59 Dose: 750 mg Dextrose (D50w Vial) 50 ml IV.PUSH UNSCH PRN PRN Reason: PER HYPOGLYCEMIA PROTOCOL Glucagon (Glucagon Inj) 1 mg OTHER PRN PRN PRN Reason: for Hypoglycemia Protocol Sodium Chloride (Ns Inj) 500 mls @ 30 mls/hr IV.SIG .Q10H [facility] Last Admin: 03/30/18 00:26 Dose: Not Given Cefazolin Sodium/Dextrose (Ancef 2 Gm Premix Inj) 2 gm in 50 mls @ 100 mls/hr IV.SIG Q8H [facility] Last Infusion: 04/06/18 19:20 Dose: Infused Insulin Detemir (Levemir Inj) 10 unit SQ HS [facility] Last Admin: 04/06/18 19:59 Dose: 10 unit Insulin Human Regular (Novolin R Correctional Sugar Inj) 0 units SQ ACHS [facility]; Protocol Last Admin: 04/06/18 19:59 Dose: 3 units Lactulose (Lactulose Liq) 30 ml PO DAILY PRN PRN Reason: SEVERE CONSITIPATION Ondansetron HCl (Zofran Inj) 4 mg IV.PUSH Q6H PRN PRN Reason: NAUSEA OR VOMITING Oxycodone/Acetaminophen (Percocet 10/325 Mg) 1 tab PO Q6H PRN PRN Reason: pain>6 Last Admin: 04/06/18 19:45 Dose: 1 tab Senna/Docusate Sodium (Fatmata-Colace) 1 tab PO BID [facility] Last Admin: 04/06/18 19:59 Dose: Not Given Sennosides (Senokot) 17.2 mg PO Q12H PRN PRN Reason: Moderate Constipation Sodium Chloride (Ns Flush) 2 ml IV.FLUSH PRN PRN PRN Reason: FLUSH AFTER USING IV ACCESS Allergies Allergy/AdvReac Type Severity Reaction Status Date / Time iodine Allergy Unknown Swelling Verified 03/26/18 10:44 potassium iodide Allergy Unknown Swelling Verified 03/26/18 10:44 povidone-iodine Allergy Unknown Swelling Verified 03/26/18 10:44 sodium iodide Allergy Unknown Swelling Verified 03/26/18 10:44 sodium iodide Allergy Unknown Swelling Verified 03/26/18 10:44 *MDRO Multi-Drug Resistant AdvReac Unknown n/a Uncoded 03/26/18 10:44 Organism Home Medications Medication Instructions Recorded Confirmed Type metformin 500 mg PO BID 02/27/18 03/26/18 History Results - Labs CBC & Chem 7: 03/27/18 04:53 04/04/18 05:55 Laboratory Results - last 24 hr 04/06/18 04/06/18 04/06/18 07:33 11:41 16:52 POC Glucose 134 H 165 H 141 H 04/06/18 19:35 POC Glucose 219 H - Procedures Status post right big toe amputation Assessment and Plan - Assessment (1) Foot osteomyelitis, right Code(s): M86.9 - Osteomyelitis, unspecified Status: Acute Plan: 57 year old male s/p right first ray resection DOS: 03/29 Dressing changed to the right foot Xeroform with DSD applied Will remove sutures in 7 days Patient to stay in house for IV abx per hospitalist notes
[2018-04-07] MEDS: ceFAZolin 2 GM Premix Inj 2 GM/50 ML PIGGYBACK IV.SIG SCH (01:41)
[2018-04-07] MEDS: oxyCODONE/Acetaminophen 10/325 Tablet PO PRN (01:41)
[2018-04-07] MEDS: Insulin NovoLIN Regular Correctional Sugar Inj SQ SCH ×3 (08:22→18:51)
--- NOTE | 2018-04-07 09:43 | P.DCO ---
Post Hospital Infusion Therapy Location of Infusion Therapy: Ambulatory Infusion Therapy Order Patient Weight: 73.5 kg - Diagnosis (1) Foot ulcer, left Code(s): L97.529 - Non-pressure chronic ulcer of other part of left foot with unspecified severity (2) Staphylococcus aureus bacteremia Code(s): R78.81 - Bacteremia - Administer Medication Ceftriaxone Dose: 2 grams IV Directions: q 24 hours Stop Treatment: 04/18/18 - Additional Information Venous Access: Other (midline) Additional Instructions: [x] Peripheral flush and dressing changes per protocol [x] Implanted port and central pipeline executive: * Implanted port: 10 ml Normal Saline followed by 5 ml Heparin 100 units/ml Heparin flush after each use and monthly to maintain. [] May leave port accessed during therapy. [] May leave peripheral site accessed for duration of therapy. [x] If patient has SOB or respiratory distress, check oxygen saturation. If less than 90% or clinical signs of respiratory distress, administer oxygen at 2 L/min. via nasal cannula and notify physician. [x] Anaphylaxis/Reaction orders: * Stop infusion. * Keep IV line open with saline flush. * Notify physician. * Monitor vital signs every 15 minutes until symptoms resolve. * Check Oxygen saturation; Oxygen at 2 L/min. via nasal cannula if less than 90% or clinical signs of respiratory distress. * Administer diphenhydramine (Benadryl) 25 mg IV STAT, (unless patient has received as pre-med). May repeat once, if necessary. * Solu-Cortef 250 mg IVP over 30-60 seconds, use 100 mg vials for each dissolution. * Epinephrine (1mg/1 ml) 0.3 mg subcutaneously or IVP now with any signs of respiratory distress. * Check with physician for new additional pre-med orders if patient is re- challenged or re-treated. [x] May remove PICC line when treatment complete, after confirming with Physician. [x] If the patient is admitted to the hospital, the ED, or transferred via [facility] , complete transfer form including medication reconciliation order sheet. Weekly Labs: CBC w/diff, Creatinine, LFTs (Hepatic Function Test) (labs every Tuesday - copy to az) Allergies iodine Allergy (Unknown, Verified 03/26/18 10:44) Swelling potassium iodide Allergy (Unknown, Verified 03/26/18 10:44) Swelling povidone-iodine Allergy (Unknown, Verified 03/26/18 10:44) Swelling sodium iodide Allergy (Unknown, Verified 03/26/18 10:44) Swelling sodium iodide Allergy (Unknown, Verified 03/26/18 10:44) Swelling *MDRO Multi-Drug Resistant Organism Adverse Reaction (Unknown, Uncoded 03/26/18 10:44) n/a 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; 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
--- NOTE | 2018-04-07 09:45 | P.PNID ---
Subjective Remarks: Patient is a 57-year-old male, presented to the hospital for further evaluation of drainage from his right foot amputation site. Patient was in the hospital in February and at that time he had a wound on his right big toe. There was cellulitis, and imaging study showed osteomyelitis of his big toe. He was also found to have peripheral vascular disease, and he underwent right femoropopliteal bypass with PTFE, as well as RCEI endarterectomy and angioplasty. This was done February 17, and he subsequently underwent amputation of the right big toe at the metatarsal joint, and had disarticulation at the joint. The proximal part of the big toe was sent for pathology as the clear margin, and there was no evidence of osteomyelitis. Patient was sent home on oral antibiotics, and he apparently completed 14 days of treatment. Patient was seen in follow-up by the vascular surgeon. Patient has been following up with the hydroelectric plant electrician, and apparently the last time he was seen which was March 20 he had developed drainage at the amputation site. Patient apparently has been homeless for about a month. He has been walking a lot, and he states that he keeps his wound covered. He has now presented back to the hospital for further evaluation and treatment. He is always had swelling on that right foot. He is developed drainage which has worsened and there is an older. He denies any fever chills or sweats. Denies any respiratory, GI or any urinary complaints. Patient has been using the special footwear that he got from the hospital. On presentation he has been afebrile. His WBC is normal. MRI of the right foot is now showing abnormality on the first metatarsal. Infectious disease consultation has been requested to evaluate the patient for possible osteomyelitis. Notes reviewed Afebrile No complaints Had partial ray resection 1st MT 03/29 C/S MSSA from remaining soft tissue Path no osteo on bone; margins clear Xray reviewed No new (+) BC BC with MSSA 03/26 Echo ok No rash or itching No diarrhea Antibiotics: Ancef Lines: PIV Past Medical History: Diabetes Peripheral arterial disease Tobacco abuse History of eye surgery Hx of toe surgery S/P femoral-popliteal bypass surgery Allergies/Adverse Reactions: Allergies iodine Allergy (Unknown, Verified 03/26/18 10:44) Swelling potassium iodide Allergy (Unknown, Verified 03/26/18 10:44) Swelling povidone-iodine Allergy (Unknown, Verified 03/26/18 10:44) Swelling sodium iodide Allergy (Unknown, Verified 03/26/18 10:44) Swelling sodium iodide Allergy (Unknown, Verified 03/26/18 10:44) Swelling *MDRO Multi-Drug Resistant Organism Adverse Reaction (Unknown, Uncoded 03/26/18 10:44) n/a 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; 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 Objective Vital Signs 04/06/18 12:00 04/06/18 16:00 04/06/18 20:00 Temperature 97.6 F 98 F 98.5 F Pulse Rate 71 72 73 Respiratory Rate 18 20 18 Blood Pressure 104/69 112/68 105/69 Pulse Oximetry 95 96 98 04/07/18 00:00 04/07/18 04:00 04/07/18 08:00 Temperature 97.9 F 97.7 F 97.5 F L Pulse Rate 69 78 77 Respiratory Rate 18 18 16 Blood Pressure 108/66 106/65 107/67 Pulse Oximetry 98 97 97 Intake & Output 04/06/18 04/07/18 04/07/18 18:59 06:59 18:59 Intake Total 50 / 50 100 / 100 Balance 50 / 50 100 / 100 Weight 73.5 kg 73.5 kg Intake: IV 50 / 50 100 / 100 Ancef 2 GM Premix Inj 2 gm In 50 / 50 100 / 100 50 ml @ 100 mls/hr IV.SIG Q8H [facility] Rx#:[id number] Other: # Voids 3 Date of Last Bowel Movement 04/06/18 03/29/18 22:54 Wound - Foot Fungal Smear - Final No fungal elements seen 03/29/18 22:54 Wound - Foot Fungal Culture - Preliminary No growth in 1 week 03/29/18 22:54 Wound - Foot Acid Fast Bacilli Smear - Final No acid fast bacilli seen 03/29/18 22:54 Wound - Foot Mycobacterial Culture - Preliminary No growth in 1 week Lab - Chemistry Results 04/05/18 04/05/18 04/05/18 12:20 17:27 19:47 POC Glucose 154 H 126 H 202 H 04/06/18 04/06/18 04/06/18 07:33 11:41 16:52 POC Glucose 134 H 165 H 141 H 04/06/18 04/07/18 19:35 08:03 POC Glucose 219 H 102 Imaging: ITS Impressions Foot MRI 03/26/18 00:00 CONCLUSION: 1. There is osteomyelitis involving the first metatarsal bones diffusely with the exception of the proximal epiphysis and extensive inflammatory process in the surrounding soft tissues. Foot X-Ray 03/29/18 00:00 CONCLUSION: Great toe amputation at the level the mid metatarsal shaft. Physical Exam: GENERAL: awake and alert, NAD SKIN: Cool and dry. No generalized rash. EYES: Abram conjunctiva. No petechia or hemorrhage. No scleral icterus. No injection or drainage. EARS, NOSE AND THROAT: Mucous membranes pink and moist. No oral lesions noted. NECK: Trachea midline. Supple and not tender, no meningeal signs CARDIOVASCULAR: Regular rate and rhythm. No murmurs, rubs or gallops heard RESPIRATORY: Clear to auscultation. Breath sounds equal bilaterally. No rales , wheezing or rhonchi ABDOMEN: Soft, non-tender, nondistended. Bowel sounds present and normoactive. No guarding. No rebound. No organomegaly. EXTREMITIES: No clubbing, cyanosis. No calf tenderness. R foot - has dry intact dressing; no lymphangitis seen in his R leg NEUROLOGICAL: Grossly non-focal. PSYCHIATRIC: Normal affect, calm and cooperative. LINE: No evidence of infection Assessment and Plan (1) Foot ulcer, left Status: Acute Code(s): L97.529 - Non-pressure chronic ulcer of other part of left foot with unspecified severity (2) Staphylococcus aureus bacteremia Status: Acute Code(s): R78.81 - Bacteremia - Plan Impression Staph aureus MSSA sepsis, due to foot infection Infection, amputation site S/P amputation of big toe, has cellulitis and MRI showing osteo of first MT bone PVD, S/P bypass surgery RLE 02/17 DM Recommendation Change Abx to Rocephin Will arrange for Rx at infusion clinic - D/W CM Patient will be staying with his ex- Midline Abx until Apr 18 Labs weekly while on Abx D/C home once arrangements made Explained plan to patient D/W Dr Erwin ([facility])
--- NOTE | 2018-04-07 12:01 | P.PN ---
Subjective Interval history: pain controlled no diarrhea, no fever now states he can fgo home to ho his ex-'s home Physical Exam Vital signs: Vital Signs 04/06/18 12:00 04/06/18 16:00 04/06/18 20:00 Temperature 97.6 F 98 F 98.5 F Pulse Rate 71 72 73 Respiratory Rate 18 20 18 Blood Pressure 104/69 112/68 105/69 Pulse Oximetry 95 96 98 04/07/18 00:00 04/07/18 04:00 04/07/18 08:00 Temperature 97.9 F 97.7 F 97.5 F L Pulse Rate 69 78 77 Respiratory Rate 18 18 16 Blood Pressure 108/66 106/65 107/67 Pulse Oximetry 98 97 97 Intake & Output 04/06/18 04/07/18 04/07/18 18:59 06:59 18:59 Intake Total 50 / 50 100 / 100 Balance 50 / 50 100 / 100 Weight 73.5 kg 73.5 kg Intake: IV 50 / 50 100 / 100 Ancef 2 GM Premix Inj 2 gm In 50 / 50 100 / 100 50 ml @ 100 mls/hr IV.SIG Q8H [facility] Rx#:[id number] Other: # Voids 3 Date of Last Bowel Movement 04/06/18 Narrative: GENERAL: NAD SKIN: Warm and dry. HEENT: Normocephalic. No scleral icterus. No injection or drainage. NECK: Supple, CARDIOVASCULAR: Regular rate and rhythm without murmurs, gallops, or rubs. RESPIRATORY: Breath sounds equal bilaterally. No accessory muscle use. GASTROINTESTINAL: Abdomen soft, non-tender, nondistended. LE_ - foot- post op dressing in place, moves toes freely , n calf tenderness Results - Labs CBC & Chem 7: 03/27/18 04:53 04/04/18 05:55 Laboratory Results - last 24 hr 04/06/18 04/06/18 04/07/18 16:52 19:35 08:03 POC Glucose 141 H 219 H 102 - Procedures Status post right big toe amputation Assessment and Plan - Assessment (1) Foot osteomyelitis, right Code(s): M86.9 - Osteomyelitis, unspecified Status: Acute (2) Diabetes Code(s): E11.9 - Type 2 diabetes mellitus without complications Status: Chronic - Plan 57-year-old man with MSSA sepsis Osteomyelitis of Right foot infection PVD, S/P bypass surgery RLE 02/17 -Status post right big toe amputation 03/29 -currently on Ancef and Cipro per ID. - plan 3-4 weeks IV post surgery -Repeat blood culture negative to date -Podiatry ff- will reconsult them-for post op check/dressing change and instructions last Podiatry notes - keep dressing plan was to ff up on DC in 4-5 days- patient is homeless- but now states he can go home to his ex [facility] home for IV antibiotic - PICC ordered by ID - will ask CM to assist Diabetes Type II HgbA1c 9.9% on 02/2018. -SSI while inpatient. -continue Levemir 10 units HS and adjust regimen- BS gradually improving Smoker -Declined nicotine patch. -Encouraged cessation. Full code. DVT PPX: SCDs, up and ambulating Continue with current treatment Patient- (2) Diabetes Qualifiers: Diabetes mellitus type: type 2 Diabetes mellitus computer terminal operator insulin use: without custodial use Diabetes mellitus complication status: with circulatory complication
[2018-04-07 12:26] LABS: Baso # (Auto) 0.1 th/mm3 (0.0-0.2); Baso % (Auto) 0.7 % (0.0-2.0); Eos # (Auto) 0.3 th/mm3 (0.0-0.4); Eos % (Auto) 3.6 % (0.0-4.0); Hematocrit 41.2 % (39.0-51.0); Hemoglobin 13.6 gm/dL (13.0-17.0); Lymph # (Auto) 2.2 th/mm3 (1.0-4.8); Lymph % (Auto) 28.2 % (9.0-44.0); Mean Corpuscular HGB Conc 33.1 % (32.0-36.0); Mean Corpuscular Hemoglobin 29.4 pg (27.0-34.0); Mean Corpuscular Volume 88.7 fL (80.0-100.0); Mean Platelet Volume 9.3 fL (7.0-11.0); Mono # (Auto) 0.8 th/mm3 (0.0-0.9); Mono % (Auto) 10.4 % (0.0-8.0); Neut # (Auto) 4.4 th/mm3 (1.8-7.7); Neut % (Auto) 57.1 % (16.0-70.0); Platelet Count 273 th/mm3 (150-450); Red Blood Count 4.64 mil/mm3 (4.50-5.90); Red Cell Distribution Width 13.9 % (11.6-17.2); White Blood Count 7.7 th/mm3 (4.0-11.0)
[2018-04-07] MEDS: Senna/Docusate Sodium 8.6/50 MG Tablet PO SCH (12:45)
[2018-04-07 16:27] VITALS: BP 124/84; PULSE 78; RESP 18; TEMP 97.6; O2SAT 99
--- NOTE | 2018-04-08 07:05 | P.DS ---
Date of admission: 03/26/18 17:33 Primary care physician: Magui Russell Anticipated date of discharge: 04/07/18 Brief History from admission: This is a 57 y/o CM with PMHx of DM and PVD who presented to the ED due to drainage of R foot wound with foul smell at the site where his toe was amputated. Patient was just discharged last month after txt for Osteomyelitis of the R foot hallux and was D/C's on Clinda and Levaquin which he completed. Patient denies fever and chills and has been seeing Podiatry as an outpatient. After his last hospitalization patient was fired and was kicked out by his landlord and he is now homeless and has no family. At his last hospitalization he also had a fem-pop bypass with graft on R due to severe PVD. Surgical procedures last admission: 02/17 Right femoral popliteal bypass with PTFE graft, right common femoral, external iliac endarterectomy, and angioplasty. 02/19 Right foot hallux amputation at metatarsophalangeal joint. Left foot debridement and irrigation of medial lateral ulcers. Meds given in ED: Clindamycin IV DS: Diagnosis - Discharge Diagnosis (1) Foot osteomyelitis, right Status: Acute (2) Diabetes Status: Chronic DS: Medications - Discharge Medications Prescriptions: oxycodone-acetaminophen 1 tab PO Q8H PRN #15 tab PRN Reason: pain>6 DS: Summary Hospital Course: 57-year-old man with MSSA sepsis Osteomyelitis of Right foot infection PVD, S/P bypass surgery RLE 02/17 -Status post right big toe amputation 03/29 -currently on Ancef and Cipro per ID. - plan 3-4 weeks IV post surgery -Repeat blood culture negative to date -Podiatry ff- will reconsult them-for post op check/dressing change and instructions last Podiatry notes - keep dressing plan was to ff up on DC in 4-5 days- patient is homeless- but now states he can go home to his ex [facility] home for IV antibiotic - PICC ordered by ID - will ask CM to assist Diabetes Type II HgbA1c 9.9% on 02/2018. -SSI while inpatient. -continue Levemir 10 units HS and adjust regimen- BS gradually improving Smoker -Declined nicotine patch. -Encouraged cessation. - Time Spent with Patient Total time spent providing and/or coordinating discharge services: Less than 30 minutes - Quality: VTE Deep Vein Thrombosis/Pulmonary Embolism Present on Admission: No Exam Vital signs: Vital Signs 04/07/18 08:00 04/07/18 12:00 04/07/18 16:00 Temperature 97.5 F L 97.7 F 97.6 F Pulse Rate 77 85 78 Respiratory Rate 16 16 18 Blood Pressure 107/67 114/77 124/84 Pulse Oximetry 97 97 99 Intake & Output 04/07/18 04/08/18 04/08/18 18:59 06:59 18:59 Intake Total 580 / 580 Output Total 400 / 400 Balance 180 / 180 Weight 73.5 kg Intake: IV 100 / 100 Rocephin Inj 2,000 MG In NS Inj 100 / 100 100 ML @ 200 mls/hr IV.SIG Q24H [facility] Rx#:[id number] Oral 480 / 480 Output: Urine 400 / 400 Other: Date of Last Bowel Movement 04/07/18 Results Procedures completed during hospitalization: Status post right big toe amputation Completed studies during hospitalization: Pending at discharge 03/29/18 09:18 Surgical [PTH] Routine Labs on day of discharge: Labs from last 24 hours 04/07/18 04/07/18 04/07/18 17:41 12:43 10:15 WBC 7.7 RBC 4.64 Hgb 13.6 Hct 41.2 MCV 88.7 MCH 29.4 MCHC 33.1 RDW 13.9 Plt Count 273 D MPV 9.3 Neut % (Auto) 57.1 Lymph % (Auto) 28.2 [place] % (Auto) 10.4 H Eos % (Auto) 3.6 Baso % (Auto) 0.7 Neut # (Auto) 4.4 Lymph # (Auto) 2.2 [place] # (Auto) 0.8 Eos # (Auto) 0.3 Baso # (Auto) 0.1 WBC Differential . Differential Comment Auto diff final POC Glucose 164 H 147 H 04/07/18 08:03 WBC RBC Hgb Hct MCV MCH MCHC RDW Plt Count MPV Neut % (Auto) Lymph % (Auto) [place] % (Auto) Eos % (Auto) Baso % (Auto) Neut # (Auto) Lymph # (Auto) [place] # (Auto) Eos # (Auto) Baso # (Auto) WBC Differential Differential Comment POC Glucose 102 Preliminary micro results at discharge 03/29/18 22:54 Fungal Culture - Preliminary Wound - Foot No growth in 1 week 03/29/18 22:54 Mycobacterial Culture - Preliminary Wound - Foot No growth in 1 week - Impressions ITS Impressions Foot MRI 03/26/18 00:00 CONCLUSION: 1. There is osteomyelitis involving the first metatarsal bones diffusely with the exception of the proximal epiphysis and extensive inflammatory process in the surrounding soft tissues. Foot X-Ray 03/29/18 00:00 CONCLUSION: Great toe amputation at the level the mid metatarsal shaft. Discharge Plan - Discharge Disposition Patient Disposition: Discharge Home - Discharge Condition Condition: Stable - Discharge Order Discharge Orders: Discharge Order (Routine); Ordered 04/07/18 Ordered By: Maite Erwin - Discharge Details Anticipated Discharge Date: 04/07/18 - Physicians Team Primary Care Provider: Magui Russell, Attending Provider: Maite Erwin Other Providers: Shannon Mi DPM ; Emily Andujar MD ; Reina Carbajal DPM
== END 2018-04-07 19:05 | disposition home or self-care (01) ==
LOC: NEPD 10:23 → INTOOBSV 14:23 → NEDA 14:23 → N05 17:46
PROVIDERS: ADMIT Internal Medicine; ATTEND Internal Medicine